=== PATIENT | male | born 1940 | race Caucasian/White ===

== ENCOUNTER → 2017-09-13 13:08 | Outpatient (CLI) | payer MEDICARE, SELFPAY ==
[2017-08-17 14:42] VITALS: BP 110/62; BMI 27.1
--- NOTE | 2017-09-13 15:25 | RAD_ITS ---
STUDY: X-RAY CHEST REASON FOR EXAM: Male, 77 years old. Shortness of breath TECHNIQUE: PA and lateral views of the chest. COMPARISON: 10/31/2016 FINDINGS: All mild hyperexpansion of the lungs. Coarsened prominence of interstitial lung markings at the lung bases, unchanged. No new confluent airspace opacity. No pleural effusion. No pneumothorax. Normal size heart. Median sternotomy wires and coronary artery bypass graft clips in place. Left subclavian AICD device in place. Normal mediastinum and evan. Normal visualized pulmonary arteries. There is atherosclerotic calcification of the aortic arch . There are diffuse degenerative changes of the visualized thoracic spine. Normal visualized ribs, clavicles, and shoulders. There is no demonstrated abnormality of the visualized soft tissue structures of the upper abdomen. RAD/Chest PA and Lateral IMPRESSION: Chronic obstructive and bibasilar interstitial change with no evidence of acute cardiopulmonary disease. Electronically Signed: Phil Grayson MD at 3:55 EST Tel , Service support ,
[2017-09-13 16:00] LABS: Anion Gap 11 (5-15); BUN 23 mg/dL (7-18); BUN/Creat Ratio 29.8 RATIO (10-20); Calcium,Total 10.1 mg/dL (8.5-10.1); Chloride 100 mmol/L (98-107); Creatinine, Serum 0.77 mg/dL (0.70-1.30); EST Glomerular Filtration Rate 104 mL/min (>60); Est Glom Filt Rate - Afr Amer 126 mL/min (>60); Glucose 106 mg/dL (74-106); Sodium Level 135 mmol/L (136-145)
[2017-09-13 16:07] LABS: Prothrombin Time (Protime)PT. 13.4 SECONDS (11.7-14.9)
[2017-09-13 16:08] LABS: Partial Thromboplast Time 32.7 Seconds (24.1-36.2)
[2017-09-13 16:09] LABS: Absolute Lymphocyte Count 1.82 X10^3/ul (0.83-4.51); Absolute Neutrophil Count 5.8 X10^3/uL (2.0-7.7); Basophil# 0.03 X10^3/uL; Basophil% 0.3 % (0-1); Eosinophil# 0.31 X10^3/uL; Eosinophils% 3.2 % (0-5); Hematocrit 41.3 % (40-54); Hemoglobin 13.8 g/dl (13.0-16.5); Lymphocyte # 1.82 X10^3/ul (4.0); Lymphocyte % 18.8 % (19-41); Mean Corp Hgb Conc 33.4 g/gl (32-36); Mean Corpuscular Hgb 29.6 pg (27.0-32.0); Mean Corpuscular Volume 88.6 fL (80-94); Mean Platelet Vol. 10.1 fl (6.2-12.0); Monocyte# 1.51 X10^3/uL; Monocyte% 15.6 % (0-10); Neutrophil # 5.84 X10^3/uL (2.7-7.7); Neutrophil % 60.3 % (47-70); Platelet Count 167 K/mm3 (150-450); RBC Distribution Width CV 13.4 % (11.6-14.6); RBC Distribution Width SD 43.2 fl (35.1-43.9); Red Blood Count 4.66 M/mm3 (4.6-6.2); White Blood Count 9.7 K/mm3 (4.4-11.0)
[2017-09-13 16:18] LABS: Differential Indicated SCAN CRITERIA MET; POSITIVE COUNT NO; POSITIVE DIFFERENTIAL YES; POSITIVE MORPHOLOGY NO
[2017-09-13 17:00] LABS: Differential Comment SCANNED
== END ==
PROVIDERS: Physician Assistant Medical; Family Provider Family Medicine Geriatric Medicine; PCP Family Medicine Geriatric Medicine; Visit Provider Internal Medicine Cardiovascular Disease
DX: I25.10 Atherosclerotic heart disease of native coronary artery without angina pectoris (principal); I25.5 Ischemic cardiomyopathy; R06.00 Dyspnea, unspecified; R94.39 Abnormal result of other cardiovascular function study; I10 Essential (primary) hypertension; Z95.1 Presence of aortocoronary bypass graft; Z95.810 Presence of automatic (implantable) cardiac defibrillator; Z95.5 Presence of coronary angioplasty implant and graft
CPT/HCPCS: 71046; 80048; 85025; 85610; 85730; 93017; 93350; Q9957; A4216; C8928

== ENCOUNTER → 2017-09-15 08:41 | Day surgery (SDC) | payer MEDICARE, SELFPAY ==
[2017-09-13 15:44] VITALS: BMI 27.1
--- NOTE | 2017-09-15 11:10 | CL.D_ITS ---
Patient Name: ELLEN DILLARD Study Date: 09/15/2017 Performing: Phill Torres MD Ht: 66.92 inches 170 cm : 1940 Wt: 171.96 lbs 78 kg Age: 77 Gender: male BSA: 1.89 PROCEDURE(S) PERFORMED NJ21-LTI/COR/LV/CABG CLINICAL PROFILE AND INDICATIONS INDICATIONS: Unstable Angina Stress/Imaging Stress Echocardiogram: Yes Result: Positive Intermediate RiskStress Echocardiogram : Positive Intermediate Risk Angina Classification Anginal Classification w/in 2 Weeks: CCS II CAD Presentations: Other: CERON, back pain Comorbidities/Risk Factors: Hypertension Dyslipidemia Prior AL Prior CHF Prior PCI Prior CABG CONCLUSIONS Global LV systolic dysfunction- Severe Severe multi-vessel CAD. Widely patent SVG to DIAG/LAD. Widely patent Radial to RCA. Widely patent SAENZ to OM Possibly significant proximal LCX in stent restenosis. Moderate proximal LCX calcification. RECOMMENDATIONS Will obtain PCI from [place] from 2008 to determine if end result at that time was similar to today's LCX stent. IF so will treat medically. If not, will consider moderate risk PCI of proximal LCX ISR . Pt will need long 55 cm sheath due to severe aorto iliac tortuosity. Manual sheath removal. DESCRIPTION OF PROCEDURE The patient arrived to the procedure lab. The risks and benefits of the procedure as well as a full d escription of our services here and current unavailability of surgical backup were fully explained to the patient and/or their significant other prior to the catheterization. The Timeout was completed, verifying the correct patient and procedure. The patient's procedural site was prepped and draped in the usual fashion. Local anesthetic was given subcutaneously to right groin region with Lidocaine 2%. Using a modified Seldinger technique, arterial access was obtained via the right femoral artery, a 5 Fr , 45cm sheath was inserted Left Coronary Artery selective angiography was performed in multiple v iews using a 4 Fr. JL5 catheter. Right Coronary Artery selective angiography was then performed in mu ltiple views using a 4 Fr. 3DRC catheter. Left Ventriculography was performed in WOLFE projection using a 4 Fr. Pigtail catheter. LV to AO pullback pressures were then recorded.The arterial sheath was pul led and manual compression applied until hemostasis is achieved. CORONARY ANGIOGRAPHY DOMINANCE: Right Dominant LEFT HEART ASSESSMENT Left Ventricular Ejection Fraction: by LV Gram 15 % Depressed Left Ventricular systolic function Normal Left Ventricular End Diastolic Pressure LEFT MAIN: 20 ostial % Stenosis LEFT ANTERIOR DECENDING ARTERY: is occluded CIRCUMFLEX ARTERY: PROX CIRC: Previously placed stent has an instent 65 % restenosis RIGHT CORONARY ARTERY: is occluded GRAFTS: SAENZ graft to the 1st OM is patent Saphenous Vein graft to the 1st Diagonal is patent Radial graft to the RCA is patent COMPLICATIONS No Complications PROCEDURE MEDICATIONS Oxygen: 2 L/min via nasal cannula SUMMARY OF HEMODYNAMIC DATA Time AIR REST ECG 09:10:58 AO 123/63 (88) SA 10:36:51 LV 150/-16, 7 10:54:45 LV 139/-15, 12 10:54:54 LVp 138/-17, 11 10:54:59 AOp 134/52 (81) 10:55:04 Signed By Phill Torres MD On 09/15/2017 11:10:26 Phill Torres MD
== END ==
PROVIDERS: Family Provider Family Medicine Geriatric Medicine; PCP Family Medicine Geriatric Medicine; Visit Provider Internal Medicine Cardiovascular Disease
DX: I25.10 Atherosclerotic heart disease of native coronary artery without angina pectoris (principal); I10 Essential (primary) hypertension; E78.5 Hyperlipidemia, unspecified; I25.5 Ischemic cardiomyopathy; I50.9 Heart failure, unspecified; R01.1 Cardiac murmur, unspecified; Z87.438 Personal history of other diseases of male genital organs; K21.9 Gastro-esophageal reflux disease without esophagitis; I25.2 Old myocardial infarction; I47.2 Ventricular tachycardia; E11.9 Type 2 diabetes mellitus without complications; Z87.891 Personal history of nicotine dependence; Z95.1 Presence of aortocoronary bypass graft; Z95.810 Presence of automatic (implantable) cardiac defibrillator; Z90.49 Acquired absence of other specified parts of digestive tract; Z79.82 Long term (current) use of aspirin; Z79.84 Long term (current) use of oral hypoglycemic drugs; Z79.02 Long term (current) use of antithrombotics/antiplatelets; Z79.899 Other long term (current) drug therapy
CPT/HCPCS: 93459; J7040; C1769; C1894; Q9967

== ENCOUNTER → 2017-10-17 15:10 | Outpatient (CLI) | payer MEDICARE, SELFPAY ==
[2017-10-17 15:42] LABS: Absolute Lymphocyte Count 1.38 X10^3/ul (0.83-4.51); Basophil# 0.05 X10^3/uL; Basophil% 0.6 % (0-1); Eosinophil# 0.26 X10^3/uL; Eosinophils% 3.3 % (0-5); Hematocrit 42.4 % (40-54); Hemoglobin 13.5 g/dl (13.0-16.5); Lymphocyte # 1.38 X10^3/ul (4.0); Lymphocyte % 17.4 % (19-41); Mean Corp Hgb Conc 31.8 g/gl (32-36); Mean Corpuscular Hgb 28.5 pg (27.0-32.0); Mean Corpuscular Volume 89.5 fL (80-94); Mean Platelet Vol. 9.9 fl (6.2-12.0); Monocyte# 1.17 X10^3/uL; Monocyte% 14.8 % (0-10); Neutrophil % 63.1 % (47-70); Platelet Count 181 K/mm3 (150-450); RBC Distribution Width CV 13.8 % (11.6-14.6); RBC Distribution Width SD 45.4 fl (35.1-43.9); Red Blood Count 4.74 M/mm3 (4.6-6.2); White Blood Count 7.9 K/mm3 (4.4-11.0)
[2017-10-17 15:46] LABS: International Normalized Ratio 1.1; Prothrombin Time (Protime)PT. 14.2 SECONDS (11.7-14.9)
[2017-10-17 15:51] LABS: POSITIVE COUNT NO; POSITIVE DIFFERENTIAL NO; POSITIVE MORPHOLOGY NO
[2017-10-17 16:18] LABS: Anion Gap 3 (5-15); BUN 29 mg/dL (7-18); BUN/Creat Ratio 30.8 RATIO (10-20); Calcium,Total 9.5 mg/dL (8.5-10.1); Chloride 103 mmol/L (98-107); Creatinine, Serum 0.94 mg/dL (0.70-1.30); EST Glomerular Filtration Rate 83 mL/min (>60); Est Glom Filt Rate - Afr Amer 100 mL/min (>60); Glucose 152 mg/dL (74-106); Sodium Level 139 mmol/L (136-145)
== END ==
PROVIDERS: Nurse Practitioner Family; Family Provider Family Medicine Geriatric Medicine; PCP Family Medicine Geriatric Medicine; Visit Provider Family Medicine Geriatric Medicine
DX: I25.10 Atherosclerotic heart disease of native coronary artery without angina pectoris (principal); I25.5 Ischemic cardiomyopathy; Z95.5 Presence of coronary angioplasty implant and graft; Z95.1 Presence of aortocoronary bypass graft; Z95.810 Presence of automatic (implantable) cardiac defibrillator; I10 Essential (primary) hypertension; E78.5 Hyperlipidemia, unspecified; R94.39 Abnormal result of other cardiovascular function study
CPT/HCPCS: 36415; 80048; 85025; 85610

== ENCOUNTER 2017-10-25 08:26 | Day surgery (SDC) | payer MEDICARE, SELFPAY ==
[2017-10-24 09:21] VITALS: BMI 26.6
[2017-10-25] VITALS (31 sets, daily range): BP systolic 102–166; BP diastolic 40–104; PULSE 60–74; RESP 12–25; TEMP 36.6–36.9; O2SAT 92–98; BMI 26.4; BMI 26.6
[2017-10-25 10:51] LABS: ACT Activated Clotting Time 197 sec (74-137)
--- NOTE | 2017-10-25 10:58 | CL.I_ITS ---
Patient Name: ELLEN DILLARD Study Date: 10/25/2017 Performing: Phill Torres MD Ht: 67 inches 170 cm : 1940 Wt: 170 lbs 77 kg Age: 77 Gender: male BSA: 1.88 PROCEDURE(S) PERFORMED JE33-OMK W OR WO PTCA, SINGLE CORONARY ARTERY CLINICAL PROFILE AND CO-MORBIDITIES Indications: New Onset Angina <= 2 months, Stable Known CAD, Cardiac Arrythmia, Cardiomyopathy, L V Dysfunction Heart Failure: NYHA Class: 2, NYHA Class: 3, Heart Failure Type: Systolic Stress/Imaging Stress Echocardiogram: Yes Result: Positive High Risk Stress Echocardiogram: Posit sherrie High Risk Angina Classification Anginal Classification w/in 2 Weeks: CCS II CAD Presentations: Stable angina. Comorbidities/Risk Factors: Hypertension Dyslipidemia Diabetes Mellitus: Diabetes Therapy: Oral Prior CHF Prior PCI Prior CABG CONCLUSIONS Successful PTCA/MIGDALIA of the of proximal LCX ISR utilizing a long 55 cm sheath for ileo-femoral tortuos ity, followed by Angiosculpt pre-dilation with a 2.0 x 10 Angiosculpt, followed by a 2.5 x 16 Promus Synergy, post dilated with a 2.75 and 3.0 NC balloon. Cautious post stent dilation of ostium given c oncentric calcification noted. 85%-->0%, No dissection. Pt had reproducible chest pressure radiating to jaw with each balloon inflation. RECOMMENDATIONS Highly recommend quitting all tobacco products Follow up with primary body piercer Risk factor modification ASA Indefinitley Plavix for at least 12 months Routine post interventional care Refer for Outpatient Cardiac Rehab Manual sheath removal per protocol Follow up with Dr. Torres DESCRIPTION OF PROCEDURE The patient arrived to the procedure lab. The risks and benefits of the procedure as well as a full d escription of our services here and current unavailability of surgical backup were fully explained to the patient and/or their significant other prior to the catheterization. The Timeout was completed, verifying the correct patient and procedure. The patient's procedural site was prepped and draped in the usual fashion. Local anesthetic was given subcutaneously to right groin region with Lidocaine 2%. Using a modified Seldinger technique, arterial access was obtained via the right femoral artery, a 6 Fr sheath was inserted.. Arterial sheath was exchanged for a 6fr 45cm sheath ebu 3.75 Guide catheter was inserted and engaged into the LCA. bmw Guide wire was advanced to the Circumflex. 2.0 x 12 emerge Balloon catheter was ins erted. PTCA balloon inflated at 10 atms for 15 secs PTCA balloon inflated at 10 atms for 15 secs joan osculpt 10x2 Balloon catheter was inserted. Angiogram performed post balloon dilatation. 2.5x 16 syne rgy Drug Eluting stent was inserted 2.75 x 8 nc emerge Balloon catheter was inserted. 3.0x 8 nc emerg e Balloon catheter was inserted. Arterial sheath was exchanged for a 6 Fr Sheath 45 cm exchanged to t he 11 cm. . The arterial sheath was sutured in place and capped. INTERVENTION INFORMATION LESION SITE: Circumflex (Proximal) Lesion Complexity: Non-High/Non-C, lesion at bifurcation: No, thrombus present: No, lesion length: 16 mm, culprit lesion: Yes, In-stent restenosis: Yes Pre Stenosis: 85 % Pre intervention GOPAL flow: 3 PROCEDURE: Drug Eluting Stent with pre and post dilatation Post Stenosis: 0 % Post intervention GOPAL flow: 3 Lesion Devices: Charly Sci EMERGE MR 2.00x12 BALLOON Mindmancer Angiosculpt RX 2.0x10 Scoring Balloon Charly Sci Synergy MR MIGDALIA 2.50x16 Charly Sci NC EMERGE MR 2.75x08 BALLOON Charly Sci NC EMERGE MR 3.00x08 BALLOON COMPLICATIONS No Complications PROCEDURE MEDICATIONS Oxygen: 2 L/min via nasal cannula Heparin 6000 unit(s) IV 10/25/2017 10:04:11 Nitro 200 mcg IC 10/25/2017 10:22:53 IV Bolus: .9 NaCl 450ml total 10/25/2017 10:04:41 SUMMARY OF HEMODYNAMIC DATA Time AIR REST ECG 08:45:44 AO 118/42 (72) SA 10:06:26 Signed By Phill Torres MD On 11/01/2017 09:08:41 Signed By Phill Torres MD On 10/25/2017 10:57:48 Phill Torres MD
--- NOTE | 2017-10-25 11:00 | EKG12_ITS ---
Test Reason : POST CATH Blood Pressure : / mmHG Vent. Rate : 065 BPM Atrial Rate : 065 BPM P-R Int : 266 ms QRS Dur : 140 ms QT Int : 332 ms P-R-T Axes : 057 020 -52 degrees QTc Int : 345 ms Sinus rhythm with 1st degree A-V block Non-specific intra-ventricular conduction block Abnormal ECG Confirmed by JHONNY RIVERA, PERICO ([id number]), acquisition editor EVA ANDREW ([id number]) on 10/27/2017 1:34:58 PM Referred By: Phill Torres Confirmed By:PERICO BARRY MD
[2017-10-25 11:21] LABS: Bedside Glucose 125 mg/dL (70-110)
[2017-10-25] MEDS: 0.9% Normal Saline 1,000 ML 75 ML IV (11:26)
[2017-10-25 11:35] LABS: Hematocrit 36.8 % (40-54); Hemoglobin 12.3 g/dl (13.0-16.5); Mean Corp Hgb Conc 33.4 g/gl (32-36); Mean Corpuscular Hgb 29.4 pg (27.0-32.0); Mean Corpuscular Volume 87.8 fL (80-94); Mean Platelet Vol. 9.8 fl (6.2-12.0); Platelet Count 141 K/mm3 (150-450); RBC Distribution Width CV 13.4 % (11.6-14.6); RBC Distribution Width SD 42.4 fl (35.1-43.9); Red Blood Count 4.19 M/mm3 (4.6-6.2)
[2017-10-25 11:36] LABS: Scan Indicated on CBC? Y/N NO
[2017-10-25 11:50] LABS: CPK Total, Creatine Kinase 59 U/L (39-308)
[2017-10-25 13:20] LABS: ACT Activated Clotting Time 136 sec (74-137)
[2017-10-25 13:25] LABS: M R Staph aureus DNA By PCR Negative (Negative); Probe Check PASS; Specimen Processing Control PASS
--- NOTE | 2017-10-25 15:13 | CRPHASE1 ---
Patient Data/Charges Process Tank Tender:: Phill Torres Phase I Charge:: Level I - Education Risk Factors/Lifestyle Smoking Status: Former smoker Hx Diabetes Mellitus Type 2: No Height: 1.7 m Weight:: 77.111 kg BMI: 26.6 Risk Factor for Sedentary Lifestyle: Lowest Risk Family History: Family History (Last Reviewed 10/17/17 @ 13:45 by Mely Benton) Father CAD (coronary artery disease) Mother CAD (coronary artery disease) Brother CAD (coronary artery disease) Past Cardiac Illness: Coronary Artery Disease, Previous PCI w/Stent, Coronary Artery Bypass Graft Phase I Education Given On:: [place], Nutrition, Antiplatelet medication, CHF Issues Affecting Care:: None Knowledge of Condition:: Yes Hospital Course Presenting Symptoms:: LIGHTHEADEDNESS/DIZZY Grafts:: 1996 Medical/Surgical History CA:: Yes Angina:: Yes CAD:: Yes Pulmonary:: No COPD:: No Asthma:: No Hypertension:: Yes Dyslipidemia:: Yes Arthritis:: No GI:: No Anxiety:: No CABG: Yes PTCA:: Yes Discharge/Home/Social Eval Discharge Disposition: Home Marital Status: -
--- NOTE | 2017-10-25 15:18 | CRPHASE1_ITS ---
Patient Data/Charges Senior Research Scientist:: Phill Torres Phase I Charge:: Level I - Education Risk Factors/Lifestyle Smoking Status: Former smoker Hx Diabetes Mellitus Type 2: No Height: 1.7 m Weight:: 77.111 kg BMI: 26.6 Risk Factor for Sedentary Lifestyle: Lowest Risk Family History: Family History (Last Reviewed 10/17/17 @ 13:45 by Mely Benton) Father CAD (coronary artery disease) Mother CAD (coronary artery disease) Brother CAD (coronary artery disease) Past Cardiac Illness: Coronary Artery Disease, Previous PCI w/Stent, Coronary Artery Bypass Graft Phase I Education Given On:: [place], Nutrition, Antiplatelet medication, CHF Issues Affecting Care:: None Knowledge of Condition:: Yes Hospital Course Presenting Symptoms:: LIGHTHEADEDNESS/DIZZY Grafts:: 1996 Medical/Surgical History CO:: Yes Angina:: Yes CAD:: Yes Pulmonary:: No COPD:: No Asthma:: No Hypertension:: Yes Dyslipidemia:: Yes Arthritis:: No GI:: No Anxiety:: No CABG: Yes PTCA:: Yes Discharge/Home/Social Eval Discharge Disposition: Home Marital Status: -
--- NOTE | 2017-10-25 15:20 | CRPH1.INST_ITS ---
General Education CAD and cardiac anatomy and function:: Patient communicates acknowledgment, Family communicates acknowledgment Explanation of diagnoses and procedures:: Patient communicates acknowledgment, Family communicates acknowledgment Sign/Symptoms of AR:: Patient communicates acknowledgment, Family communicates acknowledgment Antiplatelet therapy: Patient communicates acknowledgment, Family communicates acknowledgment Proper use of NTG-SL: Patient communicates acknowledgment, Family communicates acknowledgment Emergency procedures and activation of EMS: Patient communicates acknowledgment , Family communicates acknowledgment Compliance of all prescribed medications: Patient communicates acknowledgment, Family communicates acknowledgment Smoking Patient Nicotine/Smoking Risk Factors Are:: Non-smoker Dyslipidemia Recommendations Include:: Lipid profile not available Overweight/Obesity Patient Overweight/Obesity Risk Factors Are:: Overweight = 26-29 Hypertension Recommendations Include:: Maintain BP <130/85 Hypertension:: Patient communicates acknowledgment, Family communicates acknowledgment Heart Disease Patient Heart Disease Risk Factors Are:: Family history of heart disease < 65 years old, Previous cardiac event Recommendations Include:: Educated family members of their risk Heart Disease Response Code:: Patient communicates acknowledgment, Family communicates acknowledgment Diabetes Patient Diabetes Risk Factors Are:: No documented hx of diabetes Metabolic Syndrome Recommendations Include:: Does not meet criteria Sedentary Sedentary Response Code:: Patient communicates acknowledgment, Family communicates acknowledgment - PATIENTS STATES VERY ACTIVE Stress Patient Stress Risk Factors Are:: Patient denies stress as a risk factor
[2017-10-25 16:45] LABS: Bedside Glucose 182 mg/dL (70-110)
[2017-10-25 17:06] LABS: Hematocrit 37.7 % (40-54); Hemoglobin 12.5 g/dl (13.0-16.5); Mean Corp Hgb Conc 33.2 g/gl (32-36); Mean Corpuscular Hgb 29.1 pg (27.0-32.0); Mean Corpuscular Volume 87.9 fL (80-94); Platelet Count 143 K/mm3 (150-450); RBC Distribution Width CV 13.5 % (11.6-14.6); RBC Distribution Width SD 42.4 fl (35.1-43.9); Red Blood Count 4.29 M/mm3 (4.6-6.2); Scan Indicated on CBC? Y/N NO; White Blood Count 8.3 K/mm3 (4.4-11.0)
[2017-10-25 17:18] LABS: CPK Total, Creatine Kinase 53 U/L (39-308)
[2017-10-25] MEDS: Lisinopril 20 MG Tablet PO (21:56)
[2017-10-25] MEDS: Atorvastatin Calcium 80 MG Tablet PO (21:56)
[2017-10-25] MEDS: Metoprolol Tartrate 50 MG Tablet PO (21:56)
[2017-10-25] MEDS: hydroCHLOROthiazide 25 MG Tablet PO (21:56)
[2017-10-25 22:00] LABS: Bedside Glucose 125 mg/dL (70-110)
[2017-10-25 22:32] LABS: Hematocrit 38.7 % (40-54); Hemoglobin 12.6 g/dl (13.0-16.5); Mean Corp Hgb Conc 32.6 g/gl (32-36); Mean Corpuscular Hgb 28.6 pg (27.0-32.0); Mean Platelet Vol. 9.5 fl (6.2-12.0); Platelet Count 133 K/mm3 (150-450); RBC Distribution Width CV 13.5 % (11.6-14.6); RBC Distribution Width SD 43.1 fl (35.1-43.9); White Blood Count 9.7 K/mm3 (4.4-11.0)
[2017-10-25 22:33] LABS: Scan Indicated on CBC? Y/N NO
[2017-10-25 22:49] LABS: CPK Total, Creatine Kinase 54 U/L (39-308)
[2017-10-26] VITALS (14 sets, daily range): BP systolic 110–164; BP diastolic 36–91; PULSE 60–86; RESP 13–22; TEMP 36.4–37.1; O2SAT 95–97
[2017-10-26 05:04] LABS: Hematocrit 39.1 % (40-54); Hemoglobin 13.2 g/dl (13.0-16.5); Mean Corp Hgb Conc 33.8 g/gl (32-36); Mean Corpuscular Hgb 29.6 pg (27.0-32.0); Mean Corpuscular Volume 87.7 fL (80-94); Mean Platelet Vol. 9.6 fl (6.2-12.0); Platelet Count 138 K/mm3 (150-450); RBC Distribution Width CV 13.4 % (11.6-14.6); RBC Distribution Width SD 42.4 fl (35.1-43.9); Red Blood Count 4.46 M/mm3 (4.6-6.2); White Blood Count 10.3 K/mm3 (4.4-11.0)
[2017-10-26 05:07] LABS: Scan Indicated on CBC? Y/N NO
[2017-10-26 05:29] LABS: Anion Gap 9 (5-15); BUN 17 mg/dL (7-18); BUN/Creat Ratio 22.5 RATIO (10-20); Calcium,Total 9.3 mg/dL (8.5-10.1); Chloride 104 mmol/L (98-107); Cholesterol 94 mg/dL (200); Creatinine, Serum 0.76 mg/dL (0.70-1.30); EST Glomerular Filtration Rate 106 mL/min (>60); Est Glom Filt Rate - Afr Amer 129 mL/min (>60); Estimated Creatinine Clearance 57.42 ml/min; Glucose 113 mg/dL (74-106); High Density Lipoprotein 26 mg/dL; Potassium 3.9 mmol/L (3.5-5.1); Sodium Level 140 mmol/L (136-145); Triglycerides 223 mg/dL; Very Low Density Lipoprotein 45 mg/dL (5-40)
--- NOTE | 2017-10-26 05:55 | EKG12_ITS ---
Test Reason : AM Blood Pressure : / mmHG Vent. Rate : 061 BPM Atrial Rate : 061 BPM P-R Int : 248 ms QRS Dur : 138 ms QT Int : 346 ms P-R-T Axes : 063 032 -36 degrees QTc Int : 348 ms Atrial-paced rhythm with prolonged AV conduction Non-specific intra-ventricular conduction block Abnormal ECG Confirmed by JHONNY RIVERA, PERICO ([id number]), editorial director EVA ANDREW ([id number]) on 10/27/2017 1:33:38 PM Referred By: Phill Torres Confirmed By:PERICO BARRY MD
[2017-10-26 07:55] LABS: Bedside Glucose 115 mg/dL (70-110)
--- NOTE | 2017-10-26 08:37 | DCINST_ITS ---
Discharge Diet: Low fat/ Low Cholesterol May shower in (days): 1 Lifting Restrictions: 10 pounds and also avoid any pushing or pulling for 3 days after your test. Call your doctor if your incision/area has: Continuous Slow Oozing, Sudden Increased Bleeding, Increased Pain/ Swelling, Increased Redness, Foul Smelling Discharge, Swelling at the incision site Call your doctor if you observe: Fever of 101 or Higher, Shortness of breath, Chest pain Remove Dressing in (days):: 1 Cleanse incision/area with: Soap & Water Additional Dressing/Incision Instructions:: Keep the dressing (bandage) on until the next morning. You may then shower, but do not take a tub bath for 5 days after your test. It is normal to have some tenderness and discomfort at the puncture site. Sometimes bruising also occurs. However, if pain, numbness, or coldness occurs below the puncture site (in your leg, toes, arms or fingers) call your doctor at once. You may have a small, marble sized knot at the puncture site. This is normal. Do not rub it. It will go away in 4-6 weeks. Bleeding can occur from the area where the puncture was done. Blood may spurt or drip from the site. If blood spurts, apply pressure right away to stop bleeding and call 911. Although rare, bleeding into the tissue (hematoma) can also occur. If this happens, a large, firm area goose egg under the skin will appear. If any of these occur, lie down as flat as you can and have someone apply firm pressure to the cath site with a gauze pad or a clean washcloth for 10-15 minutes. Call 911 or go to the Emergency Department. Additional Instructions: You will need to stay on your Plavix for at lease 1 year prior to stopping it. After your OV we will refer you to cardiac rehab. Allergies/Adverse Reactions: Allergies codeine Allergy (Verified 10/24/17 09:22) Other Medications to take at Discharge Clopidogrel Bisulfate [Plavix] 75 mg PO DAILY 11/04/14 Digoxin [Lanoxin] 0.25 mg PO DAILY 11/04/14 Lisinopril/Hydrochlorothiazide [Zestoretic 20/25 Tablet] 1 tab PO BID 11/04/14 Nitroglycerin [Nitrostat] 0.4 mg SUBLINGUAL Q5M PRN 11/04/14 Aspirin 81 mg PO DAILY 11/10/16 Atorvastatin Calcium [Lipitor] 80 mg PO DAILY 11/10/16 metoprolol tartrate 50 mg tablet 50 mg PO BID 08/16/17 famotidine 40 mg tablet 40 mg PO QDAY tab 08/17/17 metformin 500 mg tablet 500 mg PO QDAY tab 08/17/17 Primary Care Physician: Lazarus Garcia Chi, MD [Primary Care Provider] - Please follow up with your Primary Care Physician in: 4 weeks Please Follow Up With: Reece Contreras NP-C When: 11/28/2017 at 2:30pm Cardiac Rehabilitation Info Cardiac Rehabilitation Program Information: Cardiac Rehabilitation is important for patients like you who are recovering from a heart problem. Cardiac rehabilitation programs are recognized as integral to the continued care of the patient with coronary heart disease. The cardiac rehabilitation program is designed to optimize a patient's physical, psychological, and social functioning. Health acute care clinical nurse specialist work in cardiac rehabilitation programs and assist you with getting the treatments you need to get stronger and healthier - like exercise, healthy eating habits, and medications. Cardiac rehabilitation has been show to help people with heart problems live longer and have better life enjoyment than people who do not go to cardiac rehabilitation. Please contact the Cardiac Rehabilitation Program at [facility] at in two weeks if you have not heard from them.
--- NOTE | 2017-10-26 08:50 | PCM.PN.CARD ---
Subjectve: Patient doing very well this morning, no 24 hour events. Telemetry shows normal sinus rhythm with occasional paced ventricular beats. CKs are negative. Right groin is clean/dry/intact, without evidence of thrills, bruits or hematoma. Hemoglobin and creatinine are within nominal limits. No chest pain overnight. Fact, patient feels much better than when he came in. Objective: Vital Signs Temp Pulse Resp BP Pulse Ox 97.6 F L 61 13 123/46 H 97 10/26/17 08:00 10/26/17 08:00 10/26/17 08:00 10/26/17 08:00 10/26/17 08:00 Oxygen Flow Rate (L/min) 2 Oxygen Delivery Method Room Air Weight: 142 lb 6.698 oz Body Mass Index (BMI) 26.4 Intake and Output for Last 24 Hours 10/24/17 10/25/17 10/26/17 23:59 23:59 23:59 Intake Total 832 / 832 1491.7 / 1491.7 Output Total 850 / 850 2150 / 2150 Balance - / -18 -658.3 / -658.3 General: Awake, Alert, Oriented x 3 HEENT: PERRL, EOMI, Sclera Non Icteric Neck: Supple, Good ROM, No Lymph Node Enlargement Lungs: Clear to auscultation Cardiovascular: Regular Rhythm, Normal S1, Normal S2, No Murmurs, No Rubs, No Gallops Vascular: No Carotid Bruits, Normal Femoral Pulses, Normal Radial Pulses, Normal Dorsalis Pedal Pulse, Normal Posterior Tibial Pulses Abdomen: Bowel Sounds Present, Soft, Non Tender, No HSM, No Organomegaly Extremities: No Cyanosis, No Clubbing, No edema Neurological: No Focal Motor or Sensory Deficit 10/25/17 11:20: WBC 8.0, RBC 4.19 L, Hgb 12.3 L, Hct 36.8 L, MCV 87.8, MCH 29.4, MCHC 33.4, RDW 13.4, RDW Differential 42.4, Plt Count 141 L, MPV 9.8 10/25/17 16:35: WBC 8.3, RBC 4.29 L, Hgb 12.5 L, Hct 37.7 L, MCV 87.9, MCH 29.1, MCHC 33.2, RDW 13.5, RDW Differential 42.4, Plt Count 143 L, MPV 10.0 10/25/17 22:20: WBC 9.7, RBC 4.40 L, Hgb 12.6 L, Hct 38.7 L, MCV 88.0, MCH 28.6, MCHC 32.6, RDW 13.5, RDW Differential 43.1, Plt Count 133 L, MPV 9.5 10/26/17 04:55: WBC 10.3, RBC 4.46 L, Hgb 13.2, Hct 39.1 L, MCV 87.7, MCH 29.6, MCHC 33.8, RDW 13.4, RDW Differential 42.4, Plt Count 138 L, MPV 9.6 10/26/17 04:55: Sodium 140, Potassium 3.9, Chloride 104, Carbon Dioxide 27.0, Anion Gap 9, BUN 17, Creatinine 0.76, Est GFR (MDRD) Af Amer 129, Est GFR (MDRD) Non-Af 106, BUN/Creatinine Ratio 22.5 H, Glucose 113 H, Calcium 9.3, Triglycerides 223 H, Cholesterol 94, LDL Cholesterol 23, VLDL Cholesterol 45 H, HDL Cholesterol 26 L Rhythm: EKG: Normal sinus rhythm, no acute changes. ECHO: Stress Test: Cardiac Cath: PCI: CT Surgery: Holter monitor: EPS: PPM: CXR: Chest CT Scan: Medical Necessity - Tobacco Use Smoking Status: Former smoker Assessment/Plan 1. Coronary artery disease: The patient status post drug-eluting stent to the proximal/ostial left circumflex for significant in-stent restenosis. Patient was symptomatic during balloon and stent inflation, indicating that this is a viable area of tissue. Recommend that he continue aspirin Plavix for life. No additional testing needed at this time. I recommend the patient be discharged and follow-up in our office per protocol. We will make arrangements for the patient undergo cardiac rehab now that his defibrillator is in place. Patient will continue his aspirin, Plavix, digoxin, beta-lorena, RASHEED inhibitor, and diuretic therapy. Defibrillator interrogation per protocol. 2. Hyperlipidemia:His LDL is 23 and HDL is 26. Continue statin based medication. 3. Patient may be discharged home, and follow-up with me going forward. Code Visit Inpatient E&M: 52248 Subs Hosp L2
--- NOTE | 2017-10-26 08:53 | PN.CARD_ITS ---
Subjectve: Patient doing very well this morning, no 24 hour events. Telemetry shows normal sinus rhythm with occasional paced ventricular beats. CKs are negative. Right groin is clean/dry/intact, without evidence of thrills, bruits or hematoma. Hemoglobin and creatinine are within nominal limits. No chest pain overnight. Fact, patient feels much better than when he came in. Objective: Vital Signs Temp Pulse Resp BP Pulse Ox 97.6 F L 61 13 123/46 H 97 10/26/17 08:00 10/26/17 08:00 10/26/17 08:00 10/26/17 08:00 10/26/17 08:00 Oxygen Flow Rate (L/min) 2 Oxygen Delivery Method Room Air Weight: 142 lb 6.698 oz Body Mass Index (BMI) 26.4 Intake and Output for Last 24 Hours 10/24/17 10/25/17 10/26/17 23:59 23:59 23:59 Intake Total 832 / 832 1491.7 / 1491.7 Output Total 850 / 850 2150 / 2150 Balance - / -18 -658.3 / -658.3 General: Awake, Alert, Oriented x 3 HEENT: PERRL, EOMI, Sclera Non Icteric Neck: Supple, Good ROM, No Lymph Node Enlargement Lungs: Clear to auscultation Cardiovascular: Regular Rhythm, Normal S1, Normal S2, No Murmurs, No Rubs, No Gallops Vascular: No Carotid Bruits, Normal Femoral Pulses, Normal Radial Pulses, Normal Dorsalis Pedal Pulse, Normal Posterior Tibial Pulses Abdomen: Bowel Sounds Present, Soft, Non Tender, No HSM, No Organomegaly Extremities: No Cyanosis, No Clubbing, No edema Neurological: No Focal Motor or Sensory Deficit 10/25/17 11:20: WBC 8.0, RBC 4.19 L, Hgb 12.3 L, Hct 36.8 L, MCV 87.8, MCH 29.4 , MCHC 33.4, RDW 13.4, RDW Differential 42.4, Plt Count 141 L, MPV 9.8 10/25/17 16:35: WBC 8.3, RBC 4.29 L, Hgb 12.5 L, Hct 37.7 L, MCV 87.9, MCH 29.1 , MCHC 33.2, RDW 13.5, RDW Differential 42.4, Plt Count 143 L, MPV 10.0 10/25/17 22:20: WBC 9.7, RBC 4.40 L, Hgb 12.6 L, Hct 38.7 L, MCV 88.0, MCH 28.6 , MCHC 32.6, RDW 13.5, RDW Differential 43.1, Plt Count 133 L, MPV 9.5 10/26/17 04:55: WBC 10.3, RBC 4.46 L, Hgb 13.2, Hct 39.1 L, MCV 87.7, MCH 29.6, MCHC 33.8, RDW 13.4, RDW Differential 42.4, Plt Count 138 L, MPV 9.6 10/26/17 04:55: Sodium 140, Potassium 3.9, Chloride 104, Carbon Dioxide 27.0, Anion Gap 9, BUN 17, Creatinine 0.76, Est GFR (MDRD) Af Amer 129, Est GFR (MDRD ) Non-Af 106, BUN/Creatinine Ratio 22.5 H, Glucose 113 H, Calcium 9.3, Triglycerides 223 H, Cholesterol 94, LDL Cholesterol 23, VLDL Cholesterol 45 H, HDL Cholesterol 26 L Rhythm: EKG: Normal sinus rhythm, no acute changes. ECHO: Stress Test: Cardiac Cath: PCI: CT Surgery: Holter monitor: EPS: PPM: CXR: Chest CT Scan: Medical Necessity - Tobacco Use Smoking Status: Former smoker Assessment/Plan 1. Coronary artery disease: The patient status post drug-eluting stent to the proximal/ostial left circumflex for significant in-stent restenosis. Patient was symptomatic during balloon and stent inflation, indicating that this is a viable area of tissue. Recommend that he continue aspirin Plavix for life. No additional testing needed at this time. I recommend the patient be discharged and follow-up in our office per protocol. We will make arrangements for the patient undergo cardiac rehab now that his defibrillator is in place. Patient will continue his aspirin, Plavix, digoxin, beta-lorena, RASHEED inhibitor , and diuretic therapy. Defibrillator interrogation per protocol. 2. Hyperlipidemia:His LDL is 23 and HDL is 26. Continue statin based medication. 3. Patient may be discharged home, and follow-up with me going forward. Code Visit Inpatient E&M: 77778 Subs Hosp L2
[2017-10-26] MEDS: Metoprolol Tartrate 50 MG Tablet PO (09:01)
[2017-10-26] MEDS: Lisinopril 20 MG Tablet PO (09:02)
[2017-10-26] MEDS: hydroCHLOROthiazide 25 MG Tablet PO (09:02)
[2017-10-26] MEDS: Clopidogrel Bisulfate 75 MG Tablet PO (09:02)
[2017-10-26] MEDS: Famotidine 20 MG Tablet 40 MG PO (09:02)
[2017-10-26] MEDS: Aspirin 81 MG TAB.CHEW PO (09:02)
[2017-10-26] MEDS: Digoxin 250 MCG Tablet PO (09:03)
--- NOTE | 2017-10-26 10:34 | CASEMGMT ---
RN ERIC introduced role of CM to patient in room. DC is planned for today. Pt states no dc needs. Is independent, does not use ambulatory devices. Pt states his will be picking him up and getting his prescriptions @ [facility] in [place]. -F/U appointments will be made by . Megan FARAH RN ACM
== END 2017-10-26 08:50 | disposition home or self-care (01) ==
LOC: CLSP 08:26 → ICU 10-26 14:16
PROVIDERS: Family Provider Family Medicine Geriatric Medicine; PCP Family Medicine Geriatric Medicine; Visit Provider Internal Medicine Cardiovascular Disease
DX: I25.810 Atherosclerosis of coronary artery bypass graft(s) without angina pectoris (principal); I25.5 Ischemic cardiomyopathy; E78.00 Pure hypercholesterolemia, unspecified; I10 Essential (primary) hypertension; I34.0 Nonrheumatic mitral (valve) insufficiency; Z95.810 Presence of automatic (implantable) cardiac defibrillator; I25.2 Old myocardial infarction; K21.9 Gastro-esophageal reflux disease without esophagitis; Z85.46 Personal history of malignant neoplasm of prostate; E11.9 Type 2 diabetes mellitus without complications; I47.2 Ventricular tachycardia; Z90.49 Acquired absence of other specified parts of digestive tract; Z87.891 Personal history of nicotine dependence; Z79.02 Long term (current) use of antithrombotics/antiplatelets; Z79.82 Long term (current) use of aspirin; Z79.84 Long term (current) use of oral hypoglycemic drugs; Z79.899 Other long term (current) drug therapy
CPT/HCPCS: 80048; 80061; 82550; 82962; 85027; 85347; 87641; 92928; 93005; 97802; J7030; C1725; C1769; C1874; C1887; C1894; C9600; Q9967

== ENCOUNTER → 2017-11-20 16:07 | Outpatient (CLI) | payer MEDICARE, SELFPAY ==
[2017-10-25 15:17] VITALS: BMI 26.6
[2017-11-20 17:41] LABS: Absolute Lymphocyte Count 1.62 X10^3/ul (0.83-4.51); Basophil# 0.05 X10^3/uL; Basophil% 0.5 % (0-1); Eosinophil# 0.28 X10^3/uL; Eosinophils% 2.8 % (0-5); Hematocrit 38.8 % (40-54); Hemoglobin 12.6 g/dl (13.0-16.5); Lymphocyte # 1.62 X10^3/ul (4.0); Mean Corp Hgb Conc 32.5 g/gl (32-36); Mean Corpuscular Hgb 28.9 pg (27.0-32.0); Mean Platelet Vol. 10.3 fl (6.2-12.0); Monocyte# 1.03 X10^3/uL; Monocyte% 10.2 % (0-10); Neutrophil # 6.97 X10^3/uL (2.7-7.7); Platelet Count 178 K/mm3 (150-450); RBC Distribution Width CV 13.8 % (11.6-14.6); RBC Distribution Width SD 44.4 fl (35.1-43.9); Red Blood Count 4.36 M/mm3 (4.6-6.2); White Blood Count 10.1 K/mm3 (4.4-11.0)
[2017-11-20 17:45] LABS: POSITIVE COUNT NO; POSITIVE DIFFERENTIAL NO; POSITIVE MORPHOLOGY NO
[2017-11-20 17:56] LABS: Vitamin D,25 Hydroxy 23.4 ng/mL (29.95-100.01)
[2017-11-20 18:05] LABS: AST(SGOT) 18 U/L (15-37); Alanine Aminotransfer ALT/SGPT 32 U/L (16-61); Albumin, Serum 3.8 g/dL (3.2-5.0); Alkaline Phosphatase 61 U/L (45-117); Anion Gap 8 (5-15); BUN 26 mg/dL (7-18); BUN/Creat Ratio 28.2 RATIO (10-20); Calcium,Total 9.2 mg/dL (8.5-10.1); Chloride 103 mmol/L (98-107); Cholesterol 101 mg/dL (200); Creatinine, Serum 0.92 mg/dL (0.70-1.30); EST Glomerular Filtration Rate 85 mL/min (>60); Est Glom Filt Rate - Afr Amer 103 mL/min (>60); Globulin 3.8 g/dL (2.2-4.2); Glucose 152 mg/dL (74-106); High Density Lipoprotein 27 mg/dL; Potassium 4.4 mmol/L (3.5-5.1); Protein, Total 7.6 g/dL (6.4-8.2); Sodium Level 136 mmol/L (136-145); Thyroid Stim Hormone (TSH) 1.08 uIU/mL (0.358-3.74); Triglycerides 211 mg/dL; Very Low Density Lipoprotein 42 mg/dL (5-40)
== END ==
PROVIDERS: Family Provider Family Medicine Geriatric Medicine; PCP Family Medicine Geriatric Medicine; Visit Provider Family Medicine Geriatric Medicine
DX: E11.9 Type 2 diabetes mellitus without complications (principal); E55.9 Vitamin D deficiency, unspecified; I10 Essential (primary) hypertension
CPT/HCPCS: 36415; 80053; 80061; 82306; 84443; 85025

== ENCOUNTER → 2017-11-22 12:57 | Outpatient (CLI) | payer MEDICARE, SELFPAY ==
[2017-10-25 15:17] VITALS: BMI 26.6
--- NOTE | 2017-11-22 13:05 | PCM.CR.HP2 ---
CR - History & Physical - General Arrival date:: 11/22/17 Arrival time:: 13:05 Date of Referral:: 10/26/17 Date of CR Evaluation:: 11/22/17 Referring Physician: Dr. Phill Torres Primary Diagnosis: Z95.5 10/25/2017 coronary stenting - History of Present Cardiac Event Onset Date: Enter Onset Date of cardiac illnesses in Comment field below PTCA or coronary stenting:: Yes Interventions with present event:: coronary stenting - Medications Home Medications: Ambulatory Orders Medication Instructions Recorded Clopidogrel Bisulfate [Plavix] 75 mg PO DAILY 11/04/14 Digoxin [Lanoxin] 0.25 mg PO DAILY 11/04/14 Lisinopril/Hydrochlorothiazide 1 tab PO BID 11/04/14 [Zestoretic Tablet] Nitroglycerin [Nitrostat] 0.4 mg SUBLINGUAL Q5M PRN 11/04/14 Aspirin 81 mg PO DAILY 11/10/16 Atorvastatin Calcium [Lipitor] 80 mg PO DAILY 11/10/16 metoprolol tartrate 50 mg tablet 50 mg PO BID 08/16/17 famotidine 40 mg tablet 40 mg PO QDAY tab 08/17/17 metformin 500 mg tablet 500 mg PO QDAY tab 08/17/17 - Allergies Allergies/Adverse Reactions: Allergies codeine Allergy (Verified 10/24/17 09:22) Other - Sleep Disorder Evaluation Hx of Sleep Apnea: No Do you snore loudly (louder than talking or can be heard through closed doors)?: No Do you often feel tired/ fatigued/ sleepy during daytime?: No Has anyone observed you stop breathing during sleep?: No History of Hypertension (for STOP score): Yes STOP Results: Negative Advanced Directives - Advanced Directives Power of Loop Tacker: Yes Living Will: Yes Advance Directives Information Provided: Yes Advance Directives on File: No DNR Order?:: No Past Medical History - Past Medical Illness Medical History: Past Medical History (Last Updated 10/25/17 @ 18:51 by Nancy Flores) Sinus node dysfunction (Chronic) I49.5 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 Torres @ [facility] BPH (benign prostatic hyperplasia) N40.0 GERD (gastroesophageal reflux disease) K21.9 Non-rheumatic mitral regurgitation I34.0 Ischemic mitral regurgitation Old myocardial infarction I25.2 Paroxysmal ventricular tachycardia I47.2 Prostate cancer C61 Type 2 diabetes mellitus without complications E11.9 - Past Surgical History Surgical History: Past Surgical History (Last Updated 10/25/17 @ 18:51 by Nancy Flores) Presence of automatic implantable cardioverter-defibrillator (Chronic) Onset Date: ~11/10/16 Z95.810 Generator replacement 11/23 [facility] [employer] Implanted 03/11/2009 [facility] H/O coronary artery bypass surgery (Chronic) Onset Date: ~11/15/04 Z95.1 SVG-LAD, SVG- High Lateral Cx, Sequential SVG-PDA,Acute Marginal 12/22/1995 [facility]ENZ-High Lateral Cx, Radial Artery-PDA, Sequential SVG- LAD and D1 11/15/2008 [facility] History of coronary artery stent placement (Chronic) Onset Date: ~10/28/08 Z95.5 EUA-FWF-Lrui Left Cx @ [facility]; 10/25/17-PTCA and MIGDALIA of proximal LCX/SR per Dr. Torres H/O resection of small bowel Z98.890, Z90.49 Hx of cholecystectomy Z98.890, Z90.49 - Family History Summary Family History: Family History (Last Reviewed 10/17/17 @ 13:45 by Mely Benton) Father CAD (coronary artery disease) Mother CAD (coronary artery disease) Brother CAD (coronary artery disease) Social History - Smoking History Smoking Status: Former smoker Years Smokin Packs Smoked per Day: 1 Hx Smoking Cessation Date: 1995 Hx Tobacco Use: Yes Hx Smoking Exposure: Yes - Alcohol Use Alcohol Usage: No - Substance Abuse Hx Substance Use: No - Occupation Occupation (List type of work in comments):: Retired - Hobbies, Recreation, Social Activities Hobbies: Other - gardening Recreational Activities: I am able to engage in all my recreational activities Social Environment - Status Marital Status: - Current Living Arrangements Living Environment:: Spouse - Safety Do you feel safe in your surroundings?: Yes - Assistance Do you need any assistance at home?: none Review of Systems - Review of Systems Hints: Right click = Denies ([place]). Left click = Reports ([place]) Review of Present Symptoms: Reports: Shortness of Breath with Exertion, Dizziness/Lightheadedness, Fatigue, Heart Arrhythmia/Irregularities, Appetite - Normal, Sleep - Normal. Denies: Shortness of Breath at Rest, PVD, Operative Discomfort, Angina, Wound Healing, Appetite - Special Diet, Sexual Changes - Pain Is Patient Pain Free?: No Pain Location: neck Pain Level: /10 Risk Factor Assessment - Chief Complaint Chief Complaint: coronary stent - Vital Signs Pulse Ox: 97 - Pulse Pulse Rate: 60 Pulse Rhythm: Regular - Hypertension Blood Pressure Sitting - Left Arm: 94/46 - Stress Stress: Recent - Diabetes Diabetic History: Type II Nutrition Referral for Diabetes: No - Obesity Height: 1.7 m Weight:: 77.111 kg Weight in Pounds: 170.0 lbs Weight Source: Standing Scale Body Mass Index (BMI): 26.6 Nutritional Referral for Obesity: No - Physical Inactivity Physical Inactivity: Recreational activity - walking - Risk Stratification Risk Guidelines: Moderate Risk: Risk Factor for Smoking, Risk Factor for Dyslipidemia, Risk Factor for Diabetes, Risk Factor for Obesity, Risk Factor for Hypertension, Risk Factor for Sedentary Lifestyle, Risk Factor for Depression - For Smoking Smoking Risk Guidelines: Smoking Low Risk: None or quit greater than 6 months ago. Smoking Moderate Risk: Smoker or quit 6 months or less ago. Smoking High Risk: Smoker - For Dyslipidemia Dyslipidemia Risk Guidelines: Low Risk: Moderate Risk: High Risk: 15-25% fat 25.1-29% fat >/= 30% fat. <7% sat fat 7-9% sat fat >9% sat fat. <150 mg chol 150-299 mg chol >/= 300 mg chol. LDL <100 LDL 100-129 LDL >/= 130. Chol/HDL ratio <5.0 Chol/HDL ratio 5.0-6.0 Chol/HDL ratio >6.0. Triglycerides <100 Triglycerides 100-149 Triglycerides >/= 150 - For Diabetes Mellitus Diabetes Risk Guidelines: Diabetes Low Risk: HgA1c <6.5% and/or FBG <120. Diabetes Moderate Risk: HgA1c 6.6-7.9% and/or FBG 120-180. Diabetes High Risk: HgA1c >/= 8% and/or FBG >180 - For Obesity/Overweight Obesity/Overweight Risk Guidelines: Obesity Low Risk: BMI <25.0. Obesity Moderate Risk: BMI 25-29.9. Obesity High Risk: BMI >/= 30.0 - For Hypertension Hypertension Risk Guidelines: Hypertension Low Risk: Systolic <120 and Diastolic <80. Hypertension Moderate Risk: Systolic 120-139 and Diastolic 80-89. Hypertension High Risk: Systolic >/= 140 and Diastolic >/= 90 - For Sedentary Lifestyle Sedentary Lifestyle Risk Guidelines: Sedentary Lifestyle Low Risk: >/= 1,500 kcal/week. Sedentary Lifestyle Moderate Risk: 700-1,499 kcal/week. Sedentary Lifestyle High Risk: < 700 kcal/week - For Depression Depression Risk Guidelines: Depression Low Risk: Not clinically depressed. Depression Moderate Risk: Mildly depressed. Depression High Risk: Clinically depressed - Family History Family History: Family History (Last Reviewed 10/17/17 @ 13:45 by Mely Benton) Father CAD (coronary artery disease) Mother CAD (coronary artery disease) Brother CAD (coronary artery disease) Motivation - Motivation to Participate On a scale of 1 to 10, how prepared are you to commit to attending program?: 8 What do you see as barriers to successfully being able to complete the program?: none What do you see as the benefits of succesfully completing the program? In other words, what do you hope to get out of participating in the program?: stronger heart Do you have a spouse or signficant other, family or friends who will help support you to complete the program?: yes
--- NOTE | 2017-11-22 13:15 | CR.ITP_ITS ---
General Information - General Information Admitting Diagnosis: Z95.5 coronary stenting - Education/Goals Barriers to Learning: None Cardiac Rehabilitation Goals: 1. Maintain the individual as the primary focus of care. 2. To improve the patient's quality of life. 3. Identification of cardiac risk factors and provide cardiac risk factor management. 4. Enhance the psychosocial status of the patient. 5. Reconditioning enough to allow the patient to resume customary activities. 6. Control symptoms of cardiac disease Scale for measuring improvement of personal goals: Enter appropriate number in Comments. 2 = Unchanged. 3 = Slightly Better. 4 = Moderate Improvement. 5 = Met my Goal Personal Goals: Initial Assessment: Improve management of stress and emotions, Improve muscle strength and endurance Exercise - Initial Assessment - Visit Date of Eval: 11/22/17 - Initial Eval - Stages of Change Stages of Change:: Contemplate - Stress Test Blood Pressure: 94/46 - Exercise Prescription Mode:: Treadmill, Biodyne, Rower, NuStep, Arm Ergometer Angina with exercise?: No - Hypertension Do any of the following apply?: Yes Resting Blood Pressure:: 94/46 - Intervention Home Exercise/Activity Goal:: Sitting Time <3 hrs/day - Education Goals:: Warm-up, RPE YOUSIF Scale, S/S, Safe Exercise, Self-Monitoring - Exercise Program Goals Exercise Program Goals: Aerobic Activity >30 min, B/P <130/80 Nutrition - Initial Assessment - Program Goals Nutrition Program Goals: LDL <70. Total Cholesterol <200. HDL >45. Triglycerides <150. HgbA1C <7%. BMI <25 - Visit Date of Assessment:: 11/22/17 - Initial Eval - Stages of Change Stages of Change:: Contemplate - Diabetes Diabetes:: No - Weight Management Height: 1.7 m Weight:: 77.111 kg Total Score:: 1 - Intervention Referral to dietitian:: No Referral to Diabetic Clinic:: No Will attend diet classes:: Yes - Education Gave educational materials for:: Signs & symptoms of hypoglycemia, Signs & symptoms of hyperglycemia, Relate diabetes to coronary artery disease, Healthy eating Tobacco - Initial Assessment - Program Goals Tobacco Program Goals: Complete smoking cessation. Attend education classes. Improve Knowledge Test score - Stage of Change Stages of Change:: Contemplate - Learning Barriers Learning Barriers: Ready to Learn Total Score:: 11 - Family Support Do you have family support?: Yes - Tobacco Use Tobacco Use: Non-smoker Do you use smokeless tobacco?: No - Intervention Smoking Cessation Referral:: No Individual Education/Counseling:: No Education Schedule Given:: Yes - Education Gave educational material for:: Tobacco triggers, Coronary artery disease, Risk factors, Sexuality, Medical compliance, Cardiac A&P, Angina signs & symptoms Psychosocial - Initial Assess - Target Goals Target Goals: Assess presence or absence of depression. Using a valid screening tool, maximizes coping skills. Positive support system - Stages of Change Stages of Change:: Contemplate - Psychosocial Test Tool Used:: HANDS Depression Questionnaire Total Mood Screening Score:: 11 Self-Efficacy Score:: 5 - Intervention PS - Interventions: Yes Attend Stress Management Classes, Yes Uses Stress Management Skills, No Referral to Mental Health, No Referral to [facility] Case Management, No Referral to Physician - Education Gave educational materials for:: Coping techniques, Signs & symptoms of depression, Stress management, Relaxation techniques - Assistive Devices Assistive Devices:: None Fall Risk Assessed:: Yes Patient Health Questionnaire Initial Assessment 1. Little interest or pleasure in doing things: More than half the days 2. Feeling down, depressed, or hopeless: More than half the days 3. Trouble falling or staying asleep, or sleeping too much: Nearly every day 4. Feeling tired or having little energy: More than half the days 5. Poor appetite or overeating: Not at all 6. Feeling bad about yourself -- or that you are a failure or have let yourself or your family down: Not at all 7. Trouble concentrating on things, such as reading the newspaper or watching television: Not at all 8. Moving or speaking so slowly that other people could have noticed. Or the opposite - being so fidgety or restless that you have been moving around a lot more than usual: More than half the days 9. Thoughts that you would be better off , or of hurting yourself in some way: Not at all How difficult have these problems made it for you to do your work, take care of things at home, or get along with other people?: Not difficult at all Total Score: 11 RAY-Q SV Test - Statements CAD is a disease of the arteries in the heart: False Examples of risk factors for heart disease: True Angina is chest pain or discomfort: I Don't Know The benefits of resistance training include: I Don't Know Eating more meat and dairy products: False Anti-platelet medications such as aspirin are important: True The only effective way to manage stress: True An exercise warm-up slowly increases heart rate: I Don't Know Prepared, processed foods usually have high sodium: True Depression is common after a heart attack: I Don't Know The statin medications lower cholesterol: True To control blood pressure, lower the amount of sodium: True If someone gets chest discomfort during walking: I Don't Know Transfats are partially hydrogenated vegetable oils: True Sleep apnea that is not treated increases the risk: I Don't Know To control cholesterol, one should become a vegetarian: False Someone knows if he/she is exercising at the right level: I Don't Know Diabetes cannot be prevented with exercise & health eating: False Stress is a large risk for heart attack: True A diet that can help lower blood pressure is rich in: I Don't Know - Total Score Total Correct Responses: 11 Self-Efficacy Initial Assessment We would like to know how confident you are in doing certain activities. Please select your confidence level for:: Select your confidence level for the following using the scale 1-10 where 1 is not at all confident and 10 is totally confident. Your score is the average of all 6 responses. Fatigue: How confident are you that you can keep the fatigue caused by your disease from interfering with the things you want to do? Select Number: 4 Physical Discomfort or Pain: How confident are you that you can keep the physical discomfort or pain of your disease from interfering with the things you want to do? Select Number: 8 Emotional Distress: How confident are you that you can keep the emotional distress caused by your disease from interfering with the things you want to do? Select Number: 4 Other Symptoms or Health Problems: How confident are you that you can keep other symptoms or health problems from interfering with the things you want to do? Select Number: 6 Different Tasks and Activities: How confident are you that you can do the different tasks and activities needed to manage your health condition so as to reduce your need to see a doctor? Select Number: 5 Medication: How confident are you that you can do things other than just taking medication to reduce how much your illness affects your everyday life? Select Number: 6 Total Score:: 5 Nutrition Survey - Nutrition Survey Instructions Scoring Instructions: Scoring is as follows: Yes = 1 points. No = 0 point. Patient score that is >/=12 is considered to be at potential nutritional risk and could benefit from a referral to a registered dietitian. - Nutrition Survey Initial Have you lost >10 lbs over the past 2 months without trying?: No Are you following a special diet at home for diabetes, low fat, or low salt?: Yes Are you interested in meeting with a dietitian for help understanding your diet? : No Do you eat less than 3 meals a day?: No Do you eat fatty meats (west, sausage, ribs, etc), fried foods, desserts, large amounts of salad dressings, margarine, butter, or cheese most days?: No Do you have food allergies? [Enter types in comment field]: No Do you eat in restaurants more than 3 times a week?: No Do you season food with salt, seasoning salt, or garlic salt?: No Do you used canned, boxed, frozen meals, or soups, seasoning packets?: No Total Score:: 1
--- NOTE | 2017-11-22 13:16 | CR.HP_ITS ---
CR - History & Physical - General Arrival date:: 11/22/17 Arrival time:: 13:05 Date of Referral:: 10/26/17 Date of CR Evaluation:: 11/22/17 Referring Physician: Dr. Phill Torres Primary Diagnosis: Z95.5 10/25/2017 coronary stenting - History of Present Cardiac Event Onset Date: Enter Onset Date of cardiac illnesses in Comment field below PTCA or coronary stenting:: Yes Interventions with present event:: coronary stenting - Medications Home Medications: Ambulatory Orders Medication Instructions Recorded Clopidogrel Bisulfate [Plavix] 75 mg PO DAILY 11/04/14 Digoxin [Lanoxin] 0.25 mg PO DAILY 11/04/14 Lisinopril/Hydrochlorothiazide 1 tab PO BID 11/04/14 [Zestoretic Tablet] Nitroglycerin [Nitrostat] 0.4 mg SUBLINGUAL Q5M PRN 11/04/14 Aspirin 81 mg PO DAILY 11/10/16 Atorvastatin Calcium [Lipitor] 80 mg PO DAILY 11/10/16 metoprolol tartrate 50 mg tablet 50 mg PO BID 08/16/17 famotidine 40 mg tablet 40 mg PO QDAY tab 08/17/17 metformin 500 mg tablet 500 mg PO QDAY tab 08/17/17 - Allergies Allergies/Adverse Reactions: Allergies codeine Allergy (Verified 10/24/17 09:22) Other - Sleep Disorder Evaluation Hx of Sleep Apnea: No Do you snore loudly (louder than talking or can be heard through closed doors)? : No Do you often feel tired/ fatigued/ sleepy during daytime?: No Has anyone observed you stop breathing during sleep?: No History of Hypertension (for STOP score): Yes STOP Results: Negative Advanced Directives - Advanced Directives Power of Graphic Design Manager: Yes Living Will: Yes Advance Directives Information Provided: Yes Advance Directives on File: No DNR Order?:: No Past Medical History - Past Medical Illness Medical History: Past Medical History (Last Updated 10/25/17 @ 18:51 by Nancy Flores) Sinus node dysfunction (Chronic) I49.5 Atherosclerosis of coronary artery bypass graft without angina pectoris (Chronic ) I25.810 Ventricular tachycardia (Chronic) I47.2 Left ventricular systolic dysfunction (Chronic) I51.9 Nonrheumatic mitral valve regurgitation (Chronic) I34.0 Hypertension (Chronic) I10 Hyperlipidemia (Chronic) E78.5 Ischemic cardiomyopathy (Chronic) I25.5 Atherosclerosis of coronary artery of [place] heart without angina pectoris ( Chronic) I25.10 SVG-LAD, SVG- High Lateral Cx, Sequential SVG-PDA,Acute Marginal 12/22/1995 [facility]Z-High Lateral Cx, Radial Artery-PDA, Sequential SVG- LAD and D1 11/15/2008 [facility] [id number] Left Cx @ [facility]; 10/25/17-PTCA and MIGDALIA of proximal LCX/SR per Dr. Torres @ [facility] BPH (benign prostatic hyperplasia) N40.0 GERD (gastroesophageal reflux disease) K21.9 Non-rheumatic mitral regurgitation I34.0 Ischemic mitral regurgitation Old myocardial infarction I25.2 Paroxysmal ventricular tachycardia I47.2 Prostate cancer C61 Type 2 diabetes mellitus without complications E11.9 - Past Surgical History Surgical History: Past Surgical History (Last Updated 10/25/17 @ 18:51 by Nancy Flores) Presence of automatic implantable cardioverter-defibrillator (Chronic) Onset Date: ~11/10/16 Z95.810 Generator replacement 11/23 [facility] [employer] Implanted 03/11/2009 [facility] H/O coronary artery bypass surgery (Chronic) Onset Date: ~11/15/04 Z95.1 SVG-LAD, SVG- High Lateral Cx, Sequential SVG-PDA,Acute Marginal 12/22/1995 SAENZ-High Lateral Cx, Radial Artery-PDA, Sequential SVG- LAD and D1 11/15/2008 [facility] History of coronary artery stent placement (Chronic) Onset Date: ~10/28/08 Z95.5 [id number] Left Cx @ [facility]; 10/25/17-PTCA and MIGDALIA of proximal LCX/SR per Dr. Torres H/O resection of small bowel Z98.890, Z90.49 Hx of cholecystectomy Z98.890, Z90.49 - Family History Summary Family History: Family History (Last Reviewed 10/17/17 @ 13:45 by Mely Benton) Father CAD (coronary artery disease) Mother CAD (coronary artery disease) Brother CAD (coronary artery disease) Social History - Smoking History Smoking Status: Former smoker Years Smokin Packs Smoked per Day: 1 Hx Smoking Cessation Date: 1995 Hx Tobacco Use: Yes Hx Smoking Exposure: Yes - Alcohol Use Alcohol Usage: No - Substance Abuse Hx Substance Use: No - Occupation Occupation (List type of work in comments):: Retired - Hobbies, Recreation, Social Activities Hobbies: Other - gardening Recreational Activities: I am able to engage in all my recreational activities Social Environment - Status Marital Status: - Current Living Arrangements Living Environment:: Spouse - Safety Do you feel safe in your surroundings?: Yes - Assistance Do you need any assistance at home?: none Review of Systems - Review of Systems Hints: Right click = Denies ([place]). Left click = Reports ([place]) Review of Present Symptoms: Reports: Shortness of Breath with Exertion, Dizziness/Lightheadedness, Fatigue, Heart Arrhythmia/Irregularities, Appetite - Normal, Sleep - Normal. Denies: Shortness of Breath at Rest, PVD, Operative Discomfort, Angina, Wound Healing, Appetite - Special Diet, Sexual Changes - Pain Is Patient Pain Free?: No Pain Location: neck Pain Level: /10 Risk Factor Assessment - Chief Complaint Chief Complaint: coronary stent - Vital Signs Pulse Ox: 97 - Pulse Pulse Rate: 60 Pulse Rhythm: Regular - Hypertension Blood Pressure Sitting - Left Arm: 94/46 - Stress Stress: Recent - Diabetes Diabetic History: Type II Nutrition Referral for Diabetes: No - Obesity Height: 1.7 m Weight:: 77.111 kg Weight in Pounds: 170.0 lbs Weight Source: Standing Scale Body Mass Index (BMI): 26.6 Nutritional Referral for Obesity: No - Physical Inactivity Physical Inactivity: Recreational activity - walking - Risk Stratification Risk Guidelines: Moderate Risk: Risk Factor for Smoking, Risk Factor for Dyslipidemia, Risk Factor for Diabetes, Risk Factor for Obesity, Risk Factor for Hypertension, Risk Factor for Sedentary Lifestyle, Risk Factor for Depression - For Smoking Smoking Risk Guidelines: Smoking Low Risk: None or quit greater than 6 months ago. Smoking Moderate Risk: Smoker or quit 6 months or less ago. Smoking High Risk: Smoker - For Dyslipidemia Dyslipidemia Risk Guidelines: Low Risk: Moderate Risk: High Risk: 15-25% fat 25.1-29% fat >/= 30% fat. <7% sat fat 7-9% sat fat >9% sat fat. <150 mg chol 150-299 mg chol >/= 300 mg chol. LDL <100 LDL 100-129 LDL >/= 130. Chol/HDL ratio <5.0 Chol/HDL ratio 5.0-6.0 Chol/HDL ratio >6.0. Triglycerides <100 Triglycerides 100-149 Triglycerides >/= 150 - For Diabetes Mellitus Diabetes Risk Guidelines: Diabetes Low Risk: HgA1c <6.5% and/or FBG <120. Diabetes Moderate Risk: HgA1c 6.6-7.9% and/or FBG 120-180. Diabetes High Risk: HgA1c >/= 8% and/or FBG >180 - For Obesity/Overweight Obesity/Overweight Risk Guidelines: Obesity Low Risk: BMI <25.0. Obesity Moderate Risk: BMI 25-29.9. Obesity High Risk: BMI >/= 30.0 - For Hypertension Hypertension Risk Guidelines: Hypertension Low Risk: Systolic <120 and Diastolic <80. Hypertension Moderate Risk: Systolic 120-139 and Diastolic 80-89. Hypertension High Risk: Systolic >/= 140 and Diastolic >/= 90 - For Sedentary Lifestyle Sedentary Lifestyle Risk Guidelines: Sedentary Lifestyle Low Risk: >/= 1 ,500 kcal/week. Sedentary Lifestyle Moderate Risk: 700-1,499 kcal/week. Sedentary Lifestyle High Risk: < 700 kcal/week - For Depression Depression Risk Guidelines: Depression Low Risk: Not clinically depressed. Depression Moderate Risk: Mildly depressed. Depression High Risk: Clinically depressed - Family History Family History: Family History (Last Reviewed 10/17/17 @ 13:45 by Mely Benton) Father CAD (coronary artery disease) Mother CAD (coronary artery disease) Brother CAD (coronary artery disease) Motivation - Motivation to Participate On a scale of 1 to 10, how prepared are you to commit to attending program?: 8 What do you see as barriers to successfully being able to complete the program? : none What do you see as the benefits of succesfully completing the program? In other words, what do you hope to get out of participating in the program?: stronger heart Do you have a spouse or signficant other, family or friends who will help support you to complete the program?: yes
[2017-11-22 14:19] VITALS: BP 94/46
[2017-11-22 14:20] VITALS: BP 94/46; PULSE 60; O2SAT 97; BMI 26.6
== END ==
PROVIDERS: Family Provider Family Medicine Geriatric Medicine; PCP Family Medicine Geriatric Medicine; Visit Provider Internal Medicine Cardiovascular Disease
DX: I25.810 Atherosclerosis of coronary artery bypass graft(s) without angina pectoris (principal); Z95.5 Presence of coronary angioplasty implant and graft; Z95.1 Presence of aortocoronary bypass graft; I25.5 Ischemic cardiomyopathy; I49.5 Sick sinus syndrome; I47.2 Ventricular tachycardia; I51.9 Heart disease, unspecified; I34.0 Nonrheumatic mitral (valve) insufficiency; Z95.810 Presence of automatic (implantable) cardiac defibrillator; I10 Essential (primary) hypertension

== ENCOUNTER 2017-12-06 15:15 | Outpatient (RCR) | payer MEDICARE, SELFPAY ==
[2017-10-25 15:17] VITALS: BMI 26.6
== END 2017-12-07 23:59 ==
LOC: CR 15:15
PROVIDERS: Family Provider Family Medicine Geriatric Medicine; PCP Family Medicine Geriatric Medicine; Visit Provider Internal Medicine Cardiovascular Disease
DX: I25.118 Atherosclerotic heart disease of native coronary artery with other forms of angina pectoris (principal); I25.810 Atherosclerosis of coronary artery bypass graft(s) without angina pectoris; I25.5 Ischemic cardiomyopathy; I49.5 Sick sinus syndrome; I47.2 Ventricular tachycardia; I51.9 Heart disease, unspecified; I34.0 Nonrheumatic mitral (valve) insufficiency; I10 Essential (primary) hypertension; Z95.5 Presence of coronary angioplasty implant and graft; Z95.1 Presence of aortocoronary bypass graft; Z95.810 Presence of automatic (implantable) cardiac defibrillator
CPT/HCPCS: 93798

== ENCOUNTER 2017-12-31 22:58 | Emergency (ER) | payer MEDICARE, SELFPAY ==
[2017-10-25 15:17] VITALS: BMI 26.6
[2017-12-31 22:59] VITALS: BP 136/67; PULSE 62; RESP 17; TEMP 36.9; O2SAT 97; BMI 25.8
--- NOTE | 2017-12-31 23:15 | RAD_ITS ---
STUDY: X-RAY CHEST REASON FOR EXAM: Male, 77 years old. Worsening chest pain. TECHNIQUE: AP portable chest. COMPARISON: September 13, 2017. FINDINGS: Lungs are hyperinflated. Blunting of left costophrenic angle compatible with pleural scar unchanged. No focal cartilage effusions. No pneumothorax. Normal size heart. Normal mediastinum and evan. Normal visualized pulmonary arteries. Normal visualized aortic arch and descending thoracic aorta. Normal visualized thoracic spine. Normal visualized ribs, clavicles, and shoulders. Sternal wires are present. Cardiac pacemaker left hemithorax. There is no demonstrated abnormality of the visualized soft tissue structures of the upper abdomen. RAD/Chest 1 View (Portable) IMPRESSION: COPD. No focal infiltrates or effusions. Electronically Signed: Jaziel Elliott MD at 0:02 EDT , Service support ,
--- NOTE | 2017-12-31 23:15 | CT_ITS ---
STUDY: CT ABDOMEN AND PELVIS WITHOUT CONTRAST REASON FOR EXAM: Male, 77 years old. Chest pain and left-sided abdominal pain with history of prostate cancer RADIATION DOSAGE (If Supplied By Facility): CTDIvol = ( 7.67 ) mGy, DLP = ( 364.18 ) mGycm TECHNIQUE: Transaxial images were obtained from the dome of the diaphragm to the symphysis pubis without oral contrast, and without intravenous contrast. Sagittal and coronal images were reconstructed. Individualized dose optimization techniques were used for this CT. COMPARISON: 11/04/2014 FINDINGS: Calcified pleural plaques on the right. Pacemaker leads. Median sternotomy wires. The visualized portions of the heart are within normal limits. Interval development of an indeterminate low density lesion in the anterior left hepatic lobe, measuring approximately 3.4 x 1.9 cm on image 41 of series 2. Follow-up dynamic postcontrast hepatic CT or MRI is recommended to characterize further if possible. Malignancy cannot be excluded based on the noncontrast CT appearance. There is non-visualization of the gallbladder, which may be secondary to either contraction or a prior cholecystectomy. Normal spleen. Normal pancreas. Normal bilateral adrenal glands. Normal right kidney. Normal left kidney. Normal visualized stomach. Normal small intestine. Normal colon. There is non-visualization of the appendix. There is diffuse atherosclerotic calcification of the abdominal aorta, without a demonstrated aneurysm. Normal inferior vena cava. Normal retroperitoneum. Normal urinary bladder. Postoperative changes near the prostate gland. Umbilical fat hernia. There are diffuse degenerative changes of the visualized lumbar spine. CT/Abdomen/Pelvis without Cont IMPRESSION: No evidence of acute intestinal pathology or acute obstructive uropathy. Interval development of an indeterminate low density lesion in the anterior left hepatic lobe. Follow-up dynamic postcontrast hepatic CT or MRI is recommended to characterize further if possible. Electronically Signed: John Becker MD at 1:03 EDT Tel , Service support ,
--- NOTE | 2017-12-31 23:15 | EKG12_ITS ---
Test Reason : CP Blood Pressure : / mmHG Vent. Rate : 060 BPM Atrial Rate : 060 BPM P-R Int : 260 ms QRS Dur : 112 ms QT Int : 392 ms P-R-T Axes : 049 038 -76 degrees QTc Int : 392 ms Atrial-paced rhythm with prolonged AV conduction Anterior infarct , age undetermined ST & T wave abnormality, consider inferolateral ischemia Abnormal ECG Confirmed by REJI RIVERA, JOSE C ([id number]), news assignment editor KASSANDRA SADLER ([id number]) on 01/02/2018 9:57:49 AM Referred By: FABRICIO Confirmed By:JOSE C MENDOZA MD
[2017-12-31 23:47] VITALS: BP 138/60; PULSE 60; RESP 24; O2SAT 99
[2018-01-01 00:41] LABS: Absolute Lymphocyte Count 2.16 X10^3/ul (0.83-4.51); Absolute Neutrophil Count 7.7 X10^3/uL (2.0-7.7); Basophil# 0.03 X10^3/uL; Basophil% 0.3 % (0-1); Eosinophil# 0.17 X10^3/uL; Eosinophils% 1.5 % (0-5); Hematocrit 40.1 % (40-54); Hemoglobin 12.9 g/dl (13.0-16.5); Lymphocyte # 2.16 X10^3/ul (4.0); Lymphocyte % 19.3 % (19-41); Mean Corp Hgb Conc 32.2 g/gl (32-36); Mean Corpuscular Hgb 28.3 pg (27.0-32.0); Mean Corpuscular Volume 87.9 fL (80-94); Mean Platelet Vol. 9.9 fl (6.2-12.0); Monocyte# 1.13 X10^3/uL; Monocyte% 10.1 % (0-10); Neutrophil # 7.66 X10^3/uL (2.7-7.7); Neutrophil % 68.2 % (47-70); Platelet Count 175 K/mm3 (150-450); RBC Distribution Width CV 13.6 % (11.6-14.6); RBC Distribution Width SD 43.7 fl (35.1-43.9); Red Blood Count 4.56 M/mm3 (4.6-6.2); White Blood Count 11.2 K/mm3 (4.4-11.0)
[2018-01-01 00:42] LABS: POSITIVE COUNT NO; POSITIVE DIFFERENTIAL NO; POSITIVE MORPHOLOGY NO
[2018-01-01 01:09] LABS: ALB/GLOB Ratio 0.8 RATIO (0.9-2.4); AST(SGOT) 19 U/L (15-37); Alanine Aminotransfer ALT/SGPT 22 U/L (16-61); Albumin, Serum 3.5 g/dL (3.2-5.0); Alkaline Phosphatase 94 U/L (45-117); Anion Gap 7 (5-15); BUN 18 mg/dL (7-18); Calcium,Total 8.9 mg/dL (8.5-10.1); Chloride 107 mmol/L (98-107); Creatinine, Serum 0.78 mg/dL (0.70-1.30); EST Glomerular Filtration Rate 102 mL/min (>60); Est Glom Filt Rate - Afr Amer 123 mL/min (>60); Estimated Creatinine Clearance 58.76 ml/min; Globulin 4.3 g/dL (2.2-4.2); Glucose 84 mg/dL (74-106); Lipase 127 U/L (73-393); Potassium 4.6 mmol/L (3.5-5.1); Protein, Total 7.8 g/dL (6.4-8.2); Sodium Level 137 mmol/L (136-145)
[2018-01-01 01:34] LABS: Digoxin Level 1.36 ng/mL (0.80-2.00)
[2018-01-01 01:59] VITALS: BP 139/70; PULSE 68; RESP 26; O2SAT 95
[2018-01-01] MEDS: 0.9% Normal Saline 1,000 ML 150 ML IV (02:00)
[2018-01-01 02:13] LABS: Bacteria 0 SEEN /hpf (None Seen); Red Blood Cells-Urine 0 SEEN /hpf (0-5); Squamous Epithelial Cells - UA 0 SEEN /hpf (0-5)
[2018-01-01 02:16] LABS: Color, Urine Yellow (Yellow); Glucose, Dipstick Normal (Normal); Ketone-Dipstick Negative (Negative); Leukocyte Esterase-Dipstick 25 /ul (Negative); Nitrite-Dipstick Negative (Negative); Occult Blood-Urine 10 /ul (Negative); Protein-Dipstick 30 mg/dl (Negative); Specific Gravity, Urine 1.025 (1.002-1.030); Urine Clarity Clear (Clear); Urine Urobilinogen 1 mg/dl (Normal)
[2018-01-01 02:23] LABS: Mucous, Urine 2+ /hpf (<or=2+); Urine Bilirubin Dipstick 1 mg/dL (Negative); White Blood Cells 0-5 SEEN /hpf (0-5)
[2018-01-01 02:34] VITALS: BP 146/51; PULSE 60; RESP 19; O2SAT 99
--- NOTE | 2018-01-01 02:35 | ED.DCSUM_ITS ---
- ER Visit Summary Date of Service: 01/01/18 Chief Complaint: [Chest/abdomen pain] History of Present Illness: The patient is a 77 M [presents the emergency department with discomfort in the left side of his abdomen and epigastric region. Patient states that he has had symptoms for several days now. Patient states the discomfort is intermittent and can last up to 15 minutes. The discomfort woke him up this evening so he comes in for evaluation. Patient describes a dull achy discomfort that starts in the lower left abdomen, radiates underneath his ribs bilaterally. Patient states that food does not seem to affect it at all. He has not had any nausea or vomiting. He does not feel short of breath with it. Currently his pain is resolved. Patient has had a history of prior CABG in 1995 followed by another CABG in 2004. Patient has had cardiac stents. His last cardiac stents was placed a few months ago. Patient states that this feels different than the discomfort that he had when he required the cardiac stent. Patient describes a sour taste in his mouth at times.] Physical Examination: [HEENT-PERRLA, EOMI. Cranial nerves II through XII grossly intact. TMs clear. Mucous membranes moist. No adenopathy. Cardiovascular-regular rate and rythm with a 2 out of 6 systolic ejection murmur noted Lungs-clear to auscultation, chest wall stable without crepitus or subcu emphysema Abdomen-normoactive bowel sounds, soft, nontender, no rebound or rigidity, no peritoneal signs. Extremities-intact ?4, normal range of motion, normal pulses, atraumatic] Test Results: [EKG obtained on arrival showed us atrial paced rhythm with a ventricular rate of 60 bpm patient was noted to have some nonspecific ST changes however when EKG compared with prior EKG from October 26, 2017 no new changes noted. CBC with differential showed a white count of 11.2, hemoglobin 12.9, hematocrit 40, platelets 175. Chemistries unremarkable. LFTs unremarkable lipase was 127 urinalysis was normal, troponin was less than 0.015. Chest x-ray showed nothing acute. CT scan of the abdomen pelvis showed low density lesion left hepatic lobe of the liver that radiology recommended further evaluation for with MRI or contrast CT.] Emergency Department Course and Treatment: [Patient received a GI cocktail in the emergency department. Patient does have a history of GERD and takes famotidine at home. He apparently has been using Mylanta at home for this discomfort and it does seem to help. At this point I suspect GI cause for his symptoms and do not feel his symptomatology consistent with cardiac etiology.] Treatment Plan: patient to follow] up with his primary care physician within next 3-5 days. Patient to follow-up with his primary care physician regarding the CT finding in the left lobe of the liver to have further imaging. Disposition: [Discharged home in stable condition. Patient advised to return if chest pain, exertional dyspnea, diaphoresis, or condition should worsen in any way.] Impression: [Abdominal pain-etiology uncertain] This note was generated with [employer] dictation software. It may contain incorrect words, spelling, and punctuation that were not noted in review of the chart prior to signing ED Disposition - Plan for ED Patient: Chief Complaint: Chest Pain Referrals: Lazarus Garcia Chi, MD [Primary Care Provider] -
--- NOTE | 2018-01-01 02:35 | ED.DEP ---
ED Disposition - Plan for ED Patient: Chief Complaint: Chest Pain Instructions: ED Abdominal Pain Unkn Cause, ED GERD Referrals: Lazarus Garcia Chi, MD [Primary Care Provider] - 3-5 Days
--- NOTE | 2018-01-01 02:39 | ED.RN ---
BOTH IV SITES DC'ED, CATHETERS INTACT, SMALL GAUZE DRESSINGS PLACED.
--- NOTE | 2018-01-01 02:44 | ED.RN ---
DISCHARGE INSTRUCTIONS GIVEN TO AND REVIEWED WITH PATIENT AND , BOTH DENY QUESTIONS OR CONCERNS AND VOICE UNDERSTANDING OF DISCHARGE INSTRUCTIONS. PT AMBULATES OUT OF ROOM WITHOUT DIFFICULTY.
== END 2018-01-01 02:45 | disposition home or self-care (01) ==
LOC: ED 23:19
PROVIDERS: Emergency Provider Emergency Medicine; Family Provider Family Medicine Geriatric Medicine; PCP Family Medicine Geriatric Medicine
DX: R10.13 Epigastric pain (principal); R10.9 Unspecified abdominal pain; R01.1 Cardiac murmur, unspecified; K76.89 Other specified diseases of liver; K21.9 Gastro-esophageal reflux disease without esophagitis; I25.10 Atherosclerotic heart disease of native coronary artery without angina pectoris; E11.9 Type 2 diabetes mellitus without complications; I10 Essential (primary) hypertension; E78.00 Pure hypercholesterolemia, unspecified; Z95.1 Presence of aortocoronary bypass graft; Z79.82 Long term (current) use of aspirin; Z79.84 Long term (current) use of oral hypoglycemic drugs; Z79.899 Other long term (current) drug therapy
CPT/HCPCS: 71045; 74176; 80053; 80162; 81001; 83690; 84484; 85025; 93005; 96360; 99285; A4216

== ENCOUNTER 2018-01-05 15:15 | Outpatient (RCR) | payer MEDICARE, SELFPAY ==
[2017-10-25 15:17] VITALS: BMI 26.6
--- NOTE | 2017-12-29 08:16 | PCM.CR.ITP ---
General Information - General Information Admitting Diagnosis: PCI with coronary stent placement - Education/Goals Cardiac Rehabilitation Goals: 1. Maintain the individual as the primary focus of care. 2. To improve the patient's quality of life. 3. Identification of cardiac risk factors and provide cardiac risk factor management. 4. Enhance the psychosocial status of the patient. 5. Reconditioning enough to allow the patient to resume customary activities. 6. Control symptoms of cardiac disease Scale for measuring improvement of personal goals: Enter appropriate number in Comments. 2 = Unchanged. 3 = Slightly Better. 4 = Moderate Improvement. 5 = Met my Goal Personal Goals: 60-day Re-assessment: Improve energy level, Participate in home exercise program, Improve muscle strength and endurance, Control risk factors (learn risk factor modification) Exercise - 60-Day Assessment - Visit Date of Eval: 12/29/17 Session #:: 10 - Stages of Change Stages of Change:: Action - Exercise Prescription Mode:: Biodyne, NuStep Frequency (x/week): 3 Duration:: 30 METs: 3.5 67% increase Target Heart Rate:: 101-106 max hr 80 - Hypertension Resting Blood Pressure:: 112/50 Peak Exercise Blood Pressure:: 132/64 - Intervention Home Exercise/Activity Goal:: Sitting Time <3 hrs/day - Education Goals:: Warm-up, RPE YOUSIF Scale, S/S, Safe Exercise, Self-Monitoring - Exercise Program Goals Exercise Program Goals: Aerobic Activity >30 min, B/P <130/80 Nutrition - 60-Day Assessment - Program Goals Nutrition Program Goals: LDL <70. Total Cholesterol <200. HDL >45. Triglycerides <150. HgbA1C <7%. BMI <25 - Visit Date of Eval: 12/29/17 - Stages of Change Stages of Change:: Action - Lipids Has the patient seen the dietitian?: No - Diabetes Diabetes:: No - Weight Management Weight:: 74.162 kg - Intervention Referral to dietitian:: No Referral to Diabetic Clinic:: No Will attend diet classes:: Yes - Education Attended class for:: Signs & symptoms of hypoglycemia, Signs & symptoms of hyperglycemia, Relate diabetes to coronary artery disease, Healthy eating Tobacco - Initial Assessment - Program Goals Tobacco Program Goals: Complete smoking cessation. Attend education classes. Improve Knowledge Test score - Learning Barriers Learning Barriers: Ready to Learn Tobacco - 60-Day Assessment - Program Goals Tobacco Program Goals: Complete smoking cessation. Attend education classes. Improve Knowledge Test score - Stage of Change Stages of Change:: Action - Learning Barriers Learning Barriers: Participates in education - Family Support Do you have family support?: Yes - Tobacco Use Tobacco Use: Non-smoker Do you use smokeless tobacco?: No - Intervention Smoking Cessation Referral:: No Individual Education/Counseling:: No Education Schedule Given:: Yes - Education Attended class for:: Tobacco triggers, Coronary artery disease, Risk factors, Sexuality, Medical compliance, Cardiac A&P, Angina signs & symptoms Psychosocial - Initial Assess - Target Goals Target Goals: Assess presence or absence of depression. Using a valid screening tool, maximizes coping skills. Positive support system - Psychosocial Test Tool Used:: HANDS Depression Questionnaire - Assistive Devices Fall Risk Assessed:: Yes Psychosocial - 60-Day Assess - Target Goals Target Goals: Assess presence or absence of depression. Using a valid screening tool, maximizes coping skills. Positive support system - Stages of Change Stages of Change:: Action - Psychosocial Test Tool Used:: HANDS Depression Questionnaire Total Mood Screening Score:: 5 Self-Efficacy Score:: 5 - Intervention PS - Interventions: Yes Attend Stress Management Classes, Yes Uses Stress Management Skills, No Referral to Mental Health, No Referral to [facility] Case Management, No Referral to Physician - Education Attended classes for:: Coping techniques, Signs & symptoms of depression, Stress management, Relaxation techniques - Assistive Devices Assistive Devices:: None Fall Risk Assessed:: Yes Patient Health Questionnaire 60-Day Re-eval Assessment 1. Little interest or pleasure in doing things: Several days 2. Feeling down, depressed, or hopeless: Several days 3. Trouble falling or staying asleep, or sleeping too much: More than half the days 4. Feeling tired or having little energy: Several days 5. Poor appetite or overeating: Not at all 6. Feeling bad about yourself -- or that you are a failure or have let yourself or your family down: Not at all 7. Trouble concentrating on things, such as reading the newspaper or watching television: Not at all 8. Moving or speaking so slowly that other people could have noticed. Or the opposite - being so fidgety or restless that you have been moving around a lot more than usual: Not at all 9. Thoughts that you would be better off , or of hurting yourself in some way: Not at all How difficult have these problems made it for you to do your work, take care of things at home, or get along with other people?: Not difficult at all Total Score: 5 Self-Efficacy 60-Day Re-eval Assessment We would like to know how confident you are in doing certain activities. Please select your confidence level for:: Select your confidence level for the following using the scale 1-10 where 1 is not at all confident and 10 is totally confident. Your score is the average of all 6 responses. Fatigue: How confident are you that you can keep the fatigue caused by your disease from interfering with the things you want to do? Select Number: 5 Physical Discomfort or Pain: How confident are you that you can keep the physical discomfort or pain of your disease from interfering with the things you want to do? Select Number: 5 Emotional Distress: How confident are you that you can keep the emotional distress caused by your disease from interfering with the things you want to do? Select Number: 5 Other Symptoms or Health Problems: How confident are you that you can keep other symptoms or health problems from interfering with the things you want to do? Select Number: 5 Different Tasks and Activities: How confident are you that you can do the different tasks and activities needed to manage your health condition so as to reduce your need to see a doctor? Select Number: 5 Medication: How confident are you that you can do things other than just taking medication to reduce how much your illness affects your everyday life? Select Number: 5 Total Score:: 5
[2017-12-29 08:27] VITALS: BP 112/50; BP 132/64
== END 2018-01-06 23:59 ==
LOC: CR 15:15
PROVIDERS: Family Provider Family Medicine Geriatric Medicine; PCP Family Medicine Geriatric Medicine; Visit Provider Internal Medicine Cardiovascular Disease
DX: I25.118 Atherosclerotic heart disease of native coronary artery with other forms of angina pectoris (principal); I25.5 Ischemic cardiomyopathy; I49.5 Sick sinus syndrome; I47.2 Ventricular tachycardia; I51.9 Heart disease, unspecified; I34.0 Nonrheumatic mitral (valve) insufficiency; I10 Essential (primary) hypertension; Z95.5 Presence of coronary angioplasty implant and graft; Z95.1 Presence of aortocoronary bypass graft; Z95.810 Presence of automatic (implantable) cardiac defibrillator
CPT/HCPCS: 93798

== ENCOUNTER → 2018-01-08 17:56 | Outpatient (CLI) | payer MEDICARE, SELFPAY ==
[2017-10-25 15:17] VITALS: BMI 26.6
--- NOTE | 2018-01-08 17:59 | CT_ITS ---
STUDY: CT ABDOMEN WITH AND WITHOUT CONTRAST REASON FOR EXAM: Male, 77 years old. RADIATION DOSAGE (If Supplied By Facility): CTDIvol = ( 18.9 ) mGy, DLP = ( 1565.43 ) mGycm TECHNIQUE: Transaxial images were obtained pre and post I.V. administration of 100CC ml of Isovue 300, and oral contrast. Sagittal and coronal images were reconstructed. Individualized dose optimization techniques were used for this CT. COMPARISON: July 25, 2013, August 06, 2014 CT scan abdomen and pelvis and December 31, 2017 FINDINGS: There is a focal nodular pleural density within the right lung base measuring 5.2 mm. This is just under an area of calcification in the right pleural similar to the prior study. Also seen on prior studies dating back to July 25, 2013. There are sternotomy wires present midline. There is a pacer defibrillator present. There are coronary calcifications. The liver is enlarged. In particular there is hypertrophy of the left hepatic lobe which can be associated with cirrhosis. Since the remote prior study July 25, 2013 and November 04, 2014 there is been interval development of a low attenuating somewhat infiltrative-appearing mass within the anterior superior aspect of the left hepatic lobe which may measure up to 3.4 x 3.7 by approximately 3.8 cm. After the administration of contrast, the hepatic steatosis is better visualized. There is early central enhancement of this mass, on the arterial phase imaging with visualized focal possible neovascular supply extending from the left hepatic artery. The further delayed images show persistent low attenuation of the mass. These findings are not characteristic of hemangioma. There are surgical clips in the gallbladder fossa consistent with a prior cholecystectomy. Normal spleen. Normal pancreas. Normal bilateral adrenal glands. Normal right kidney. Normal left kidney. There is contrast in the stomach. There is a mildly thick-walled appearance of the distal esophagus. The stomach is mildly distended. There is moderate stool in the visualized colon with a few diverticula. The pelvis is not included on this study. There is partial calcification of the aorta. There is calcification the takeoff of the celiac sprue mesenteric artery and bilateral renal arteries. Normal inferior vena cava. Normal retroperitoneum. There is a right-sided periumbilical hernia. There are diffuse degenerative changes of the visualized lumbar spine. CT/Abdomen W/WO IV Contrast IMPRESSION: There is a new ill-defined low attenuating mass within the left hepatic lobe since prior study November 04, 2014 the enhancing characteristics are not characteristic of hemangioma with central enhancement raising concern for neoplasm. This may represent a primary hepatocellular carcinoma. There is hepatic enlargement with hepatic steatosis with hypertrophy of the left hepatic lobe which is associated with cirrhosis. Given this finding recommend consideration for follow-up PET scan and possible plan for tissue diagnosis. Status post sternotomy pacer defibrillator. Pleural plaquing which may be associated with infection or exposure to asbestos. Electronically Signed: Amy Cuenca MD at 23:54 EDT Tel , Service support ,
== END ==
PROVIDERS: Family Provider Family Medicine Geriatric Medicine; PCP Family Medicine Geriatric Medicine; Visit Provider Family Medicine Geriatric Medicine
DX: R16.0 Hepatomegaly, not elsewhere classified (principal)
CPT/HCPCS: 74170; Q9967

== ENCOUNTER 2018-01-22 15:15 | Outpatient (RCR) | payer MEDICARE, SELFPAY ==
[2017-10-25 15:17] VITALS: BMI 26.6
[2018-01-07 01:01] VITALS: BP 112/50; BP 132/64
[2018-01-31 06:57] VITALS: BP 120/68; BP 122/60
--- NOTE | 2018-01-31 06:57 | CR.ITP_ITS ---
Exercise - 90-Day Assessment - Visit Date of Eval: 01/31/18 Session #:: 16 - Stages of Change Stages of Change:: Relapse - Patient has missed d/t recent liver biopsy and hospitalization. - Exercise Prescription Mode:: Treadmill, Biodyne, NuStep Frequency (x/week): 3 Duration:: 30 METs: 4 Target Heart Rate:: 101-106 - Hypertension Resting Blood Pressure:: 120/68 Peak Exercise Blood Pressure:: 122/60 Medication Changes:: Yes - Intervention Home Exercise/Activity Goal:: Moderate Exercise 30 min/day x 5 days/wk - Education Goals:: Warm-up, RPE YOUSIF Scale, S/S, Safe Exercise, Self-Monitoring - Exercise Program Goals Exercise Program Goals: Aerobic Activity >30 min Nutrition - 90-Day Assessment - Program Goals Nutrition Program Goals: LDL <70. Total Cholesterol <200. HDL >45. Triglycerides <150. HgbA1C <7%. BMI <25 - Visit Date of Eval: 01/31/18 - Stages of Change Stages of Change:: Action - Lipids Has the patient seen the dietitian?: No - Diabetes Diabetes:: No - Weight Management Weight:: 160 lb - Intervention Referral to dietitian:: No Referral to Diabetic Clinic:: No Will attend diet classes:: Yes - Education Attended class for:: Healthy eating Tobacco - Initial Assessment - Program Goals Tobacco Program Goals: Complete smoking cessation. Attend education classes. Improve Knowledge Test score - Learning Barriers Learning Barriers: Ready to Learn Tobacco - 90-Day Assessment - Program Goals Tobacco Program Goals: Complete smoking cessation. Attend education classes. Improve Knowledge Test score - Stage of Change Stages of Change:: Action - Learning Barriers Learning Barriers: Participates in education - Family Support Do you have family support?: Yes - Tobacco Use Tobacco Use: Non-smoker Do you use smokeless tobacco?: No - Intervention Smoking Cessation Referral:: No Education Schedule Given:: Yes - Education Attended class for:: Coronary artery disease, Risk factors, Sexuality, Medical compliance, Cardiac A&P, Angina signs & symptoms Psychosocial - Initial Assess - Target Goals Target Goals: Assess presence or absence of depression. Using a valid screening tool, maximizes coping skills. Positive support system - Psychosocial Test Tool Used:: HANDS Depression Questionnaire - Assistive Devices Fall Risk Assessed:: Yes Psychosocial - 90-Day Assess - Target Goals Target Goals: Assess presence or absence of depression. Using a valid screening tool, maximizes coping skills. Positive support system - Stages of Change Stages of Change:: Action - Psychosocial Test Tool Used:: HANDS Depression Questionnaire - Intervention PS - Interventions: Yes Attend Stress Management Classes, Yes Uses Stress Management Skills, No Referral to Mental Health, No Referral to [facility] Case Management, No Referral to Physician - Education Attended classes for:: Coping techniques, Signs & symptoms of depression, Stress management, Relaxation techniques - Patient/Program Goal Preventative Medication(s):: Aspirin, Clopidogrel, Beta lorena, Statin/lipid - Assistive Devices Assistive Devices:: None Fall Risk Assessed:: Yes Patient Health Questionnaire 90-Day Re-eval Assessment 1. Little interest or pleasure in doing things: Not at all 2. Feeling down, depressed, or hopeless: Not at all 3. Trouble falling or staying asleep, or sleeping too much: Several days 4. Feeling tired or having little energy: Not at all 5. Poor appetite or overeating: Several days 6. Feeling bad about yourself -- or that you are a failure or have let yourself or your family down: Several days 7. Trouble concentrating on things, such as reading the newspaper or watching television: Not at all 8. Moving or speaking so slowly that other people could have noticed. Or the opposite - being so fidgety or restless that you have been moving around a lot more than usual: Not at all 9. Thoughts that you would be better off , or of hurting yourself in some way: Not at all How difficult have these problems made it for you to do your work, take care of things at home, or get along with other people?: Not difficult at all Total Score: 3 Self-Efficacy 90-Day Re-eval Assessment We would like to know how confident you are in doing certain activities. Please select your confidence level for:: Select your confidence level for the following using the scale 1-10 where 1 is not at all confident and 10 is totally confident. Your score is the average of all 6 responses. Fatigue: How confident are you that you can keep the fatigue caused by your disease from interfering with the things you want to do? Select Number: 7 Physical Discomfort or Pain: How confident are you that you can keep the physical discomfort or pain of your disease from interfering with the things you want to do? Select Number: 7 Emotional Distress: How confident are you that you can keep the emotional distress caused by your disease from interfering with the things you want to do? Select Number: 7 Other Symptoms or Health Problems: How confident are you that you can keep other symptoms or health problems from interfering with the things you want to do? Select Number: 8 Different Tasks and Activities: How confident are you that you can do the different tasks and activities needed to manage your health condition so as to reduce your need to see a doctor? Select Number: 8 Medication: How confident are you that you can do things other than just taking medication to reduce how much your illness affects your everyday life? Select Number: 8 Total Score:: 7
== END 2018-02-06 23:59 ==
LOC: CR 15:15
PROVIDERS: Family Provider Family Medicine Geriatric Medicine; PCP Family Medicine Geriatric Medicine; Visit Provider Internal Medicine Cardiovascular Disease
DX: I25.118 Atherosclerotic heart disease of native coronary artery with other forms of angina pectoris (principal); I25.5 Ischemic cardiomyopathy; I49.5 Sick sinus syndrome; I47.2 Ventricular tachycardia; I11.9 Hypertensive heart disease without heart failure; I34.0 Nonrheumatic mitral (valve) insufficiency; Z95.5 Presence of coronary angioplasty implant and graft; Z95.1 Presence of aortocoronary bypass graft; Z95.810 Presence of automatic (implantable) cardiac defibrillator
CPT/HCPCS: 93798

== ENCOUNTER → 2018-01-22 15:51 | Outpatient (CLI) | payer MEDICARE, SELFPAY ==
[2017-10-25 15:17] VITALS: BMI 26.6
[2018-01-22 17:55] LABS: International Normalized Ratio 1.3; Partial Thromboplast Time 35.5 Seconds (24.1-36.2); Prothrombin Time (Protime)PT. 15.9 SECONDS (11.7-14.9)
[2018-01-22 18:11] LABS: Absolute Neutrophil Count 5.6 X10^3/uL (2.0-7.7); Basophil# 0.03 X10^3/uL; Basophil% 0.4 % (0-1); Eosinophil# 0.17 X10^3/uL; Eosinophils% 2.2 % (0-5); Hemoglobin 11.4 g/dl (13.0-16.5); Lymphocyte # 1.06 X10^3/ul (4.0); Lymphocyte % 13.6 % (19-41); Mean Corp Hgb Conc 31.7 g/gl (32-36); Mean Corpuscular Hgb 27.7 pg (27.0-32.0); Mean Corpuscular Volume 87.6 fL (80-94); Monocyte% 11.5 % (0-10); Neutrophil % 71.8 % (47-70); POSITIVE COUNT NO; POSITIVE DIFFERENTIAL NO; POSITIVE MORPHOLOGY NO; Platelet Count 183 K/mm3 (150-450); RBC Distribution Width CV 13.9 % (11.6-14.6); RBC Distribution Width SD 44.1 fl (35.1-43.9); Red Blood Count 4.11 M/mm3 (4.6-6.2); White Blood Count 7.8 K/mm3 (4.4-11.0)
[2018-01-24 11:09] LABS: AFP, Tumor Marker 2.3 ng/mL (0.0-8.3)
== END ==
PROVIDERS: Family Provider Family Medicine Geriatric Medicine; PCP Family Medicine Geriatric Medicine; Visit Provider Family Medicine Geriatric Medicine
DX: Z01.818 Encounter for other preprocedural examination (principal); K76.89 Other specified diseases of liver; I25.118 Atherosclerotic heart disease of native coronary artery with other forms of angina pectoris; I25.5 Ischemic cardiomyopathy; I49.5 Sick sinus syndrome; I47.2 Ventricular tachycardia; I51.9 Heart disease, unspecified; I34.0 Nonrheumatic mitral (valve) insufficiency; I10 Essential (primary) hypertension; Z95.5 Presence of coronary angioplasty implant and graft; Z95.1 Presence of aortocoronary bypass graft; Z95.810 Presence of automatic (implantable) cardiac defibrillator
CPT/HCPCS: 36415; 82105; 85025; 85610; 85730; 93798

== ENCOUNTER 2018-01-26 14:48 | Inpatient (IN) | payer MEDICARE, SELFPAY ==
[2017-10-25 15:17] VITALS: BMI 26.6
[2018-01-26] VITALS (12 sets, daily range): BP systolic 124–157; BP diastolic 67–79; PULSE 62–71; RESP 16–22; TEMP 36.8–37.2; O2SAT 88–100; BMI 24.3; BMI 23.7
--- NOTE | 2018-01-26 15:14 | EKG12_ITS ---
Test Reason : SOB Blood Pressure : / mmHG Vent. Rate : 066 BPM Atrial Rate : 066 BPM P-R Int : 248 ms QRS Dur : 192 ms QT Int : 452 ms P-R-T Axes : 041 -66 105 degrees QTc Int : 473 ms Atrial-sensed ventricular-paced rhythm with prolonged AV conduction Abnormal ECG Confirmed by EAN POOL ([id number]), sports editor EVA ANDREW ([id number]) on 01/30/2018 1:39:48 PM Referred By: ROBERTA Confirmed By:EAN POOL
--- NOTE | 2018-01-26 15:20 | RAD_ITS ---
STUDY: X-RAY CHEST REASON FOR EXAM: Male, 77 years old. Shortness of breath and wet cough for approximately one week. TECHNIQUE: AP upright portable view. COMPARISON: 12/31/2017. FINDINGS: Pacing lead tips remain in the right atrium and right ventricle. Subsegmental atelectases and some prominent septal lines in the lower lobes. Persistent blunting of the left costophrenic sulcus. Cardiomegaly is unchanged. Normal mediastinum and evan. Mild pulmonary vascular congestion. Normal visualized aortic arch and descending thoracic aorta. Normal visualized thoracic spine. Normal visualized ribs, clavicles, and shoulders. There is no demonstrated abnormality of the visualized soft tissue structures of the upper abdomen. RAD/Chest 1 View (Portable) IMPRESSION: Mild CHF. Electronically Signed: Salvador Elkins MD at 15:42 EDT , Service support ,
[2018-01-26 15:27] LABS: Absolute Lymphocyte Count 1.26 X10^3/ul (0.83-4.51); Absolute Neutrophil Count 7.7 X10^3/uL (2.0-7.7); Basophil# 0.06 X10^3/uL; Basophil% 0.6 % (0-1); Hematocrit 34.5 % (40-54); Lymphocyte # 1.26 X10^3/ul (4.0); Lymphocyte % 12.3 % (19-41); Mean Corp Hgb Conc 31.9 g/gl (32-36); Mean Corpuscular Hgb 27.7 pg (27.0-32.0); Mean Corpuscular Volume 86.9 fL (80-94); Mean Platelet Vol. 10.5 fl (6.2-12.0); Monocyte# 0.93 X10^3/uL; Monocyte% 9.1 % (0-10); Neutrophil # 7.73 X10^3/uL (2.7-7.7); Neutrophil % 75.7 % (47-70); Platelet Count 186 K/mm3 (150-450); RBC Distribution Width CV 14.4 % (11.6-14.6); Red Blood Count 3.97 M/mm3 (4.6-6.2); White Blood Count 10.2 K/mm3 (4.4-11.0)
--- NOTE | 2018-01-26 15:29 | ED.DCSUM_ITS ---
- ER Visit Summary Date of Service: 01/26/18 Chief Complaint: Shortness of breath History of Present Illness: The patient is a 77 M presenting with shortness of breath ?1 week. He states this has been progressively worsening over the last couple of days. He has had a productive cough. He denies fever. He also has nausea and diarrhea. He complaints of intermittent abdominal pain but no abdominal pain currently. Denies chest pain. Denies leg swelling. Denies other complaints. Physical Examination: Vitals are stable. Patient is afebrile. Alert no acute distress. HEENT exam is unremarkable. Neck is supple. Lungs are diminished, rales at bases bilaterally Heart is regular rate and rhythm. Abdomen is soft nontender nondistended. No rebound or guarding. Extremities are unremarkable. Skin is warm and dry. No focal neurologic deficit. Remainder of exam is unremarkable. Emergency Department Course and Treatment: EKG is paced rate of 66. Chest x- ray shows CHF, right-sided infiltrate. CBC shows a hemoglobin 11.0. Chemistries show potassium 3.4, glucose 127. Troponin is 0.017. Lactic acid is normal. Digoxin level is 1.91. Blood cultures were sent. He was given Levaquin. Discussed with the hospitalist for admission. Disposition: Admission Impression: CHF exacerbation, bronchitis This note was generated with [employer] dictation software. It may contain incorrect words, spelling, and punctuation that were not noted in review of the chart prior to signing ED Disposition - Plan for ED Patient: Chief Complaint: Shortness of Breath Referrals: Lazarus Garcia Chi, MD [Primary Care Provider] -
[2018-01-26 15:35] LABS: POSITIVE COUNT NO; POSITIVE DIFFERENTIAL NO; POSITIVE MORPHOLOGY NO
[2018-01-26 15:41] LABS: Anion Gap 6 (5-15); BUN 18 mg/dL (7-18); BUN/Creat Ratio 25.5 RATIO (10-20); Calcium,Total 8.9 mg/dL (8.5-10.1); Chloride 107 mmol/L (98-107); Creatinine, Serum 0.71 mg/dL (0.70-1.30); EST Glomerular Filtration Rate 115 mL/min (>60); Est Glom Filt Rate - Afr Amer 139 mL/min (>60); Estimated Creatinine Clearance 58.76 ml/min; Glucose 127 mg/dL (74-106); Potassium 3.4 mmol/L (3.5-5.1); Sodium Level 140 mmol/L (136-145)
[2018-01-26 16:39] LABS: Lactic Acid 1.3 mmol/L (0.4-2.0)
[2018-01-26 16:56] LABS: Digoxin Level 1.91 ng/mL (0.80-2.00)
[2018-01-26] MEDS: Furosemide 40 MG/4 ML Vial IV ×2 (17:36→22:52)
[2018-01-26] MEDS: levoFLOXacin 750 MG Tablet PO (17:36)
--- NOTE | 2018-01-26 18:10 | NURSING ---
CALLED ER CHARGE @ 181 THAT IT WAS OKAY FOR PT TO COME UP.
--- NOTE | 2018-01-26 19:55 | PCM.HP.STD ---
Problem List (1) Shortness of breath Status: Acute History of Present Illness Date of Admission: 01/26/18 Chief Complaint: Shortness of breath The patient is a 77 year old M who was seen in the emergency room at [facility] with chief complaint of increasing shortness of breath over the past week. Patient states that he coughs occasionally but brings up clear mucus. Patient denies any fevers, chills, diaphoresis, or hemoptysis. Patient states that he has not been able to lie flat at night to sleep due to shortness of breath. Patient denies any chest pain. Patient has a history of nonischemic cardiomyopathy and on his last echocardiogram done earlier this year he had an ejection fraction of 15%. Patient follows up with Dr. Torres in the office as an outpatient. Patient recently told me and this was confirmed by the patient's who is in the room at the time of my examination that he is been taken off of all his diuretics, he thinks that the reason was that his blood pressure was low. Evaluation in the ER included labs which revealed a slightly low potassium at 3.4, patient's dig level was 1.91, hemoglobin was 11, and the patient's chest x-ray showed evidence of congestive heart failure. Beta natruretic peptide was not performed. Patient's pulse ox on room air was above 90%, he was walked and his pulse ox did not drop. Patient was given a dose of Levaquin orally by the emergency room physician, the emergency room physician have been told by the patient that he was coughing up yellow sputum, patient denied this. Patient was also given IV Lasix in the ER, he will be admitted to PCU for acute systolic congestive heart failure, I will not repeat his echocardiogram, patient will be placed on IV Lasix and monitored on telemetry. Patient's EKG shows sinus rhythm with ventricular pacing. 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 Torres Ischemic cardiomyopathy (Chronic) Atherosclerosis of coronary artery of [place] heart without angina pectoris (Chronic) SVG-LAD, SVG- High Lateral Cx, Sequential SVG-PDA,Acute Marginal 12/22/1995 [facility]-High Lateral Cx, Radial Artery-PDA, Sequential SVG- LAD and D1 11/15/2008 [facility] [id number] Left Cx @ [facility]; 10/25/17-PTCA and MIGDALIA of proximal LCX/SR per Dr. Torres @ [facility] Medical History: Medical History (Last Reviewed 11/28/17 @ 14:40 by Jerome Gaines) Sinus node dysfunction (Chronic) I49.5 Atherosclerosis of coronary artery bypass graft without angina pectoris (Chronic) I25.810 Ventricular tachycardia (Chronic) I47.2 Left ventricular systolic dysfunction (Chronic) I51.9 Nonrheumatic mitral valve regurgitation (Chronic) I34.0 Hypertension (Chronic) I10 Hyperlipidemia (Chronic) E78.5 Ischemic cardiomyopathy (Chronic) I25.5 Atherosclerosis of coronary artery of [place] heart without angina pectoris (Chronic) I25.10 SVG-LAD, SVG- High Lateral Cx, Sequential SVG-PDA,Acute Marginal 12/22/1995 [facility]-High Lateral Cx, Radial Artery-PDA, Sequential SVG- LAD and D1 11/15/2008 [facility] [id number]-[id number] Left Cx @ [facility]; 10/25/17-PTCA and MIGDALIA of proximal LCX/SR per Dr. Torres @ [facility] BPH (benign prostatic hyperplasia) N40.0 GERD (gastroesophageal reflux disease) K21.9 Non-rheumatic mitral regurgitation I34.0 Ischemic mitral regurgitation Old myocardial infarction I25.2 Paroxysmal ventricular tachycardia I47.2 Prostate cancer C61 Type 2 diabetes mellitus without complications E11.9 Allergies codeine Allergy (Verified 07/20/18 14:51) Other Home Medications: Ambulatory Orders Medication Instructions Recorded Atorvastatin Calcium [Lipitor] 80 mg PO QHS 12/31/17 Clopidogrel Bisulfate [Clopidogrel] 75 mg PO DAILY 12/31/17 Digoxin 250 mcg PO DAILY 12/31/17 Escitalopram Oxalate [Lexapro] 10 mg PO DAILY 12/31/17 Lisinopril 20 mg PO DAILY 12/31/17 Metformin HCl 500 mg PO QHS 12/31/17 Metoprolol Tartrate [Lopressor 50 mg PO BID 12/31/17 (Beta Humberto)] Mineral Oil/Petrolatum Cr 1 applic TOPICAL PRN PRN 12/31/17 [Aquaphor] Triamcinolone 0.025% Cream 1 applic TOPICAL BID 12/31/17 [Kenalog] Omeprazole 40 mg PO DAILY 01/24/18 Acetaminophen [Tylenol Arthritis] 650 mg PO PRN PRN 01/26/18 Aspirin E.C. [Ecotrin] 81 mg PO DAILY@0800 01/26/18 Ibuprofen 400 mg PO PRN PRN 01/26/18 Surgical History: Surgical History (Last Reviewed 11/28/17 @ 14:40 by Jerome Gaines) Presence of automatic implantable cardioverter-defibrillator (Chronic) Onset Date: ~11/10/16 Z95.810 Generator replacement 11/23 [employer] Implanted 03/11/2009 [facility] [employer] H/O coronary artery bypass surgery (Chronic) Onset Date: ~11/15/04 Z95.1 SVG-LAD, SVG- High Lateral Cx, Sequential SVG-PDA,Acute Marginal 12/22/1995 [facility]-High Lateral Cx, Radial Artery-PDA, Sequential SVG- LAD and D1 11/15/2008 [facility] History of coronary artery stent placement (Chronic) Onset Date: ~10/28/08 Z95.5 [id number] Left Cx @ [facility]; 10/25/17-PTCA and MIGDALIA of proximal LCX/SR per Dr. Torres H/O resection of small bowel Z98.890, Z90.49 Hx of cholecystectomy Z98.890, Z90.49 Surgical History: coronary bypass surgery, - - ICD implantation, coronary artery stent placement Psychiatric History: No pertinent psych hx Lives: Spouse/ Significant Other Smoking Status: Former smoker Tobacco Use: Non-smoker Alcohol: None Drugs: None - *Family History Maternal Family History: Family History (Last Reviewed 11/28/17 @ 14:40 by Jerome Gaines) Father CAD (coronary artery disease) Mother CAD (coronary artery disease) Brother CAD (coronary artery disease) History Items: - - CHF Paternal Family History: Family History (Last Reviewed 11/28/17 @ 14:40 by Jerome Gaines) Father CAD (coronary artery disease) Mother CAD (coronary artery disease) Brother CAD (coronary artery disease) History Items: Cancer - Prostate cancer Review of Systems Constitutional: Reports: Fatigue. Denies: Anorexia, Chills, Fever, Night Sweats, Malaise, Weakness, Weight Change Eyes: Denies: Blurred vision, Cataracts, Conjunctivae Inflammation, Double vision, Drainage HEENT: Denies: Difficulty Hearing, Difficulty Swallowing, Dysphasia, Ear Pain, Eye Pain, Head Aches, Hearing Changes, Nasal bleeding, Nasal Congestion, Post Nasal Drip Cardiovascular: Reports: Orthopnea. Denies: Chest Pain, Claudication, Chest Pressure, Chest Tightness, Edema, Heaviness, Light Headedness, Palpitations Respiratory: Reports: Cough, Shortness of Breath, Shortness of breath upon exertion, Sputum production - White sputum production. Denies: Hemoptysis, Shortness of breath at rest Gastrointestinal: Denies: Abdominal Pain, Constipation, Diarrhea, Hematemesis, Hematochezia, Nausea, Melena, Vomiting Genitourinary: Denies: Dysuria, Frequency, Hematuria, Hesitancy, Urgency Musculoskeletal: Denies: Back Pain, Foot Pain, Hand Pain, Joint Pain, Joint stiffness, Joint swelling, Joint Tenderness, Leg Pain Skin: Denies: Dryness, Jaundice, Pruritis, Rash Neurological: Denies: Blurred vision, Double vision, Slurred speech, Difficulty swallowing, Focal weakness, Headaches, Incoordination, Numbness, Tingling Psychiatric: Denies: Anxiety, Depression, Homicidal Ideations, Suicidal Ideations Endocrine: Denies: Change in Body Habitus, Heat/ Cold Intolerance, Polydipsia, Polyuria Hematologic/ Lymphatic: Denies: Adenopathy, Anemia, Easy Bruising, Easy Bleeding, Petechiae, Purpura VTE Information - Inpt Only VTE Present on Admission: No VTE Mechan Device Prophylaxis: None VTE Pharm Prophylaxis ordered?: Yes Patient Problems: Active and Suspected Problems (Last Reviewed 11/28/17 @ 14:40 by Jerome Gaines) Shortness of breath (Acute) - Physical Exam General: Alert, Oriented x3, Cooperative, No apparent distress, Well developed, Well nourished HEENT: Atraumatic, PERRLA, EOMI, Normocephalic Oral: Moist Mucosa Neck: Supple, No JVD, Negative Carotid Bruits, No Nuchal Rigidity, Trachea Midline, Thyroid Normal Size and Texture Lungs: No rhonchi, No wheeze, Diminished, Rales - Inspiratory rales are noted at the bases bilaterally Cardiovascular: Regular rate, Regular Rhythm, Normal S1, Normal S2, No murmurs, PMI Normal, No rub noted Abdomen: Bowel Sounds Present, Soft, Non Tender, Non-Distended, No hernias noted Extremities: No clubbing, No cyanosis, No edema, Capillary Refill Less than 3 Seconds Skin: No rashes, No breakdown Musculoskeletal: No Tenderness to Palpation of Joints or Extremities Neurological: Cranial nerves II-XII grossly intact, Neuro grossly intact, Muscle tone normal, Sensory exam intact to light touch and pain, Coordination normal Psych/Mental Status: Normal Affect, Appropriate, Alert and oriented to time, place, person, mood and affect Vital Signs Temp Pulse Resp BP Pulse Ox 98.7 F 64 18 146/79 H 97 01/26/18 18:46 01/26/18 18:46 01/26/18 18:46 01/26/18 18:46 01/26/18 18:46 Oxygen Flow Rate (L/min) 2 Oxygen Delivery Method Nasal Cannula Weight: 68.629 kg Body Mass Index (BMI) 23.7 Assessment/Plan All Active Problems (Last Reviewed 11/28/17 @ 14:40 by Jerome Gaines) Shortness of breath (Acute) #1 acute systolic congestive heart failure-patient will be admitted to PCU, IV Lasix will be administered, chest x-ray will be performed tomorrow, patient will be monitored on telemetry, I talked briefly with his dye box operator Dr. Torres about his admission, I do not feel Dr. Torres needs to see the patient at this time and less the patient's status changes. Dr. Torres was okay with this. #2 ischemic cardiomyopathy with impaired ejection fraction of 15% #3 dyspnea secondary to #1-pulse ox will be monitored #4 hypokalemia-mild, patient will be placed on oral potassium #5 hypertension #6 hyperlipidemia Code Visit Inpatient E&M: 40856 Init Hosp L3
--- NOTE | 2018-01-26 20:04 | HP.PCM_ITS ---
Problem List (1) Shortness of breath Status: Acute History of Present Illness Date of Admission: 01/26/18 Chief Complaint: Shortness of breath The patient is a 77 year old M who was seen in the emergency room at [facility] with chief complaint of increasing shortness of breath over the past week. Patient states that he coughs occasionally but brings up clear mucus. Patient denies any fevers, chills, diaphoresis, or hemoptysis. Patient states that he has not been able to lie flat at night to sleep due to shortness of breath. Patient denies any chest pain. Patient has a history of nonischemic cardiomyopathy and on his last echocardiogram done earlier this year he had an ejection fraction of 15%. Patient follows up with Dr. Torres in the office as an outpatient. Patient recently told me and this was confirmed by the patient's who is in the room at the time of my examination that he is been taken off of all his diuretics, he thinks that the reason was that his blood pressure was low. Evaluation in the ER included labs which revealed a slightly low potassium at 3.4, patient's dig level was 1.91, hemoglobin was 11, and the patient's chest x- ray showed evidence of congestive heart failure. Beta natruretic peptide was not performed. Patient's pulse ox on room air was above 90%, he was walked and his pulse ox did not drop. Patient was given a dose of Levaquin orally by the emergency room physician, the emergency room physician have been told by the patient that he was coughing up yellow sputum, patient denied this. Patient was also given IV Lasix in the ER, he will be admitted to PCU for acute systolic congestive heart failure, I will not repeat his echocardiogram, patient will be placed on IV Lasix and monitored on telemetry. Patient's EKG shows sinus rhythm with ventricular pacing. 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 Torres Ischemic cardiomyopathy (Chronic) Atherosclerosis of coronary artery of [place] heart without angina pectoris ( Chronic) SVG-LAD, SVG- High Lateral Cx, Sequential SVG-PDA,Acute Marginal 12/22/1995 SAENZ-High Lateral Cx, Radial Artery-PDA, Sequential SVG- LAD and D1 11/15/2008 [facility] [id number] Left Cx @ [facility]; 10/25/17-PTCA and MIGDALIA of proximal LCX/SR per Dr. Torres @ [facility] Medical History: Medical History (Last Reviewed 11/28/17 @ 14:40 by Jerome Gaines) Sinus node dysfunction (Chronic) I49.5 Atherosclerosis of coronary artery bypass graft without angina pectoris (Chronic ) I25.810 Ventricular tachycardia (Chronic) I47.2 Left ventricular systolic dysfunction (Chronic) I51.9 Nonrheumatic mitral valve regurgitation (Chronic) I34.0 Hypertension (Chronic) I10 Hyperlipidemia (Chronic) E78.5 Ischemic cardiomyopathy (Chronic) I25.5 Atherosclerosis of coronary artery of [place] heart without angina pectoris ( Chronic) I25.10 SVG-LAD, SVG- High Lateral Cx, Sequential SVG-PDA,Acute Marginal 12/22/1995 SAENZ-High Lateral Cx, Radial Artery-PDA, Sequential SVG- LAD and D1 11/15/2008 [facility] [id number] Left Cx @ [facility]; 10/25/17-PTCA and MIGDALIA of proximal LCX/SR per Dr. Torres @ [facility] BPH (benign prostatic hyperplasia) N40.0 GERD (gastroesophageal reflux disease) K21.9 Non-rheumatic mitral regurgitation I34.0 Ischemic mitral regurgitation Old myocardial infarction I25.2 Paroxysmal ventricular tachycardia I47.2 Prostate cancer C61 Type 2 diabetes mellitus without complications E11.9 Allergies codeine Allergy (Verified 07/20/18 14:51) Other Home Medications: Ambulatory Orders Medication Instructions Recorded Atorvastatin Calcium [Lipitor] 80 mg PO QHS 12/31/17 Clopidogrel Bisulfate [Clopidogrel] 75 mg PO DAILY 12/31/17 Digoxin 250 mcg PO DAILY 12/31/17 Escitalopram Oxalate [Lexapro] 10 mg PO DAILY 12/31/17 Lisinopril 20 mg PO DAILY 12/31/17 Metformin HCl 500 mg PO QHS 12/31/17 Metoprolol Tartrate [Lopressor 50 mg PO BID 12/31/17 (Beta Humberto)] Mineral Oil/Petrolatum Cr 1 applic TOPICAL PRN PRN 12/31/17 [Aquaphor] Triamcinolone 0.025% Cream 1 applic TOPICAL BID 12/31/17 [Kenalog] Omeprazole 40 mg PO DAILY 01/24/18 Acetaminophen [Tylenol Arthritis] 650 mg PO PRN PRN 01/26/18 Aspirin E.C. [Ecotrin] 81 mg PO DAILY@0800 01/26/18 Ibuprofen 400 mg PO PRN PRN 01/26/18 Surgical History: Surgical History (Last Reviewed 11/28/17 @ 14:40 by Jerome Gaines) Presence of automatic implantable cardioverter-defibrillator (Chronic) Onset Date: ~11/10/16 Z95.810 Generator replacement 11/23 [facility] [employer] Implanted 03/11/2009 [facility] [employer] H/O coronary artery bypass surgery (Chronic) Onset Date: ~11/15/04 Z95.1 SVG-LAD, SVG- High Lateral Cx, Sequential SVG-PDA,Acute Marginal 12/22/1995 [facility]ENZ-High Lateral Cx, Radial Artery-PDA, Sequential SVG- LAD and D1 11/15/2008 [facility] History of coronary artery stent placement (Chronic) Onset Date: ~10/28/08 Z95.5 [id number] Left Cx @ [facility]; 10/25/17-PTCA and MIGDALIA of proximal LCX/SR per Dr. Torres H/O resection of small bowel Z98.890, Z90.49 Hx of cholecystectomy Z98.890, Z90.49 Surgical History: coronary bypass surgery, - - ICD implantation, coronary artery stent placement Psychiatric History: No pertinent psych hx Lives: Spouse/ Significant Other Smoking Status: Former smoker Tobacco Use: Non-smoker Alcohol: None Drugs: None - *Family History Maternal Family History: Family History (Last Reviewed 11/28/17 @ 14:40 by Jerome Gaines) Father CAD (coronary artery disease) Mother CAD (coronary artery disease) Brother CAD (coronary artery disease) History Items: - - CHF Paternal Family History: Family History (Last Reviewed 11/28/17 @ 14:40 by Jerome Gaines) Father CAD (coronary artery disease) Mother CAD (coronary artery disease) Brother CAD (coronary artery disease) History Items: Cancer - Prostate cancer Review of Systems Constitutional: Reports: Fatigue. Denies: Anorexia, Chills, Fever, Night Sweats , Malaise, Weakness, Weight Change Eyes: Denies: Blurred vision, Cataracts, Conjunctivae Inflammation, Double vision, Drainage HEENT: Denies: Difficulty Hearing, Difficulty Swallowing, Dysphasia, Ear Pain, Eye Pain, Head Aches, Hearing Changes, Nasal bleeding, Nasal Congestion, Post Nasal Drip Cardiovascular: Reports: Orthopnea. Denies: Chest Pain, Claudication, Chest Pressure, Chest Tightness, Edema, Heaviness, Light Headedness, Palpitations Respiratory: Reports: Cough, Shortness of Breath, Shortness of breath upon exertion, Sputum production - White sputum production. Denies: Hemoptysis, Shortness of breath at rest Gastrointestinal: Denies: Abdominal Pain, Constipation, Diarrhea, Hematemesis, Hematochezia, Nausea, Melena, Vomiting Genitourinary: Denies: Dysuria, Frequency, Hematuria, Hesitancy, Urgency Musculoskeletal: Denies: Back Pain, Foot Pain, Hand Pain, Joint Pain, Joint stiffness, Joint swelling, Joint Tenderness, Leg Pain Skin: Denies: Dryness, Jaundice, Pruritis, Rash Neurological: Denies: Blurred vision, Double vision, Slurred speech, Difficulty swallowing, Focal weakness, Headaches, Incoordination, Numbness, Tingling Psychiatric: Denies: Anxiety, Depression, Homicidal Ideations, Suicidal Ideations Endocrine: Denies: Change in Body Habitus, Heat/ Cold Intolerance, Polydipsia, Polyuria Hematologic/ Lymphatic: Denies: Adenopathy, Anemia, Easy Bruising, Easy Bleeding , Petechiae, Purpura VTE Information - Inpt Only VTE Present on Admission: No VTE Mechan Device Prophylaxis: None VTE Pharm Prophylaxis ordered?: Yes Patient Problems: Active and Suspected Problems (Last Reviewed 11/28/17 @ 14:40 by Jerome Gaines) Shortness of breath (Acute) - Physical Exam General: Alert, Oriented x3, Cooperative, No apparent distress, Well developed, Well nourished HEENT: Atraumatic, PERRLA, EOMI, Normocephalic Oral: Moist Mucosa Neck: Supple, No JVD, Negative Carotid Bruits, No Nuchal Rigidity, Trachea Midline, Thyroid Normal Size and Texture Lungs: No rhonchi, No wheeze, Diminished, Rales - Inspiratory rales are noted at the bases bilaterally Cardiovascular: Regular rate, Regular Rhythm, Normal S1, Normal S2, No murmurs, PMI Normal, No rub noted Abdomen: Bowel Sounds Present, Soft, Non Tender, Non-Distended, No hernias noted Extremities: No clubbing, No cyanosis, No edema, Capillary Refill Less than 3 Seconds Skin: No rashes, No breakdown Musculoskeletal: No Tenderness to Palpation of Joints or Extremities Neurological: Cranial nerves II-XII grossly intact, Neuro grossly intact, Muscle tone normal, Sensory exam intact to light touch and pain, Coordination normal Psych/Mental Status: Normal Affect, Appropriate, Alert and oriented to time, place, person, mood and affect Vital Signs Temp Pulse Resp BP Pulse Ox 98.7 F 64 18 146/79 H 97 01/26/18 18:46 01/26/18 18:46 01/26/18 18:46 01/26/18 18:46 01/26/18 18:46 Oxygen Flow Rate (L/min) 2 Oxygen Delivery Method Nasal Cannula Weight: 68.629 kg Body Mass Index (BMI) 23.7 Assessment/Plan All Active Problems (Last Reviewed 11/28/17 @ 14:40 by Jerome Gaines) Shortness of breath (Acute) #1 acute systolic congestive heart failure-patient will be admitted to PCU, IV Lasix will be administered, chest x-ray will be performed tomorrow, patient will be monitored on telemetry, I talked briefly with his button facing machine operator Dr. Torres about his admission, I do not feel Dr. Torres needs to see the patient at this time and less the patient's status changes. Dr. Torres was okay with this. #2 ischemic cardiomyopathy with impaired ejection fraction of 15% #3 dyspnea secondary to #1-pulse ox will be monitored #4 hypokalemia-mild, patient will be placed on oral potassium #5 hypertension #6 hyperlipidemia Code Visit Inpatient E&M: 05867 Init Hosp L3
[2018-01-26] MEDS: guaiFENesin 10 ML UDC (200MG/10ML) PO (22:49)
[2018-01-26] MEDS: Atorvastatin Calcium 80 MG Tablet PO (22:52)
[2018-01-26] MEDS: Metoprolol Tartrate 50 MG Tablet PO (22:53)
[2018-01-26] MEDS: 0.9% NaCl Peripheral Flush Adult/Peds IV (22:56)
[2018-01-26] MEDS: Heparin Injection (Vial) 5,000 UNIT/ML VIAL 5000 UNIT SC (23:01)
[2018-01-27] VITALS (14 sets, daily range): BP systolic 105–125; BP diastolic 53–62; PULSE 56–61; RESP 16–18; TEMP 36.5–36.9; O2SAT 92–95
--- NOTE | 2018-01-27 05:55 | RAD_ITS ---
STUDY: X-RAY CHEST REASON FOR EXAM: Male, 77 years old. Congestive heart failure, acute systolic CHF. TECHNIQUE: AP upright portable view. COMPARISON: 01/26/2018. FINDINGS: Pacing lead tips remain in the right atrium and right ventricle. Improvement of pulmonary vascular congestion and pulmonary interstitial edema. Subsegmental atelectases in the right lower lobe, right middle lobe and left retrocardiac region. Loculated fluid near the right hilum. No other additional findings or changes. RAD/Chest 1 View (Portable) IMPRESSION: 1. Improvement of CHF. 2. Subsegmental atelectases in the lower lobes and right middle lobe. 3. Suspicious loculated fluid near the right hilum. Electronically Signed: Salvador Elkins MD at 8:14 EDT , Service support ,
[2018-01-27] MEDS: Furosemide 40 MG/4 ML Vial IV ×3 (06:12→21:31)
[2018-01-27] MEDS: Heparin Injection (Vial) 5,000 UNIT/ML VIAL 5000 UNIT SC ×3 (06:12→21:31)
[2018-01-27] MEDS: guaiFENesin 10 ML UDC (200MG/10ML) PO ×2 (06:33→13:50)
[2018-01-27 07:42] LABS: Anion Gap 9 (5-15); BUN 16 mg/dL (7-18); BUN/Creat Ratio 19.4 RATIO (10-20); Calcium,Total 9.4 mg/dL (8.5-10.1); Chloride 102 mmol/L (98-107); Creatinine, Serum 0.82 mg/dL (0.70-1.30); EST Glomerular Filtration Rate 96 mL/min (>60); Est Glom Filt Rate - Afr Amer 117 mL/min (>60); Glucose 107 mg/dL (74-106); Potassium 3.7 mmol/L (3.5-5.1); Sodium Level 142 mmol/L (136-145)
[2018-01-27] MEDS: Aspirin E.C. 81 MG Tablet PO (09:10)
[2018-01-27] MEDS: Clopidogrel Bisulfate 75 MG Tablet PO (09:11)
[2018-01-27] MEDS: Metoprolol Tartrate 50 MG Tablet PO ×2 (09:11→21:30)
[2018-01-27] MEDS: Pantoprazole Sodium 40 MG Tablet PO (09:12)
[2018-01-27] MEDS: Escitalopram Oxalate 10 MG Tablet PO (09:12)
[2018-01-27] MEDS: Lisinopril 20 MG Tablet PO (09:12)
[2018-01-27] MEDS: Digoxin 250 MCG Tablet PO (09:14)
--- NOTE | 2018-01-27 11:42 | CASEMGMT ---
SEE RN ERIC ASSESS LINK: Intro Role of MEET REYES. Assess completed. Pt remains on 02. D/C Plan: Anticipate pt to return home. If continues on O2, recommend home O2 testing prior to discharge. Harry ROUSEN MEET CM
--- NOTE | 2018-01-27 12:58 | PCM.PN.HOSP ---
Patient Problems: Active and Suspected Problems (Last Reviewed 11/28/17 @ 14:40 by Jerome Gaines) Shortness of breath (Acute) Subjective: Patient is a 77-year-old male was admitted with a complaint of increasing shortness of breath for 1 week prior to admission with associated cough productive of clear sputum and orthopnea. He had no chest pain, no fever no chills no diaphoresis. He has a known EF of 15% and nonischemic cardiomyopathy. He had been taken off his diuretics according to his because his blood pressure was low. Chest x-ray showed evidence of congestive heart failure. He was admitted and is being managed for CHF exacerbation. Patient seen and examined this morning. His normal-sized bedside. He said he felt much better than when he came in and shortness of breath improved significantly. He denied any chest pain admitted to a cough productive of scant, clear sputum. He denied any fever or chills. Review of systems otherwise negative. Of note patient said that he had a spot on his liver and was due to have a biopsy done on Monday and so had been off his Plavix for the past 3 days. He therefore wants to stay in the hospital until Monday when his biopsy can be done. Labs and medications as well as vitals reviewed. Vitals/I&O's: Vital Signs Temp Pulse Resp BP Pulse Ox 97.9 F 60 18 105/53 L 94 01/27/18 09:05 01/27/18 11:58 01/27/18 09:05 01/27/18 09:05 01/27/18 09:05 Oxygen Flow Rate (L/min) 1 Oxygen Delivery Method Nasal Cannula Weight: 144 lb 6.444 oz Body Mass Index (BMI) 23.7 Intake and Output for Last 24 Hours 01/25/18 01/26/18 01/27/18 23:59 23:59 23:59 Intake Total 240 / 240 540 / 540 Output Total 1400 / 1400 2325 / 2325 Balance -1160 / -1160 -1785 / -1785 General: Alert, Oriented x3, Cooperative HEENT: Atraumatic, PERRLA, EOMI, Normocephalic Oral: Moist Mucosa Neck: Supple, No JVD, Negative Carotid Bruits Lungs: Clear to auscultation, Normal air movement, No rhonchi, No wheeze, No rales Cardiovascular: Regular rate, Regular Rhythm, Normal S1, No murmurs Abdomen: Bowel Sounds Present, Soft, Non Tender, Non-Distended, No Hepato-splenomegaly Extremities: No clubbing, No cyanosis, No edema, Capillary Refill Less than 3 Seconds Skin: No rashes, No breakdown Musculoskeletal: No Tenderness to Palpation of Joints or Extremities Lymphatic: No Cervical, Supraclavicular, or Inguinal Adenopathy Neurological: Cranial nerves II-XII grossly intact Psych/Mental Status: Normal Affect, Appropriate, Alert and oriented to time, place, person, mood and affect Laboratory Results 01/27/18 07:14: Sodium 142, Potassium 3.7, Chloride 102, Carbon Dioxide 31.0, Anion Gap 9, BUN 16, Creatinine 0.82, Estim Creat Clear Calc 71.00, Est GFR (MDRD) Af Amer 117, Est GFR (MDRD) Non-Af 96, BUN/Creatinine Ratio 19.4, Glucose 107 H, Calcium 9.4 Diagnostic Data Chest X-Ray 01/27/18 05:55 IMPRESSION: 1. Improvement of CHF. 2. Subsegmental atelectases in the lower lobes and right middle lobe. 3. Suspicious loculated fluid near the right hilum. Electronically Signed: Salvador Elkins MD at 8:14 EDT , Service support , Current Medications Aspirin (Ecotrin) 81 mg PO DAILY@0800 [facility] Last Admin: 01/27/18 09:10 Dose: 81 mg Atorvastatin Calcium (Lipitor) 80 mg PO QHS [facility] Last Admin: 01/26/18 22:52 Dose: 80 mg Clopidogrel Bisulfate (Plavix) 75 mg PO DAILY [facility] Last Admin: 01/27/18 09:11 Dose: 75 mg Digoxin (Lanoxin) 250 mcg PO DAILY [facility] Last Admin: 01/27/18 09:14 Dose: 250 mcg Escitalopram Oxalate (Lexapro) 10 mg PO DAILY [facility] Last Admin: 01/27/18 09:12 Dose: 10 mg Furosemide (Lasix) 40 mg IV Q8 [facility] Last Admin: 01/27/18 06:12 Dose: 40 mg Guaifenesin (Robitussin) 10 ml PO Q6H PRN PRN PRN Reason: cough Last Admin: 01/27/18 06:33 Dose: 10 ml Heparin Sodium (Porcine) (Heparin Na) 5,000 unit SC Q8 [facility] Last Admin: 01/27/18 06:12 Dose: 5,000 u Sodium Chloride () 250 mls @ 15 mls/hr IV .[id number] PRN PRN Reason: SALINE FLUSH Lisinopril (Zestril) 20 mg PO DAILY [facility] Last Admin: 01/27/18 09:12 Dose: 20 mg Metoprolol Tartrate (Lopressor (Beta Humberto)) 50 mg PO BID [facility] Last Admin: 01/27/18 09:11 Dose: 50 mg Nutritional Formula (Lactose Free) (Ensure Enlive) 120 ml PO 4X/DAY [facility] Last Admin: 01/27/18 09:08 Dose: 120 ml Pantoprazole Sodium (Protonix) 40 mg PO DAILY [facility] Last Admin: 01/27/18 09:12 Dose: 40 mg Potassium Chloride ([facility]Dur) [facility] Last Admin: 01/27/18 09:10 Dose: 20 meq Sodium Chloride () 5 - 30 ml IV UD PRN PRN Reason: SALINE FLUSH Last Admin: 01/26/18 22:56 Dose: 10 ml Medical Necessity - Tobacco Use Smoking Status: Former smoker Tobacco Use: Non-smoker Assessment/Plan All Active Problems (Last Reviewed 11/28/17 @ 14:40 by Jerome Gaines) Shortness of breath (Acute) 1. Acute systolic heart failure' has known EF of 15% and nonischemic cardiomyopathy on IV lasix 40mg bid. Doing much better input-output: will switch to PO lasix 40mg bid will monitor input output strictly CXR: improvement of CHF, subsegmental atelectases in lower lobes and right middle love. Loculated fluid near right hilum will monitor 2. Ischemic cardiomyopathy EF of 15% per echo. on aspirin; plavix has been on hold since he is due to have a liver biopsy on Monday. Monday will be 5th day since he last took it. on lisinopril and metoprolol will monitor 3. Acute hypoxic respiratory failure due to CHF exacerbation Was saturating at around 88-90% on admission. Now saturating at 94% on 2 L of oxygen. Wean off oxygen to room air which is what he was on at home if possible. 4. Hypokalemia: Resolved. 5. Liver mass: says he is known to have a spot on his liver. Due for liver biopsy Monday. Currently off plavix. Will hold aspirin tomorro and keep NPO past midnight tomorrow. 6. DVT prophylaxis: Heparin Code Visit Inpatient E&M: 30853 Subs Hosp L2
--- NOTE | 2018-01-27 13:09 | PN_ITS ---
Patient Problems: Active and Suspected Problems (Last Reviewed 11/28/17 @ 14:40 by Jerome Gaines) Shortness of breath (Acute) Subjective: Patient is a 77-year-old male was admitted with a complaint of increasing shortness of breath for 1 week prior to admission with associated cough productive of clear sputum and orthopnea. He had no chest pain, no fever no chills no diaphoresis. He has a known EF of 15% and nonischemic cardiomyopathy. He had been taken off his diuretics according to his because his blood pressure was low. Chest x-ray showed evidence of congestive heart failure. He was admitted and is being managed for CHF exacerbation. Patient seen and examined this morning. His normal-sized bedside. He said he felt much better than when he came in and shortness of breath improved significantly. He denied any chest pain admitted to a cough productive of scant , clear sputum. He denied any fever or chills. Review of systems otherwise negative. Of note patient said that he had a spot on his liver and was due to have a biopsy done on Monday and so had been off his Plavix for the past 3 days. He therefore wants to stay in the hospital until Monday when his biopsy can be done. Labs and medications as well as vitals reviewed. Vitals/I&O's: Vital Signs Temp Pulse Resp BP Pulse Ox 97.9 F 60 18 105/53 L 94 01/27/18 09:05 01/27/18 11:58 01/27/18 09:05 01/27/18 09:05 01/27/18 09:05 Oxygen Flow Rate (L/min) 1 Oxygen Delivery Method Nasal Cannula Weight: 144 lb 6.444 oz Body Mass Index (BMI) 23.7 Intake and Output for Last 24 Hours 01/25/18 01/26/18 01/27/18 23:59 23:59 23:59 Intake Total 240 / 240 540 / 540 Output Total 1400 / 1400 2325 / 2325 Balance -1160 / -1160 -1785 / -1785 General: Alert, Oriented x3, Cooperative HEENT: Atraumatic, PERRLA, EOMI, Normocephalic Oral: Moist Mucosa Neck: Supple, No JVD, Negative Carotid Bruits Lungs: Clear to auscultation, Normal air movement, No rhonchi, No wheeze, No rales Cardiovascular: Regular rate, Regular Rhythm, Normal S1, No murmurs Abdomen: Bowel Sounds Present, Soft, Non Tender, Non-Distended, No Hepato- splenomegaly Extremities: No clubbing, No cyanosis, No edema, Capillary Refill Less than 3 Seconds Skin: No rashes, No breakdown Musculoskeletal: No Tenderness to Palpation of Joints or Extremities Lymphatic: No Cervical, Supraclavicular, or Inguinal Adenopathy Neurological: Cranial nerves II-XII grossly intact Psych/Mental Status: Normal Affect, Appropriate, Alert and oriented to time, place, person, mood and affect Laboratory Results 01/27/18 07:14: Sodium 142, Potassium 3.7, Chloride 102, Carbon Dioxide 31.0, Anion Gap 9, BUN 16, Creatinine 0.82, Estim Creat Clear Calc 71.00, Est GFR ( MDRD) Af Amer 117, Est GFR (MDRD) Non-Af 96, BUN/Creatinine Ratio 19.4, Glucose 107 H, Calcium 9.4 Diagnostic Data Chest X-Ray 01/27/18 05:55 IMPRESSION: 1. Improvement of CHF. 2. Subsegmental atelectases in the lower lobes and right middle lobe. 3. Suspicious loculated fluid near the right hilum. Electronically Signed: Salvador Elkins MD at 8:14 EDT , Service support , Current Medications Aspirin (Ecotrin) 81 mg PO DAILY@0800 [facility] Last Admin: 01/27/18 09:10 Dose: 81 mg Atorvastatin Calcium (Lipitor) 80 mg PO QHS [facility] Last Admin: 01/26/18 22:52 Dose: 80 mg Clopidogrel Bisulfate (Plavix) 75 mg PO DAILY [facility] Last Admin: 01/27/18 09:11 Dose: 75 mg Digoxin (Lanoxin) 250 mcg PO DAILY [facility] Last Admin: 01/27/18 09:14 Dose: 250 mcg Escitalopram Oxalate (Lexapro) 10 mg PO DAILY [facility] Last Admin: 01/27/18 09:12 Dose: 10 mg Furosemide (Lasix) 40 mg IV Q8 [facility] Last Admin: 01/27/18 06:12 Dose: 40 mg Guaifenesin (Robitussin) 10 ml PO Q6H PRN PRN PRN Reason: cough Last Admin: 01/27/18 06:33 Dose: 10 ml Heparin Sodium (Porcine) (Heparin Na) 5,000 unit SC Q8 [facility] Last Admin: 01/27/18 06:12 Dose: 5,000 u Sodium Chloride () 250 mls @ 15 mls/hr IV .[id number] PRN PRN Reason: SALINE FLUSH Lisinopril (Zestril) 20 mg PO DAILY [facility] Last Admin: 01/27/18 09:12 Dose: 20 mg Metoprolol Tartrate (Lopressor (Beta Humberto)) 50 mg PO BID [facility] Last Admin: 01/27/18 09:11 Dose: 50 mg Nutritional Formula (Lactose Free) (Ensure Enlive) 120 ml PO 4X/DAY [facility] Last Admin: 01/27/18 09:08 Dose: 120 ml Pantoprazole Sodium (Protonix) 40 mg PO DAILY [facility] Last Admin: 01/27/18 09:12 Dose: 40 mg Potassium [facility]loride ([facility]) [facility] Last Admin: 01/27/18 09:10 Dose: 20 meq Sodium Chloride () 5 - 30 ml IV UD PRN PRN Reason: SALINE FLUSH Last Admin: 01/26/18 22:56 Dose: 10 ml Medical Necessity - Tobacco Use Smoking Status: Former smoker Tobacco Use: Non-smoker Assessment/Plan All Active Problems (Last Reviewed 11/28/17 @ 14:40 by Jerome Gaines) Shortness of breath (Acute) 1. Acute systolic heart failure' * has known EF of 15% and nonischemic cardiomyopathy * on IV lasix 40mg bid. Doing much better * input-output: * will switch to PO lasix 40mg bid * will monitor input output strictly * CXR: improvement of CHF, subsegmental atelectases in lower lobes and right middle love. Loculated fluid near right hilum * will monitor * 2. Ischemic cardiomyopathy * EF of 15% per echo. * on aspirin; plavix has been on hold since he is due to have a liver biopsy on Monday. Monday will be 5th day since he last took it. * on lisinopril and metoprolol * will monitor * 3. Acute hypoxic respiratory failure due to CHF exacerbation * Was saturating at around 88-90% on admission. Now saturating at 94% on 2 L of oxygen. Wean off oxygen to room air which is what he was on at home if possible. * 4. Hypokalemia: Resolved. 5. Liver mass: says he is known to have a spot on his liver. Due for liver biopsy Monday. Currently off plavix. Will hold aspirin tomorro and keep NPO past midnight tomorrow. 6. DVT prophylaxis: Heparin Code Visit Inpatient E&M: 89953 Subs Hosp L2
[2018-01-27] MEDS: 0.9% NaCl Peripheral Flush Adult/Peds IV ×2 (13:52→21:34)
[2018-01-27 19:11] LABS: Anion Gap 8 (5-15); BUN 22 mg/dL (7-18); BUN/Creat Ratio 25.7 RATIO (10-20); Calcium,Total 9.6 mg/dL (8.5-10.1); Chloride 100 mmol/L (98-107); Creatinine, Serum 0.86 mg/dL (0.70-1.30); EST Glomerular Filtration Rate 92 mL/min (>60); Est Glom Filt Rate - Afr Amer 112 mL/min (>60); Glucose 113 mg/dL (74-106); Magnesium 1.8 mg/dL (1.6-2.6); Potassium 3.9 mmol/L (3.5-5.1); Sodium Level 141 mmol/L (136-145)
[2018-01-27] MEDS: Atorvastatin Calcium 80 MG Tablet PO (21:30)
[2018-01-28] VITALS (9 sets, daily range): BP systolic 98–118; BP diastolic 51–55; PULSE 59–68; RESP 16–18; TEMP 36.3–36.8; O2SAT 90–97
[2018-01-28] MEDS: Heparin Injection (Vial) 5,000 UNIT/ML VIAL 5000 UNIT SC (05:56)
[2018-01-28 07:00] LABS: Absolute Lymphocyte Count 2.03 X10^3/ul (0.83-4.51); Basophil# 0.05 X10^3/uL; Basophil% 0.4 % (0-1); Eosinophil# 0.27 X10^3/uL; Eosinophils% 2.2 % (0-5); Hematocrit 41.6 % (40-54); Hemoglobin 13.3 g/dl (13.0-16.5); Lymphocyte # 2.03 X10^3/ul (4.0); Lymphocyte % 16.9 % (19-41); Mean Corpuscular Hgb 27.7 pg (27.0-32.0); Mean Corpuscular Volume 86.5 fL (80-94); Mean Platelet Vol. 10.6 fl (6.2-12.0); Monocyte# 1.56 X10^3/uL; Neutrophil # 7.97 X10^3/uL (2.7-7.7); Neutrophil % 66.4 % (47-70); Platelet Count 238 K/mm3 (150-450); RBC Distribution Width CV 14.5 % (11.6-14.6); Red Blood Count 4.81 M/mm3 (4.6-6.2)
[2018-01-28 07:07] LABS: Anion Gap 9 (5-15); BUN 26 mg/dL (7-18); BUN/Creat Ratio 25.2 RATIO (10-20); Calcium,Total 9.7 mg/dL (8.5-10.1); Chloride 98 mmol/L (98-107); Creatinine, Serum 1.03 mg/dL (0.70-1.30); Differential Indicated SCAN CRITERIA MET; EST Glomerular Filtration Rate 74 mL/min (>60); Est Glom Filt Rate - Afr Amer 90 mL/min (>60); Estimated Creatinine Clearance 55.06 ml/min; Glucose 100 mg/dL (74-106); Magnesium 1.9 mg/dL (1.6-2.6); POSITIVE COUNT NO; POSITIVE DIFFERENTIAL YES; POSITIVE MORPHOLOGY NO; Potassium 3.9 mmol/L (3.5-5.1); Sodium Level 142 mmol/L (136-145)
[2018-01-28 07:57] LABS: Acanthocytes 1+; Platelet Estimate ADEQUATE (ADEQ); Target Cells RARE
[2018-01-28] MEDS: Digoxin 250 MCG Tablet PO (10:44)
[2018-01-28] MEDS: Metoprolol Tartrate 50 MG Tablet PO (10:44)
[2018-01-28] MEDS: Aspirin E.C. 81 MG Tablet PO (10:44)
[2018-01-28] MEDS: Escitalopram Oxalate 10 MG Tablet PO (10:44)
[2018-01-28] MEDS: Pantoprazole Sodium 40 MG Tablet PO (10:45)
[2018-01-28] MEDS: Lisinopril 20 MG Tablet PO (10:45)
[2018-01-28] MEDS: Clopidogrel Bisulfate 75 MG Tablet PO (10:45)
--- NOTE | 2018-01-28 13:27 | PCM.DC.SUM ---
Discharge Date and Diagnosis - Problem List Patient Problems: Active and Suspected Problems (Last Reviewed 11/28/17 @ 14:40 by Jerome Gaines) Shortness of breath (Acute) Date of Admission: 01/26/18 Date of Discharge: 01/28/18 - Primary Discharge Diagnosis Active and Suspected Problems (Last Reviewed 11/28/17 @ 14:40 by Jerome Gaines) Shortness of breath (Acute) acute CHF exacerbation - Secondary Discharge Diagnosis Chronic Problems (Last Reviewed 11/28/17 @ 14:40 by Jerome Gaines) Sinus node dysfunction (Chronic) Atherosclerosis of coronary artery bypass graft without angina pectoris (Chronic) Ventricular tachycardia (Chronic) Left ventricular systolic dysfunction (Chronic) Nonrheumatic mitral valve regurgitation (Chronic) Hypertension (Chronic) Hyperlipidemia (Chronic) 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 Torres Ischemic cardiomyopathy (Chronic) Atherosclerosis of coronary artery of [place] heart without angina pectoris (Chronic) SVG-LAD, SVG- High Lateral Cx, Sequential SVG-PDA,Acute Marginal 12/22/1995 SAENZ-High Lateral Cx, Radial Artery-PDA, Sequential SVG- LAD and D1 11/15/2008 [facility] [id number] Left Cx @ [facility]; 10/25/17-PTCA and MIGDALIA of proximal LCX/SR per Dr. Torres @ [facility] Hospital Course and Treatment Imaging Results: Impressions Chest X-Ray 01/27/18 05:55 IMPRESSION: 1. Improvement of CHF. 2. Subsegmental atelectases in the lower lobes and right middle lobe. 3. Suspicious loculated fluid near the right hilum. Electronically Signed: Salvador Elkins MD at 8:14 EDT , Service support , Laboratory Results 01/27/18 01/28/18 01/28/18 Range/Units 18:35 06:12 06:12 WBC 12.0 H (4.4-11.0) K/mm3 RBC 4.81 (4.6-6.2) M/mm3 Hgb 13.3 (13.0-16.5) g/dl Hct 41.6 (40-54) % MCV 86.5 (80-94) fL MCH 27.7 (27.0-32.0) pg MCHC 32.0 (32-36) g/gl RDW 14.5 (11.6-14.6) % RDW Differential 45.0 H (35.1-43.9) fl Plt Count 238 (150-450) K/mm3 MPV 10.6 (6.2-12.0) fl Immature Gran % (Auto) 1.100 H (0.0-0.9) % Neut % (Auto) 66.4 (47-70) % Lymph % (Auto) 16.9 L (19-41) % Rosebud % (Auto) 13.0 H (0-10) % Eos % (Auto) 2.2 (0-5) % Baso % (Auto) 0.4 (0-1) % Absolute Neuts (auto) 8.0 H (2.0-7.7) X10^3/uL Absolute Lymphs (auto) 2.03 (0.83-4.51) X10^3/ul Total Counted Not Reportable Platelet Estimate ADEQUATE (ADEQ) Target Cells RARE Acanthocytes (Spur) 1+ Sodium 141 142 (136-145) mmol/L Potassium 3.9 3.9 (3.5-5.1) mmol/L Chloride 100 98 (98-107) mmol/L Carbon Dioxide 33.0 H 35.0 H (21.0-32.0) mmol/L Anion Gap 8 9 (5-15) BUN 22 H 26 H (7-18) mg/dL Creatinine 0.86 1.03 (0.70-1.30) mg/dL Estim Creat Clear Calc 67.70 55.06 ml/min Est GFR (MDRD) Af Amer 112 90 (>60) mL/min Est GFR (MDRD) Non-Af 92 74 (>60) mL/min BUN/Creatinine Ratio 25.7 H 25.2 H (10-20) RATIO Glucose 113 H 100 (74-106) mg/dL Calcium 9.6 9.7 (8.5-10.1) mg/dL Magnesium 1.8 1.9 (1.6-2.6) mg/dL Operations: None Procedures: None Summary of Care Provided: Patient is a 77-year-old male was admitted on 01/26/18 with a complaint of increasing shortness of breath for 1 week prior to admission with associated cough productive of clear sputum and orthopnea. He had no chest pain, no fever no chills no diaphoresis. He has a known EF of 15% per recent echo.and nonischemic cardiomyopathy. He had been taken off his diuretics according to his because his blood pressure was low. Chest x-ray showed evidence of congestive heart failure. 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 In the ED, he was saturating above 90% on room air with ambulation and labs showed digoxin level of 1.91. Potassium of 3.4. Chest x-ray showed evidence of congestive heart failure. EKG done shows sinus rhythm with ventricular pacing he was admitted and managed for CHF exacerbation. Patient was diuresed with IV Lasix and shortness of breath resolved. He remained stable. Echo was deferred during this admission because he recently had an echo. Patient was due to have a liver biopsy for a spot on his liver which had been scheduled on outpatient basis on 01/29/2018 during this admission. He had been off Plavix prior to coming in. However patient inadvertently received Plavix during this admission and so liver biopsy was rescheduled for 05 February 2018 at 10 AM. Patient is to stop taking Plavix on January 31, 2018 for 5 days and to stop taking aspirin on February 03, 2018 for 2 days in preparation for liver biopsy on February 05, 2018. Patient seen and examined prior to discharge. He had no complaints and felt well. He denied any fever or chills, any cough chest pain, any shortness of breath, any orthopnea PND, any abdominal pain diarrhea vomiting. Review of systems otherwise negative. On examination: Vital Signs Height 5 ft 7 in Weight: 140 lb 10.479 oz Weight in Pounds 140.7 lbs BMI 26.6 Pulse Ox 93 Temperature 97.4 F Pulse Rate 62 Respiratory Rate 18 Blood Pressure 107/55 Blood Pressure Position Semi-Fowlers General: Alert, Oriented x3, Cooperative, No apparent distress, Well developed, Well nourished HEENT: Atraumatic, PERRLA, EOMI, Normocephalic Oral: Moist Mucosa Neck: Supple, No JVD, Negative Carotid Bruits, No Nuchal Rigidity, Trachea Midline, Thyroid Normal Size and Texture Lungs: No rhonchi, No wheeze, Diminished, Rales - Inspiratory rales are noted at the bases bilaterally Cardiovascular: Regular rate, Regular Rhythm, Normal S1, Normal S2, No murmurs, PMI Normal, No rub noted Abdomen: Bowel Sounds Present, Soft, Non Tender, Non-Distended, No hernias noted Extremities: No clubbing, No cyanosis, No edema, Capillary Refill Less than 3 Seconds Skin: No rashes, No breakdown Musculoskeletal: No Tenderness to Palpation of Joints or Extremities Neurological: Cranial nerves II-XII grossly intact, Neuro grossly intact, Muscle tone normal, Sensory exam intact to light touch and pain, Coordination normal Psych/Mental Status: Normal Affect, Appropriate, Alert and oriented to time, place, person, mood and affect Plan as stated above. Patient was discharged home on p.o. Lasix 20 mg daily. He is to follow-up with his primary care doctor and his hospice fellow in 1 week. [] Discharge Diet: 2000 mg Sodium Diet Discharge Activity: Return to Normal Activity Weight Bearing Status: Weight bearing as tolerated Call your doctor if you observe: Shortness of breath Home Medications: Medications to take at Discharge Atorvastatin Calcium [Lipitor] 80 mg PO QHS 12/31/17 Clopidogrel Bisulfate [Clopidogrel] 75 mg PO DAILY 12/31/17 Digoxin 250 mcg PO DAILY 12/31/17 Escitalopram Oxalate [Lexapro] 10 mg PO DAILY 12/31/17 Lisinopril 20 mg PO DAILY 12/31/17 Metformin HCl 500 mg PO QHS 12/31/17 Metoprolol Tartrate [Lopressor (beta lorena)] 50 mg PO BID 12/31/17 Mineral Oil/Petrolatum Cr [Aquaphor] 1 applic TOPICAL PRN PRN 12/31/17 Triamcinolone 0.025% Cream [Kenalog] 1 applic TOPICAL BID 12/31/17 Omeprazole 40 mg PO DAILY 01/24/18 Acetaminophen [Tylenol Arthritis] 650 mg PO PRN PRN 01/26/18 Aspirin E.C. [Ecotrin] 81 mg PO DAILY@0800 01/26/18 Ibuprofen 400 mg PO PRN PRN 01/26/18 Furosemide [Lasix] 20 mg PO DAILY #30 tab 01/28/18 Following Prescrptions Were Given to Patient: Furosemide [Lasix] 20 mg PO DAILY #30 tab Primary Care Physician: Lazarus Garcia Chi, MD [Primary Care Provider] - Please follow up with your Primary Care Physician in: one week Disposition: Home Minutes spent on discharge:: 35 Patient Condition:: Stable Medical Necessity - Tobacco Use Smoking Status: Former smoker Tobacco Use: Non-smoker Meaningful Use Info Meaningful Use Diagnoses (Choose all that apply): CHF - CHF RASHEED/ARB ordered at discharge?: Yes Documented LVEF (%): 15 Code Visit Inpatient E&M: 35267 Disch Hosp
--- NOTE | 2018-01-28 13:31 | DS.PCM_ITS ---
Discharge Date and Diagnosis - Problem List Patient Problems: Active and Suspected Problems (Last Reviewed 11/28/17 @ 14:40 by Jerome Gaines) Shortness of breath (Acute) Date of Admission: 01/26/18 Date of Discharge: 01/28/18 - Primary Discharge Diagnosis Active and Suspected Problems (Last Reviewed 11/28/17 @ 14:40 by Jerome Gaines) Shortness of breath (Acute) acute CHF exacerbation - Secondary Discharge Diagnosis Chronic Problems (Last Reviewed 11/28/17 @ 14:40 by Jerome Gaines) Sinus node dysfunction (Chronic) Atherosclerosis of coronary artery bypass graft without angina pectoris (Chronic ) Ventricular tachycardia (Chronic) Left ventricular systolic dysfunction (Chronic) Nonrheumatic mitral valve regurgitation (Chronic) Hypertension (Chronic) Hyperlipidemia (Chronic) 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 Torres Ischemic cardiomyopathy (Chronic) Atherosclerosis of coronary artery of [place] heart without angina pectoris ( Chronic) SVG-LAD, SVG- High Lateral Cx, Sequential SVG-PDA,Acute Marginal 12/22/1995 SAENZ-High Lateral Cx, Radial Artery-PDA, Sequential SVG- LAD and D1 11/15/2008 [facility] [id number] Left Cx @ [facility]; 10/25/17-PTCA and MIGDALIA of proximal LCX/SR per Dr. Torres @ [facility] Hospital Course and Treatment Imaging Results: Impressions Chest X-Ray 01/27/18 05:55 IMPRESSION: 1. Improvement of CHF. 2. Subsegmental atelectases in the lower lobes and right middle lobe. 3. Suspicious loculated fluid near the right hilum. Electronically Signed: Salvador Elkins MD at 8:14 EDT , Service support , Laboratory Results 01/27/18 01/28/18 01/28/18 Range/Units 18:35 06:12 06:12 WBC 12.0 H (4.4-11.0) K/mm3 RBC 4.81 (4.6-6.2) M/mm3 Hgb 13.3 (13.0-16.5) g/dl Hct 41.6 (40-54) % MCV 86.5 (80-94) fL MCH 27.7 (27.0-32.0) pg MCHC 32.0 (32-36) g/gl RDW 14.5 (11.6-14.6) % RDW Differential 45.0 H (35.1-43.9) fl Plt Count 238 (150-450) K/mm3 MPV 10.6 (6.2-12.0) fl Immature Gran % (Auto) 1.100 H (0.0-0.9) % Neut % (Auto) 66.4 (47-70) % Lymph % (Auto) 16.9 L (19-41) % Armstrong % (Auto) 13.0 H (0-10) % Eos % (Auto) 2.2 (0-5) % Baso % (Auto) 0.4 (0-1) % Absolute Neuts (auto) 8.0 H (2.0-7.7) X10^3/uL Absolute Lymphs (auto) 2.03 (0.83-4.51) X10^3/ul Total Counted Not Reportable Platelet Estimate ADEQUATE (ADEQ) Target Cells RARE Acanthocytes (Spur) 1+ Sodium 141 142 (136-145) mmol/L Potassium 3.9 3.9 (3.5-5.1) mmol/L Chloride 100 98 (98-107) mmol/L Carbon Dioxide 33.0 H 35.0 H (21.0-32.0) mmol/L Anion Gap 8 9 (5-15) BUN 22 H 26 H (7-18) mg/dL Creatinine 0.86 1.03 (0.70-1.30) mg/dL Estim Creat Clear Calc 67.70 55.06 ml/min Est GFR (MDRD) Af Amer 112 90 (>60) mL/min Est GFR (MDRD) Non-Af 92 74 (>60) mL/min BUN/Creatinine Ratio 25.7 H 25.2 H (10-20) RATIO Glucose 113 H 100 (74-106) mg/dL Calcium 9.6 9.7 (8.5-10.1) mg/dL Magnesium 1.8 1.9 (1.6-2.6) mg/dL Operations: None Procedures: None Summary of Care Provided: Patient is a 77-year-old male was admitted on 01/26/18 with a complaint of increasing shortness of breath for 1 week prior to admission with associated cough productive of clear sputum and orthopnea. He had no chest pain, no fever no chills no diaphoresis. He has a known EF of 15% per recent echo.and nonischemic cardiomyopathy. He had been taken off his diuretics according to his because his blood pressure was low. Chest x-ray showed evidence of congestive heart failure. 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 In the ED, he was saturating above 90% on room air with ambulation and labs showed digoxin level of 1.91. Potassium of 3.4. Chest x-ray showed evidence of congestive heart failure. EKG done shows sinus rhythm with ventricular pacing he was admitted and managed for CHF exacerbation. Patient was diuresed with IV Lasix and shortness of breath resolved. He remained stable. Echo was deferred during this admission because he recently had an echo. Patient was due to have a liver biopsy for a spot on his liver which had been scheduled on outpatient basis on 01/29/2018 during this admission. He had been off Plavix prior to coming in. However patient inadvertently received Plavix during this admission and so liver biopsy was rescheduled for 05 February 2018 at 10 AM. Patient is to stop taking Plavix on January 31, 2018 for 5 days and to stop taking aspirin on February 03, 2018 for 2 days in preparation for liver biopsy on February 05, 2018. Patient seen and examined prior to discharge. He had no complaints and felt well. He denied any fever or chills, any cough chest pain, any shortness of breath, any orthopnea PND, any abdominal pain diarrhea vomiting. Review of systems otherwise negative. On examination: Vital Signs Height 5 ft 7 in Weight: 140 lb 10.479 oz Weight in Pounds 140.7 lbs BMI 26.6 Pulse Ox 93 Temperature 97.4 F Pulse Rate 62 Respiratory Rate 18 Blood Pressure 107/55 Blood Pressure Position Semi-Fowlers General: Alert, Oriented x3, Cooperative, No apparent distress, Well developed, Well nourished HEENT: Atraumatic, PERRLA, EOMI, Normocephalic Oral: Moist Mucosa Neck: Supple, No JVD, Negative Carotid Bruits, No Nuchal Rigidity, Trachea Midline, Thyroid Normal Size and Texture Lungs: No rhonchi, No wheeze, Diminished, Rales - Inspiratory rales are noted at the bases bilaterally Cardiovascular: Regular rate, Regular Rhythm, Normal S1, Normal S2, No murmurs, PMI Normal, No rub noted Abdomen: Bowel Sounds Present, Soft, Non Tender, Non-Distended, No hernias noted Extremities: No clubbing, No cyanosis, No edema, Capillary Refill Less than 3 Seconds Skin: No rashes, No breakdown Musculoskeletal: No Tenderness to Palpation of Joints or Extremities Neurological: Cranial nerves II-XII grossly intact, Neuro grossly intact, Muscle tone normal, Sensory exam intact to light touch and pain, Coordination normal Psych/Mental Status: Normal Affect, Appropriate, Alert and oriented to time, place, person, mood and affect Plan as stated above. Patient was discharged home on p.o. Lasix 20 mg daily. He is to follow-up with his primary care doctor and his folder hand in 1 week. [] Discharge Diet: 2000 mg Sodium Diet Discharge Activity: Return to Normal Activity Weight Bearing Status: Weight bearing as tolerated Call your doctor if you observe: Shortness of breath Home Medications: Medications to take at Discharge Atorvastatin Calcium [Lipitor] 80 mg PO QHS 12/31/17 Clopidogrel Bisulfate [Clopidogrel] 75 mg PO DAILY 12/31/17 Digoxin 250 mcg PO DAILY 12/31/17 Escitalopram Oxalate [Lexapro] 10 mg PO DAILY 12/31/17 Lisinopril 20 mg PO DAILY 12/31/17 Metformin HCl 500 mg PO QHS 12/31/17 Metoprolol Tartrate [Lopressor (beta lorena)] 50 mg PO BID 12/31/17 Mineral Oil/Petrolatum Cr [Aquaphor] 1 applic TOPICAL PRN PRN 12/31/17 Triamcinolone 0.025% Cream [Kenalog] 1 applic TOPICAL BID 12/31/17 Omeprazole 40 mg PO DAILY 01/24/18 Acetaminophen [Tylenol Arthritis] 650 mg PO PRN PRN 01/26/18 Aspirin E.C. [Ecotrin] 81 mg PO DAILY@0800 01/26/18 Ibuprofen 400 mg PO PRN PRN 01/26/18 Furosemide [Lasix] 20 mg PO DAILY #30 tab 01/28/18 Following Prescrptions Were Given to Patient: Furosemide [Lasix] 20 mg PO DAILY #30 tab Primary Care Physician: Lazarus Garcia Chi, MD [Primary Care Provider] - Please follow up with your Primary Care Physician in: one week Disposition: Home Minutes spent on discharge:: 35 Patient Condition:: Stable Medical Necessity - Tobacco Use Smoking Status: Former smoker Tobacco Use: Non-smoker Meaningful Use Info Meaningful Use Diagnoses (Choose all that apply): CHF - CHF RASHEED/ARB ordered at discharge?: Yes Documented LVEF (%): 15 Code Visit Inpatient E&M: 98250 Disch Hosp
--- NOTE | 2018-01-28 13:36 | PCM.DC ---
- Discharge Diagnoses Current Active Problems: Current Active and Chronic Problems (Last Reviewed 11/28/17 @ 14:40 by Jerome Gaines) Shortness of breath (Acute) You will use the following diet at home:: Cardiac Your food should be the consistency of: Regular Your liquids should be the consistency of: Regular/Thin Discharge Activity: Return to Normal Activity Weight Bearing Status: Weight bearing as tolerated Call your doctor if you observe: Shortness of breath, Increased palpitations (irregular heartbeat) Allergies/Adverse Reactions: Allergies codeine Allergy (Verified 01/26/18 14:51) Other Medications to take at Discharge Atorvastatin Calcium [Lipitor] 80 mg PO QHS 12/31/17 Clopidogrel Bisulfate [Clopidogrel] 75 mg PO DAILY 12/31/17 Digoxin 250 mcg PO DAILY 12/31/17 Escitalopram Oxalate [Lexapro] 10 mg PO DAILY 12/31/17 Lisinopril 20 mg PO DAILY 12/31/17 Metformin HCl 500 mg PO QHS 12/31/17 Metoprolol Tartrate [Lopressor (beta lorena)] 50 mg PO BID 12/31/17 Mineral Oil/Petrolatum Cr [Aquaphor] 1 applic TOPICAL PRN PRN 12/31/17 Triamcinolone 0.025% Cream [Kenalog] 1 applic TOPICAL BID 12/31/17 Omeprazole 40 mg PO DAILY 01/24/18 Acetaminophen [Tylenol Arthritis] 650 mg PO PRN PRN 01/26/18 Aspirin E.C. [Ecotrin] 81 mg PO DAILY@0800 01/26/18 Ibuprofen 400 mg PO PRN PRN 01/26/18 Furosemide [Lasix] 20 mg PO DAILY #30 tab 01/28/18 The following prescriptions were given: Furosemide [Lasix] 20 mg PO DAILY #30 tab Primary Care Physician: Lazarus Garcia Chi, MD [Primary Care Provider] - Please follow up with your Primary Care Physician in: one week Test Results: Test results from this visit will be discussed in further detail at your follow-up appointment, if applicable. Please Follow Up With: Phill Torres MD When: one week Proposed Discharge Date: 01/28/18 Cardiac Rehab Referral Please Follow Up with Cardiac Rehabilitation:: 2 Weeks Cardiac Rehabilitation was informed of this Referral:: Yes - Notifies Card Rehab
--- NOTE | 2018-01-28 13:39 | DCINST_ITS ---
- Discharge Diagnoses Current Active Problems: Current Active and Chronic Problems (Last Reviewed 11/28/17 @ 14:40 by Jerome Gaines) Shortness of breath (Acute) You will use the following diet at home:: Cardiac Your food should be the consistency of: Regular Your liquids should be the consistency of: Regular/Thin Discharge Activity: Return to Normal Activity Weight Bearing Status: Weight bearing as tolerated Call your doctor if you observe: Shortness of breath, Increased palpitations ( irregular heartbeat) Allergies/Adverse Reactions: Allergies codeine Allergy (Verified 01/26/18 14:51) Other Medications to take at Discharge Atorvastatin Calcium [Lipitor] 80 mg PO QHS 12/31/17 Clopidogrel Bisulfate [Clopidogrel] 75 mg PO DAILY 12/31/17 Digoxin 250 mcg PO DAILY 12/31/17 Escitalopram Oxalate [Lexapro] 10 mg PO DAILY 12/31/17 Lisinopril 20 mg PO DAILY 12/31/17 Metformin HCl 500 mg PO QHS 12/31/17 Metoprolol Tartrate [Lopressor (beta lorena)] 50 mg PO BID 12/31/17 Mineral Oil/Petrolatum Cr [Aquaphor] 1 applic TOPICAL PRN PRN 12/31/17 Triamcinolone 0.025% Cream [Kenalog] 1 applic TOPICAL BID 12/31/17 Omeprazole 40 mg PO DAILY 01/24/18 Acetaminophen [Tylenol Arthritis] 650 mg PO PRN PRN 01/26/18 Aspirin E.C. [Ecotrin] 81 mg PO DAILY@0800 01/26/18 Ibuprofen 400 mg PO PRN PRN 01/26/18 Furosemide [Lasix] 20 mg PO DAILY #30 tab 01/28/18 The following prescriptions were given: Furosemide [Lasix] 20 mg PO DAILY #30 tab Primary Care Physician: Lazarus Garcia Chi, MD [Primary Care Provider] - Please follow up with your Primary Care Physician in: one week Test Results: Test results from this visit will be discussed in further detail at your follow- up appointment, if applicable. Please Follow Up With: Phill Torres MD When: one week Proposed Discharge Date: 01/28/18 Cardiac Rehab Referral Please Follow Up with Cardiac Rehabilitation:: 2 Weeks Cardiac Rehabilitation was informed of this Referral:: Yes - Notifies Card Rehab
--- NOTE | 2018-01-29 16:27 | CASEMGMT ---
MEET REYES Discharge F/U Phone Call LACE: 11 Strata: 3 Discharge date: 01/28/18 Call date: 01/29/18 Call time: [id number] Duration: 4 minutes Admission dx: Acute systolic CHF answered phone and prefers to answer questions for pt at this time. states that pt is 'doing ok' since discharge but has not been eating much. states that she got pt some ensure to help supplement and states they f/u with Dr. Garcia on monday and she will speak with him then regarding same. states no questions regarding discharge instructions or medications at this time. states no suggestions for [facility] at this time. voices no further questions/concerns/needs at this time. [place] [facility]
== END 2018-01-28 16:49 | disposition home or self-care (01) | DRG 291 ==
LOC: ED 16:59 → PCU 18:14
PROVIDERS: Admitting Provider Internal Medicine; Emergency Provider Emergency Medicine; Family Provider Family Medicine Geriatric Medicine; PCP Family Medicine Geriatric Medicine; Visit Provider Student in an Organized Health Care Education/Training Program
DX: I50.21 Acute systolic (congestive) heart failure (principal); J96.01 Acute respiratory failure with hypoxia; I11.0 Hypertensive heart disease with heart failure; I25.10 Atherosclerotic heart disease of native coronary artery without angina pectoris; E78.5 Hyperlipidemia, unspecified; I25.5 Ischemic cardiomyopathy; K76.9 Liver disease, unspecified; N40.0 Benign prostatic hyperplasia without lower urinary tract symptoms; K21.9 Gastro-esophageal reflux disease without esophagitis; I25.2 Old myocardial infarction; E11.9 Type 2 diabetes mellitus without complications; Z85.46 Personal history of malignant neoplasm of prostate; Z95.1 Presence of aortocoronary bypass graft; Z95.810 Presence of automatic (implantable) cardiac defibrillator; Z87.891 Personal history of nicotine dependence; E87.6 Hypokalemia
CPT/HCPCS: 36415; 71045; 80048; 80162; 83605; 83735; 84484; 85025; 87040; 93005; 97802; 99285; A4216; J1940

== ENCOUNTER → 2018-02-05 08:46 | Outpatient (CLI) | payer MEDICARE, SELFPAY ==
[2017-10-25 15:17] VITALS: BMI 26.6
[2018-01-24 09:05] VITALS: BP 143/58; PULSE 60; RESP 14; TEMP 36.6; O2SAT 97; BMI 25.0
--- NOTE | 2018-01-24 09:42 | NURSING ---
ON REVIEW OF HOME MEDICATIONS, PT FOUND TO BE ON PLAVIX. THIS WAS NOT LISTED ON H/P PROVIDED BY DR. VALADEZ'S OFFICE. DR TABARES MADE AWARE THAT PT'S LAST DOSE WAS YESTERDAY, 01/23. PT RESCHEDULED FOR 01/29 AND WILL HOLD PLAVIX UNTIL AFTER PROCEDURE. THIS RN APOLOGIZED TO PT AND FAMILY FOR INCONVENIENCE. ALSO CALLED DR VALADEZ'S OFFICE TO INFORM OF CHANGE IN APPT AND TO PLEASE FAX A FULL H&P WITH COMPLETE MED LIST.
[2018-02-05] VITALS (11 sets, daily range): BP systolic 94–120; BP diastolic 34–68; PULSE 60; RESP 16–20; O2SAT 17–99; BMI 22.7
--- NOTE | 2018-02-05 | ASPIGT_PTH ---
PATIENT: ELLEN DILLARD LOC: CT U#:[id number] AGE/SX: 85/M ROOM: RE02/05/[address]: Dr. Lazarus Garcia MD : [id number] BED: DIS: SPEC #: [id number] RECD: 02/05/18 11:28 STATUS: ERIC RADHA #: [id number] AJISON: 02/05/18 00:[address]: Lazarus Garcia Chi DEPT: SURGICAL PATHOLOGY RECD BY: Nick Gracia Tissues: Liver, NOS Procedures: PAS with Diastase (control) FNA Specimen Adequacy Trichrome (control) Special Stain Group II PAS Stain (control) Surgery Specimen Level V Diff Quik Stain (control) Retic (control) Iron Stain (control) Imprint (control) HEADER OPERATION: CT-guided liver biopsy PRE-OP DIAGNOSIS: Liver mass TISSUE SUBMITTED: Left lobe liver 18g x4 MICROSCOPIC DIAGNOSIS Left lobe of liver, CT-guided core biopsy: Liver parenchymal tissue with macro- and microvesicular steatosis, focal chronic inflammation and focal bridging fibrosis. Negative for malignancy. See microscopic description and comment. SJ:barney 02/06/18 COMMENT The specimen is evaluated at the time of CT-guided liver biopsy by Dr. Shelton. Immediate Evaluation = Negative for malignant cells. If there is a high suspicion of malignancy, rebiopsy is suggested if clinically indicated. Case has been reviewed in consultation with Dr. Perdomo who concurs with the above diagnosis. IDC:AM MICROSCOPIC DESCRIPTION Slides are reviewed. The specimen shows liver parenchymal tissue with preserved lobular architecture. The hepatocytes show reactive changes. Significant lobular inflammation is not seen. Hepatocytes show macro- and microvesicular steatosis. The portal area shows mild chronic inflammation. Focal dilation of sinusoids are also noted. Iron stain shows 1+ iron. PAS stain with and without diastase do not show any abnormal accumulation of protein. Reticulin stain and trichrome stains highlights the portal, periportal and bridging fibrosis. Definite cirrhosis is not seen. GROSS DESCRIPTION Received in fixative is one container labeled with the patient's name and designated left lobe of liver, CTguided core biopsy. The specimen consists of multiple elongated fragments of main soft tissue that in aggregate measure 1.5 x 0.3 x 0.1 cm. The specimen is totally submitted in one cassette. One touch imprint is prepared at the time of core biopsy. / SJ:barney 02/06/18 TC:5 CPT: 30718, 10561 x5, 35088
--- NOTE | 2018-02-05 08:56 | CT_ITS ---
PROCEDURE: CT DIRECTED CORE LIVER BIOPSY INDICATION: Male, 78 years old. Hypodense lesion in the anterior left lobe of the liver. PHYSICIAN: Dr. Juvenal RIVERA CONSENT: Written informed consent was obtained having explained the risks, benefits and alternatives in detail with the patient who accepted the risks and agreed to proceed. Laboratory review and clinical assessment was performed. CONSCIOUS SEDATION PROTOCOL: The Drugs used were: 1 mg Versed, IV., and 25 mcg Fentanyl, IV. The sedation time was: 18 minutes. Conscious sedation was started at 10:16 AM and terminated at 10:34 AM. The conscious sedation protocol was independently monitored. RADIATION DOSAGE (If Supplied By Facility): CTDIvol = ( 17.5 ) mGy, DLP = ( 345.18 ) mGycm Individualized dose optimization techniques were used for this CT. TECHNIQUE: Using CT image guidance with image documentation, a suitable location in the anterior left lobe of the liver was identified. Using a right lateral approach, puncture of the liver was uneventful with an 18-gauge core needle system. 4 18-gauge core samples were obtained, and submitted in formalin to the pathologist for further assessment. Followup CT scan revealed no distinct sequelae. CT/Biopsy/Inj or Needle Placement IMPRESSION: 1. CT directed core needle biopsy of the liver, using CT image guidance with image documentation as described. 2. Conscious Sedation protocol utilized with independent monitoring. Electronically Signed: Flynn Sanford MD at 11:32 EDT Tel [phone], Service support ,
[2018-02-05 09:05] LABS: Platelet Count 174 K/mm3 (150-450)
[2018-02-05 09:12] LABS: International Normalized Ratio 1.1; Partial Thromboplast Time 34.3 Seconds (24.1-36.2); Prothrombin Time (Protime)PT. 14.2 SECONDS (11.7-14.9)
--- NOTE | 2018-02-05 11:02 | EKG12_ITS ---
Test Reason : Blood Pressure : / mmHG Vent. Rate : 060 BPM Atrial Rate : 060 BPM P-R Int : 230 ms QRS Dur : 168 ms QT Int : 418 ms P-R-T Axes : 036 -71 093 degrees QTc Int : 418 ms AV dual-paced rhythm with prolonged AV conduction Abnormal ECG Confirmed by JHONNY RIVERA, PERICO ([id number]), development editor EVA ANDREW ([id number]) on 02/14/2018 11:19:26 AM Referred By: Lazarus Garcia Confirmed By:PERICO BARRY MD
--- NOTE | 2018-02-05 11:03 | EKG12_ITS ---
Test Reason : Blood Pressure : / mmHG Vent. Rate : 060 BPM Atrial Rate : 060 BPM P-R Int : 230 ms QRS Dur : 168 ms QT Int : 418 ms P-R-T Axes : 040 -70 092 degrees QTc Int : 418 ms AV dual-paced rhythm with prolonged AV conduction Abnormal ECG Confirmed by JHONNY RIVERA, PERICO ([id number]), state editor EVA ANDREW ([id number]) on 02/14/2018 11:19:51 AM Referred By: Lazarus Garcia Confirmed By:PERICO BARRY MD
== END ==
PROVIDERS: Family Provider Family Medicine Geriatric Medicine; PCP Family Medicine Geriatric Medicine; Visit Provider Family Medicine Geriatric Medicine
DX: K74.0 Hepatic fibrosis (principal); K76.0 Fatty (change of) liver, not elsewhere classified; K76.89 Other specified diseases of liver; I49.5 Sick sinus syndrome; I25.810 Atherosclerosis of coronary artery bypass graft(s) without angina pectoris; I25.5 Ischemic cardiomyopathy; I47.2 Ventricular tachycardia; I10 Essential (primary) hypertension; I51.9 Heart disease, unspecified; I34.0 Nonrheumatic mitral (valve) insufficiency; E78.5 Hyperlipidemia, unspecified; K21.9 Gastro-esophageal reflux disease without esophagitis; I25.2 Old myocardial infarction; E11.9 Type 2 diabetes mellitus without complications; Z85.46 Personal history of malignant neoplasm of prostate; Z95.810 Presence of automatic (implantable) cardiac defibrillator; Z79.84 Long term (current) use of oral hypoglycemic drugs; Z79.82 Long term (current) use of aspirin; Z79.899 Other long term (current) drug therapy; Z87.891 Personal history of nicotine dependence
CPT/HCPCS: 47000; 36415; 77012; 85049; 85610; 85730; 88172; 88305; 88307; 88313; 93005; 99156; 99157; J7040; A4216

== ENCOUNTER 2018-02-23 15:15 | Outpatient (RCR) | payer MEDICARE, SELFPAY ==
[2017-10-25 15:17] VITALS: BMI 26.6
[2018-02-07 00:58] VITALS: BP 120/68; BP 122/60
== END 2018-03-09 23:59 ==
LOC: CR 15:15
PROVIDERS: Family Provider Family Medicine Geriatric Medicine; PCP Family Medicine Geriatric Medicine; Visit Provider Internal Medicine Cardiovascular Disease
DX: I25.118 Atherosclerotic heart disease of native coronary artery with other forms of angina pectoris (principal); I25.5 Ischemic cardiomyopathy; I49.5 Sick sinus syndrome; I47.2 Ventricular tachycardia; I51.9 Heart disease, unspecified; I34.0 Nonrheumatic mitral (valve) insufficiency; I10 Essential (primary) hypertension; Z95.5 Presence of coronary angioplasty implant and graft; Z95.1 Presence of aortocoronary bypass graft; Z95.810 Presence of automatic (implantable) cardiac defibrillator
CPT/HCPCS: 93798

== ENCOUNTER → 2018-03-01 15:40 | Outpatient (CLI) | payer MEDICARE, SELFPAY ==
[2017-10-25 15:17] VITALS: BMI 26.6
[2018-03-01 17:01] LABS: Anion Gap 11 (5-15); BUN 21 mg/dL (7-18); BUN/Creat Ratio 26.2 RATIO (10-20); Chloride 106 mmol/L (98-107); EST Glomerular Filtration Rate 99 mL/min (>60); Est Glom Filt Rate - Afr Amer 120 mL/min (>60); Glucose 92 mg/dL (74-106); Potassium 4.4 mmol/L (3.5-5.1); Sodium Level 144 mmol/L (136-145)
== END ==
PROVIDERS: Family Provider Family Medicine Geriatric Medicine; PCP Family Medicine Geriatric Medicine; Visit Provider Family Medicine Geriatric Medicine
DX: I50.23 Acute on chronic systolic (congestive) heart failure (principal)
CPT/HCPCS: 36415; 80048

== ENCOUNTER 2018-04-14 16:54 | Observation (INO) | payer MEDICARE, SELFPAY ==
[2017-10-25 15:17] VITALS: BMI 26.6
[2018-04-14 16:55] VITALS: BP 113/62; PULSE 58; RESP 18; TEMP 36.6; O2SAT 97; BMI 26.0
--- NOTE | 2018-04-14 17:12 | CT_ITS ---
STUDY: CT CERVICAL SPINE WITHOUT CONTRAST REASON FOR EXAM: Male, 78 years old. Head injury, pain RADIATION DOSAGE (If Supplied By Facility): CTDIvol = ( 19.13 ) mGy, DLP = ( 385.81 ) mGycm TECHNIQUE: High resolution transaxial imaging was performed without contrast material. Sagittal and coronal images were reconstructed. Individualized dose optimization techniques were used for this CT. COMPARISON: None FINDINGS: There are degenerative changes of the atlantoaxial articulation. The odontoid process is unremarkable. Normal cervical lordosis. C2-3: There is no disc space narrowing or canal narrowing. There is mild foraminal narrowing on the left. C3-4: There is no disc space narrowing or canal narrowing. There is mild foraminal narrowing on the left. C4-5: There is no disc space narrowing or canal narrowing. There is mild foraminal narrowing on the left. C5-6: There is no disc space narrowing or canal narrowing. There is mild foraminal narrowing bilaterally. C6-7: There is no disc space narrowing or canal narrowing. There is mild foraminal narrowing on the left. C7-T1: There is no disc space narrowing, canal narrowing, or significant foraminal narrowing. The lung apices are unremarkable. The thyroid is within normal limits. There are diffuse vascular calcifications, most pronounced in the carotid bulbs. CT/Spine Cervical without Contras IMPRESSION: No acute abnormalities are seen in the cervical spine. There are mild diffuse degenerative changes. Electronically Signed: Dennise Peterson MD at 18:23 EDT Tel Direct: [phone], Service support ,
--- NOTE | 2018-04-14 17:12 | CT_ITS ---
STUDY: CT BRAIN WITHOUT CONTRAST REASON FOR EXAM: Male, 78 years old. Head injury, pain, loss of consciousness RADIATION DOSAGE (If Supplied By Facility): CTDIvol = ( 44.99 ) mGy, DLP = ( 846.73 ) mGycm TECHNIQUE: Transaxial CT imaging of the brain was performed without administration of intravenous contrast material. Individualized dose optimization techniques were used for this CT. COMPARISON: March 15, 2016 FINDINGS: There is soft tissue swelling in the left frontal region laterally. The osseous structures are unremarkable. There is mild cerebral atrophy with widening of the extra-axial spaces and ventricular dilatation. There are stable scattered areas of decreased attenuation within the white matter tracts of the supratentorial brain, likely microvascular changes. The basal ganglia and thalami are unremarkable. No abnormalities are seen in the brainstem. The cerebellum is unremarkable. There are marked vascular calcifications. There is no intracranial hemorrhage. There are no findings of acute ischemia. There are retention cysts in the right maxillary and sphenoid sinuses. CT/Brain/Head without Contrast IMPRESSION: No acute intracranial abnormalities. There are stable chronic findings. There is a scalp hematoma in the left frontal region laterally without underlying fracture. Electronically Signed: Dennise Peterson MD at 18:18 EDT Tel Direct: [phone], Service support ,
--- NOTE | 2018-04-14 17:12 | RAD_ITS ---
STUDY: X-RAY - UNILATERAL RIBS ( LEFT ) WITH CHEST REASON FOR EXAM: Male, 78 years old. Left rib pain after fall. TECHNIQUE - RIBS: 4 view(s) of the ribs. TECHNIQUE - CHEST: Single frontal view of the chest. COMPARISON: None. FINDINGS - RIBS: Normal visualized ribs without a demonstrated fracture. FINDINGS - CHEST: The generator of a cardiac pacemaker/defibrillator overlaps the lateral mid left hemithorax. Its leads extend from the subclavian vein to the right atrium and ventricle. There are transverse linear densities in the bilateral lung bases consistent with platelike atelectasis. There is no demonstrated pleural abnormality. There is borderline cardiomegaly. Sternal cerclage wires and vascular clips are present from a prior sternotomy and coronary artery bypass graft procedure (CABG). Normal mediastinum and evan. Normal visualized pulmonary arteries. There is atherosclerotic calcification of the aortic arch. There are multi level degenerative changes of the visualized spine. Normal visualized ribs, clavicles, and shoulders. There is no demonstrated abnormality of the visualized soft tissue structures of the upper abdomen. RAD/Ribs Uni Min 3V w/PA Chest IMPRESSION: RIBS: No acute fracture of the left ribs. CHEST: 1. Prior median sternotomy and CABG. Dual lead left subclavian cardiac pacemaker/ICD in place. 2. Borderline cardiac enlargement. No CHF. 3. Platelike atelectasis in the bilateral lung bases. Electronically Signed: Moises Song MD at 18:01 EDT , Service support ,
--- NOTE | 2018-04-14 17:15 | ED.DCSUM_ITS ---
- ER Visit Summary Date of Service: 04/14/18 Chief Complaint: Fall off of a ladder History of Present Illness: The patient is a 78 M who fell off a ladder today. It is unknown how high he was. His heard him fall and found him laying on his stomach. Patient does not remember falling or why he was up on the ladder to begin with. He claims of pain in the left lower chest and the left hand. He is on Plavix for history of coronary disease and CABG. Physical Examination: Vital signs reviewed. HEENT exam unremarkable. Neck is nontender. He does have a c-collar in place. Heart is regular rate and rhythm. Lungs are clear to auscultation bilaterally. He has left lower chest wall tenderness to palpation. No deformity or flail chest noted. Abdomen is soft and nontender. Back reveals no specific tenderness to palpation. Extremities reveal some tenderness of the left hand, more specifically the distal left fifth digit. He does have painful range of motion of this area. His GCS is currently 15. Except for some amnesia to the event his neurologic exam is unremarkable Test Results: CAT scan of the head and cervical spine reveal no acute findings. He does have a scalp hematoma. X-ray of the left sided ribs reveals no acute findings. Left hand x-ray reveals a left fifth digit PIP dislocation. Emergency Department Course and Treatment: The patient's dislocation was reapproximated using traction by myself. No anesthesia was used. Patient tolerated this well. He was given Tylenol for pain. His mental status was still abnormal. He was amnestic to the event. Family would like him observed overnight. I feel that this is reasonable due to his age and risk factors. He is on the aspirin and Plavix for the CABG. Patient was discussed with the hospitalist for admission. Treatment Plan: [] Disposition: Admit Impression: Concussion with loss of consciousness Right fifth finger PIP dislocation Reduction of finger dislocation by ED physician This note was generated with [employer] dictation software. It may contain incorrect words, spelling, and punctuation that were not noted in review of the chart prior to signing ED Disposition - Plan for ED Patient: Chief Complaint: Fall Referrals: Lazarus Garcia Chi, MD [Primary Care Provider] -
[2018-04-14] MEDS: Acetaminophen 500 MG Tablet 1000 MG PO (17:25)
--- NOTE | 2018-04-14 17:35 | RAD_ITS ---
STUDY: X-RAY - LEFT HAND REASON FOR EXAM: Male, 78 years old. Injury and pain TECHNIQUE: Three view(s) of the hand were obtained. COMPARISON: None. FINDINGS: Bones: There are no acute osseous abnormalities. Joints: There is dislocation at the fourth and fifth PIP joints. There are diffuse degenerative changes. Soft tissues: There is soft tissue swelling in the fourth and fifth fingers. Vascular calcifications are present in the wrist. Foreign body: None RAD/Hand Min 3 Views IMPRESSION: There is dorsal dislocation at the fourth and fifth PIP joints. No acute fractures are seen, however the bones are obscured on the lateral view. Electronically Signed: Dennise Peterson MD at 18:28 EDT Tel Direct: [phone], Service support ,
--- NOTE | 2018-04-14 19:10 | HP.PCM_ITS ---
Problem List (1) Left ventricular systolic dysfunction Status: Chronic (2) Hypertension Status: Chronic Qualifiers: Hypertension type: essential hypertension Qualified Code(s): I10 - Essential (primary) hypertension (3) Hyperlipidemia Status: Chronic Qualifiers: Hyperlipidemia type: pure hypercholesterolemia Qualified Code(s): E78.00 - Pure hypercholesterolemia, unspecified; E78.0 - Pure hypercholesterolemia (4) H/O coronary artery bypass surgery Status: Chronic Comment: SVG-LAD, SVG- High Lateral Cx, Sequential SVG- PDA,Acute Marginal 12/22/1995 [facility]-High Lateral Cx, Radial Artery-PDA, Sequential SVG- LAD and D1 11/15/2008 [facility] (5) History of coronary artery stent placement Status: Chronic Comment: [id number] Left Cx @ [facility]; 10/25/17-PTCA and MIGDALIA of proximal LCX/SR per Dr. Torers History of Present Illness Date of Admission: 04/14/18 Chief Complaint: Fall The patient is a 78 year old M with a significant history of systolic heart failure; Defibrillator; CAD status post CABG x2 times and stents placement with last stents on 10/25/[address] Torres; hypertension who presents because of a fall while using a ladder. Therefore located on the same day of admission. Per patient's , she had another uncle which her was standing fall. Patient found lying in your stomach and was brought to the emergency department. Patient reported not being away of the fall nor his transport from home to the emergency department. Patient reports pain in his left rib which increases with coughing. At emergency department patient had a dislocation of the proximal joints of his left fifth finger and this was pulled out by the emergency room doctor. Patient denies any dizziness. Past Medical History Past Medical History (Chronic Problems): Chronic Problems (Last Reviewed 02/09/18 @ 13:23 by Batsheva Faustin) Sinus node dysfunction (Chronic) Atherosclerosis of coronary artery bypass graft without angina pectoris (Chronic) Ventricular tachycardia (Chronic) Left ventricular systolic dysfunction (Chronic) Nonrheumatic mitral valve regurgitation (Chronic) Hypertension (Chronic) Hyperlipidemia (Chronic) Presence of automatic implantable cardioverter-defibrillator (Chronic ~11/10/16) Generator replacement 11/23 [facility] [employer] Implanted 03/11/2009 [facility] [employer] H/O coronary artery bypass surgery (Chronic ~11/15/04) SVG-LAD, SVG- High Lateral Cx, Sequential SVG-PDA,Acute Marginal 12/22/1995 [facility]Z-High Lateral Cx, Radial Artery-PDA, Sequential SVG- LAD and D1 11/15/2008 [facility] History of coronary artery stent placement (Chronic ~10/28/08) [id number] Left Cx @ [facility]; 10/25/17-PTCA and MIGDALIA of proximal LCX/SR per Dr. Torres Ischemic cardiomyopathy (Chronic) Atherosclerosis of coronary artery of [place] heart without angina pectoris (Chronic) SVG-LAD, SVG- High Lateral Cx, Sequential SVG-PDA,Acute Marginal 12/22/1995 SAENZ-High Lateral Cx, Radial Artery-PDA, Sequential SVG- LAD and D1 11/15/2008 [facility] [id number] Left Cx @ [facility]; 10/25/17-PTCA and MIGDALIA of proximal LCX/SR per Dr. Torres @ [facility] Medical History: Medical History (Last Reviewed 04/15/18 @ 05:15 by Frederick Redd MD) Sinus node dysfunction (Chronic) I49.5 Atherosclerosis of coronary artery bypass graft without angina pectoris (Chronic) I25.810 Ventricular tachycardia (Chronic) I47.2 Left ventricular systolic dysfunction (Chronic) I51.9 Nonrheumatic mitral valve regurgitation (Chronic) I34.0 Hypertension (Chronic) I10 Hyperlipidemia (Chronic) E78.5 Ischemic cardiomyopathy (Chronic) I25.5 Atherosclerosis of coronary artery of [place] heart without angina pectoris (Chronic) I25.10 SVG-LAD, SVG- High Lateral Cx, Sequential SVG-PDA,Acute Marginal 12/22/1995 SAENZ-High Lateral Cx, Radial Artery-PDA, Sequential SVG- LAD and D1 11/15/2008 [facility] [id number] Left Cx @ [facility]; 10/25/17-PTCA and MIGDALIA of proximal LCX/SR per Dr. Torres @ [facility] BPH (benign prostatic hyperplasia) N40.0 GERD (gastroesophageal reflux disease) K21.9 Non-rheumatic mitral regurgitation I34.0 Ischemic mitral regurgitation Old myocardial infarction I25.2 Paroxysmal ventricular tachycardia I47.2 Prostate cancer C61 Type 2 diabetes mellitus without complications E11.9 Allergies codeine Allergy (Verified 04/14/18 17:05) Anaphylaxis Home Medications: Ambulatory Orders Medication Instructions Recorded Atorvastatin Calcium [Lipitor] 80 mg PO QHS 12/31/17 Clopidogrel Bisulfate [Clopidogrel] 75 mg PO DAILY 12/31/17 Digoxin 0.25 mg PO DAILY 12/31/17 Escitalopram Oxalate [Lexapro] 10 mg PO DAILY 12/31/17 Metformin HCl 500 mg PO DINNER 12/31/17 Metoprolol Tartrate [Lopressor 50 mg PO BID 12/31/17 (beta lorena)] Mineral Oil/Petrolatum Cr 1 applic TOPICAL BID PRN 12/31/17 [Aquaphor] Triamcinolone 0.025% Cream 1 applic TOPICAL BID PRN 12/31/17 [Kenalog] Omeprazole 40 mg PO DAILY 01/24/18 Aspirin E.C. [Ecotrin] 81 mg PO DAILY 01/26/18 Ibuprofen 400 mg PO PRN PRN 01/26/18 Furosemide [Lasix] 20 mg PO DAILY #30 tab 01/28/18 potassium chloride ER 20 mEq 20 meq PO QDAY 02/09/18 tablet,extended release Sacubitril/Valsartan 49-51 mg 1 each PO BID 04/14/18 [Entresto 49 mg-51 mg Tablet] Surgical History: Surgical History (Last Reviewed 04/15/18 @ 05:15 by Frederick Redd MD) Presence of automatic implantable cardioverter-defibrillator (Chronic) Onset Date: ~11/10/16 Z95.810 Generator replacement 11/23 [facility] [employer] Implanted 03/11/2009 [facility] [employer] H/O coronary artery bypass surgery (Chronic) Onset Date: ~11/15/04 Z95.1 SVG-LAD, SVG- High Lateral Cx, Sequential SVG-PDA,Acute Marginal 12/22/1995 [facility]-High Lateral Cx, Radial Artery-PDA, Sequential SVG- LAD and D1 11/15/2008 [facility] History of coronary artery stent placement (Chronic) Onset Date: ~10/28/08 Z 95.5 [id number]-[id number] Left Cx @ [facility]; 10/25/17-PTCA and MIGDALIA of proximal LCX/SR per Dr. Torres H/O resection of small bowel Z98.890, Z90.49 Hx of cholecystectomy Z98.890, Z90.49 Surgical History: coronary bypass surgery, - - ICD implantation, coronary artery stent placement Psychiatric History: No pertinent psych hx Lives: Spouse/ Significant Other Smoking Status: Former smoker - *Family History Maternal Family History: Family History (Last Reviewed 04/15/18 @ 05:17 by Frederick Redd MD) Father CAD (coronary artery disease) Mother CAD (coronary artery disease) Brother CAD (coronary artery disease) History Items: - - CHF Paternal Family History: Family History (Last Reviewed 04/15/18 @ 05:17 by Frederick Redd MD) Father CAD (coronary artery disease) Mother CAD (coronary artery disease) Brother CAD (coronary artery disease) History Items: Cancer - Prostate cancer Review of Systems Constitutional: Denies: Chills, Fever, Weight Change HEENT: Denies: Nasal bleeding, Sinus Congestion, Sinus Drainage, Sore Throat Cardiovascular: Denies: Chest Pain, Palpitations Respiratory: Denies: Cough, Shortness of breath at rest, Sputum production Gastrointestinal: Denies: Abdominal Pain, Nausea, Vomiting Genitourinary: Denies: Dysuria Musculoskeletal: Denies: Joint Pain, Joint Tenderness Skin: Denies: Rash, Wounds Neurological: Denies: Numbness, Tingling, Focal weakness Psychiatric: Denies: Anxiety, Depression, Homicidal Ideations, Suicidal Ideations Hematologic/ Lymphatic: Denies: Easy Bruising, Easy Bleeding VTE Information - Inpt Only VTE Present on Admission: No VTE Mechan Device Prophylaxis: SCD's VTE Pharm Prophylaxis ordered?: No Reason prophylaxis not ordered:: Treatment Not Indicated - Hematoma - Physical Exam General: Alert, Oriented x3, Cooperative HEENT: PERRLA, EOMI, Normocephalic, - - R frontal temporal area hematoma. Multiple bruises on scalp. Bruise on bridge of nose Neck: Supple, No JVD, Negative Carotid Bruits Lungs: Clear to auscultation, Normal air movement Cardiovascular: Regular rate, No murmurs Abdomen: Bowel Sounds Present, Soft, Non Tender Extremities: No edema, Capillary Refill Less than 3 Seconds Skin: No rashes, No breakdown Musculoskeletal: No Tenderness to Palpation of Joints or Extremities Neurological: Cranial nerves II-XII grossly intact Psych/Mental Status: Normal Affect, Appropriate Vital Signs Temp Pulse Resp BP Pulse Ox 97.8 F 58 L 18 113/62 97 04/14/18 16:55 04/14/18 16:55 04/14/18 16:55 04/14/18 16:55 10/06/18 16:55 Oxygen Delivery Method Room Air Weight: 75.5 kg Body Mass Index (BMI) 26.0 Assessment/Plan All Active Problems (Last Reviewed 02/09/18 @ 13:23 by Batsheva Faustin) Shortness of breath (Acute) The patient is a 78 year old M with a significant history of systolic heart failure; Defibrillator; CAD status post CABG x2 times and stents placement with last stents on 10/25/[address] Torres; hypertension who presents because of a fall and found to have multiple bruises of his scalp; hematoma of left front region but with no acute intracranial pathology. Acute encephalopathy Secondary to fall. At the time of examination patient was alert and oriented except that he did not know other months and required options to know the year; his reports is unlike him. Shared decision to monitor patient at the hospital. Brain CT was unremarkable for any acute intracranial abnormalities but showed scalp hematoma in the left frontal region laterally without any underlying fracture. Independent review of head CT confirms scalp hematoma without any acute intracranial pathology. Patient first CABG was in 1995; and second CABG was on 11/16/2014. Patient had a drug-eluting stent placed on 10/28/2008; and last drug-eluting stent was placed for 10/25/2017. Discussed with cardiology information assurance on dual antiplatelet therapy. To hold dual antiplatelet therapy for now. Upon discharge if there is no bleeding okay to resume dual antiplatelet therapy. Frequent neuro checks PT/INR ordered Fall Management as above Mupirocin cream to multiple areas on scalp. Tylenol as needed for pain History of ischemic cardiomyopathy Patient appears stable at this time. Aspirin and Plavix held as above Ibuprofen held. Digoxin continued Metoprolol continued Lasix continued Entresto continued Atorvastatin continued Diabetes mellitus Metformin continued Fingerstick q. before meals at bedtime DVT Prophylaxis SCD Code Visit OBSV E&M: 31805 Initial observation care L3
[2018-04-14 19:15] VITALS: BP 110/53; PULSE 60; RESP 18; O2SAT 96
[2018-04-14 19:35] VITALS: BP 110/53; PULSE 60; RESP 18; O2SAT 96
[2018-04-14 20:14] VITALS: BMI 21.7
[2018-04-14 20:18] VITALS: BMI 21.7
[2018-04-14 20:30] VITALS: BP 103/44; PULSE 60; RESP 16; TEMP 36.8; O2SAT 98
[2018-04-14] MEDS: Mupirocin Ointment 22gm Tube 1 APPLIC TOPICAL (22:02)
[2018-04-14 22:03] VITALS: BP 110/60; PULSE 60
[2018-04-14] MEDS: SACUBITRIL/VALSARTAN 49-51 MG TABLET 1 EACH PO (22:03)
[2018-04-14] MEDS: Metoprolol Tartrate 50 MG Tablet PO (22:03)
[2018-04-14] MEDS: Atorvastatin Calcium 80 MG Tablet PO (22:03)
[2018-04-14 22:50] VITALS: O2SAT 97
[2018-04-14] MEDS: Acetaminophen 500 MG Tablet PO (23:33)
[2018-04-15 03:26] VITALS: BP 110/55; PULSE 60; RESP 16; TEMP 36.6; O2SAT 97
[2018-04-15] MEDS: Mupirocin Ointment 22gm Tube 1 APPLIC TOPICAL (05:01)
[2018-04-15] MEDS: Acetaminophen 500 MG Tablet PO (05:33)
[2018-04-15 06:43] LABS: Absolute Lymphocyte Count 1.39 X10^3/ul (0.83-4.51); Absolute Neutrophil Count 4.7 X10^3/uL (2.0-7.7); Basophil# 0.03 X10^3/uL; Basophil% 0.4 % (0-1); Eosinophil# 0.12 X10^3/uL; Eosinophils% 1.7 % (0-5); Hematocrit 34.8 % (40-54); Hemoglobin 11.1 g/dl (13.0-16.5); Lymphocyte # 1.39 X10^3/ul (4.0); Lymphocyte % 19.2 % (19-41); Mean Corp Hgb Conc 31.9 g/gl (32-36); Mean Corpuscular Hgb 26.5 pg (27.0-32.0); Mean Corpuscular Volume 83.1 fL (80-94); Mean Platelet Vol. 10.7 fl (6.2-12.0); Monocyte# 0.94 X10^3/uL; Neutrophil # 4.74 X10^3/uL (2.7-7.7); Neutrophil % 65.6 % (47-70); Platelet Count 105 K/mm3 (150-450); RBC Distribution Width CV 16.5 % (11.6-14.6); RBC Distribution Width SD 50.4 fl (35.1-43.9); Red Blood Count 4.19 M/mm3 (4.6-6.2); White Blood Count 7.2 K/mm3 (4.4-11.0)
[2018-04-15 06:51] LABS: Bedside Glucose 129 mg/dL (70-110)
[2018-04-15 06:53] LABS: International Normalized Ratio 1.2; Prothrombin Time (Protime)PT. 15.4 SECONDS (11.7-14.9)
[2018-04-15 06:57] LABS: POSITIVE COUNT NO; POSITIVE DIFFERENTIAL NO; POSITIVE MORPHOLOGY NO
[2018-04-15 07:12] LABS: Anion Gap 8 (5-15); BUN 24 mg/dL (7-18); BUN/Creat Ratio 33.4 RATIO (10-20); Calcium,Total 7.6 mg/dL (8.5-10.1); Chloride 105 mmol/L (98-107); Creatinine, Serum 0.72 mg/dL (0.70-1.30); EST Glomerular Filtration Rate 113 mL/min (>60); Est Glom Filt Rate - Afr Amer 137 mL/min (>60); Estimated Creatinine Clearance 54.95 ml/min; Glucose 124 mg/dL (74-106); Potassium 3.6 mmol/L (3.5-5.1); Sodium Level 141 mmol/L (136-145)
[2018-04-15 07:23] VITALS: BP 108/57; PULSE 59; RESP 16; TEMP 36.9; O2SAT 96
[2018-04-15] MEDS: Escitalopram Oxalate 10 MG Tablet PO (08:39)
[2018-04-15 08:40] VITALS: PULSE 62
[2018-04-15] MEDS: Pantoprazole Sodium 40 MG Tablet PO (08:40)
[2018-04-15] MEDS: Furosemide 20 MG Tablet PO (08:40)
[2018-04-15] MEDS: Metoprolol Tartrate 50 MG Tablet PO (08:40)
[2018-04-15] MEDS: Digoxin 250 MCG Tablet PO (08:40)
[2018-04-15] MEDS: SACUBITRIL/VALSARTAN 49-51 MG TABLET 1 EACH PO (08:41)
--- NOTE | 2018-04-15 10:24 | RAD_ITS ---
STUDY: X-RAY - LEFT HAND REASON FOR EXAM: Male, 78 years old. Fall TECHNIQUE: 4 view(s) of the hand. COMPARISON: April 14, 2018. FINDINGS: Normal radiocarpal articulation. Normal distal radioulnar joint. Normal visualized carpal bones. Normal carpal articulations Normal carpometacarpal articulation of the thumb. Normal second through fifth carpometacarpal joints. Normal metacarpi. Normal metacarpophalangeal joint of the thumb. Normal interphalangeal joint of the thumb. Normal proximal and distal phalanges of the thumb. Normal metacarpophalangeal joints of the second through fifth fingers. Dislocation at the proximal interphalangeal joint of fourth finger. There is a fracture at the base of the middle phalanx of the fifth finger. Mild degenerative changes of the phalanges of the second through fifth fingers. The soft tissue structures are unremarkable. Posterior calcifications. RAD/Hand Min 3 Views IMPRESSION: Dislocation at the proximal interphalangeal joint of fourth finger. There is a fracture at the base of the middle phalanx of the fifth finger. Electronically Signed: Leonid Liang DO at 11:16 EDT Tel [phone], Service support ,
--- NOTE | 2018-04-15 11:12 | DCINST_ITS ---
You will use the following diet at home:: Cardiac Your food should be the consistency of: Regular Your liquids should be the consistency of: Regular/Thin Discharge Activity: May Not Drive, - - Brain rest, no ladders, no driving. Allergies/Adverse Reactions: Allergies codeine Allergy (Verified 04/14/18 17:05) Anaphylaxis Medications to take at Discharge Atorvastatin Calcium [Lipitor] 80 mg PO QHS 12/31/17 Clopidogrel Bisulfate [Clopidogrel] 75 mg PO DAILY 12/31/17 Digoxin 0.25 mg PO DAILY 12/31/17 Escitalopram Oxalate [Lexapro] 10 mg PO DAILY 12/31/17 Metformin HCl 500 mg PO DINNER 12/31/17 Metoprolol Tartrate [Lopressor (beta lorena)] 50 mg PO BID 12/31/17 Mineral Oil/Petrolatum Cr [Aquaphor] 1 applic TOPICAL BID PRN 12/31/17 Triamcinolone 0.025% Cream [Kenalog] 1 applic TOPICAL BID PRN 12/31/17 Omeprazole 40 mg PO DAILY 01/24/18 Aspirin E.C. [Ecotrin] 81 mg PO DAILY 01/26/18 Furosemide [Lasix] 20 mg PO DAILY #30 tab 01/28/18 potassium chloride ER 20 mEq tablet,extended release 20 meq PO QDAY 02/09/18 Sacubitril/Valsartan 49-51 mg [Entresto 49 mg-51 mg Tablet] 1 each PO BID 04/14/18 Acetaminophen [Tylenol] 500 mg PO Q6H PRN PRN tablet 04/15/18 Primary Care Physician: Lazarus Garcia Chi, MD [Primary Care Provider] - Please follow up with your Primary Care Physician in: 1-2 weeks Test Results: Test results from this visit will be discussed in further detail at your follow- up appointment, if applicable. Please Follow Up With: Benita Aguila MD - Neuro When: 1 week Proposed Discharge Date: 04/15/18
[2018-04-15 11:45] VITALS: O2SAT 95
--- NOTE | 2018-04-15 14:53 | PCM.DC.SUM ---
Discharge Date and Diagnosis Date of Admission: 04/14/18 Date of Discharge: 04/15/18 - Primary Discharge Diagnosis Mechanical fall Concussion Acute left 4th proximal interphalangeal joint dislocation Acute left fifth fracture at the base of the middle phalanx Head contusion Coronary artery disease with history of stents, prior CABG x2, ischemic cardiomyopathy Hyperlipidemia History of systolic heart failure - Secondary Discharge Diagnosis Chronic Problems (Last Reviewed 04/15/18 @ 05:15 by Frederick Redd MD) Sinus node dysfunction (Chronic) Atherosclerosis of coronary artery bypass graft without angina pectoris (Chronic) Ventricular tachycardia (Chronic) Left ventricular systolic dysfunction (Chronic) Nonrheumatic mitral valve regurgitation (Chronic) Hypertension (Chronic) Hyperlipidemia (Chronic) Presence of automatic implantable cardioverter-defibrillator (Chronic ~11/10/16) Generator replacement 11/23 [employer] Implanted 03/11/2009 [facility] [employer] H/O coronary artery bypass surgery (Chronic ~11/15/04) SVG-LAD, SVG- High Lateral Cx, Sequential SVG-PDA,Acute Marginal 12/22/1995 [facility]-High Lateral Cx, Radial Artery-PDA, Sequential SVG- LAD and D1 11/15/2008 [facility] History of coronary artery stent placement (Chronic ~10/28/08) [id number] Left Cx @ [facility]; 10/25/17-PTCA and MIGDALIA of proximal LCX/SR per Dr. Torres Ischemic cardiomyopathy (Chronic) Atherosclerosis of coronary artery of [place] heart without angina pectoris (Chronic) SVG-LAD, SVG- High Lateral Cx, Sequential SVG-PDA,Acute Marginal 12/22/1995 [facility]-High Lateral Cx, Radial Artery-PDA, Sequential SVG- LAD and D1 11/15/2008 [facility] [id number] Left Cx @ [facility]; 10/25/17-PTCA and MIGDALIA of proximal LCX/SR per Dr. Torres @ [facility] Hospital Course and Treatment Imaging Results: 04/15/18 10:24 Xray Hand [Hand Min 3 Views] [RAD] Stat Operations: None Procedures: None Summary of Care Provided: Physical exam on day of discharge: General: Resting comfortably NAD Psych: A/Ox3 normal affect HEENT: PEARRLA AT NC, nonbleeding scalp abrasions Neck: Supple NT CV: RRR no m/t/r/g/h Resp: CTA Abd: [id number] Soft NT no guarding or rigidity Ext: DP2+= no edema Skin: W/D normal turgor Lymph/Heme: No active bleeding or adenopathy Neuro: CN2-12 intact Musculoskeletal: Inability to make a fist, only partial flexion all of the digits. Swelling of the left hand, some bruising present, P&S intact. Hospital course: The patient is a 78 year old M with past medical history of ischemic cardiomyopathy, systolic congestive heart failure, coronary artery disease with prior stents and CABG, history of dual-lead pacemaker/ICD who presented to the emergency room after falling at home. He fell off of a ladder about 8-9 feet to the ground. He did not remember the specific events surrounding his fall, immediately before, during, or after. He had a contusion to his head with minimal bleeding, CT of the brain, C-spine were obtained which demonstrated scalp hematoma, otherwise normal, no cervical spinal changes. Chest x-ray was negative. The x-ray of his hands did show that he had a fourth and fifth PIP joint dislocations were reduced in the ER. Given his amnesia it was felt he likely had a concussion. He was kept in the hospital overnight. He was doing much better the following day. He worked with PT and OT and had no further needs. He continued to have significant pain and swelling, with inability to completely make a fist of his left hand. Another x-ray was obtained which time demonstrated a continued fourth digit dislocation as well as a 5th phalanx fracture. Orthopedics was called who indicated that the patient should be placed in a splint and followed up with in the office. This was done. Patient was advised on RICE therapy. As he is on dual antiplatelets these were held while he was here however cardiology indicated that the patient should go back on dual antiplatelets at discharge as he recently had a stent placed in October of this year. He had no further bleeding from his scalp wounds. 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 Patient was advised on brain rest for concussion advised to follow-up with neurology as an outpatient in 1-2 weeks. He was also advised on no driving and no ladder use. This patient was seen by Gabo Forrester PA-C under the supervision of Doctor Hamida. [] Discharge Diet: Low fat/ Low Cholesterol, 2000 mg Sodium Diet Discharge Activity: May Not Drive, - - Brain rest, no ladders, no driving. Home Medications: Medications to take at Discharge Atorvastatin Calcium [Lipitor] 80 mg PO QHS 12/31/17 Clopidogrel Bisulfate [Clopidogrel] 75 mg PO DAILY 12/31/17 Digoxin 0.25 mg PO DAILY 12/31/17 Escitalopram Oxalate [Lexapro] 10 mg PO DAILY 12/31/17 Metformin HCl 500 mg PO DINNER 12/31/17 Metoprolol Tartrate [Lopressor (beta lorena)] 50 mg PO BID 12/31/17 Mineral Oil/Petrolatum Cr [Aquaphor] 1 applic TOPICAL BID PRN 12/31/17 Triamcinolone 0.025% Cream [Kenalog] 1 applic TOPICAL BID PRN 12/31/17 Omeprazole 40 mg PO DAILY 01/24/18 Aspirin E.C. [Ecotrin] 81 mg PO DAILY 01/26/18 Furosemide [Lasix] 20 mg PO DAILY #30 tab 01/28/18 potassium chloride ER 20 mEq tablet,extended release 20 meq PO QDAY 02/09/18 Sacubitril/Valsartan 49-51 mg [Entresto 49 mg-51 mg Tablet] 1 each PO BID 04/14/18 Acetaminophen [Tylenol] 500 mg PO Q6H PRN PRN tablet 04/15/18 Primary Care Physician: Lazarus Garcia Chi, MD [Primary Care Provider] - Please follow up with your Primary Care Physician in: 1-2 weeks Please Follow Up With: Benita Aguila MD - Neuro When: 1 week Medical Necessity - Tobacco Use Smoking Status: Former smoker Meaningful Use Info Meaningful Use Diagnoses (Choose all that apply): None applicable
--- NOTE | 2018-04-15 15:03 | DS.PCM_ITS ---
Discharge Date and Diagnosis Date of Admission: 04/14/18 Date of Discharge: 04/15/18 - Primary Discharge Diagnosis Mechanical fall Concussion Acute left 4th proximal interphalangeal joint dislocation Acute left fifth fracture at the base of the middle phalanx Head contusion Coronary artery disease with history of stents, prior CABG x2, ischemic cardiomyopathy Hyperlipidemia History of systolic heart failure - Secondary Discharge Diagnosis Chronic Problems (Last Reviewed 04/15/18 @ 05:15 by Frederick Redd MD) Sinus node dysfunction (Chronic) Atherosclerosis of coronary artery bypass graft without angina pectoris (Chronic) Ventricular tachycardia (Chronic) Left ventricular systolic dysfunction (Chronic) Nonrheumatic mitral valve regurgitation (Chronic) Hypertension (Chronic) Hyperlipidemia (Chronic) Presence of automatic implantable cardioverter-defibrillator (Chronic ~11/10/16) Generator replacement 11/23 [employer] Implanted 03/11/2009 [facility] [employer] H/O coronary artery bypass surgery (Chronic ~11/15/04) SVG-LAD, SVG- High Lateral Cx, Sequential SVG-PDA,Acute Marginal 12/22/1995 SAENZ-High Lateral Cx, Radial Artery-PDA, Sequential SVG- LAD and D1 11/15/2008 [facility] History of coronary artery stent placement (Chronic ~10/28/08) [id number]-Cblg Left Cx @ [facility]; 10/25/17-PTCA and MIGDALIA of proximal LCX/SR per Dr. Torres Ischemic cardiomyopathy (Chronic) Atherosclerosis of coronary artery of [place] heart without angina pectoris (Chronic) SVG-LAD, SVG- High Lateral Cx, Sequential SVG-PDA,Acute Marginal 12/22/1995 SAENZ-High Lateral Cx, Radial Artery-PDA, Sequential SVG- LAD and D1 11/15/2008 [facility] ZNP-TCH-Anbx Left Cx @ [facility]; 10/25/17-PTCA and MIGDALIA of proximal LCX/SR per Dr. Torres @ [facility] Hospital Course and Treatment Imaging Results: 04/15/18 10:24 Xray Hand [Hand Min 3 Views] [RAD] Stat Operations: None Procedures: None Summary of Care Provided: Physical exam on day of discharge: General: Resting comfortably NAD Psych: A/Ox3 normal affect HEENT: PEARRLA AT NC, nonbleeding scalp abrasions Neck: Supple NT CV: RRR no m/t/r/g/h Resp: CTA Abd: [id number] Soft NT no guarding or rigidity Ext: DP2+= no edema Skin: W/D normal turgor Lymph/Heme: No active bleeding or adenopathy Neuro: CN2-12 intact Musculoskeletal: Inability to make a fist, only partial flexion all of the digits. Swelling of the left hand, some bruising present, P&S intact. Hospital course: The patient is a 78 year old M with past medical history of ischemic cardiomyopathy, systolic congestive heart failure, coronary artery disease with prior stents and CABG, history of dual-lead pacemaker/ICD who presented to the emergency room after falling at home. He fell off of a ladder about 8-9 feet to the ground. He did not remember the specific events surrounding his fall, immediately before, during, or after. He had a contusion to his head with minimal bleeding, CT of the brain, C-spine were obtained which demonstrated scalp hematoma, otherwise normal, no cervical spinal changes. Chest x-ray was negative. The x-ray of his hands did show that he had a fourth and fifth PIP joint dislocations were reduced in the ER. Given his amnesia it was felt he likely had a concussion. He was kept in the hospital overnight. He was doing much better the following day. He worked with PT and OT and had no further needs. He continued to have significant pain and swelling, with inability to completely make a fist of his left hand. Another x-ray was obtained which time demonstrated a continued fourth digit dislocation as well as a 5th phalanx fracture. Orthopedics was called who indicated that the patient should be placed in a splint and followed up with in the office. This was done. Patient was advised on RICE therapy. As he is on dual antiplatelets these were held while he was here however cardiology indicated that the patient should go back on dual antiplatelets at discharge as he recently had a stent placed in October of this year. He had no further bleeding from his scalp wounds. He was discharged home in stable condition will need his PCP in 1-2 weeks, follow-up with orthopedics this week, and follow-up with his donor specialist as otherwise directed. Patient was advised on brain rest for concussion advised to follow-up with neurology as an outpatient in 1-2 weeks. He was also advised on no driving and no ladder use. This patient was seen by Gabo Forrester PA-C under the supervision of Doctor Hamida. [] Discharge Diet: Low fat/ Low Cholesterol, 2000 mg Sodium Diet Discharge Activity: May Not Drive, - - Brain rest, no ladders, no driving. Home Medications: Medications to take at Discharge Atorvastatin Calcium [Lipitor] 80 mg PO QHS 12/31/17 Clopidogrel Bisulfate [Clopidogrel] 75 mg PO DAILY 12/31/17 Digoxin 0.25 mg PO DAILY 12/31/17 Escitalopram Oxalate [Lexapro] 10 mg PO DAILY 12/31/17 Metformin HCl 500 mg PO DINNER 12/31/17 Metoprolol Tartrate [Lopressor (beta lorena)] 50 mg PO BID 12/31/17 Mineral Oil/Petrolatum Cr [Aquaphor] 1 applic TOPICAL BID PRN 12/31/17 Triamcinolone 0.025% Cream [Kenalog] 1 applic TOPICAL BID PRN 12/31/17 Omeprazole 40 mg PO DAILY 01/24/18 Aspirin E.C. [Ecotrin] 81 mg PO DAILY 01/26/18 Furosemide [Lasix] 20 mg PO DAILY #30 tab 01/28/18 potassium chloride ER 20 mEq tablet,extended release 20 meq PO QDAY 02/09/18 Sacubitril/Valsartan 49-51 mg [Entresto 49 mg-51 mg Tablet] 1 each PO BID 04/14/18 Acetaminophen [Tylenol] 500 mg PO Q6H PRN PRN tablet 04/15/18 Primary Care Physician: Lazarus Garcia Chi, MD [Primary Care Provider] - Please follow up with your Primary Care Physician in: 1-2 weeks Please Follow Up With: Benita Aguila MD - Neuro When: 1 week Medical Necessity - Tobacco Use Smoking Status: Former smoker Meaningful Use Info Meaningful Use Diagnoses (Choose all that apply): None applicable
== END 2018-04-15 14:21 | disposition home or self-care (01) ==
LOC: ED 18:15 → MS2 19:35
PROVIDERS: Admitting Provider Hospitalist; Emergency Provider Emergency Medicine; Family Provider Family Medicine Geriatric Medicine; PCP Family Medicine Geriatric Medicine; Visit Provider Family Medicine
DX: S06.0X9A Concussion with loss of consciousness of unspecified duration, initial encounter (principal); S01.91XA Laceration without foreign body of unspecified part of head, initial encounter; W11.XXXA Fall on and from ladder, initial encounter; Y93.9 Activity, unspecified; Y92.9 Unspecified place or not applicable; S62.627A Displaced fracture of middle phalanx of left little finger, initial encounter for closed fracture; Z79.899 Other long term (current) drug therapy; Z79.02 Long term (current) use of antithrombotics/antiplatelets; Z79.82 Long term (current) use of aspirin; I25.10 Atherosclerotic heart disease of native coronary artery without angina pectoris; Z95.1 Presence of aortocoronary bypass graft; E78.5 Hyperlipidemia, unspecified; I11.0 Hypertensive heart disease with heart failure; I50.22 Chronic systolic (congestive) heart failure; Z95.810 Presence of automatic (implantable) cardiac defibrillator; I25.2 Old myocardial infarction; E11.9 Type 2 diabetes mellitus without complications; K21.9 Gastro-esophageal reflux disease without esophagitis; N40.0 Benign prostatic hyperplasia without lower urinary tract symptoms; Z85.46 Personal history of malignant neoplasm of prostate; Z87.891 Personal history of nicotine dependence; I25.5 Ischemic cardiomyopathy
CPT/HCPCS: 26725; 36415; 70450; 71101; 72125; 73130; 80048; 82962; 85025; 85610; 97162; 97165; 97802; 99218; 99285; G0378

== ENCOUNTER 2018-05-14 11:59 | Inpatient (IN) | payer MEDICARE, SELFPAY ==
[2017-10-25 15:17] VITALS: BMI 26.6
[2018-05-14] VITALS (10 sets, daily range): BP systolic 127–146; BP diastolic 66–94; PULSE 72–114; RESP 15–22; TEMP 36.3–37; O2SAT 76–98; BMI 23.1; BMI 23.3
--- NOTE | 2018-05-14 12:28 | EKG12_ITS ---
Test Reason : SOB Blood Pressure : / mmHG Vent. Rate : 072 BPM Atrial Rate : 072 BPM P-R Int : 246 ms QRS Dur : 190 ms QT Int : 452 ms P-R-T Axes : 038 -66 099 degrees QTc Int : 494 ms Atrial-sensed ventricular-paced rhythm with prolonged AV conduction with occasional Premature ventric ular complexes Abnormal ECG Confirmed by REJI RIVERA, JOSE C ([id number]), fashion editor EVA ANDREW ([id number]) on 05/17/2018 3:34:19 PM Referred By: RENATO Confirmed By:JOSE C MENDOZA MD
[2018-05-14 13:04] LABS: Absolute Lymphocyte Count 1.54 X10^3/ul (0.83-4.51); Basophil# 0.04 X10^3/uL; Basophil% 0.3 % (0-1); Eosinophil# 0.18 X10^3/uL; Eosinophils% 1.5 % (0-5); Hematocrit 34.6 % (40-54); Hemoglobin 10.8 g/dl (13.0-16.5); Lymphocyte # 1.54 X10^3/ul (4.0); Lymphocyte % 12.7 % (19-41); Mean Corp Hgb Conc 31.2 g/gl (32-36); Mean Corpuscular Hgb 26.9 pg (27.0-32.0); Mean Corpuscular Volume 86.1 fL (80-94); Mean Platelet Vol. 10.1 fl (6.2-12.0); Monocyte# 1.35 X10^3/uL; Monocyte% 11.1 % (0-10); Neutrophil # 8.98 X10^3/uL (2.7-7.7); Neutrophil % 74.2 % (47-70); Platelet Count 218 K/mm3 (150-450); RBC Distribution Width CV 18.8 % (11.6-14.6); Red Blood Count 4.02 M/mm3 (4.6-6.2); White Blood Count 12.1 K/mm3 (4.4-11.0)
[2018-05-14 13:06] LABS: POSITIVE COUNT NO; POSITIVE DIFFERENTIAL NO; POSITIVE MORPHOLOGY NO
--- NOTE | 2018-05-14 13:12 | RAD_ITS ---
STUDY: X-RAY CHEST REASON FOR EXAM: Male, 78 years old. One-week history of cough. TECHNIQUE: PA and lateral views of the chest. COMPARISON: Comparison is made with prior study dated January 27, 2018. FINDINGS: EKG electrodes are seen. Without evidence of infiltration in the right middle lobe. Stable thickening of the right fissure. Small bilateral pleural effusions slightly worse on the left side. Increased markings at the left lung base suggestive of atelectasis. Sternal cerclage wires and vascular clips are present from a prior sternotomy and coronary artery bypass graft procedure (CABG). A left-sided ICD is seen. Normal mediastinum and evan. Normal visualized pulmonary arteries. There is atherosclerotic calcification of the aortic arch with tortuosity. There are diffuse degenerative changes of the visualized thoracic spine. Normal visualized ribs, clavicles, and shoulders. There is no demonstrated abnormality of the visualized soft tissue structures of the upper abdomen. RAD/Chest PA and Lateral IMPRESSION: Right middle lobe infiltrate superimposed on chronic changes. Small bilateral pleural effusions slightly more prominent on the left side. Electronically Signed: Flynn Sanford MD at 13:43 EST Tel [phone], Service support ,
[2018-05-14 13:14] LABS: Anion Gap 9 (5-15); BUN 15 mg/dL (7-18); BUN/Creat Ratio 26.8 RATIO (10-20); Calcium,Total 7.7 mg/dL (8.5-10.1); Chloride 105 mmol/L (98-107); Creatinine, Serum 0.56 mg/dL (0.70-1.30); EST Glomerular Filtration Rate 151 mL/min (>60); Est Glom Filt Rate - Afr Amer 182 mL/min (>60); Estimated Creatinine Clearance 57.84 ml/min; Glucose 108 mg/dL (74-106); Potassium 3.5 mmol/L (3.5-5.1); Sodium Level 141 mmol/L (136-145)
[2018-05-14] MEDS: Vancomycin IV 1,000 MG/200 ML BAG 200 MG IV (15:02)
--- NOTE | 2018-05-14 16:10 | PCM.HP.STD ---
Problem List (1) HCAP (healthcare-associated pneumonia) Status: Acute (2) Sepsis Status: Acute (3) Acute respiratory failure with hypoxia Status: Acute (4) Closed fracture dislocation of multiple fingers Status: Chronic (5) Hypertension Status: Chronic Qualifiers: (6) Hyperlipidemia Status: Chronic Qualifiers: (7) Presence of automatic implantable cardioverter-defibrillator Status: Chronic Comment: Generator replacement 11/23 [employer] Implanted 03/11/2009 [facility] [employer] (8) H/O coronary artery bypass surgery Status: Chronic Comment: SVG-LAD, SVG- High Lateral Cx, Sequential SVG-PDA,Acute Marginal 12/22/1995 SAENZ-High Lateral Cx, Radial Artery-PDA, Sequential SVG- LAD and D1 11/15/2008 [facility] (9) History of coronary artery stent placement Status: Chronic Comment: [id number]-Uhqt Left Cx @ [facility]; 10/25/17-PTCA and MIGDALIA of proximal LCX/SR per Dr. Torres (10) Ischemic cardiomyopathy Status: Chronic History of Present Illness Date of Admission: 05/14/18 Chief Complaint: SOB The patient is a 78 year old M with past medical history of type 2 diabetes, ischemic cardiomyopathy, chronic systolic congestive heart failure, BPH, hyperlipidemia, hypertension, GERD, CAD with prior CABG, status post defibrillator and pacemaker, history of prostate cancer, who presented to the emergency room with increased shortness of breath and generalized malaise for the past week. Patient states he just feels sick and has been progressively worsening. He is very short of breath he was hypoxic in the emergency room with SPO2 in the 70s on room air. He has had a worsening productive cough with white and yellow mucus production. He reports fevers and chills at home. Patient was in the hospital last month after falling from 8-9 feet sustaining a concussion and a fracture dislocation of the left hand. He has been following Orth O as an outpatient has a splint in place. In the emergency room he appears to have a right middle lobe pneumonia on chest x-ray. He appear septic with tachypnea and leukocytosis. He is admitted for healthcare associated pneumonia. [] Past Medical History Past Medical History (Chronic Problems): Chronic Problems (Last Reviewed 04/30/18 @ 13:36 by Rianna Dyer) Closed fracture dislocation of multiple fingers (Chronic) Shortness of breath (Chronic) Sinus node dysfunction (Chronic) Atherosclerosis of coronary artery bypass graft without angina pectoris (Chronic) SVG-LAD, SVG- High Lateral Cx, Sequential SVG-PDA,Acute Marginal 12/22/1995 SAENZ-High Lateral Cx, Radial Artery-PDA, Sequential SVG- LAD and D1 11/15/2008 [facility] YQP-EVS-Litq Left Cx @ [facility]; 10/25/17-PTCA and MIGDALIA of proximal LCX/SR per Dr. Torres Ventricular tachycardia (Chronic) Left ventricular systolic dysfunction (Chronic) Nonrheumatic mitral valve regurgitation (Chronic) Hypertension (Chronic) Hyperlipidemia (Chronic) Presence of automatic implantable cardioverter-defibrillator (Chronic ~11/10/16) Generator replacement 11/23 [employer] Implanted 03/11/2009 [facility] [employer] H/O coronary artery bypass surgery (Chronic ~11/15/04) SVG-LAD, SVG- High Lateral Cx, Sequential SVG-PDA,Acute Marginal 12/22/1995 SAENZ-High Lateral Cx, Radial Artery-PDA, Sequential SVG- LAD and D1 11/15/2008 [facility] History of coronary artery stent placement (Chronic ~10/28/08) [id number]-WOQ-Kpoc Left Cx @ [facility]; 10/25/17-PTCA and MIGDALIA of proximal LCX/SR per Dr. Torres Ischemic cardiomyopathy (Chronic) Atherosclerosis of coronary artery of [place] heart without angina pectoris (Chronic) SVG-LAD, SVG- High Lateral Cx, Sequential SVG-PDA,Acute Marginal 12/22/1995 SAENZ-High Lateral Cx, Radial Artery-PDA, Sequential SVG- LAD and D1 11/15/2008 [facility] YZP-DCV-Clxh Left Cx @ [facility]; 10/25/17-PTCA and MIGDALIA of proximal LCX/SR per Dr. Torres @ [facility] Medical History: Medical History (Last Reviewed 04/30/18 @ 13:36 by Rianna Dyer) Closed fracture dislocation of multiple fingers (Chronic) S62.609A Laceration of head (Resolved) S01.91XA Concussion (Resolved) S06.0X9A Fall from ladder (Resolved) W11.XXXA Shortness of breath (Chronic) R06.02 Sinus node dysfunction (Chronic) I49.5 Atherosclerosis of coronary artery bypass graft without angina pectoris (Chronic) I25.810 SVG-LAD, SVG- High Lateral Cx, Sequential SVG-PDA,Acute Marginal 12/22/1995 SAENZ-High Lateral Cx, Radial Artery-PDA, Sequential SVG- LAD and D1 11/15/2008 [facility] EGA-VIE-Bkco Left Cx @ [facility]; 10/25/17-PTCA and MIGDALIA of proximal LCX/SR per Dr. Torres Ventricular tachycardia (Chronic) I47.2 Left ventricular systolic dysfunction (Chronic) I51.9 Nonrheumatic mitral valve regurgitation (Chronic) I34.0 Hypertension (Chronic) I10 Hyperlipidemia (Chronic) E78.5 Ischemic cardiomyopathy (Chronic) I25.5 Atherosclerosis of coronary artery of [place] heart without angina pectoris (Chronic) I25.10 SVG-LAD, SVG- High Lateral Cx, Sequential SVG-PDA,Acute Marginal 12/22/1995 SAENZ-High Lateral Cx, Radial Artery-PDA, Sequential SVG- LAD and D1 11/15/2008 [facility] [id number]-KND-Vufj Left Cx @ [facility]; 10/25/17-PTCA and MIGDALIA of proximal LCX/SR per Dr. Torres @ [facility] BPH (benign prostatic hyperplasia) N40.0 GERD (gastroesophageal reflux disease) K21.9 Non-rheumatic mitral regurgitation I34.0 Ischemic mitral regurgitation Old myocardial infarction I25.2 Paroxysmal ventricular tachycardia I47.2 Prostate cancer C61 Type 2 diabetes mellitus without complications E11.9 Allergies codeine Allergy (Verified 05/14/18 12:00) Anaphylaxis Home Medications: Ambulatory Orders Medication Instructions Recorded Atorvastatin Calcium [Lipitor] 80 mg PO QHS 12/31/17 Clopidogrel Bisulfate [Clopidogrel] 75 mg PO DAILY 12/31/17 Digoxin 0.25 mg PO DAILY 12/31/17 Escitalopram Oxalate [Lexapro] 10 mg PO DAILY 12/31/17 Metformin HCl 500 mg PO DINNER 12/31/17 Metoprolol Tartrate [Lopressor 50 mg PO BID 12/31/17 (beta lorena)] Mineral Oil/Petrolatum Cr 1 applic TOPICAL BID PRN 12/31/17 [Aquaphor] Triamcinolone 0.025% Cream 1 applic TOPICAL BID PRN 12/31/17 [Kenalog] Omeprazole 40 mg PO DAILY 01/24/18 Aspirin E.C. [Ecotrin] 81 mg PO DAILY 01/26/18 Acetaminophen [Tylenol] 500 mg PO Q6H PRN PRN tab 04/15/18 nitroglycerin 0.4 mg sublingual 0.4 mg SUBLINGUAL Q5-15M PRN #25 04/30/18 tablet tab sacubitril 97 mg-valsartan 103 mg 1 tab PO BID 04/30/18 tablet Acetaminophen [Tylenol Arthritis] 650 mg PO PRN PRN 05/14/18 Surgical History: Surgical History (Last Reviewed 04/30/18 @ 13:36 by Rianna Dyer) Presence of automatic implantable cardioverter-defibrillator (Chronic) Onset Date: ~11/10/16 Z95.810 Generator replacement 11/23 [employer] Implanted 03/11/2009 [facility] [employer] H/O coronary artery bypass surgery (Chronic) Onset Date: ~11/15/04 Z95.1 SVG-LAD, SVG- High Lateral Cx, Sequential SVG-PDA,Acute Marginal 12/22/1995 SAENZ-High Lateral Cx, Radial Artery-PDA, Sequential SVG- LAD and D1 11/15/2008 [facility] History of coronary artery stent placement (Chronic) Onset Date: ~10/28/08 Z95.5 YLE-ANP-Qwxa Left Cx @ [facility]; 10/25/17-PTCA and MIGDALIA of proximal LCX/SR per Dr. Torres H/O resection of small bowel Z98.890, Z90.49 Hx of cholecystectomy Z98.890, Z90.49 Surgical History: coronary bypass surgery, - - ICD implantation, coronary artery stent placement Psychiatric History: No pertinent psych hx Smoking Status: Former smoker Tobacco Use: Non-smoker Alcohol: None Drugs: None - *Family History Maternal Family History: Family History (Last Reviewed 04/30/18 @ 13:36 by Rianna Dyer) Father CAD (coronary artery disease) Mother CAD (coronary artery disease) Brother CAD (coronary artery disease) History Items: - - CHF Paternal Family History: Family History (Last Reviewed 04/30/18 @ 13:36 by Rianna Dyer) Father CAD (coronary artery disease) Mother CAD (coronary artery disease) Brother CAD (coronary artery disease) History Items: Cancer - Prostate cancer Review of Systems Constitutional: Reports: Chills, Fever, Malaise, Weakness, Fatigue. Denies: Weight Change HEENT: Denies: Head Aches, Sinus Congestion, Sinus Drainage Cardiovascular: Denies: Chest Pain, Palpitations Respiratory: Reports: Cough, Shortness of Breath, Shortness of breath at rest, Shortness of breath upon exertion. Denies: Hemoptysis, Pleuritic Pain, Sputum production Gastrointestinal: Denies: Abdominal Pain, Nausea, Vomiting Genitourinary: Denies: Dysuria Musculoskeletal: Denies: Joint Pain, Joint Tenderness Skin: Denies: Rash, Wounds Neurological: Denies: Numbness, Tingling, Focal weakness Psychiatric: Denies: Anxiety, Depression, Homicidal Ideations, Suicidal Ideations Hematologic/ Lymphatic: Denies: Easy Bruising, Easy Bleeding VTE Information - Inpt Only VTE Present on Admission: No VTE Mechan Device Prophylaxis: None VTE Pharm Prophylaxis ordered?: Yes Patient Problems: Active and Suspected Problems (Last Reviewed 04/30/18 @ 13:36 by Rianna Dyer) HCAP (healthcare-associated pneumonia) (Acute) Sepsis (Acute) Acute respiratory failure with hypoxia (Acute) - Physical Exam General: Alert, Oriented x3, Cooperative HEENT: Atraumatic, PERRLA, EOMI, Normocephalic Neck: Supple, No JVD, Negative Carotid Bruits Lungs: Diminished, Rales - Right lower garg Cardiovascular: Regular rate, No murmurs Abdomen: Bowel Sounds Present, Soft, Non Tender Extremities: No edema, Capillary Refill Less than 3 Seconds Skin: No rashes, No breakdown Musculoskeletal: No Tenderness to Palpation of Joints or Extremities Neurological: Cranial nerves II-XII grossly intact Psych/Mental Status: Normal Affect, Appropriate, Alert and oriented to time, place, person, mood and affect Vital Signs Temp Pulse Resp BP Pulse Ox 97.4 F L 75 18 134/94 H 98 05/14/18 12:01 05/14/18 16:04 05/14/18 16:04 05/14/18 16:04 05/14/18 16:04 Oxygen Flow Rate (L/min) 4 Oxygen Delivery Method Nasal Cannula Weight: 147 lb 11.355 oz Body Mass Index (BMI) 23.1 Laboratory Tests Past 24 Hrs 05/14/18 05/14/18 05/14/18 12:50 12:50 12:50 WBC 12.1 H RBC 4.02 L Hgb 10.8 L Hct 34.6 L MCV 86.1 MCH 26.9 L MCHC 31.2 L RDW 18.8 H RDW Differential 58.0 H Plt Count 218 MPV 10.1 Immature Gran % (Auto) 0.200 Neut % (Auto) 74.2 H Lymph % (Auto) 12.7 L [place] % (Auto) 11.1 H Eos % (Auto) 1.5 Baso % (Auto) 0.3 Absolute Neuts (auto) 9.0 H Absolute Lymphs (auto) 1.54 Total Counted Not Reportable Sodium 141 Potassium 3.5 Chloride 105 Carbon Dioxide 27.0 Anion Gap 9 BUN 15 Creatinine 0.56 L Estim Creat Clear Calc 57.84 Est GFR (MDRD) Af Amer 182 Est GFR (MDRD) Non-Af 151 BUN/Creatinine Ratio 26.8 H Glucose 108 H Lactic Acid 2.0 Calcium 7.7 L Troponin I 0.027 Assessment/Plan All Active Problems (Last Reviewed 04/30/18 @ 13:36 by Rianna Dyer) HCAP (healthcare-associated pneumonia) (Acute) Sepsis (Acute) Acute respiratory failure with hypoxia (Acute) Laceration of head (Resolved) Concussion (Resolved) Fall from ladder (Resolved) 1. Acute sepsis 2/2 HCAP RML - c/w CXR, + Leukocytosis, + tachypnea, admitted to the hospital last month. Afebrile, negative lactate. Given vancomycin and Zosyn in the ER. Continue Zosyn. Nasal MRSA screen, restart Vanco if positive. Obtain urine antigens, sputum culture, blood culture. Continue Mucinex, duo nebs, albuterol, Pap therapy and incentive spirometer. Will also obtain ST eval to see if a component of aspiration. 2. Acute hypoxic respiratory failure 2/2 #1 - 76% RA requiring 4lpm O2 via NC. Does not use home o2 3. History of systolic congestive heart failure and ischemic cardiomyopathy-he does not appear to be in acute CHF. BNP will be elevated with sacubitril. Has PM/ICD 4. History of CAD with prior CABG-continue aspirin, statin, Plavix, beta-lorena, entresto. He is also on digoxin but i dont see a hx of Afib. 5. DMt2 - hold metformin, will cover with SSI. 6. Left 4th digit dislocation - reschedule f.u for next week. Spoke to Sam Nelson who advised that this would be ok, and he can leave his current splint on for another week. 7. Recent concussion 2/2 fall 8-9ft. PTOT. ST. 8. Depression - SSRI 9. GERD - ppi DVT ppx: lovenox DC planning: PTOT This patient was seen by Gabo Forrester PA-C under the supervision of Doctor Mei.
--- NOTE | 2018-05-14 16:14 | HP.PCM_ITS ---
Problem List (1) HCAP (healthcare-associated pneumonia) Status: Acute (2) Sepsis Status: Acute (3) Acute respiratory failure with hypoxia Status: Acute (4) Closed fracture dislocation of multiple fingers Status: Chronic (5) Hypertension Status: Chronic Qualifiers: (6) Hyperlipidemia Status: Chronic Qualifiers: (7) Presence of automatic implantable cardioverter-defibrillator Status: Chronic Comment: Generator replacement 11/23 [facility] [employer] Implanted 03/11/2009 [facility] [employer] (8) H/O coronary artery bypass surgery Status: Chronic Comment: SVG-LAD, SVG- High Lateral Cx, Sequential SVG- PDA,Acute Marginal 12/22/1995 [facility]-High Lateral Cx, Radial Artery-PDA, Sequential SVG- LAD and D1 11/15/2008 [facility] (9) History of coronary artery stent placement Status: Chronic Comment: [id number] Left Cx @ [facility]; 10/25/17-PTCA and MIGDALIA of proximal LCX/SR per Dr. Torres (10) Ischemic cardiomyopathy Status: Chronic History of Present Illness Date of Admission: 05/14/18 Chief Complaint: SOB The patient is a 78 year old M with past medical history of type 2 diabetes, ischemic cardiomyopathy, chronic systolic congestive heart failure, BPH, hyperlipidemia, hypertension, GERD, CAD with prior CABG, status post defibrillator and pacemaker, history of prostate cancer, who presented to the emergency room with increased shortness of breath and generalized malaise for the past week. Patient states he just feels sick and has been progressively worsening. He is very short of breath he was hypoxic in the emergency room with SPO2 in the 70s on room air. He has had a worsening productive cough with white and yellow mucus production. He reports fevers and chills at home. Patient was in the hospital last month after falling from 8-9 feet sustaining a concussion and a fracture dislocation of the left hand. He has been following [facility] as an outpatient has a splint in place. In the emergency room he appears to have a right middle lobe pneumonia on chest x-ray. He appear septic with tachypnea and leukocytosis. He is admitted for healthcare associated pneumonia. [] Past Medical History Past Medical History (Chronic Problems): Chronic Problems (Last Reviewed 04/30/18 @ 13:36 by Rianna Dyer) Closed fracture dislocation of multiple fingers (Chronic) Shortness of breath (Chronic) Sinus node dysfunction (Chronic) Atherosclerosis of coronary artery bypass graft without angina pectoris (Chronic) SVG-LAD, SVG- High Lateral Cx, Sequential SVG-PDA,Acute Marginal 12/22/1995 [facility]-High Lateral Cx, Radial Artery-PDA, Sequential SVG- LAD and D1 11/15/2008 [facility] [id number]-[id number] Left Cx @ [facility]; 10/25/17-PTCA and MIGDALIA of proximal LCX/SR per Dr. Torres Ventricular tachycardia (Chronic) Left ventricular systolic dysfunction (Chronic) Nonrheumatic mitral valve regurgitation (Chronic) Hypertension (Chronic) Hyperlipidemia (Chronic) Presence of automatic implantable cardioverter-defibrillator (Chronic ~11/10/16) Generator replacement 11/23 [facility] [employer] Implanted 03/11/2009 [facility] [employer] H/O coronary artery bypass surgery (Chronic ~11/15/04) SVG-LAD, SVG- High Lateral Cx, Sequential SVG-PDA,Acute Marginal 12/22/1995 [facility]-High Lateral Cx, Radial Artery-PDA, Sequential SVG- LAD and D1 11/15/2008 [facility] History of coronary artery stent placement (Chronic ~10/28/08) [id number] Left Cx @ [facility]; 10/25/17-PTCA and MIGDALIA of proximal LCX/SR per Dr. Torres Ischemic cardiomyopathy (Chronic) Atherosclerosis of coronary artery of [place] heart without angina pectoris (Chronic) SVG-LAD, SVG- High Lateral Cx, Sequential SVG-PDA,Acute Marginal 12/22/1995 [facility]-High Lateral Cx, Radial Artery-PDA, Sequential SVG- LAD and D1 11/15/2008 [facility] JCQ-SOC-Pjbd Left Cx @ [facility]; 10/25/17-PTCA and MIGDALIA of proximal LCX/SR per Dr. Torres @ [facility] Medical History: Medical History (Last Reviewed 04/30/18 @ 13:36 by Rianna Dyer) Closed fracture dislocation of multiple fingers (Chronic) S62.609A Laceration of head (Resolved) S01.91XA Concussion (Resolved) S06.0X9A Fall from ladder (Resolved) W11.XXXA Shortness of breath (Chronic) R06.02 Sinus node dysfunction (Chronic) I49.5 Atherosclerosis of coronary artery bypass graft without angina pectoris (Chronic) I25.810 SVG-LAD, SVG- High Lateral Cx, Sequential SVG-PDA,Acute Marginal 12/22/1995 [facility]-High Lateral Cx, Radial Artery-PDA, Sequential SVG- LAD and D1 11/15/2008 [facility] PPA-QTP-Rari Left Cx @ [facility]; 10/25/17-PTCA and MIGDALIA of proximal LCX/SR per Dr. Torres Ventricular tachycardia (Chronic) I47.2 Left ventricular systolic dysfunction (Chronic) I51.9 Nonrheumatic mitral valve regurgitation (Chronic) I34.0 Hypertension (Chronic) I10 Hyperlipidemia (Chronic) E78.5 Ischemic cardiomyopathy (Chronic) I25.5 Atherosclerosis of coronary artery of [place] heart without angina pectoris (Chronic) I25.10 SVG-LAD, SVG- High Lateral Cx, Sequential SVG-PDA,Acute Marginal 12/22/1995 [facility]-High Lateral Cx, Radial Artery-PDA, Sequential SVG- LAD and D1 11/15/2008 [facility] [id number]-YAU-Gozx Left Cx @ [place]; 10/25/17-PTCA and MIGDALIA of proximal LCX/SR per Dr. Torres @ [facility] BPH (benign prostatic hyperplasia) N40.0 GERD (gastroesophageal reflux disease) K21.9 Non-rheumatic mitral regurgitation I34.0 Ischemic mitral regurgitation Old myocardial infarction I25.2 Paroxysmal ventricular tachycardia I47.2 Prostate cancer C61 Type 2 diabetes mellitus without complications E11.9 Allergies codeine Allergy (Verified 05/14/18 12:00) Anaphylaxis Home Medications: Ambulatory Orders Medication Instructions Recorded Atorvastatin Calcium [Lipitor] 80 mg PO QHS 12/31/17 Clopidogrel Bisulfate [Clopidogrel] 75 mg PO DAILY 12/31/17 Digoxin 0.25 mg PO DAILY 12/31/17 Escitalopram Oxalate [Lexapro] 10 mg PO DAILY 12/31/17 Metformin HCl 500 mg PO DINNER 12/31/17 Metoprolol Tartrate [Lopressor 50 mg PO BID 12/31/17 (beta lroena)] Mineral Oil/Petrolatum Cr 1 applic TOPICAL BID PRN 12/31/17 [Aquaphor] Triamcinolone 0.025% Cream 1 applic TOPICAL BID PRN 12/31/17 [Kenalog] Omeprazole 40 mg PO DAILY 01/24/18 Aspirin E.C. [Ecotrin] 81 mg PO DAILY 01/26/18 Acetaminophen [Tylenol] 500 mg PO Q6H PRN PRN tab 04/15/18 nitroglycerin 0.4 mg sublingual 0.4 mg SUBLINGUAL Q5-15M PRN #25 04/30/18 tablet tab sacubitril 97 mg-valsartan 103 mg 1 tab PO BID 04/30/18 tablet Acetaminophen [Tylenol Arthritis] 650 mg PO PRN PRN 05/14/18 Surgical History: Surgical History (Last Reviewed 04/30/18 @ 13:36 by Rianna Dyer) Presence of automatic implantable cardioverter-defibrillator (Chronic) Onset Date: ~11/10/16 Z95.810 Generator replacement 11/23 [facility] [employer] Implanted 03/11/2009 [facility] [employer] H/O coronary artery bypass surgery (Chronic) Onset Date: ~11/15/04 Z95.1 SVG-LAD, SVG- High Lateral Cx, Sequential SVG-PDA,Acute Marginal 12/22/1995 [facility]-High Lateral Cx, Radial Artery-PDA, Sequential SVG- LAD and D1 11/15/2008 [facility] History of coronary artery stent placement (Chronic) Onset Date: ~10/28/08 Z95.5 [id number]-YAW-Bseh Left Cx @ [place]; 10/25/17-PTCA and MIGDALIA of proximal LCX/SR per Dr. Torres H/O resection of small bowel Z98.890, Z90.49 Hx of cholecystectomy Z98.890, Z90.49 Surgical History: coronary bypass surgery, - - ICD implantation, coronary artery stent placement Psychiatric History: No pertinent psych hx Smoking Status: Former smoker Tobacco Use: Non-smoker Alcohol: None Drugs: None - *Family History Maternal Family History: Family History (Last Reviewed 04/30/18 @ 13:36 by Rianna Dyer) Father CAD (coronary artery disease) Mother CAD (coronary artery disease) Brother CAD (coronary artery disease) History Items: - - CHF Paternal Family History: Family History (Last Reviewed 04/30/18 @ 13:36 by Rianna Dyer) Father CAD (coronary artery disease) Mother CAD (coronary artery disease) Brother CAD (coronary artery disease) History Items: Cancer - Prostate cancer Review of Systems Constitutional: Reports: Chills, Fever, Malaise, Weakness, Fatigue. Denies: Weight Change HEENT: Denies: Head Aches, Sinus Congestion, Sinus Drainage Cardiovascular: Denies: Chest Pain, Palpitations Respiratory: Reports: Cough, Shortness of Breath, Shortness of breath at rest, Shortness of breath upon exertion. Denies: Hemoptysis, Pleuritic Pain, Sputum production Gastrointestinal: Denies: Abdominal Pain, Nausea, Vomiting Genitourinary: Denies: Dysuria Musculoskeletal: Denies: Joint Pain, Joint Tenderness Skin: Denies: Rash, Wounds Neurological: Denies: Numbness, Tingling, Focal weakness Psychiatric: Denies: Anxiety, Depression, Homicidal Ideations, Suicidal Idea tions Hematologic/ Lymphatic: Denies: Easy Bruising, Easy Bleeding VTE Information - Inpt Only VTE Present on Admission: No VTE Mechan Device Prophylaxis: None VTE Pharm Prophylaxis ordered?: Yes Patient Problems: Active and Suspected Problems (Last Reviewed 04/30/18 @ 13:36 by Rianna Dyer) HCAP (healthcare-associated pneumonia) (Acute) Sepsis (Acute) Acute respiratory failure with hypoxia (Acute) - Physical Exam General: Alert, Oriented x3, Cooperative HEENT: Atraumatic, PERRLA, EOMI, Normocephalic Neck: Supple, No JVD, Negative Carotid Bruits Lungs: Diminished, Rales - Right lower garg Cardiovascular: Regular rate, No murmurs Abdomen: Bowel Sounds Present, Soft, Non Tender Extremities: No edema, Capillary Refill Less than 3 Seconds Skin: No rashes, No breakdown Musculoskeletal: No Tenderness to Palpation of Joints or Extremities Neurological: Cranial nerves II-XII grossly intact Psych/Mental Status: Normal Affect, Appropriate, Alert and oriented to time, place, person, mood and affect Vital Signs Temp Pulse Resp BP Pulse Ox 97.4 F L 75 18 134/94 H 98 05/14/18 12:01 05/14/18 16:04 05/14/18 16:04 05/14/18 16:04 05/14/18 16:04 Oxygen Flow Rate (L/min) 4 Oxygen Delivery Method Nasal Cannula Weight: 147 lb 11.355 oz Body Mass Index (BMI) 23.1 Laboratory Tests Past 24 Hrs 05/14/18 05/14/18 05/14/18 12:50 12:50 12:50 WBC 12.1 H RBC 4.02 L Hgb 10.8 L Hct 34.6 L MCV 86.1 MCH 26.9 L MCHC 31.2 L RDW 18.8 H RDW Differential 58.0 H Plt Count 218 MPV 10.1 Immature Gran % (Auto) 0.200 Neut % (Auto) 74.2 H Lymph % (Auto) 12.7 L Rains % (Auto) 11.1 H Eos % (Auto) 1.5 Baso % (Auto) 0.3 Absolute Neuts (auto) 9.0 H Absolute Lymphs (auto) 1.54 Total Counted Not Reportable Sodium 141 Potassium 3.5 Chloride 105 Carbon Dioxide 27.0 Anion Gap 9 BUN 15 Creatinine 0.56 L Estim Creat Clear Calc 57.84 Est GFR (MDRD) Af Amer 182 Est GFR (MDRD) Non-Af 151 BUN/Creatinine Ratio 26.8 H Glucose 108 H Lactic Acid 2.0 Calcium 7.7 L Troponin I 0.027 Assessment/Plan All Active Problems (Last Reviewed 04/30/18 @ 13:36 by Rianna Dyer) HCAP (healthcare-associated pneumonia) (Acute) Sepsis (Acute) Acute respiratory failure with hypoxia (Acute) Laceration of head (Resolved) Concussion (Resolved) Fall from ladder (Resolved) 1. Acute sepsis 2/2 HCAP RML - c/w CXR, + Leukocytosis, + tachypnea, admitted to the hospital last month. Afebrile, negative lactate. Given vancomycin and Zosyn in the ER. Continue Zosyn. Nasal MRSA screen, restart Vanco if positive. Obtain urine antigens, sputum culture, blood culture. Continue Mucinex, duo nebs, albuterol, Pap therapy and incentive spirometer. Will also obtain ST eval to see if a component of aspiration. 2. Acute hypoxic respiratory failure 2/2 #1 - 76% RA requiring 4lpm O2 via NC. Does not use home o2 3. History of systolic congestive heart failure and ischemic cardiomyopathy-he does not appear to be in acute CHF. BNP will be elevated with sacubitril. Has PM/ICD 4. History of CAD with prior CABG-continue aspirin, statin, Plavix, beta- lorena, entresto. He is also on digoxin but i dont see a hx of Afib. 5. DMt2 - hold metformin, will cover with SSI. 6. Left 4th digit dislocation - reschedule f.u for next week. Spoke to Sam Nelson who advised that this would be ok, and he can leave his current splint on for another week. 7. Recent concussion 2/2 fall 8-9ft. PTOT. ST. 8. Depression - SSRI 9. GERD - ppi DVT ppx: lovenox DC planning: PTOT This patient was seen by Gabo Forrester PA-C under the supervision of Doctor Mei.
[2018-05-14 16:52] LABS: Reflex Lactate? Y
--- NOTE | 2018-05-14 16:54 | ED.VISSUMM ---
- ER Visit Summary Date of Service: 05/14/18 Chief Complaint: Shortness of breath History of Present Illness: The patient is a [address] Torres and Dr. Lynn. He reports his shortness of breath began approximately 1 week ago. Is gradually gotten worse. It is severe when he walks around or begins coughing. Mild at rest. Reports that he has had a cough for the past 7-10 days is productive white sputum without blood. No fever, chills, or chest pain. He does complain of generalized weakness. Physical Examination: Vitals: 97.4, 138/66, 72, 16, 76% room air which is hypoxic. General: Well-nourished and well-developed. Head: Normocephalic atraumatic. Neck: Supple, no lymphadenopathy. No JVD. Nontender. Cardiovascular: Regular rate and rhythm. 3 out of 6 systolic murmur. Respiratory: No respiratory distress. Rhonchi on the right. Clear to auscultation on the left. Abdominal: Soft, nontender, nondistended, normal bowel sounds. No guarding, rebound, or peritoneal signs. Back: Nontender. Extremities: Nontender, 1+ pitting edema left lower extremity which he was reports is chronic since his CABG. Skin: Normal color, no rash. Neurologic: Alert and oriented ?3. Cranial nerves II through XII are intact. Normal strength and sensation. Psych: Normal affect. Test Results: EKG is AV paced at 72 with normal sensing and capture. Initial troponin is 0.027. Chem-7 is more for creatinine 0.56, glucose 108, calcium 7.7. Lactic acid is 2.0. CBC is more for a white count of 12.1, H&H of 10.34.6, 7 neutrophils 74, lymphocytes 12, monocytes of 11. Chest x-ray shows a right middle lobe infiltrate, chronic changes, and small bilateral pleural effusions. Emergency Department Course and Treatment: After he was placed on 2 L of oxygen patient's pulse ox increased into the 90s and he is resting comfortably. He was admitted to the hospital last month so he was given Zosyn and vancomycin IV for a healthcare acquired pneumonia. Treatment Plan: Patient was discussed with Dr. Mei. He will be admitted to the hospital for further evaluation and treatment. Disposition: Admitted in improved condition. Impression: 1. Pneumonia, healthcare acquired. 2. Hypoxia. This note was generated with [employer] dictation software. It may contain incorrect words, spelling, and punctuation that were not noted in review of the chart prior to signing ED Disposition - Plan for ED Patient: Chief Complaint: Shortness of Breath
[2018-05-14] MEDS: 0.9% Normal Saline 1,000 ML 100 ML IV (17:47)
[2018-05-14 18:19] LABS: Lactic Acid 1.1 mmol/L (0.4-2.0)
[2018-05-14 18:26] LABS: Magnesium 0.9 mg/dL (1.6-2.6)
[2018-05-14] MEDS: Ipratropium/Albuterol Sulfate 3 ML AMPUL.NEB INHALATION (19:19)
[2018-05-14] MEDS: guaiFENesin 1,200 MG Tablet 1200 MG PO (22:15)
[2018-05-14] MEDS: Atorvastatin Calcium 80 MG Tablet PO (22:15)
[2018-05-14] MEDS: Metoprolol Tartrate 50 MG Tablet PO (22:15)
[2018-05-14] MEDS: SACUBITRIL/VALSARTAN 97-103 MG TABLET 1 EACH PO (22:15)
[2018-05-14] MEDS: Piperacil/Tazobactam 3.375 GM/50 ML ML IV (22:15)
[2018-05-14 22:51] LABS: Bedside Glucose 134 mg/dL (70-110)
[2018-05-14] MEDS: Benzonatate 100 MG Capsule PO (23:44)
[2018-05-14] MEDS: Ondansetron 4 MG/2 ML Vial IV (23:45)
[2018-05-14] MEDS: MELATONIN 3 MG TABLET PO (23:45)
[2018-05-15] VITALS (14 sets, daily range): BP systolic 98–130; BP diastolic 53–73; PULSE 60–108; RESP 18–20; TEMP 36.6–37.1; O2SAT 94–96
[2018-05-15 01:12] LABS: M R Staph aureus DNA By PCR Negative (Negative); Probe Check PASS; Specimen Processing Control PASS
[2018-05-15] MEDS: Piperacil/Tazobactam 3.375 GM/50 ML ML IV ×3 (06:13→21:43)
[2018-05-15 06:57] LABS: Bedside Glucose 126 mg/dL (70-110)
[2018-05-15 06:59] LABS: Absolute Lymphocyte Count 1.43 X10^3/ul (0.83-4.51); Basophil# 0.03 X10^3/uL; Basophil% 0.3 % (0-1); Eosinophil# 0.13 X10^3/uL; Eosinophils% 1.2 % (0-5); Hematocrit 32.2 % (40-54); Hemoglobin 9.9 g/dl (13.0-16.5); Lymphocyte # 1.43 X10^3/ul (4.0); Lymphocyte % 13.2 % (19-41); Mean Corp Hgb Conc 30.7 g/gl (32-36); Mean Corpuscular Hgb 26.5 pg (27.0-32.0); Mean Corpuscular Volume 86.1 fL (80-94); Mean Platelet Vol. 10.9 fl (6.2-12.0); Monocyte# 1.21 X10^3/uL; Monocyte% 11.1 % (0-10); Neutrophil # 8.04 X10^3/uL (2.7-7.7); Platelet Count 190 K/mm3 (150-450); RBC Distribution Width CV 18.6 % (11.6-14.6); RBC Distribution Width SD 57.6 fl (35.1-43.9); Red Blood Count 3.74 M/mm3 (4.6-6.2); White Blood Count 10.9 K/mm3 (4.4-11.0)
[2018-05-15] MEDS: Ipratropium/Albuterol Sulfate 3 ML AMPUL.NEB INHALATION ×4 (07:02→19:50)
[2018-05-15 07:03] LABS: POSITIVE COUNT NO; POSITIVE DIFFERENTIAL NO; POSITIVE MORPHOLOGY NO
[2018-05-15 07:14] LABS: Anion Gap 8 (5-15); BUN 12 mg/dL (7-18); BUN/Creat Ratio 28.7 RATIO (10-20); Calcium,Total 7.3 mg/dL (8.5-10.1); Chloride 106 mmol/L (98-107); Creatinine, Serum 0.42 mg/dL (0.70-1.30); EST Glomerular Filtration Rate 211 mL/min (>60); Est Glom Filt Rate - Afr Amer 255 mL/min (>60); Estimated Creatinine Clearance 57.84 ml/min; Glucose 115 mg/dL (74-106); Magnesium 2.1 mg/dL (1.6-2.6); Potassium 3.2 mmol/L (3.5-5.1); Sodium Level 143 mmol/L (136-145)
[2018-05-15] MEDS: Acetaminophen 325 MG Tablet 650 MG PO (07:58)
[2018-05-15] MEDS: Aspirin E.C. 81 MG Tablet PO (07:58)
[2018-05-15] MEDS: Pantoprazole Sodium 40 MG Tablet PO (10:14)
[2018-05-15] MEDS: guaiFENesin 1,200 MG Tablet 1200 MG PO ×2 (10:14→21:50)
[2018-05-15] MEDS: Escitalopram Oxalate 10 MG Tablet PO (10:14)
[2018-05-15] MEDS: SACUBITRIL/VALSARTAN 97-103 MG TABLET 1 EACH PO ×2 (10:14→21:51)
[2018-05-15] MEDS: Clopidogrel Bisulfate 75 MG Tablet PO (10:15)
--- NOTE | 2018-05-15 11:00 | PN_ITS ---
Addendum entered and electronically signed by FELICIANO Serrano 05/15/18 15:23: Code Visit Addendum: respiratory panel + for rhinovirus Original Note: <Gabo Forrester - Last Filed: 05/15/18 15:23> Patient Problems: Active and Suspected Problems (Last Reviewed 04/30/18 @ 13:36 by Rianna Dyer) HCAP (healthcare-associated pneumonia) (Acute) Sepsis (Acute) Acute respiratory failure with hypoxia (Acute) Subjective: SOB continues however his O2 demand is starting to improve. Pt continues to cough. Today he has not brought anything up. He also was lightheaded and dizzy when he was up to the bathroom today. He told the nurse he had some dark stools lately. I asked him about this and he stated it happens every time he takes pepto bismol. He has not noticed red blood. He has no CP. He has no dizziness/LH at rest. No fever or chills. - Physical Exam General: Alert, Oriented x3, Cooperative HEENT: Atraumatic, PERRLA, EOMI, Normocephalic Neck: Supple, No JVD, Negative Carotid Bruits Lungs: Rales - R>L, Rhonchi Cardiovascular: Regular rate, Murmur Abdomen: Bowel Sounds Present, Soft, Non Tender Extremities: No edema, Capillary Refill Less than 3 Seconds Skin: No rashes, No breakdown, - - pallor Musculoskeletal: No Tenderness to Palpation of Joints or Extremities Neurological: Cranial nerves II-XII grossly intact Psych/Mental Status: Normal Affect, Appropriate, Alert and oriented to time, place, person, mood and affect Vital Signs Temp Pulse Resp BP Pulse Ox 97.8 F 60 20 H 98/53 L 95 05/15/18 04:17 05/15/18 10:17 05/15/18 07:10 05/15/18 10:17 05/15/18 08:20 Oxygen Flow Rate (L/min) 3 Oxygen Delivery Method Nasal Cannula Weight: 149 lb Body Mass Index (BMI) 23.3 Intake and Output for Last 24 Hours 05/13/18 05/14/18 05/15/18 23:59 23:59 23:59 Intake Total 940 / 940 740 / 740 Output Total 300 / 300 270 / 270 Balance 640 / 640 470 / 470 Microbiology Past 72 Hours 05/15/18 02:25 Legionella Antigen - Final Urine, Clean Catch Streptococcus pneumoniae Antigen (M - Final Laboratory Tests Past 24 Hrs 05/14/18 05/14/18 05/14/18 12:50 12:50 12:50 WBC 12.1 H RBC 4.02 L Hgb 10.8 L Hct 34.6 L MCV 86.1 MCH 26.9 L MCHC 31.2 L RDW 18.8 H RDW Differential 58.0 H Plt Count 218 MPV 10.1 Immature Gran % (Auto) 0.200 Neut % (Auto) 74.2 H Lymph % (Auto) 12.7 L [place] % (Auto) 11.1 H Eos % (Auto) 1.5 Baso % (Auto) 0.3 Absolute Neuts (auto) 9.0 H Absolute Lymphs (auto) 1.54 Total Counted Not Reportable Sodium 141 Potassium 3.5 Chloride 105 Carbon Dioxide 27.0 Anion Gap 9 BUN 15 Creatinine 0.56 L Estim Creat Clear Calc 57.84 Est GFR (MDRD) Af Amer 182 Est GFR (MDRD) Non-Af 151 BUN/Creatinine Ratio 26.8 H Glucose 108 H Lactic Acid 2.0 Calcium 7.7 L Magnesium Troponin I 0.027 MRSA (PCR) 05/14/18 05/14/18 05/14/18 12:50 17:34 22:45 WBC RBC Hgb Hct MCV MCH MCHC RDW RDW Differential Plt Count MPV Immature Gran % (Auto) Neut % (Auto) Lymph % (Auto) [place] % (Auto) Eos % (Auto) Baso % (Auto) Absolute Neuts (auto) Absolute Lymphs (auto) Total Counted Sodium Potassium Chloride Carbon Dioxide Anion Gap BUN Creatinine Estim Creat Clear Calc Est GFR (MDRD) Af Amer Est GFR (MDRD) Non-Af BUN/Creatinine Ratio Glucose Lactic Acid 1.1 Calcium Magnesium 0.9 L* Troponin I MRSA (PCR) Negative 05/15/18 05/15/18 05:20 05:20 WBC 10.9 RBC 3.74 L Hgb 9.9 L Hct 32.2 L MCV 86.1 MCH 26.5 L MCHC 30.7 L RDW 18.6 H RDW Differential 57.6 H Plt Count 190 MPV 10.9 Immature Gran % (Auto) 0.200 Neut % (Auto) 74.0 H Lymph % (Auto) 13.2 L [place] % (Auto) 11.1 H Eos % (Auto) 1.2 Baso % (Auto) 0.3 Absolute Neuts (auto) 8.0 H Absolute Lymphs (auto) 1.43 Total Counted Not Reportable Sodium 143 Potassium 3.2 L Chloride 106 Carbon Dioxide 29.0 Anion Gap 8 BUN 12 Creatinine 0.42 L Estim Creat Clear Calc 57.84 Est GFR (MDRD) Af Amer 255 Est GFR (MDRD) Non-Af 211 BUN/Creatinine Ratio 28.7 H Glucose 115 H Lactic Acid Calcium 7.3 L Magnesium 2.1 Troponin I MRSA (PCR) POC Glucose 05/15/18 05/14/18 06:50 22:13 POC Glucose 126 H 134 H Medical Necessity - Tobacco Use Smoking Status: Former smoker Tobacco Use: Non-smoker Assessment/Plan All Active Problems (Last Reviewed 04/30/18 @ 13:36 by Rianna Dyer) HCAP (healthcare-associated pneumonia) (Acute) Sepsis (Acute) Acute respiratory failure with hypoxia (Acute) Laceration of head (Resolved) Concussion (Resolved) Fall from ladder (Resolved) 1. Acute sepsis 2/2 HCAP RML - c/w CXR, + Leukocytosis, + tachypnea, admitted to the hospital last month. Afebrile, negative lactate. Given vancomycin and Zosyn in the ER. Continue Zosyn. Nasal MRSA screen negative. Continue aerosols, IS/PEP, mucinex. Sputum culture if able to provide. Urine antigens negative. Respiratory panel is negative. 2. Acute hypoxic respiratory failure 2/2 #1 - 76% RA requiring 4lpm O2 via NC at admission. Does not use home o2. O2 demand improving. 3. History of systolic congestive heart failure and ischemic cardiomyopathy-he does not appear to be in acute CHF. BNP will be elevated with sacubitril. Has PM/ICD 4. History of CAD with prior CABG-continue aspirin, statin, Plavix, beta- lorena, entresto. He is also on digoxin but i dont see a hx of Afib. 5. DMt2 - metformin held, stable with SSI. 6. Left 4th digit dislocation - reschedule f.u for next week. Spoke to Sam Nelson who advised that this would be ok, and he can leave his current splint on for another week. 7. Recent concussion 2/2 fall 8-9ft. PTOT. ST. 8. Depression - SSRI 9. GERD - ppi 10. Chronic normocytic anemia - hx black stools, however this occurs with pepto use. Will check stool occult blood. 11. LH/Dizziness - check orthos. Bolus IV fluids, BP low normal this AM 12. Hypokalemia / hypomagnesemia - repleted. Mag normal now. DVT ppx: lovenox DC planning: PTOT This patient was seen by Gabo Forrester PA-C under the supervision of Doctor Bianca. <Antoinette Valenzuela - Last Filed: 05/15/18 16:13> - Physical Exam Vital Signs Temp Pulse Resp BP Pulse Ox 98.3 F 73 18 121/65 H 94 05/15/18 15:29 05/15/18 15:30 05/15/18 15:29 05/15/18 15:30 05/15/18 15:29 Oxygen Flow Rate (L/min) 2 Oxygen Delivery Method Nasal Cannula Weight: 149 lb Body Mass Index (BMI) 23.3 Orthostatic Vital Signs Start: 05/15/18 15:30 Freq: q24h Status: Active Protocol: Activity Type Activity Date Activity User E-Sign Co-Sign Detail Recorded Client Recorded Date Recorded By Document 05/15/18 15:30 JIMENA [id number] 05/15/18 15:32 JIMENA 05/15/18 15:30 Orthostatic Vitals Standing -Blood Pressure (90/60-120/80) 118/56 L -Extremity Use Left Arm -Pulse Rate (60-100) 77 Sitting -Blood Pressure (90/60-120/80) 125/65 H -Extremity Use Left Arm -Pulse Rate (60-100) 68 Lying -Blood Pressure (90/60-120/80) 121/65 H -Extremity Use Left Arm -Pulse Rate (60-100) 73 Intake and Output for Last 24 Hours 05/13/18 05/14/18 05/15/18 23:59 23:59 23:59 Intake Total 940 / 940 1660 / 1660 Output Total 300 / 300 650 / 650 Balance 640 / 640 1010 / 1010 Microbiology Past 72 Hours 05/14/18 19:30 Respiratory Panel (PCR) - Final Mucosa - Nasopharyngeal 05/15/18 02:25 Legionella Antigen - Final Urine, Clean Catch Streptococcus pneumoniae Antigen (M - Final Laboratory Tests Past 24 Hrs 05/14/18 05/14/18 05/14/18 12:50 17:34 22:45 WBC RBC Hgb Hct MCV MCH MCHC RDW RDW Differential Plt Count MPV Immature Gran % (Auto) Neut % (Auto) Lymph % (Auto) [place] % (Auto) Eos % (Auto) Baso % (Auto) Absolute Neuts (auto) Absolute Lymphs (auto) Total Counted Sodium Potassium Chloride Carbon Dioxide Anion Gap BUN Creatinine Estim Creat Clear Calc Est GFR (MDRD) Af Amer Est GFR (MDRD) Non-Af BUN/Creatinine Ratio Glucose Lactic Acid 1.1 Calcium Phosphorus Magnesium 0.9 L* MRSA (PCR) Negative 05/15/18 05/15/18 05/15/18 05:20 05:20 05:20 WBC 10.9 RBC 3.74 L Hgb 9.9 L Hct 32.2 L MCV 86.1 MCH 26.5 L MCHC 30.7 L RDW 18.6 H RDW Differential 57.6 H Plt Count 190 MPV 10.9 Immature Gran % (Auto) 0.200 Neut % (Auto) 74.0 H Lymph % (Auto) 13.2 L [place] % (Auto) 11.1 H Eos % (Auto) 1.2 Baso % (Auto) 0.3 Absolute Neuts (auto) 8.0 H Absolute Lymphs (auto) 1.43 Total Counted Not Reportable Sodium 143 Potassium 3.2 L Chloride 106 Carbon Dioxide 29.0 Anion Gap 8 BUN 12 Creatinine 0.42 L Estim Creat Clear Calc 57.84 Est GFR (MDRD) Af Amer 255 Est GFR (MDRD) Non-Af 211 BUN/Creatinine Ratio 28.7 H Glucose 115 H Lactic Acid Calcium 7.3 L Phosphorus 3.6 Magnesium 2.1 MRSA (PCR) POC Glucose 05/15/18 05/15/18 05/14/18 11:21 06:50 22:13 POC Glucose 144 H 126 H 134 H Assessment/Plan Patient seen under my supervision by Gabo Forrester PA-C Patient seen and examined. He was admitted with sepsis due to healthcare associated pneumonia. Patient denies any fever or chills but admits to a cough which is productive of clear sputum. He remains short of breath though is improving remains on oxygen. He denied any chest pain, abdominal pain, diarrhea vomiting. Patient subsequently did complain of dark stools and exertional shortness of breath and so the doctors was a result of him taking Pepto-Bismol. Hemoglobin had dropped from about 10.8 to 9.9. o/e: Vital Signs Height 5 ft 7 in Weight: 149 lb Weight in Pounds 149.0 lbs BMI 26.6 Pulse Ox 94 Temperature 98.3 F Pulse Rate [Standing] 77 Pulse Rate [Sitting] 68 Pulse Rate [Lying] 73 Pulse Rate 77 Respiratory Rate 18 Blood Pressure [Standing] 118/56 Blood Pressure [Sitting] 125/65 Blood Pressure [Lying] 121/65 Blood Pressure 118/56 Blood Pressure Position Standing - Physical Exam General: Alert, Oriented x3, Cooperative HEENT: Atraumatic, PERRLA, EOMI, Normocephalic Neck: Supple, No JVD, Negative Carotid Bruits Lungs: coarse crackles bibasally; no wheezes auscultated Cardiovascular: Regular rate, Murmur Abdomen: Bowel Sounds Present, Soft, Non Tender Extremities: No edema, Capillary Refill Less than 3 Seconds Skin: No rashes, No breakdown, Musculoskeletal: No Tenderness to Palpation of Joints or Extremities Neurological: Cranial nerves II-XII grossly intact Psych/Mental Status: Normal Affect, Appropriate, Alert and oriented to time, place, person, mood and affect Plan is continue IV vancomycin and Zosyn. Sputum cultures blood culture pending. Respiratory panel was negative. Continue to wean oxygen to maintain saturation above 92%. Will check stool for occult blood. Hold aspirin for now on account of his dark stools. Stool for occult blood, but negative will resume. Rest of management as by Gabo Forrester PA-C's note. Agree with above assessment plan and noted by Gabo Forrester PA-C. Code Visit Inpatient E&M: 28202 Subs Hosp L3
--- NOTE | 2018-05-15 11:03 | CASEMGMT ---
RN CM Note Pt presented to ER with acute sepsis, respiratory failure, HCAP. Requiring 4L NC on admission, pt does not use home O2. Intro role of CM to patient in room. Pt states he has DME @ home but does not use. PCP: Dr. Garcia [facility] Prescription coverage: yes Insurance: [employer] O DME: wheeled walker, rollator, cane. Pt states he was not using DME prior to admission. Discussed possible need for Home oxygen on dc. Living arrangements: Pt lives in mobile home with spouse. Independent in ADL's. Transportation: drives PT/OT: pending ST: pending DC Plan: Pt plans to return home. May need Home Oxygen testing prior to discharge.
[2018-05-15 11:18] LABS: Phosphorus 3.6 mg/dL (2.5-4.9)
[2018-05-15] MEDS: 0.9% Normal Saline 1,000 ML 999 ML IV (11:20)
[2018-05-15 11:26] LABS: Bedside Glucose 144 mg/dL (70-110)
--- NOTE | 2018-05-15 15:54 | CHAPLAIN ---
Type of Pastoral Visit _x__ Initial Visit ___ Follow-up Visit ___ On-call Visit ___ General Patient Visit ___ Spiritual Assessment ___ Family Conference ___ Bereavement ___ Rapid Response ___ Code Blue ___ Other (describe below) Pastoral Care Referral From _x__ Patient ___ Family ___ Nurse ___ Physician ___ [employer] Weigher ___ Process Architect ___ Other (describe below) Sacrament/Intervention _x__ Active listening ___ Anointing ___ Jain ___ Bereavement ___ Communion _x__ Aleida exploration ___ _x__ Life review _x__ Prayer ___ Reconciliation ___ Sacrament of Sick ___ Supportive presence ___ Wedding ___ Other (describe below) Pastoral Comments
[2018-05-15 16:31] LABS: Bedside Glucose 139 mg/dL (70-110)
[2018-05-15] MEDS: Benzonatate 100 MG Capsule PO (21:50)
[2018-05-15] MEDS: Metoprolol Tartrate 50 MG Tablet PO (21:51)
[2018-05-15] MEDS: MELATONIN 3 MG TABLET PO (21:51)
[2018-05-15] MEDS: Atorvastatin Calcium 80 MG Tablet PO (21:51)
[2018-05-15] MEDS: Insulin Lispro 100 UNIT/ML INSULN.PEN SC (21:52)
[2018-05-16] VITALS (12 sets, daily range): BP systolic 112–129; BP diastolic 54–80; PULSE 69–78; RESP 16–22; TEMP 36.6–37; O2SAT 75–98
[2018-05-16 00:11] LABS: Bedside Glucose 160 mg/dL (70-110)
[2018-05-16] MEDS: Piperacil/Tazobactam 3.375 GM/50 ML ML IV ×2 (05:33→13:45)
[2018-05-16 05:58] LABS: Absolute Lymphocyte Count 1.03 X10^3/ul (0.83-4.51); Absolute Neutrophil Count 6.6 X10^3/uL (2.0-7.7); Basophil# 0.03 X10^3/uL; Basophil% 0.3 % (0-1); Eosinophils% 2.3 % (0-5); Hematocrit 30.6 % (40-54); Hemoglobin 9.5 g/dl (13.0-16.5); Lymphocyte # 1.03 X10^3/ul (4.0); Lymphocyte % 11.7 % (19-41); Mean Corpuscular Hgb 27.3 pg (27.0-32.0); Mean Corpuscular Volume 87.9 fL (80-94); Monocyte# 0.93 X10^3/uL; Monocyte% 10.5 % (0-10); Neutrophil # 6.62 X10^3/uL (2.7-7.7); Neutrophil % 75.1 % (47-70); Platelet Count 168 K/mm3 (150-450); RBC Distribution Width CV 18.8 % (11.6-14.6); RBC Distribution Width SD 58.3 fl (35.1-43.9); Red Blood Count 3.48 M/mm3 (4.6-6.2); White Blood Count 8.8 K/mm3 (4.4-11.0)
[2018-05-16 06:03] LABS: POSITIVE COUNT NO; POSITIVE DIFFERENTIAL NO; POSITIVE MORPHOLOGY NO
[2018-05-16 06:05] LABS: Anion Gap 8 (5-15); BUN 10 mg/dL (7-18); BUN/Creat Ratio 21.2 RATIO (10-20); Chloride 106 mmol/L (98-107); Creatinine, Serum 0.47 mg/dL (0.70-1.30); EST Glomerular Filtration Rate 184 mL/min (>60); Est Glom Filt Rate - Afr Amer 222 mL/min (>60); Estimated Creatinine Clearance 57.84 ml/min; Glucose 103 mg/dL (74-106); Potassium 3.7 mmol/L (3.5-5.1); Sodium Level 143 mmol/L (136-145)
[2018-05-16] MEDS: Ipratropium/Albuterol Sulfate 3 ML AMPUL.NEB INHALATION ×4 (06:45→19:38)
[2018-05-16 06:56] LABS: Bedside Glucose 114 mg/dL (70-110)
[2018-05-16] MEDS: Aspirin E.C. 81 MG Tablet PO (09:19)
[2018-05-16] MEDS: Pantoprazole Sodium 40 MG Tablet PO (09:26)
[2018-05-16] MEDS: Digoxin 250 MCG Tablet PO (09:27)
[2018-05-16] MEDS: Escitalopram Oxalate 10 MG Tablet PO (09:28)
[2018-05-16] MEDS: Metoprolol Tartrate 50 MG Tablet PO ×2 (09:28→23:00)
[2018-05-16] MEDS: guaiFENesin 1,200 MG Tablet 1200 MG PO ×2 (09:29→23:00)
[2018-05-16] MEDS: SACUBITRIL/VALSARTAN 97-103 MG TABLET 1 EACH PO ×2 (09:29→22:59)
--- NOTE | 2018-05-16 09:50 | DCINST_ITS ---
- Discharge Diagnoses Current Active Problems: Current Active and Chronic Problems (Last Reviewed 04/30/18 @ 13:36 by Rianna Dyer) HCAP (healthcare-associated pneumonia) (Acute) Sepsis (Acute) Acute respiratory failure with hypoxia (Acute) You will use the following diet at home:: Calorie/Carbohydrate Controlled (specify 1200, 1400, etc) - 1800 valeriy / day, Cardiac - <2 g sodium daily Your food should be the consistency of: Regular Your liquids should be the consistency of: Regular/Thin Discharge Activity: Return to Normal Activity Additional Instructions: Use Oxygen as directed. Allergies/Adverse Reactions: Allergies codeine Allergy (Verified 05/14/18 12:00) Anaphylaxis Medications to take at Discharge Atorvastatin Calcium [Lipitor] 80 mg PO QHS 12/31/17 Clopidogrel Bisulfate [Clopidogrel] 75 mg PO DAILY 12/31/17 Digoxin 0.25 mg PO DAILY 12/31/17 Escitalopram Oxalate [Lexapro] 10 mg PO DAILY 12/31/17 Metformin HCl 500 mg PO DINNER 12/31/17 Metoprolol Tartrate [Lopressor (beta lorena)] 50 mg PO BID 12/31/17 Mineral Oil/Petrolatum Cr [Aquaphor] 1 applic TOPICAL BID PRN 12/31/17 Triamcinolone 0.025% Cream [Kenalog] 1 applic TOPICAL BID PRN 12/31/17 Omeprazole 40 mg PO DAILY 01/24/18 Aspirin E.C. [Ecotrin] 81 mg PO DAILY 01/26/18 nitroglycerin 0.4 mg sublingual tablet 0.4 mg SUBLINGUAL Q5-15M PRN #25 tab 04/30/18 sacubitril 97 mg-valsartan 103 mg tablet 1 tab PO BID 04/30/18 Acetaminophen [Tylenol Arthritis] 650 mg PO PRN PRN 05/14/18 Albuterol IH (ProAir) [Proair Hfa] 1 puff INHALATION Q6H PRN PRN #1 inhaler 05/16/18 Guaifenesin [Mucinex] 1,200 mg PO BID tablet 05/16/18 Levofloxacin [Levaquin] 750 mg PO 5X/DAY #5 tablet 05/16/18 The following prescriptions were given: Albuterol IH (ProAir) [Proair Hfa] 1 puff INHALATION Q6H PRN PRN #1 inhaler PRN Reason: Sob &/Or Wheezing Levofloxacin [Levaquin] 750 mg PO 5X/DAY #5 tablet Primary Care Physician: Lazarus Garcia Chi, MD [Primary Care Provider] - Please follow up with your Primary Care Physician in: 1-2 weeks Test Results: Test results from this visit will be discussed in further detail at your follow- up appointment, if applicable. Proposed Discharge Date: 05/16/18
--- NOTE | 2018-05-16 10:24 | CASEMGMT ---
RN CM received update that patient SpO2 was 75% on room air at rest. RN CM updated PA and hospitalist regarding low SpO2 on room air. RN ERIC received script and referral sent to [facility]. RN ERIC arranged for deliver of oxygen prior to patient's discharge. RN ERIC will continue to follow this patient and plan for a safe discharge.
--- NOTE | 2018-05-16 13:43 | PCM.DC.SUM ---
<Richard Forrestery - Last Filed: 05/16/18 14:14> Discharge Date and Diagnosis - Problem List Patient Problems: Active and Suspected Problems (Last Reviewed 04/30/18 @ 13:36 by Rianna Dyer) HCAP (healthcare-associated pneumonia) (Acute) Sepsis (Acute) Acute respiratory failure with hypoxia (Acute) Date of Admission: 05/14/18 Date of Discharge: 05/16/18 - Primary Discharge Diagnosis Active and Suspected Problems (Last Reviewed 04/30/18 @ 13:36 by Rianna Dyer) Acute sepsis 2/2 HCAP (healthcare-associated pneumonia) 2/2 presumed gram negative pna and acute rhinovirus infection Acute respiratory failure with hypoxia (Acute) 2/2 above 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 Left 4th digit dislocation Recent concussion Depression GERD Chronic normocytic anemia - Secondary Discharge Diagnosis Chronic Problems (Last Reviewed 04/30/18 @ 13:36 by Rianna Dyer) 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 Torres Ischemic cardiomyopathy (Chronic) Atherosclerosis of coronary artery of [place] heart without angina pectoris (Chronic) SVG-LAD, SVG- High Lateral Cx, Sequential SVG-PDA,Acute Marginal 12/22/1995 SAENZ-High Lateral Cx, Radial Artery-PDA, Sequential SVG- LAD and D1 11/15/2008 [facility] [id number] Left Cx @ [facility]; 10/25/17-PTCA and MIGDALIA of proximal LCX/SR per Dr. Torres @ [facility] Hospital Course and Treatment Imaging Results: RAD/Chest PA and Lateral IMPRESSION: Right middle lobe infiltrate superimposed on chronic changes. Small bilateral pleural effusions slightly more prominent on the left side. Operations: None Procedures: None Summary of Care Provided: Hospital course: The patient is a 78 year old M with a pmhx as above who was admitted to the hospital the month prior after falling and sustaining a concussion, who presented to the hospital with worsening SOB, malaise, and productive cough for about a week. He appeared hypoxic with Sp02 in the 70s on room air and had a CXR consistent with pna, with sepsis criteria met given his tachypnea and leukocytosis. He was given Vanc and zosyn in the ER for HCAP and admitted to the gen med floor. He was continued on zosyn. MRSA screen negative. Respiratory panel showed rhinovirus. Infectious workup did not otherwise identify a specific bacteria. He continued to require o2 both at rest and with exertion as he desaturated into the 70s and 80s without it. Home O2 was arranged for him and he will need to conitnue this as an outpatient for now. He was transitioned to levaquin and will need 5 more days for a total of 7 days of abx therapy for HCAP. He was advised to follow up with his PCP in 1-2 weeks. He missed his follow up appointment with ortho for a finger dislocation. I called Sam Nelson PA-C for advise and he was ok with the patient conintuing his current splint until he could reschedule his follow up for next week. The patient worked with PTOT and did not have any homegoing needs. He also passed a speech therapy evaluation. Pt was discharged home in stable condition. This patient was seen by Gabo Forrester PA-C under the supervision of Doctor Valenzuela. [] Patient Problems: Active and Suspected Problems (Last Reviewed 04/30/18 @ 13:36 by Rianna Dyer) HCAP (healthcare-associated pneumonia) (Acute) Sepsis (Acute) Acute respiratory failure with hypoxia (Acute) - Physical Exam General: Alert, Oriented x3, Cooperative HEENT: Atraumatic, PERRLA, EOMI, Normocephalic Neck: Supple, No JVD, Negative Carotid Bruits Lungs: Rales - right side Cardiovascular: Regular rate, No murmurs Abdomen: Bowel Sounds Present, Soft, Non Tender Extremities: No edema, Capillary Refill Less than 3 Seconds Skin: No rashes, No breakdown Musculoskeletal: No Tenderness to Palpation of Joints or Extremities Neurological: Cranial nerves II-XII grossly intact Psych/Mental Status: Normal Affect, Appropriate, Alert and oriented to time, place, person, mood and affect Vital Signs Temp Pulse Resp BP Pulse Ox 98.2 F 78 18 120/80 75 05/16/18 09:21 05/16/18 10:48 05/16/18 10:48 05/16/18 09:28 05/16/18 09:39 Oxygen Flow Rate (L/min) [ 2 AMBULATION with Oxygen] Oxygen Flow Rate (L/min) [ 0 AMBULATING on Room Air] Oxygen Flow Rate (L/min) [At 0 REST on Room Air] Oxygen Flow Rate (L/min) 2 Oxygen Delivery Method Nasal Cannula Weight: 149 lb Body Mass Index (BMI) 23.3 Orthostatic Vital Signs Start: 05/15/18 15:30 Freq: q24h Status: Active Protocol: Activity Type Activity Date Activity User E-Sign Co-Sign Detail Recorded Client Recorded Date Recorded By Document 05/15/18 15:30 JIMENA [id number] 05/15/18 15:32 JIMENA 05/15/18 15:30 Orthostatic Vitals Standing -Blood Pressure (90/60-120/80) 118/56 L -Extremity Use Left Arm -Pulse Rate (60-100) 77 Sitting -Blood Pressure (90/60-120/80) 125/65 H -Extremity Use Left Arm -Pulse Rate (60-100) 68 Lying -Blood Pressure (90/60-120/80) 121/65 H -Extremity Use Left Arm -Pulse Rate (60-100) 73 Intake and Output for Last 24 Hours 05/14/18 05/15/18 05/16/18 23:59 23:59 23:59 Intake Total 940 / 940 2610 / 2610 604.1 / 604.1 Output Total 300 / 300 1150 / 1150 200 / 200 Balance 640 / 640 1460 / 1460 404.1 / 404.1 Microbiology Past 72 Hours 05/15/18 18:50 Stool Occult Blood (DIANDRA) - Final Stool 05/14/18 19:30 Respiratory Panel (PCR) - Final Mucosa - Nasopharyngeal 05/15/18 02:25 Legionella Antigen - Final Urine, Clean Catch Streptococcus pneumoniae Antigen (M - Final Laboratory Tests Past 24 Hrs 05/16/18 05/16/18 05:10 05:10 WBC 8.8 RBC 3.48 L Hgb 9.5 L Hct 30.6 L MCV 87.9 MCH 27.3 MCHC 31.0 L RDW 18.8 H RDW Differential 58.3 H Plt Count 168 MPV 11.0 Immature Gran % (Auto) 0.100 Neut % (Auto) 75.1 H Lymph % (Auto) 11.7 L [place] % (Auto) 10.5 H Eos % (Auto) 2.3 Baso % (Auto) 0.3 Absolute Neuts (auto) 6.6 Absolute Lymphs (auto) 1.03 Total Counted Not Reportable Sodium 143 Potassium 3.7 Chloride 106 Carbon Dioxide 29.0 Anion Gap 8 BUN 10 Creatinine 0.47 L Estim Creat Clear Calc 57.84 Est GFR (MDRD) Af Amer 222 Est GFR (MDRD) Non-Af 184 BUN/Creatinine Ratio 21.2 H Glucose 103 Calcium 8.0 L POC Glucose 05/16/18 05/15/18 05/15/18 06:47 21:41 16:24 POC Glucose 114 H 160 H 139 H Discharge Diet: Low fat/ Low Cholesterol, 1800 Calorie Control Diet, 2000 mg Sodium Diet Discharge Activity: Return to Normal Activity Home Medications: Medications to take at Discharge Atorvastatin Calcium [Lipitor] 80 mg PO QHS 12/31/17 Clopidogrel Bisulfate [Clopidogrel] 75 mg PO DAILY 12/31/17 Digoxin 0.25 mg PO DAILY 12/31/17 Escitalopram Oxalate [Lexapro] 10 mg PO DAILY 12/31/17 Metformin HCl 500 mg PO DINNER 12/31/17 Metoprolol Tartrate [Lopressor (beta lorena)] 50 mg PO BID 12/31/17 Mineral Oil/Petrolatum Cr [Aquaphor] 1 applic TOPICAL BID PRN 12/31/17 Triamcinolone 0.025% Cream [Kenalog] 1 applic TOPICAL BID PRN 12/31/17 Omeprazole 40 mg PO DAILY 01/24/18 Aspirin E.C. [Ecotrin] 81 mg PO DAILY 01/26/18 nitroglycerin 0.4 mg sublingual tablet 0.4 mg SUBLINGUAL Q5-15M PRN #25 tab 04/30/18 sacubitril 97 mg-valsartan 103 mg tablet 1 tab PO BID 04/30/18 Acetaminophen [Tylenol Arthritis] 650 mg PO PRN PRN 05/14/18 Albuterol IH (ProAir) [Proair Hfa] 1 puff INHALATION Q6H PRN PRN #1 inhaler 05/16/18 Guaifenesin [Mucinex] 1,200 mg PO BID tablet 05/16/18 Levofloxacin [Levaquin] 750 mg PO 5X/DAY #5 tablet 05/16/18 Following Prescrptions Were Given to Patient: Albuterol IH (ProAir) [Proair Hfa] 1 puff INHALATION Q6H PRN PRN #1 inhaler PRN Reason: Sob &/Or Wheezing Levofloxacin [Levaquin] 750 mg PO 5X/DAY #5 tablet Primary Care Physician: Lazarus Garcia Chi, MD [Primary Care Provider] - Please follow up with your Primary Care Physician in: 1-2 weeks Please Follow Up With: Lazarus Garcia Chi, MD When: 1 to 2 weeks Disposition: Home Minutes spent on discharge:: 35 Patient Condition:: Stable Medical Necessity - Tobacco Use Smoking Status: Former smoker Tobacco Use: Non-smoker Meaningful Use Info Meaningful Use Diagnoses (Choose all that apply): None applicable <Antoinette Valenzuela - Last Filed: 05/17/18 14:56> Discharge Date and Diagnosis - Primary Discharge Diagnosis Active and Suspected Problems (Last Reviewed 04/30/18 @ 13:36 by Rianna Dyer) HCAP (healthcare-associated pneumonia) (Acute) Sepsis (Acute) Acute respiratory failure with hypoxia (Acute) - Secondary Discharge Diagnosis Chronic Problems (Last Reviewed 04/30/18 @ 13:36 by Rianna Dyer) 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 Torres Ischemic cardiomyopathy (Chronic) Atherosclerosis of coronary artery of [place] heart without angina pectoris (Chronic) SVG-LAD, SVG- High Lateral Cx, Sequential SVG-PDA,Acute Marginal 12/22/1995 SAENZ-High Lateral Cx, Radial Artery-PDA, Sequential SVG- LAD and D1 11/15/2008 [facility] [id number] Left Cx @ [facility]; 10/25/17-PTCA and MIGDALIA of proximal LCX/SR per Dr. Torres @ [facility] Course and Treatment Summary of Care Provided: Discharge cancelled. This discharge summary is void.] - Physical Exam Vital Signs Temp Pulse Resp BP Pulse Ox 97.8 F 68 16 127/64 H 94 05/17/18 10:15 05/17/18 11:26 05/17/18 11:26 05/17/18 10:15 05/17/18 11:26 Oxygen Flow Rate (L/min) [ 2 AMBULATION with Oxygen] Oxygen Flow Rate (L/min) [ 0 AMBULATING on Room Air] Oxygen Flow Rate (L/min) [At 0 REST on Room Air] Oxygen Flow Rate (L/min) 2 Oxygen Delivery Method Nasal Cannula Weight: 149 lb Body Mass Index (BMI) 23.3 Orthostatic Vital Signs Start: 05/15/18 15:30 Freq: q24h Status: Active Protocol: Activity Type Activity Date Activity User E-Sign Co-Sign Detail Recorded Client Recorded Date Recorded By Document 05/15/18 15:30 JIMENA [id number] 05/15/18 15:32 JIMENA 05/15/18 15:30 Orthostatic Vitals Standing -Blood Pressure (90/60-120/80) 118/56 L -Extremity Use Left Arm -Pulse Rate (60-100) 77 Sitting -Blood Pressure (90/60-120/80) 125/65 H -Extremity Use Left Arm -Pulse Rate (60-100) 68 Lying -Blood Pressure (90/60-120/80) 121/65 H -Extremity Use Left Arm -Pulse Rate (60-100) 73 Intake and Output for Last 24 Hours 05/15/18 05/16/18 05/17/18 23:59 23:59 23:59 Intake Total 2610 / 2610 1836.1 / 1836.1 400 / 400 Output Total 1150 / 1150 900 / 900 2150 / 2150 Balance 1460 / 1460 936.1 / 936.1 -1750 / -1750 Microbiology Past 72 Hours 05/17/18 06:50 Gram Stain - Final Sputum, Expectorated/Coughed 05/14/18 12:47 Blood Culture - Preliminary Blood Culture (Wb) #2 - Right Wrist No growth in 48 hours. 05/14/18 12:50 Blood Culture - Preliminary Blood Culture (Wb) - Left Forearm No growth in 48 hours. 05/15/18 18:50 Stool Occult Blood (DIANDRA) - Final Stool 05/14/18 19:30 Respiratory Panel (PCR) - Final Mucosa - Nasopharyngeal 05/15/18 02:25 Legionella Antigen - Final Urine, Clean Catch Streptococcus pneumoniae Antigen (M - Final Laboratory Tests Past 24 Hrs 05/16/18 05:10 Iron 22 L TIBC 236 L Iron Saturation 9.3 L Ferritin 140 POC Glucose 05/17/18 05/17/18 05/16/18 12:50 06:45 22:36 POC Glucose 100 89 144 H 05/16/18 16:06 POC Glucose 140 H
[2018-05-16] MEDS: 0.9% NaCl Peripheral Flush Adult/Peds IV ×2 (13:45→18:29)
--- NOTE | 2018-05-16 13:51 | DS.PCM_ITS ---
Addendum entered and electronically signed by FELICIANO Serrano 05/16/18 14:14: Code Visit DC cancelled, pt SOB. Original Note: <Gabo Forrester - Last Filed: 05/16/18 14:14> Discharge Date and Diagnosis - Problem List Patient Problems: Active and Suspected Problems (Last Reviewed 04/30/18 @ 13:36 by Rianna Dyer) HCAP (healthcare-associated pneumonia) (Acute) Sepsis (Acute) Acute respiratory failure with hypoxia (Acute) Date of Admission: 05/14/18 Date of Discharge: 05/16/18 - Primary Discharge Diagnosis Active and Suspected Problems (Last Reviewed 04/30/18 @ 13:36 by Rianna Dyer) Acute sepsis 2/2 HCAP (healthcare-associated pneumonia) 2/2 presumed gram negative pna and acute rhinovirus infection Acute respiratory failure with hypoxia (Acute) 2/2 above 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 Left 4th digit dislocation Recent concussion Depression GERD Chronic normocytic anemia - Secondary Discharge Diagnosis Chronic Problems (Last Reviewed 04/30/18 @ 13:36 by Rianna Dyer) 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 Torres Ischemic cardiomyopathy (Chronic) Atherosclerosis of coronary artery of [place]kmaq heart without angina pectoris (Chronic) SVG-LAD, SVG- High Lateral Cx, Sequential SVG-PDA,Acute Marginal 12/22/1995 SAENZ-High Lateral Cx, Radial Artery-PDA, Sequential SVG- LAD and D1 11/15/2008 [facility] SIP-UVX-Anrx Left Cx @ [facility]; 10/25/17-PTCA and MIGDALIA of proximal LCX/SR per Dr. Torres @ [facility] Hospital Course and Treatment Imaging Results: RAD/Chest PA and Lateral IMPRESSION: Right middle lobe infiltrate superimposed on chronic changes. Small bilateral pleural effusions slightly more prominent on the left side. Operations: None Procedures: None Summary of Care Provided: Hospital course: The patient is a 78 year old M with a pmhx as above who was admitted to the hospital the month prior after falling and sustaining a concussion, who presented to the hospital with worsening SOB, malaise, and productive cough for about a week. He appeared hypoxic with Sp02 in the 70s on room air and had a CXR consistent with pna, with sepsis criteria met given his tachypnea and leukocytosis. He was given Vanc and zosyn in the ER for HCAP and admitted to the gen med floor. He was continued on zosyn. MRSA screen negative. Respiratory panel showed rhinovirus. Infectious workup did not otherwise identify a specific bacteria. He continued to require o2 both at rest and with exertion as he desaturated into the 70s and 80s without it. Home O2 was arranged for him and he will need to conitnue this as an outpatient for now. He was transitioned to levaquin and will need 5 more days for a total of 7 days of abx therapy for HCA P. He was advised to follow up with his PCP in 1-2 weeks. He missed his follow up appointment with ortho for a finger dislocation. I called Sam Nelson PA-C for advise and he was ok with the patient conintuing his current splint until he could reschedule his follow up for next week. The patient worked with PTOT and did not have any homegoing needs. He also passed a speech therapy evaluation. Pt was discharged home in stable condition. This patient was seen by Gabo Forrester PA-C under the supervision of Doctor Bianca. [] Patient Problems: Active and Suspected Problems (Last Reviewed 04/30/18 @ 13:36 by Rianna Dyer) HCAP (healthcare-associated pneumonia) (Acute) Sepsis (Acute) Acute respiratory failure with hypoxia (Acute) - Physical Exam General: Alert, Oriented x3, Cooperative HEENT: Atraumatic, PERRLA, EOMI, Normocephalic Neck: Supple, No JVD, Negative Carotid Bruits Lungs: Rales - right side Cardiovascular: Regular rate, No murmurs Abdomen: Bowel Sounds Present, Soft, Non Tender Extremities: No edema, Capillary Refill Less than 3 Seconds Skin: No rashes, No breakdown Musculoskeletal: No Tenderness to Palpation of Joints or Extremities Neurological: Cranial nerves II-XII grossly intact Psych/Mental Status: Normal Affect, Appropriate, Alert and oriented to time, pl adrian, person, mood and affect Vital Signs Temp Pulse Resp BP Pulse Ox 98.2 F 78 18 120/80 75 05/16/18 09:21 05/16/18 10:48 05/16/18 10:48 05/16/18 09:28 05/16/18 09:39 Oxygen Flow Rate (L/min) [ 2 AMBULATION with Oxygen] Oxygen Flow Rate (L/min) [ 0 AMBULATING on Room Air] Oxygen Flow Rate (L/min) [At 0 REST on Room Air] Oxygen Flow Rate (L/min) 2 Oxygen Delivery Method Nasal Cannula Weight: 149 lb Body Mass Index (BMI) 23.3 Orthostatic Vital Signs Start: 05/15/18 15:30 Freq: q24h Status: Active Protocol: Activity Type Activity Date Activity User E-Sign Co-Sign Detail Recorded Client Recorded Date Recorded By Document 05/15/18 15:30 JIMENA [id number] 05/15/18 15:32 JIMENA 05/15/18 15:30 Orthostatic Vitals Standing -Blood Pressure (90/60-120/80) 118/56 L -Extremity Use Left Arm -Pulse Rate (60-100) 77 Sitting -Blood Pressure (90/60-120/80) 125/65 H -Extremity Use Left Arm -Pulse Rate (60-100) 68 Lying -Blood Pressure (90/60-120/80) 121/65 H -Extremity Use Left Arm -Pulse Rate (60-100) 73 Intake and Output for Last 24 Hours 05/14/18 05/15/18 05/16/18 23:59 23:59 23:59 Intake Total 940 / 940 2610 / 2610 604.1 / 604.1 Output Total 300 / 300 1150 / 1150 200 / 200 Balance 640 / 640 1460 / 1460 404.1 / 404.1 Microbiology Past 72 Hours 05/15/18 18:50 Stool Occult Blood (DIANDRA) - Final Stool 05/14/18 19:30 Respiratory Panel (PCR) - Final Mucosa - Nasopharyngeal 05/15/18 02:25 Legionella Antigen - Final Urine, Clean Catch Streptococcus pneumoniae Antigen (M - Final Laboratory Tests Past 24 Hrs 05/16/18 05/16/18 05:10 05:10 WBC 8.8 RBC 3.48 L Hgb 9.5 L Hct 30.6 L MCV 87.9 MCH 27.3 MCHC 31.0 L RDW 18.8 H RDW Differential 58.3 H Plt Count 168 MPV 11.0 Immature Gran % (Auto) 0.100 Neut % (Auto) 75.1 H Lymph % (Auto) 11.7 L Dyer % (Auto) 10.5 H Eos % (Auto) 2.3 Baso % (Auto) 0.3 Absolute Neuts (auto) 6.6 Absolute Lymphs (auto) 1.03 Total Counted Not Reportable Sodium 143 Potassium 3.7 Chloride 106 Carbon Dioxide 29.0 Anion Gap 8 BUN 10 Creatinine 0.47 L Estim Creat Clear Calc 57.84 Est GFR (MDRD) Af Amer 222 Est GFR (MDRD) Non-Af 184 BUN/Creatinine Ratio 21.2 H Glucose 103 Calcium 8.0 L POC Glucose 05/16/18 05/15/18 05/15/18 06:47 21:41 16:24 POC Glucose 114 H 160 H 139 H Discharge Diet: Low fat/ Low Cholesterol, 1800 Calorie Control Diet, 2000 mg Sodium Diet Discharge Activity: Return to Normal Activity Home Medications: Medications to take at Discharge Atorvastatin Calcium [Lipitor] 80 mg PO QHS 12/31/17 Clopidogrel Bisulfate [Clopidogrel] 75 mg PO DAILY 12/31/17 Digoxin 0.25 mg PO DAILY 12/31/17 Escitalopram Oxalate [Lexapro] 10 mg PO DAILY 12/31/17 Metformin HCl 500 mg PO DINNER 12/31/17 Metoprolol Tartrate [Lopressor (beta lorena)] 50 mg PO BID 12/31/17 Mineral Oil/Petrolatum Cr [Aquaphor] 1 applic TOPICAL BID PRN 12/31/17 Triamcinolone 0.025% Cream [Kenalog] 1 applic TOPICAL BID PRN 12/31/17 Omeprazole 40 mg PO DAILY 01/24/18 Aspirin E.C. [Ecotrin] 81 mg PO DAILY 01/26/18 nitroglycerin 0.4 mg sublingual tablet 0.4 mg SUBLINGUAL Q5-15M PRN #25 tab 04/30/18 sacubitril 97 mg-valsartan 103 mg tablet 1 tab PO BID 04/30/18 Acetaminophen [Tylenol Arthritis] 650 mg PO PRN PRN 05/14/18 Albuterol IH (ProAir) [Proair Hfa] 1 puff INHALATION Q6H PRN PRN #1 inhaler 1 07/16/17 Guaifenesin [Mucinex] 1,200 mg PO BID tablet 05/16/18 Levofloxacin [Levaquin] 750 mg PO 5X/DAY #5 tablet 05/16/18 Following Prescrptions Were Given to Patient: Albuterol IH (ProAir) [Proair Hfa] 1 puff INHALATION Q6H PRN PRN #1 inhaler PRN Reason: Sob &/Or Wheezing Levofloxacin [Levaquin] 750 mg PO 5X/DAY #5 tablet Primary Care Physician: Lazarus Garcia Chi, MD [Primary Care Provider] - Please follow up with your Primary Care Physician in: 1-2 weeks Please Follow Up With: Lazarus Garcia Chi, MD When: 1 to 2 weeks Disposition: Home Minutes spent on discharge:: 35 Patient Condition:: Stable Medical Necessity - Tobacco Use Smoking Status: Former smoker Tobacco Use: Non-smoker Meaningful Use Info Meaningful Use Diagnoses (Choose all that apply): None applicable <Antoinette Valenzuela - Last Filed: 05/17/18 14:56> Discharge Date and Diagnosis - Primary Discharge Diagnosis Active and Suspected Problems (Last Reviewed 04/30/18 @ 13:36 by Rianna Dyer) HCAP (healthcare-associated pneumonia) (Acute) Sepsis (Acute) Acute respiratory failure with hypoxia (Acute) - Secondary Discharge Diagnosis Chronic Problems (Last Reviewed 04/30/18 @ 13:36 by Rianna Dyer) 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 Torres Ischemic cardiomyopathy (Chronic) Atherosclerosis of coronary artery of [place] heart without angina pectoris (Chronic) SVG-LAD, SVG- High Lateral Cx, Sequential SVG-PDA,Acute Marginal 12/22/1995 SAENZ-High Lateral Cx, Radial Artery-PDA, Sequential SVG- LAD and D1 11/15/2008 [facility] [id number] Left Cx @ [facility]; 10/25/17-PTCA and MIGDALIA of proximal LCX/SR per Dr. Torres @ [facility] Hospital Course and Treatment Summary of Care Provided: Discharge cancelled. This discharge summary is void.] - Physical Exam Vital Signs Temp Pulse Resp BP Pulse Ox 97.8 F 68 16 127/64 H 94 05/17/18 10:15 05/17/18 11:26 05/17/18 11:26 05/17/18 10:15 05/17/18 11:26 Oxygen Flow Rate (L/min) [ 2 AMBULATION with Oxygen] Oxygen Flow Rate (L/min) [ 0 AMBULATING on Room Air] Oxygen Flow Rate (L/min) [At 0 REST on Room Air] Oxygen Flow Rate (L/min) 2 Oxygen Delivery Method Nasal Cannula Weight: 149 lb Body Mass Index (BMI) 23.3 Orthostatic Vital Signs Start: 05/15/18 15:30 Freq: q24h Status: Active Protocol: Activity Type Activity Date Activity User E-Sign Co-Sign Detail Recorded Client Recorded Date Recorded By Document 05/15/18 15:30 JIMENA [id number] 05/15/18 15:32 JIMENA 05/15/18 15:30 Orthostatic Vitals Standing -Blood Pressure (90/60-120/80) 118/56 L -Extremity Use Left Arm -Pulse Rate (60-100) 77 Sitting -Blood Pressure (90/60-120/80) 125/65 H -Extremity Use Left Arm -Pulse Rate (60-100) 68 Lying -Blood Pressure (90/60-120/80) 121/65 H -Extremity Use Left Arm -Pulse Rate (60-100) 73 Intake and Output for Last 24 Hours 05/15/18 05/16/18 05/17/18 23:59 23:59 23:59 Intake Total 2610 / 2610 1836.1 / 1836.1 400 / 400 Output Total 1150 / 1150 900 / 900 2150 / 2150 Balance 1460 / 1460 936.1 / 936.1 -1750 / -1750 Microbiology Past 72 Hours 05/17/18 06:50 Gram Stain - Final Sputum, Expectorated/Coughed 05/14/18 12:47 Blood Culture - Preliminary Blood Culture (Wb) #2 - Right Wrist No growth in 48 hours. 05/14/18 12:50 Blood Culture - Preliminary Blood Culture (Wb) - Left Forearm No growth in 48 hours. 05/15/18 18:50 Stool Occult Blood (DIANDRA) - Final Stool 05/14/18 19:30 Respiratory Panel (PCR) - Final Mucosa - Nasopharyngeal 05/15/18 02:25 Legionella Antigen - Final Urine, Clean Catch Streptococcus pneumoniae Antigen (M - Final Laboratory Tests Past 24 Hrs 05/16/18 05:10 Iron 22 L TIBC 236 L Iron Saturation 9.3 L Ferritin 140 POC Glucose 05/17/18 05/17/18 05/16/18 12:50 06:45 22:36 POC Glucose 100 89 144 H 05/16/18 16:06 POC Glucose 140 H
[2018-05-16 13:55] LABS: Bedside Glucose 127 mg/dL (70-110)
--- NOTE | 2018-05-16 14:13 | CT_ITS ---
STUDY: CTA CHEST REASON FOR EXAM: Male, 78 years old. Hypoxia. History of influenza RADIATION DOSAGE (If Supplied By Facility): CTDIvol = ( 15.57 ) mGy, DLP = ( 579.31 ) mGycm TECHNIQUE: The examination was performed with the intravenous administration of 100ML ml of Isovue 370 contrast material. Post-processing of the angiographic images was performed, with multiplanar reformation and 3D reconstruction. Individualized dose optimization techniques were used for this CT. COMPARISON: Comparison is made with prior chest radiograph dated May 14, 2018. FINDINGS: Normal enhancement of the main pulmonary artery and right and left pulmonary arteries. Normal enhancement of the bilateral peripheral pulmonary arteries. There is no demonstrated pulmonary embolism. There is atherosclerotic calcification of the aortic arch with tortuosity. There is no demonstrated aortic dissection. Normal heart and pericardium. There are visualized mediastinal lymph nodes, which are within normal size limits, and with normal morphology. Normal hilar regions. Normal visualized trachea and bronchi. The lungs are well expanded. Bilateral pleural effusions with underlying infiltration and/or atelectasis at the lung bases. Fluid is also seen in both major fissures. Normal chest wall structures. There are degenerative changes of thoracic spine. Normal visualized upper abdomen. CT/CTA Chest W/WO Contrast IMPRESSION: Small bilateral pleural effusions with bibasilar atelectasis and/or infiltrates. Fluid is also seen within the major fissures bilaterally. There is no evidence of pulmonary embolism. Electronically Signed: Flynn Sanford MD at 15:27 EST Tel [phone], Service support ,
--- NOTE | 2018-05-16 14:14 | PCM.PROGNOTE ---
<Gabo Forrester - Last Filed: 05/16/18 14:14> Patient Problems: Active and Suspected Problems (Last Reviewed 04/30/18 @ 13:36 by Rianna Dyer) HCAP (healthcare-associated pneumonia) (Acute) Sepsis (Acute) Acute respiratory failure with hypoxia (Acute) Subjective: SOB and weakness continues. productive cough continues. Overall pt improved. Still requiring O2 at rest and with exertion. Will need home o2. No LE edema. - Physical Exam General: Alert, Oriented x3, Cooperative HEENT: Atraumatic, PERRLA, EOMI, Normocephalic Neck: Supple, No JVD, Negative Carotid Bruits Lungs: Rales - improved rales Right side Cardiovascular: Regular rate, No murmurs Abdomen: Bowel Sounds Present, Soft, Non Tender Extremities: No edema, Capillary Refill Less than 3 Seconds Skin: No rashes, No breakdown Musculoskeletal: No Tenderness to Palpation of Joints or Extremities Neurological: Cranial nerves II-XII grossly intact Psych/Mental Status: Normal Affect, Appropriate, Alert and oriented to time, place, person, mood and affect Vital Signs Temp Pulse Resp BP Pulse Ox 98.2 F 78 18 120/80 75 05/16/18 09:21 05/16/18 10:48 05/16/18 10:48 05/16/18 09:28 05/16/18 09:39 Oxygen Flow Rate (L/min) [ 2 AMBULATION with Oxygen] Oxygen Flow Rate (L/min) [ 0 AMBULATING on Room Air] Oxygen Flow Rate (L/min) [At 0 REST on Room Air] Oxygen Flow Rate (L/min) 2 Oxygen Delivery Method Nasal Cannula Weight: 149 lb Body Mass Index (BMI) 23.3 Orthostatic Vital Signs Start: 05/15/18 15:30 Freq: q24h Status: Active Protocol: Activity Type Activity Date Activity User E-Sign Co-Sign Detail Recorded Client Recorded Date Recorded By Document 05/15/18 15:30 JIMENA [id number] 05/15/18 15:32 JIMENA 05/15/18 15:30 Orthostatic Vitals Standing -Blood Pressure (90/60-120/80) 118/56 L -Extremity Use Left Arm -Pulse Rate (60-100) 77 Sitting -Blood Pressure (90/60-120/80) 125/65 H -Extremity Use Left Arm -Pulse Rate (60-100) 68 Lying -Blood Pressure (90/60-120/80) 121/65 H -Extremity Use Left Arm -Pulse Rate (60-100) 73 Intake and Output for Last 24 Hours 05/14/18 05/15/18 05/16/18 23:59 23:59 23:59 Intake Total 940 / 940 2610 / 2610 604.1 / 604.1 Output Total 300 / 300 1150 / 1150 200 / 200 Balance 640 / 640 1460 / 1460 404.1 / 404.1 Microbiology Past 72 Hours 05/15/18 18:50 Stool Occult Blood (DIANDRA) - Final Stool 05/14/18 19:30 Respiratory Panel (PCR) - Final Mucosa - Nasopharyngeal 05/15/18 02:25 Legionella Antigen - Final Urine, Clean Catch Streptococcus pneumoniae Antigen (M - Final Laboratory Tests Past 24 Hrs 05/16/18 05/16/18 05:10 05:10 WBC 8.8 RBC 3.48 L Hgb 9.5 L Hct 30.6 L MCV 87.9 MCH 27.3 MCHC 31.0 L RDW 18.8 H RDW Differential 58.3 H Plt Count 168 MPV 11.0 Immature Gran % (Auto) 0.100 Neut % (Auto) 75.1 H Lymph % (Auto) 11.7 L [place] % (Auto) 10.5 H Eos % (Auto) 2.3 Baso % (Auto) 0.3 Absolute Neuts (auto) 6.6 Absolute Lymphs (auto) 1.03 Total Counted Not Reportable Sodium 143 Potassium 3.7 Chloride 106 Carbon Dioxide 29.0 Anion Gap 8 BUN 10 Creatinine 0.47 L Estim Creat Clear Calc 57.84 Est GFR (MDRD) Af Amer 222 Est GFR (MDRD) Non-Af 184 BUN/Creatinine Ratio 21.2 H Glucose 103 Calcium 8.0 L POC Glucose 05/16/18 05/16/18 05/15/18 13:38 06:47 21:41 POC Glucose 127 H 114 H 160 H 05/15/18 16:24 POC Glucose 139 H Medical Necessity - Tobacco Use Smoking Status: Former smoker Tobacco Use: Non-smoker Assessment/Plan All Active Problems (Last Reviewed 04/30/18 @ 13:36 by Rianna Dyer) HCAP (healthcare-associated pneumonia) (Acute) Sepsis (Acute) Acute respiratory failure with hypoxia (Acute) Laceration of head (Resolved) Concussion (Resolved) Fall from ladder (Resolved) 1. Acute sepsis 2/2 HCAP RML - c/w CXR, + Leukocytosis, + tachypnea, admitted to the hospital last month. Afebrile, negative lactate. Zosyn to Levaquin. Resp panel with rhinovirus. Still with SOB and hypoxia - obtain cta chest. -Passed speech eval with no issues. 2. Acute hypoxic respiratory failure 2/2 #1 - 76% RA requiring 4lpm O2 via NC at admission. Does not use home o2. Needs home o2. 3. History of systolic congestive heart failure and ischemic cardiomyopathy-he does not appear to be in acute CHF. BNP will be elevated with sacubitril. Has PM/ICD. Stress echo 09/2017 with EF 25% 4. History of CAD with prior CABG-continue aspirin, statin, Plavix, beta-lorena, entresto. He is also on digoxin but i dont see a hx of Afib. 5. DMt2 - metformin held, stable with SSI. 6. Left 4th digit dislocation - reschedule f.u for next week. Spoke to Sam Nelson who advised that this would be ok, and he can leave his current splint on for another week. 7. Recent concussion 2/2 fall 8-9ft. PTOT. ST. 8. Depression - SSRI 9. GERD - ppi 10. Chronic normocytic anemia - hx black stools, however this occurs with pepto use. Stool occult blood is negative. 11. LH/Dizziness - check orthos. Bolus IV fluids, BP low normal this AM 12. Hypokalemia / hypomagnesemia - repleted. Mag normal now. DVT ppx: lovenox DC planning: No PT needs going home. Needs home o2. This patient was seen by Gabo Forrester PA-C under the supervision of Doctor Bianca. <Antoinette Valenzuela - Last Filed: 05/16/18 15:42> - Physical Exam Vital Signs Temp Pulse Resp BP Pulse Ox 98.2 F 72 18 120/80 75 05/16/18 09:21 05/16/18 15:05 05/16/18 15:05 05/16/18 09:28 05/16/18 09:39 Oxygen Flow Rate (L/min) [ 2 AMBULATION with Oxygen] Oxygen Flow Rate (L/min) [ 0 AMBULATING on Room Air] Oxygen Flow Rate (L/min) [At 0 REST on Room Air] Oxygen Flow Rate (L/min) 2 Oxygen Delivery Method Nasal Cannula Weight: 149 lb Body Mass Index (BMI) 23.3 Orthostatic Vital Signs Start: 05/15/18 15:30 Freq: q24h Status: Active Protocol: Activity Type Activity Date Activity User E-Sign Co-Sign Detail Recorded Client Recorded Date Recorded By Document 05/15/18 15:30 JIMENA [id number] 05/15/18 15:32 JIMENA 05/15/18 15:30 Orthostatic Vitals Standing -Blood Pressure (90/60-120/80) 118/56 L -Extremity Use Left Arm -Pulse Rate (60-100) 77 Sitting -Blood Pressure (90/60-120/80) 125/65 H -Extremity Use Left Arm -Pulse Rate (60-100) 68 Lying -Blood Pressure (90/60-120/80) 121/65 H -Extremity Use Left Arm -Pulse Rate (60-100) 73 Intake and Output for Last 24 Hours 05/14/18 05/15/18 05/16/18 23:59 23:59 23:59 Intake Total 940 / 940 2610 / 2610 1411.1 / 1411.1 Output Total 300 / 300 1150 / 1150 550 / 550 Balance 640 / 640 1460 / 1460 861.1 / 861.1 Microbiology Past 72 Hours 05/14/18 12:47 Blood Culture - Preliminary Blood Culture (Wb) #2 - Right Wrist No growth in 48 hours. 05/14/18 12:50 Blood Culture - Preliminary Blood Culture (Wb) - Left Forearm No growth in 48 hours. 05/15/18 18:50 Stool Occult Blood (DIANDRA) - Final Stool 05/14/18 19:30 Respiratory Panel (PCR) - Final Mucosa - Nasopharyngeal 05/15/18 02:25 Legionella Antigen - Final Urine, Clean Catch Streptococcus pneumoniae Antigen (M - Final Laboratory Tests Past 24 Hrs 05/16/18 05/16/18 05:10 05:10 WBC 8.8 RBC 3.48 L Hgb 9.5 L Hct 30.6 L MCV 87.9 MCH 27.3 MCHC 31.0 L RDW 18.8 H RDW Differential 58.3 H Plt Count 168 MPV 11.0 Immature Gran % (Auto) 0.100 Neut % (Auto) 75.1 H Lymph % (Auto) 11.7 L [place] % (Auto) 10.5 H Eos % (Auto) 2.3 Baso % (Auto) 0.3 Absolute Neuts (auto) 6.6 Absolute Lymphs (auto) 1.03 Total Counted Not Reportable Sodium 143 Potassium 3.7 Chloride 106 Carbon Dioxide 29.0 Anion Gap 8 BUN 10 Creatinine 0.47 L Estim Creat Clear Calc 57.84 Est GFR (MDRD) Af Amer 222 Est GFR (MDRD) Non-Af 184 BUN/Creatinine Ratio 21.2 H Glucose 103 Calcium 8.0 L POC Glucose 05/16/18 05/16/18 05/15/18 13:38 06:47 21:41 POC Glucose 127 H 114 H 160 H 05/15/18 16:24 POC Glucose 139 H Assessment/Plan Patient seen under my supervision by Gabo Forrester PA-C Patient seen and examined. He was admitted with sepsis due to healthcare associated pneumonia. Patient complains of feeling tired today. He still has a cough which is productive of clear sputum and states he is able to expectorate and much better. He remains short of breath and remains on 2 L of oxygen. He denies any chest pain, any abdominal pain, any diarrhea or vomiting. He had walking pulse ox which showed saturation at 75% at rest, and 84% with ambulation and 94% on 2L of oxygen. o/e: Vital Signs Height 5 ft 7 in Weight: 149 lb Weight in Pounds 149.0 lbs BMI 26.6 Pulse Ox [AMBULATION with 94 Oxygen] Pulse Ox [AMBULATING on Room 84 Air] Pulse Ox [At REST on Room Air] 75 Pulse Ox 82 Temperature 98.2 F Pulse Rate [Standing] 77 Pulse Rate [Sitting] 68 Pulse Rate [Lying] 73 Pulse Rate 72 Respiratory Rate 18 Blood Pressure [Standing] 118/56 Blood Pressure [Sitting] 125/65 Blood Pressure [Lying] 121/65 Blood Pressure 120/80 Blood Pressure Position Sitting - Physical Exam General: Alert, Oriented x3, Cooperative HEENT: Atraumatic, PERRLA, EOMI, Normocephalic Neck: Supple, No JVD, Negative Carotid Bruits Lungs: few coarse crackles bibasally; no wheezes auscultated Cardiovascular: Regular rate, Murmur Abdomen: Bowel Sounds Present, Soft, Non Tender Extremities: No edema, Capillary Refill Less than 3 Seconds Skin: No rashes, No breakdown, Musculoskeletal: No Tenderness to Palpation of Joints or Extremities Neurological: Cranial nerves II-XII grossly intact Psych/Mental Status: Normal Affect, Appropriate, Alert and oriented to time, place, person, mood and affect Patient switched to PO levaquin 750mg daily. RHinovirus was positve Plan is continue IV vancomycin and Zosyn. Rhinovirus was positive, which could contribute to respiratory failure. Stool for occult blood is pending. Patient's Hb has dropped to 9.5; ws 10.8 on admission. Baseline is ~ 11-12. Stool for occult blood was negative. Patient did say that his stools turn dark whenever he takes peptobismol. Will resume aspirin since stool for occult blood is negative. Rest of management as by Gabo Forrester PA-C's note. Agree with above assessment plan and noted by Gabo Forrester PA-C. Code Visit Inpatient E&M: 82778 Subs Hosp L3
--- NOTE | 2018-05-16 15:32 | ECHOCS_ITS ---
Reason For Study: CHF Procedure This was a 2D Doppler, Color Flow transthoracic echocardiogram. The study was technically difficult. Contrast injection was performed. Exam performed portable in patient room. Left Ventricle Moderately dilated left ventricle. The estimated ejection fraction is 35 %. Paced septal motion. Stage 2 diastolic dysfunction. There are regional wall motion abnormalities as specified. Right Ventricle Moderately dilated right ventricle. ICD or pacer leads identified within the right ventricle. Normal systolic function. Atria The left atrium is severely enlarged. The right atrium is moderately enlarged. Normal atrial septum. Mitral Valve Moderate diffuse mitral valve thickening. Moderately severe (3+) posteriorly directed mitral valve insufficiency. Tricuspid Valve Normal tricuspid valve. Mild (1+) tricuspid valve insufficiency. Right ventricular systolic pressure estimated to be 45 mmHg. Mild pulmonary hypertension. Aortic Valve Trisinus/trileaflet aortic valve. Severe focal aortic valve thickening. Moderate focal aortic valve calcification. Fixed immobiel non coronary cusp. Mild aortic stenosis. Pulmonic Valve Normal pulmonic valve. Great Vessels Mild atherosclerosis of the ascending aorta. Mild atherosclerosis of the aortic arch. The inferior vena cava is dilated. No collapse of the inferior vena cava. Pericardium/Pleural No pericardial effusion. Medication Diluted definity 2.0ml given slow IV push to enhance endocardial definition. MMode/2D Measurements & Calculations LVIDd: 5.6 cm IVSd: 1.1 cm LVOT diam: 2.2 cm LVIDs: 4.3 cm LVPWd: 1.1 cm LVOT area: 3.7 cm2 RVDd: 3.9 cm FS: 24.3 % Ao root diam: 3.0 cm LAV(MOD-bp): 95.5 ml LA A4 area: 27.5 cm2 LAV(MOD-bp) Indexed: 53.5 ml/m2 LAV(MOD-sp2): 85.9 ml LAV(MOD-sp4): 92.1 ml LA dimension(2D): 4.6 cm Time Measurements MV dec time: 0.15 sec Doppler Measurements & Calculations MV E max holland: 102.5 cm/sec Lat Peak E' [place]: 4.8 cm/sec Med Peak E' [place]: 3.7 cm/sec MV A max [place]: 57.4 cm/sec E/E' lat: 21.3 E/E' med: 28.0 MV E/A: 1.8 Ao V2 max: 195.5 cm/sec LV V1 max: 123.0 cm/sec MR max hol[place]: 464.1 cm/sec Ao max P.3 mmHg LV V1 max P.1 mmHg MR max P.1 mmHg Ao V2 mean: 139.5 cm/sec LV V1 mean P.0 mmHg Ao mean P.6 mmHg LV V1 mean: 81.8 cm/sec Ao V2 VTI: 39.0 cm LV V1 VTI: 23.5 cm TONYA(I,D): 2.3 cm2 TONYA(V,D): 2.4 cm2 SV(LVOT): 87.9 ml PA V2 max: 132.3 cm/sec TR max hol[place]: 275.1 cm/sec TR max P.3 mmHg Interpretation Summary Moderately dilated left ventricle. The estimated ejection fraction is 35 %. There are regional wall motion abnormalities as specified. Moderately dilated right ventricle. The left atrium is severely enlarged. The right atrium is moderately enlarged. Moderately severe (3+) posteriorly directed mitral valve insufficiency. Mild (1+) tricuspid valve insufficiency. Right ventricular systolic pressure estimated to be 45 mmHg. Mild pulmonary hypertension. Fixed immobiel non coronary cusp. Mild aortic stenosis. Stage 2 diastolic dysfunction. The inferior vena cava is dilated Compared to echo report dated 02/22/2017, LV function has remained the same. Aortic valve appears to be thicker on today's exam. RVSP has increased from 19 to 45 mm Hg. The study was technically difficult. Contrast injection was performed. Ordering Physician: Antoinette Valenzuela Referring Physician: Lazarus Garcia Chi Performed By: Devorah Everett, LUIS, RVT
[2018-05-16] MEDS: Enoxaparin 40 MG/0.4 ML Syringe SC (16:00)
[2018-05-16] MEDS: levoFLOXacin 750 MG Tablet PO (16:01)
[2018-05-16] MEDS: Clopidogrel Bisulfate 75 MG Tablet PO (16:01)
[2018-05-16] MEDS: Acetaminophen 325 MG Tablet 650 MG PO (16:01)
[2018-05-16] MEDS: BENZOCAINE/MENTHOL 1 LOZENGE MUCOUS MEM (16:02)
[2018-05-16 16:50] LABS: Bedside Glucose 140 mg/dL (70-110)
[2018-05-16] MEDS: Furosemide 40 MG/4 ML Vial IV (18:29)
[2018-05-16 22:40] LABS: Bedside Glucose 144 mg/dL (70-110)
[2018-05-16] MEDS: Atorvastatin Calcium 80 MG Tablet PO (22:59)
[2018-05-16] MEDS: MELATONIN 3 MG TABLET PO (23:00)
[2018-05-16 23:25] LABS: Ferritin 140 ng/mL (26-388); Iron 22 ug/dL (65-175); Iron Binding Capacity,Total 236 ug/dL (250-450); PERCENT IRON SATURATION 9.3 % (15.0-55.0)
[2018-05-17] VITALS (12 sets, daily range): BP systolic 108–127; BP diastolic 49–68; PULSE 67–78; RESP 16–20; TEMP 36.6–36.9; O2SAT 83–99
[2018-05-17] MEDS: levoFLOXacin 750 MG Tablet PO (06:56)
[2018-05-17 07:00] LABS: Bedside Glucose 89 mg/dL (70-110)
[2018-05-17] MEDS: Ipratropium/Albuterol Sulfate 3 ML AMPUL.NEB INHALATION ×4 (07:17→19:57)
[2018-05-17] MEDS: Furosemide 40 MG/4 ML Vial IV ×2 (09:03→16:27)
[2018-05-17] MEDS: guaiFENesin 1,200 MG Tablet 1200 MG PO ×2 (09:05→21:44)
[2018-05-17] MEDS: SACUBITRIL/VALSARTAN 97-103 MG TABLET 1 EACH PO ×2 (09:05→21:44)
[2018-05-17] MEDS: Escitalopram Oxalate 10 MG Tablet PO (09:05)
[2018-05-17] MEDS: Enoxaparin 40 MG/0.4 ML Syringe SC (09:05)
[2018-05-17] MEDS: Metoprolol Tartrate 50 MG Tablet PO ×2 (09:05→21:44)
[2018-05-17] MEDS: Clopidogrel Bisulfate 75 MG Tablet PO (09:05)
[2018-05-17] MEDS: Pantoprazole Sodium 40 MG Tablet PO (09:06)
[2018-05-17] MEDS: Aspirin E.C. 81 MG Tablet PO (09:06)
[2018-05-17] MEDS: Digoxin 250 MCG Tablet PO (09:11)
--- NOTE | 2018-05-17 11:31 | PN_ITS ---
Patient Problems: Active and Suspected Problems (Last Reviewed 04/30/18 @ 13:36 by Rianna Dyer) HCAP (healthcare-associated pneumonia) (Acute) Sepsis (Acute) Acute respiratory failure with hypoxia (Acute) Subjective: Patient seen and examined. He still feels lethargic though he says he feels better relative to yesterday. He denies any chest pain, fever chills, abdominal pain, diarrhea vomiting. Still remains short of breath and is on 2 L of oxygen. He was started on IV Lasix yesterday after CAT scan done showed evidence of pulmonary congestion with small bilateral pleural effusions and fluid in the fissures. Review of systems otherwise negative. Labs and vitals reviewed. Vitals/I&O's: Vital Signs Temp Pulse Resp BP Pulse Ox 97.8 F 68 16 127/64 H 94 05/17/18 10:15 05/17/18 11:26 05/17/18 11:26 05/17/18 10:15 05/17/18 11:26 Oxygen Flow Rate (L/min) [ 2 AMBULATION with Oxygen] Oxygen Flow Rate (L/min) [ 0 AMBULATING on Room Air] Oxygen Flow Rate (L/min) [At 0 REST on Room Air] Oxygen Flow Rate (L/min) 2 Oxygen Delivery Method Nasal Cannula Weight: 149 lb Body Mass Index (BMI) 23.3 Orthostatic Vital Signs Start: 05/15/18 15:30 Freq: q24h Status: Active Protocol: Activity Type Activity Date Activity User E-Sign Co-Sign Detail Recorded Client Recorded Date Recorded By Document 05/15/18 15:30 JIMENA [id number] 05/15/18 15:32 JIMENA 05/15/18 15:30 Orthostatic Vitals Standing -Blood Pressure (90/60-120/80 mm Hg) 118/56 L -Extremity Use Left Arm -Pulse Rate (60-100 beats/min) 77 Sitting -Blood Pressure (90/60-120/80 mm Hg) 125/65 H -Extremity Use Left Arm -Pulse Rate (60-100 beats/min) 68 Lying -Blood Pressure (90/60-120/80 mm Hg) 121/65 H -Extremity Use Left Arm -Pulse Rate (60-100 beats/min) 73 Intake and Output for Last 24 Hours 05/15/18 05/16/18 05/17/18 23:59 23:59 23:59 Intake Total 2610 / 2610 1836.1 / 1836.1 400 / 400 Output Total 1150 / 1150 900 / 900 1150 / 1150 Balance 1460 / 1460 936.1 / 936.1 -750 / -750 General: Alert, Oriented x3, Cooperative, No apparent distress HEENT: Atraumatic, PERRLA, EOMI, Normocephalic Oral: Moist Mucosa Neck: Supple, No JVD, Negative Carotid Bruits Lungs: Normal air movement, - - has few coarse crackles bibasally; no wheezes. Cardiovascular: Regular rate, Regular Rhythm, Normal S1, Normal S2, No murmurs Abdomen: Bowel Sounds Present, Soft, Non Tender, Non-Distended, No Hepato- splenomegaly Extremities: No clubbing, No cyanosis, Capillary Refill Less than 3 Seconds, Edema - 1+ bilateral pitting pedal edema Skin: No rashes, No breakdown Musculoskeletal: No Tenderness to Palpation of Joints or Extremities Lymphatic: No Cervical, Supraclavicular, or Inguinal Adenopathy Neurological: Cranial nerves II-XII grossly intact, Neuro grossly intact, Motor Exam 5/5 strength throughout Psych/Mental Status: Normal Affect, Appropriate, Alert and oriented to time, place, person, mood and affect Microbiology Past 72 Hours 05/17/18 06:50 Sputum, Expectorated/Coughed Gram Stain - Final 05/14/18 12:47 Blood Culture (Wb) #2 - Right Wrist Blood Culture - Preliminary No growth in 48 hours. 05/14/18 12:50 Blood Culture (Wb) - Left Forearm Blood Culture - Preliminary No growth in 48 hours. 05/15/18 18:50 Stool Stool Occult Blood (DIANDRA) - Final 05/14/18 19:30 Mucosa - Nasopharyngeal Respiratory Panel (PCR) - Final 05/15/18 02:25 Urine, Clean Catch Legionella Antigen - Final 05/15/18 02:25 Urine, Clean Catch Streptococcus pneumoniae Antigen (M - Final Laboratory Results 05/16/18 05:10: Iron 22 L, TIBC 236 L, Iron Saturation 9.3 L, Ferritin 140 05/16/18 13:38: POC Glucose 127 H 05/16/18 16:06: POC Glucose 140 H 05/16/18 22:36: POC Glucose 144 H 05/17/18 06:45: POC Glucose 89 Diagnostic Data Chest X-Ray 05/14/18 13:12 IMPRESSION: Right middle lobe infiltrate superimposed on chronic changes. Small bilateral pleural effusions slightly more prominent on the left side. Electronically Signed: Flynn Sanford MD at 13:43 EST Tel [phone], Service support , Chest CTA 05/16/18 14:13 IMPRESSION: Small bilateral pleural effusions with bibasilar atelectasis and/or infiltrates. Fluid is also seen within the major fissures bilaterally. There is no evidence of pulmonary embolism. Electronically Signed: Flynn Sanford MD at 15:27 EST Tel [phone], Service support , Current Medications Acetaminophen (Tylenol) 650 mg PO Q6H PRN PRN PRN Reason: PAIN Last Admin: 05/16/18 16:01 Dose: 650 mg Albuterol Sulfate (Ventolin Aerosols) 2.5 mg INHALATION Q2H PRN PRN PRN Reason: SOB &/OR WHEEZING Albuterol/Ipratropium (Duoneb) 3 ml INHALATION Q4HWA.RT [facility] Last Admin: 05/17/18 11:25 Dose: 3 ml Aspirin (Ecotrin) 81 mg PO DAILY@0800 [facility] Last Admin: 05/17/18 09:06 Dose: 81 mg Atorvastatin Calcium (Lipitor) 80 mg PO QHS [facility] Last Admin: 05/16/18 22:59 Dose: 80 mg Benzonatate (Tessalon Perle) 100 mg PO TID PRN PRN PRN Reason: cough Last Admin: 05/15/18 21:50 Dose: 100 mg Betamethasone Valerate (Valisone 0.1% Cream) 1 applic TOPICAL BID PRN PRN Reason: DRY SKIN Clopidogrel Bisulfate (Plavix) 75 mg PO DAILY [facility] Last Admin: 05/17/18 09:05 Dose: 75 mg Digoxin (Lanoxin) 250 mcg PO DAILY [facility] Last Admin: 05/17/18 09:11 Dose: 250 mcg Enoxaparin Sodium (Lovenox) 40 mg SC DAILY [facility] Last Admin: 11/08/18 09:05 Dose: 40 mg Escitalopram Oxalate (Lexapro) 10 mg PO DAILY [facility] Last Admin: 05/17/18 09:05 Dose: 10 mg Furosemide (Lasix) 40 mg IV BID@1000,1800 [facility] Last Admin: 05/17/18 09:03 Dose: 40 mg Guaifenesin (Mucinex) 1,200 mg PO BID [facility] Last Admin: 05/17/18 09:05 Dose: 1,200 mg Hydralazine HCl (Apresoline Iv) 10 mg IV Q4H PRN PRN PRN Reason: SBP > 160 Insulin Human Lispro (Humalog Kwikpen (Bkc)) 0 unit SC ACHS [facility]; Protocol Last Admin: 05/17/18 06:47 Dose: Not Given Levofloxacin (Levaquin Tablet) 750 mg PO DAILY@0600 [facility] Last Admin: 05/17/18 06:56 Dose: 750 mg Melatonin (Melatonin) 3 mg PO QHS [facility] Last Admin: 05/16/18 23:00 Dose: 3 mg Metoprolol Tartrate (Lopressor (Beta Humberto)) 50 mg PO BID [facility] Last Admin: 05/17/18 09:05 Dose: 50 mg Multi-Ingredient Ointment (Aquaphor) 1 applic TOPICAL BID PRN; Protocol PRN Reason: ITCHING Nitroglycerin (Nitrostat) 0.4 mg SUBLINGUAL .Q5-15M PRN PRN Reason: chest pain Ondansetron HCl (Zofran) 4 mg IV Q8H PRN PRN PRN Reason: NAUSEA Last Admin: 05/14/18 23:45 Dose: 4 mg Pantoprazole Sodium (Protonix) 40 mg PO DAILY [facility] Last Admin: 05/17/18 09:06 Dose: 40 mg Sodium Chloride () 5 - 30 ml IV UD PRN PRN Reason: SALINE FLUSH Last Admin: 05/16/18 18:29 Dose: 10 ml Throat Lozenges (Cepacol Sore Throat Lozenge) 1 lozenge MUCOUS MEM Q2H PRN PRN PRN Reason: SORE THROAT Last Admin: 05/16/18 16:02 Dose: 1 lozenge Medical Necessity - Tobacco Use Smoking Status: Former smoker Tobacco Use: Non-smoker Assessment/Plan All Active Problems (Last Reviewed 04/30/18 @ 13:36 by Rianna Dyer) HCAP (healthcare-associated pneumonia) (Acute) Sepsis (Acute) Acute respiratory failure with hypoxia (Acute) Laceration of head (Resolved) Concussion (Resolved) Fall from ladder (Resolved) 1. Sepsis due to health associated pneumonia * SIRS criteria now resolved. Patient was on IV vancomycin and Zosyn has been transitioned to p.o. Levaquin. * He also tested positive for rhinovirus infection. * Will monitor. * 2. Hypoxic respiratory failure due to CHF exacerbation and pneumonia * Patient has remained persistently hypoxic at rest saturating as low as 78%. He still remains on 2 L of oxygen though he is not on oxygen at home. * CT of the chest done yesterday was negative for any PE and showed bilateral small pleural effusions and fluid in the lung fissures. * Unable to do BNP as he is on Entresto which would cause falsely elevated BNP. * In light of persistent shortness of breath and mild lower extremity edema, we will go ahead and treat him as CHF exacerbation. Start on IV Lasix 40 mg twice daily overnight. * In negative balance by 1.75 L overnight. May 2.1 L of urine overnight. * We will continue to diurese and try to wean off of oxygen. * 3. Acute systolic CHF exacerbation * Has CHF with reduced ejection fraction due to ischemic cardiomyopathy. He did not look to be in CHF exacerbation when he came out as remained persistently short of breath as mentioned in the 2. * Management is under 2. * On Entresto. * Echo done 09/2017 showed EF of 25%. * Echo (05/16/18): EF of 35% with moderately dilated left ventricle and stage II diastolic dysfunction. Moderately dilated right ventricle with ICD pacer leads in right ventricle. Left atrium severely enlarged right atrium moderately enlarged. Moderately severe 3+ mitral valve insufficiency and RVSP estimated to be 45 mmHg. Mild aortic stenosis and inferior vena cava is dilated. * Has ICD in place. 4. CAD s/p CABG; on aspirin, statin, plavix and beta humberto. also on digoxin 5. Diabetes mellitus: on ISS. Accuchecks ACHS. 6. Left 4th digit dislocation * Left hand bandaged. Splint in place. * To follow-up with orthopedic surgeon upon discharge. * 7. Depression: on SSRI 8. Chronic normocytic anemia * Hemoglobin pain is around 9.5. Initially had complained of dark stools presents said it always occur that way when he was on Pepto-Bismol. * Iron panel done showed TIBC of 236 and a low iron saturation of 9.3 with ferritin of 140 as well as iron is low of 22. This is indicated above a mixed picture of iron deficiency anemia and anemia of chronic disease. * Will give iron supplementation. * Says he had a colonoscopy also longer going to go 3 polyps. He is due to fol low-up cannot remember when he was supposed to. 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 DVT prophylaxis: lovenox Code status: full code. Code Visit Inpatient E&M: 64661 Subs Hosp L3
[2018-05-17 12:55] LABS: Bedside Glucose 100 mg/dL (70-110)
[2018-05-17 16:36] LABS: Bedside Glucose 101 mg/dL (70-110)
[2018-05-17] MEDS: Atorvastatin Calcium 80 MG Tablet PO (21:44)
[2018-05-17] MEDS: MELATONIN 3 MG TABLET PO (21:44)
[2018-05-17 22:46] LABS: Bedside Glucose 140 mg/dL (70-110)
[2018-05-18] VITALS (7 sets, daily range): BP systolic 99–114; BP diastolic 50–60; PULSE 61–81; RESP 16–21; TEMP 36.6–37.3; O2SAT 95–100
[2018-05-18 06:18] LABS: Absolute Lymphocyte Count 1.23 X10^3/ul (0.83-4.51); Absolute Neutrophil Count 3.7 X10^3/uL (2.0-7.7); Basophil# 0.03 X10^3/uL; Basophil% 0.5 % (0-1); Eosinophil# 0.23 X10^3/uL; Eosinophils% 3.7 % (0-5); Hematocrit 30.6 % (40-54); Hemoglobin 9.4 g/dl (13.0-16.5); Lymphocyte # 1.23 X10^3/ul (4.0); Lymphocyte % 19.7 % (19-41); Mean Corp Hgb Conc 30.7 g/gl (32-36); Mean Corpuscular Volume 87.9 fL (80-94); Monocyte# 1.03 X10^3/uL; Monocyte% 16.5 % (0-10); Neutrophil # 3.71 X10^3/uL (2.7-7.7); Neutrophil % 59.4 % (47-70); Platelet Count 173 K/mm3 (150-450); Red Blood Count 3.48 M/mm3 (4.6-6.2); White Blood Count 6.2 K/mm3 (4.4-11.0)
[2018-05-18 06:21] LABS: POSITIVE COUNT NO; POSITIVE DIFFERENTIAL NO; POSITIVE MORPHOLOGY NO
[2018-05-18 06:29] LABS: Anion Gap 7 (5-15); BUN 10 mg/dL (7-18); BUN/Creat Ratio 16.6 RATIO (10-20); Calcium,Total 8.3 mg/dL (8.5-10.1); Chloride 100 mmol/L (98-107); EST Glomerular Filtration Rate 138 mL/min (>60); Est Glom Filt Rate - Afr Amer 167 mL/min (>60); Estimated Creatinine Clearance 57.84 ml/min; Glucose 112 mg/dL (74-106); Potassium 3.5 mmol/L (3.5-5.1); Sodium Level 144 mmol/L (136-145)
[2018-05-18] MEDS: levoFLOXacin 750 MG Tablet PO (06:37)
[2018-05-18 06:41] LABS: Bedside Glucose 118 mg/dL (70-110)
[2018-05-18] MEDS: Ipratropium/Albuterol Sulfate 3 ML AMPUL.NEB INHALATION ×2 (07:15→10:23)
[2018-05-18] MEDS: Aspirin E.C. 81 MG Tablet PO (09:28)
[2018-05-18] MEDS: Pantoprazole Sodium 40 MG Tablet PO (09:29)
[2018-05-18] MEDS: Escitalopram Oxalate 10 MG Tablet PO (09:29)
[2018-05-18] MEDS: Enoxaparin 40 MG/0.4 ML Syringe SC (09:29)
[2018-05-18] MEDS: Clopidogrel Bisulfate 75 MG Tablet PO (09:29)
[2018-05-18] MEDS: Digoxin 250 MCG Tablet PO (09:29)
[2018-05-18] MEDS: Furosemide 40 MG/4 ML Vial IV (09:29)
[2018-05-18] MEDS: guaiFENesin 1,200 MG Tablet 1200 MG PO (09:29)
--- NOTE | 2018-05-18 10:38 | DCINST_ITS ---
- Discharge Diagnoses Current Active Problems: Current Active and Chronic Problems (Last Reviewed 04/30/18 @ 13:36 by Rianna Dyer) HCAP (healthcare-associated pneumonia) (Acute) Sepsis (Acute) Acute respiratory failure with hypoxia (Acute) You will use the following diet at home:: Cardiac Your food should be the consistency of: Regular Discharge Activity: Return to Normal Activity Weight Bearing Status: Weight bearing as tolerated Call your doctor if you observe: Shortness of breath, Swelling in the ankles, Chest pain, Increased palpitations (irregular heartbeat) Instructions: What Is Heart Failure?, Taking Medications for Your Heart, Coping with Heart Failure Additional Instructions: please use intranasal oxygen at home as needed if you feel short of breath Allergies/Adverse Reactions: Allergies codeine Allergy (Verified 05/14/18 12:00) Anaphylaxis Medications to take at Discharge Atorvastatin Calcium [Lipitor] 80 mg PO QHS 12/31/17 Clopidogrel Bisulfate [Clopidogrel] 75 mg PO DAILY 12/31/17 Digoxin 0.25 mg PO DAILY 12/31/17 Escitalopram Oxalate [Lexapro] 10 mg PO DAILY 12/31/17 Metformin HCl 500 mg PO DINNER 12/31/17 Metoprolol Tartrate [Lopressor (beta lorena)] 50 mg PO BID 12/31/17 Mineral Oil/Petrolatum Cr [Aquaphor] 1 applic TOPICAL BID PRN 12/31/17 Triamcinolone 0.025% Cream [Kenalog] 1 applic TOPICAL BID PRN 12/31/17 Omeprazole 40 mg PO DAILY 01/24/18 Aspirin E.C. [Ecotrin] 81 mg PO DAILY 01/26/18 nitroglycerin 0.4 mg sublingual tablet 0.4 mg SUBLINGUAL Q5-15M PRN #25 tab 04/30/18 sacubitril 97 mg-valsartan 103 mg tablet 1 tab PO BID 04/30/18 Acetaminophen [Tylenol Arthritis] 650 mg PO PRN PRN 05/14/18 Albuterol IH (ProAir) [Proair Hfa] 1 puff INHALATION Q6H PRN PRN #1 inhaler 05/16/18 Guaifenesin [Mucinex] 1,200 mg PO BID tablet 05/16/18 Levofloxacin [Levaquin] 750 mg PO 5X/DAY #5 tablet 05/16/18 Furosemide [Lasix] 40 mg PO BIDLX #60 tablet 05/18/18 Potassium Chloride [K-Dur] 20 meq PO DAILY #30 tablet 05/18/18 The following prescriptions were given: Albuterol IH (ProAir) [Proair Hfa] 1 puff INHALATION Q6H PRN PRN #1 inhaler PRN Reason: Sob &/Or Wheezing Furosemide [Lasix] 40 mg PO BIDLX #60 tablet Levofloxacin [Levaquin] 750 mg PO 5X/DAY #5 tablet Potassium Chloride [K-Dur] 20 meq PO DAILY #30 tablet Primary Care Physician: Lazarus Garcia Chi, MD [Primary Care Provider] - Please follow up with your Primary Care Physician in: 1-2 weeks Test Results: Test results from this visit will be discussed in further detail at your follow- up appointment, if applicable. Please Follow Up With: Lazarus Garcia Chi, MD When: 1 to 2 weeks Please Follow Up With: Phill Torres MD When: 1 week Proposed Discharge Date: 05/18/18
--- NOTE | 2018-05-18 10:38 | PCM.DC.SUM ---
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 Torres Ischemic cardiomyopathy (Chronic) Atherosclerosis of coronary artery of [place] heart without angina pectoris (Chronic) SVG-LAD, SVG- High Lateral Cx, Sequential SVG-PDA,Acute Marginal 12/22/1995 SAENZ-High Lateral Cx, Radial Artery-PDA, Sequential SVG- LAD and D1 11/15/2008 [facility] [id number]-[id number] Left Cx @ [facility]; 10/25/17-PTCA and MIGDALIA of proximal LCX/SR per Dr. Torres @ [facility] Hospital Course and Treatment Imaging Results: Diagnostic Data Chest X-Ray 05/14/18 13:12 IMPRESSION: Right middle lobe infiltrate superimposed on chronic changes. Small bilateral pleural effusions slightly more prominent on the left side. Electronically Signed: Flynn Sanford MD at 13:43 EST Tel [phone], Service support , Chest CTA 05/16/18 14:13 IMPRESSION: Small bilateral pleural effusions with bibasilar atelectasis and/or infiltrates. Fluid is also seen within the major fissures bilaterally. There is no evidence of pulmonary embolism. Electronically Signed: Flynn Sanford MD at 15:27 EST Tel [phone], Service support , Operations: None Procedures: 2-D Echocardiogram Summary of Care Provided: The patient is a 78 year old M with an extensive past medical history as listed below. He was admitted through the ED with a complaint of worsening shortness of breath, productive cough and a subjective fever over the last week. Was hypoxic on admission and surgery 6% on room air which went up to 97% on 4 L of oxygen. CBC showed white cell count of 12.1 chest x-ray showed a right middle lobe infiltrate small bilateral pleural effusions. EKG showed no acute ST changes. He was admitted to manage for health associated pneumonia as he had recently been treated for pneumonia. He was started on IV vancomycin and IV Zosyn. Zosyn was a bit of 1 insults of MRSA was negative. Was also managed for acute hypoxic respiratory failure thought to be due to pneumonia initially. Patient's cough improved but shortness of breath persisted. Patient could not be weaned off of oxygen. Therefore a diagnosis of CHF exacerbation was entertained. Patient did have a history of heart failure with reduced ejection fraction due to ischemic cardiomyopathy, with known EF of about 15%. He was started on IV Lasix for diuresis. 2D echo done showed EF of 35% with moderately dilated left ventricle and stage II diastolic dysfunction as well as moderately dilated right ventricle and RVSP of 45 mmHg. Patient improved with diuresis but still required about 2 L of oxygen at baseline. Walking pulse ox showed the patient desaturated when off oxygen and was around 75% of oxygen which went up in the 90s on 2 L of oxygen. Patient was discharged home on 05/18/2018 on home oxygen. He was also discharged on p.o. Lasix 40 mg twice daily. He received a 3-day course of p.o. Levaquin and also received about 48 hours of IV antibiotics given him a total of 5 days of antibiotics. He was therefore not discharged on any oral antibiotics. His follow-up with his primary care doctor and senior software qa analyst. Patient seen and examined prior to discharge. He felt much better than previous and had no complaints. He denied any fever chills, any cough or chest pain but admitted to shortness of breath that had improved. He denied any abdominal pain, diarrhea vomiting. Review of systems otherwise negative. Labs and vitals reviewed. o/e: Vital Signs Height 5 ft 7 in Weight: 148 lb 15.991 oz Weight in Pounds 149.0 lbs BMI 26.6 Pulse Ox [AMBULATION with 94 Oxygen] Pulse Ox [AMBULATING on Room 84 Air] Pulse Ox [At REST on Room Air] 75 Pulse Ox 99 Temperature 97.8 F Pulse Rate [Standing] 77 Pulse Rate [Sitting] 68 Pulse Rate [Lying] 73 Pulse Rate 61 Respiratory Rate 18 Blood Pressure [Standing] 118/56 Blood Pressure [Sitting] 125/65 Blood Pressure [Lying] 121/65 Blood Pressure 105/58 Blood Pressure Position Sitting General: Alert, Oriented x3, Cooperative, No apparent distress HEENT: Atraumatic, PERRLA, EOMI, Normocephalic Oral: Moist Mucosa Neck: Supple, No JVD, Negative Carotid Bruits Lungs: Normal air movement, - - has few coarse crackles bibasally; no wheezes. Cardiovascular: Regular rate, Regular Rhythm, Normal S1, Normal S2, No murmurs Abdomen: Bowel Sounds Present, Soft, Non Tender, Non-Distended, No Hepato-splenomegaly Extremities: No clubbing, No cyanosis, Capillary Refill Less than 3 Seconds, Edema - 1+ bilateral pitting pedal edema Skin: No rashes, No breakdown Musculoskeletal: No Tenderness to Palpation of Joints or Extremities Lymphatic: No Cervical, Supraclavicular, or Inguinal Adenopathy Neurological: Cranial nerves II-XII grossly intact, Neuro grossly intact, Motor Exam 5/5 strength throughout Psych/Mental Status: Normal Affect, Appropriate, Alert and oriented to time, place, person, mood and affect Plan as stated above. [] - Physical Exam Vital Signs Temp Pulse Resp BP Pulse Ox 98.5 F 64 18 99/50 L 96 05/18/18 09:10 05/18/18 09:29 05/18/18 09:10 05/18/18 09:10 05/18/18 09:10 Oxygen Flow Rate (L/min) [ 2 AMBULATION with Oxygen] Oxygen Flow Rate (L/min) [ 0 AMBULATING on Room Air] Oxygen Flow Rate (L/min) [At 0 REST on Room Air] Oxygen Flow Rate (L/min) 2 Oxygen Delivery Method Nasal Cannula Weight: 148 lb 15.991 oz Body Mass Index (BMI) 23.3 Orthostatic Vital Signs Start: 05/15/18 15:30 Freq: q24h Status: Active Protocol: Activity Type Activity Date Activity User E-Sign Co-Sign Detail Recorded Client Recorded Date Recorded By Document 05/15/18 15:30 JIMENA [id number] 05/15/18 15:32 JIMENA 05/15/18 15:30 Orthostatic Vitals Standing -Blood Pressure (90/60-120/80 mm Hg) 118/56 L -Extremity Use Left Arm -Pulse Rate (60-100 beats/min) 77 Sitting -Blood Pressure (90/60-120/80 mm Hg) 125/65 H -Extremity Use Left Arm -Pulse Rate (60-100 beats/min) 68 Lying -Blood Pressure (90/60-120/80 mm Hg) 121/65 H -Extremity Use Left Arm -Pulse Rate (60-100 beats/min) 73 Intake and Output for Last 24 Hours 05/16/18 05/17/18 05/18/18 23:59 23:59 23:59 Intake Total 1836.1 / 1836.1 640 / 640 Output Total 900 / 900 3150 / 3150 725 / 725 Balance 936.1 / 936.1 -2510 / -2510 -725 / -725 Microbiology Past 72 Hours 05/17/18 06:50 Gram Stain - Final Sputum, Expectorated/Coughed Respiratory Culture - Preliminary 05/14/18 12:47 Blood Culture - Preliminary Blood Culture (Wb) #2 - Right Wrist No growth in 48 hours. 05/14/18 12:50 Blood Culture - Preliminary Blood Culture (Wb) - Left Forearm No growth in 48 hours. 05/15/18 18:50 Stool Occult Blood (DIANDRA) - Final Stool 05/14/18 19:30 Respiratory Panel (PCR) - Final Mucosa - Nasopharyngeal Laboratory Tests Past 24 Hrs 05/18/18 05/18/18 05:58 05:58 WBC 6.2 RBC 3.48 L Hgb 9.4 L Hct 30.6 L MCV 87.9 MCH 27.0 MCHC 30.7 L RDW 19.0 H RDW Differential 59.0 H Plt Count 173 MPV 11.0 Immature Gran % (Auto) 0.200 Neut % (Auto) 59.4 Lymph % (Auto) 19.7 [place] % (Auto) 16.5 H Eos % (Auto) 3.7 Baso % (Auto) 0.5 Absolute Neuts (auto) 3.7 Absolute Lymphs (auto) 1.23 Total Counted Not Reportable Sodium 144 Potassium 3.5 Chloride 100 Carbon Dioxide 37.0 H Anion Gap 7 BUN 10 Creatinine 0.60 L Estim Creat Clear Calc 57.84 Est GFR (MDRD) Af Amer 167 Est GFR (MDRD) Non-Af 138 BUN/Creatinine Ratio 16.6 Glucose 112 H Calcium 8.3 L POC Glucose 05/18/18 05/17/18 05/17/18 06:35 21:39 16:24 POC Glucose 118 H 140 H 101 05/17/18 12:50 POC Glucose 100 Discharge Diet: Low fat/ Low Cholesterol, 1800 Calorie Control Diet, 2000 mg Sodium Diet Discharge Activity: Return to Normal Activity Weight Bearing Status: Weight bearing as tolerated Call your doctor if you observe: Shortness of breath, Swelling in the ankles, Chest pain, Increased palpitations (irregular heartbeat) Home Medications: Medications to take at Discharge Atorvastatin Calcium [Lipitor] 80 mg PO QHS 12/31/17 Clopidogrel Bisulfate [Clopidogrel] 75 mg PO DAILY 12/31/17 Digoxin 0.25 mg PO DAILY 12/31/17 Escitalopram Oxalate [Lexapro] 10 mg PO DAILY 12/31/17 Metformin HCl 500 mg PO DINNER 12/31/17 Metoprolol Tartrate [Lopressor (beta lorena)] 50 mg PO BID 12/31/17 Mineral Oil/Petrolatum Cr [Aquaphor] 1 applic TOPICAL BID PRN 12/31/17 Triamcinolone 0.025% Cream [Kenalog] 1 applic TOPICAL BID PRN 12/31/17 Omeprazole 40 mg PO DAILY 01/24/18 Aspirin E.C. [Ecotrin] 81 mg PO DAILY 01/26/18 nitroglycerin 0.4 mg sublingual tablet 0.4 mg SUBLINGUAL Q5-15M PRN #25 tab 04/30/18 sacubitril 97 mg-valsartan 103 mg tablet 1 tab PO BID 04/30/18 Acetaminophen [Tylenol Arthritis] 650 mg PO PRN PRN 05/14/18 Albuterol IH (ProAir) [Proair Hfa] 1 puff INHALATION Q6H PRN PRN #1 inhaler 05/16/18 Guaifenesin [Mucinex] 1,200 mg PO BID tablet 05/16/18 Levofloxacin [Levaquin] 750 mg PO 5X/DAY #5 tablet 05/16/18 Furosemide [Lasix] 40 mg PO BIDLX #60 tablet 05/18/18 Potassium Chloride [K-Dur] 20 meq PO DAILY #30 tablet 05/18/18 Following Prescrptions Were Given to Patient: Albuterol IH (ProAir) [Proair Hfa] 1 puff INHALATION Q6H PRN PRN #1 inhaler PRN Reason: Sob &/Or Wheezing Furosemide [Lasix] 40 mg PO BIDLX #60 tablet Levofloxacin [Levaquin] 750 mg PO 5X/DAY #5 tablet Potassium Chloride [K-Dur] 20 meq PO DAILY #30 tablet Primary Care Physician: Lazarus Garcia Chi, MD [Primary Care Provider] - Please follow up with your Primary Care Physician in: 1-2 weeks Please Follow Up With: Lazarus Garcia Chi, MD When: 1 to 2 weeks Please Follow Up With: Phill Torres MD When: 1 week Patient Instructions: What Is Heart Failure?, Taking Medications for Your Heart, Coping with Heart Failure Disposition: Home Minutes spent on discharge:: 35 Patient Condition:: Stable Medical Necessity - Tobacco Use Smoking Status: Former smoker Tobacco Use: Non-smoker Meaningful Use Info Meaningful Use Diagnoses (Choose all that apply): CHF - CHF RASHEED/ARB ordered at discharge?: Yes Documented LVEF (%): 35 Code Visit Inpatient E&M: 91514 Disch Hosp
--- NOTE | 2018-05-18 11:53 | NURSING ---
this rn taking over care of pt at this time
[2018-05-18 12:21] LABS: Bedside Glucose 124 mg/dL (70-110)
[2018-05-18] MEDS: Glucerna Shake 120 ML LIQUID PO (14:46)
--- NOTE | 2018-05-21 11:09 | CASEMGMT ---
MEET REYES Discharge Follow-up Phone Call: TANISHA: Corbin Strata: 4 Call Date: 05/21/18 Discharge Date: 06/17/18 Time of Call: 1100 Duration: 8 minutes ? Admitting Diagnosis: Sepsis secondary to pneumonia with acute hypoxic respiratory failure. This MEET REYES spoke with pt's re: status of pt since DC on 05/18. Pt's reports pt's breathing to be without difficulty but pt with occasional cough and swollen feet. Home O2 was received/set-up and pt has been wearing it continuously with the exception of when he is in the kitchen (a kerosene heater is located there) and when going to the bathroom. Pt's states pt does not appear short of breath with these activities. Reviewed pt's PO readings while in the hospital and encouraged her to have pt wear the O2 continuously (except for the kitchen) until seen by Dr. Garcia and he has instructed her otherwise. Pt has followup appointments with Dr. Garcia on 05/[address] Torres on 05/24. Pt's daughter is picking up the prescriptions today. Pt's reports pt had lasix and KCL medications at home and have been using them over the weekend. She also states pt's daughter plans to turkey picker Mucinex for pt's cough which has been productive. Encouraged her to have pt use the inhaler as well. She reports pt also uses the incentive spirometer. Pt has been elevating his feet on the arm of the couch when able to tolerate as this induces coughing. Discussed Na restrictions for pt's CHF. Pt's states they are familiar with what to watch for with CHF and received the education booklets while in the hospital. She reports the pt has been mainly eating cereal. She denies any further questions or concerns.
== END 2018-05-18 15:09 | disposition home or self-care (01) | DRG 871 ==
LOC: ED 15:13 → MS3 16:50
PROVIDERS: Physician Assistant; Admitting Provider Family Medicine; Emergency Provider Emergency Medicine; Family Provider Family Medicine Geriatric Medicine; PCP Family Medicine Geriatric Medicine; Visit Provider Student in an Organized Health Care Education/Training Program
DX: A41.9 Sepsis, unspecified organism (principal); J96.01 Acute respiratory failure with hypoxia; J18.9 Pneumonia, unspecified organism; I50.20 Unspecified systolic (congestive) heart failure; I25.10 Atherosclerotic heart disease of native coronary artery without angina pectoris; I25.5 Ischemic cardiomyopathy; Z95.1 Presence of aortocoronary bypass graft; Z95.810 Presence of automatic (implantable) cardiac defibrillator; E78.5 Hyperlipidemia, unspecified; Z95.5 Presence of coronary angioplasty implant and graft; E11.9 Type 2 diabetes mellitus without complications; D64.9 Anemia, unspecified; Z87.891 Personal history of nicotine dependence; I11.0 Hypertensive heart disease with heart failure
CPT/HCPCS: 36415; 71046; 71275; 80048; 82274; 82728; 82962; 83540; 83550; 83605; 83735; 84100; 84484; 85025; 87040; 87070; 87205; 87449; 87633; 87641; 92526; 93005; 93306; 94640; 94667; 94668; 97161; 97165; 97530; 99283; J7030; Q9957; Q9967; A4216; C8929; J1940; J2405

== ENCOUNTER → 2018-05-23 14:09 | Outpatient (CLI) | payer MEDICARE, SELFPAY ==
[2017-10-25 15:17] VITALS: BMI 26.6
[2018-05-23 14:09] VITALS: BMI 27.1
[2018-05-23 17:09] LABS: Absolute Lymphocyte Count 1.55 X10^3/ul (0.83-4.51); Absolute Neutrophil Count 4.5 X10^3/uL (2.0-7.7); Basophil# 0.05 X10^3/uL; Basophil% 0.7 % (0-1); Eosinophil# 0.24 X10^3/uL; Eosinophils% 3.2 % (0-5); Hematocrit 33.2 % (40-54); Hemoglobin 10.1 g/dl (13.0-16.5); Lymphocyte # 1.55 X10^3/ul (4.0); Mean Corp Hgb Conc 30.4 g/gl (32-36); Mean Corpuscular Hgb 26.9 pg (27.0-32.0); Mean Corpuscular Volume 88.5 fL (80-94); Mean Platelet Vol. 11.7 fl (6.2-12.0); Monocyte% 13.5 % (0-10); Neutrophil % 60.9 % (47-70); Platelet Count 170 K/mm3 (150-450); RBC Distribution Width CV 18.6 % (11.6-14.6); Red Blood Count 3.75 M/mm3 (4.6-6.2); White Blood Count 7.4 K/mm3 (4.4-11.0)
[2018-05-23 17:18] LABS: POSITIVE COUNT NO; POSITIVE DIFFERENTIAL NO; POSITIVE MORPHOLOGY NO
[2018-05-23 17:29] LABS: Vitamin D,25 Hydroxy 20.4 ng/mL (29.95-100.01)
[2018-05-23 17:33] LABS: ALB/GLOB Ratio 0.7 RATIO (0.9-2.4); AST(SGOT) 16 U/L (15-37); Alanine Aminotransfer ALT/SGPT 24 U/L (16-61); Alkaline Phosphatase 82 U/L (45-117); Anion Gap 8 (5-15); BUN 21 mg/dL (7-18); BUN/Creat Ratio 31.6 RATIO (10-20); Calcium,Total 8.4 mg/dL (8.5-10.1); Chloride 103 mmol/L (98-107); Cholesterol 97 mg/dL (200); Creatinine, Serum 0.66 mg/dL (0.70-1.30); EST Glomerular Filtration Rate 123 mL/min (>60); Est Glom Filt Rate - Afr Amer 149 mL/min (>60); Globulin 4.1 g/dL (2.2-4.2); Glucose 90 mg/dL (74-106); High Density Lipoprotein 34 mg/dL; Potassium 3.8 mmol/L (3.5-5.1); Protein, Total 7.1 g/dL (6.4-8.2); Sodium Level 144 mmol/L (136-145); Triglycerides 74 mg/dL; Very Low Density Lipoprotein 15 mg/dL (5-40)
== END ==
PROVIDERS: Family Provider Family Medicine Geriatric Medicine; PCP Family Medicine Geriatric Medicine; Visit Provider Family Medicine Geriatric Medicine
DX: E11.9 Type 2 diabetes mellitus without complications (principal); E55.9 Vitamin D deficiency, unspecified; I10 Essential (primary) hypertension; E78.49 Other hyperlipidemia
CPT/HCPCS: 36415; 80053; 80061; 82306; 84443; 85025

== ENCOUNTER → 2018-08-28 15:48 | Outpatient (CLI) | payer MEDICARE, SELFPAY ==
[2017-10-25 15:17] VITALS: BMI 26.6
[2018-05-25 14:10] VITALS: BMI 21.7
[2018-08-28 17:11] LABS: Absolute Lymphocyte Count 1.48 X10^3/ul (0.83-4.51); Absolute Neutrophil Count 5.5 X10^3/uL (2.0-7.7); Basophil# 0.06 X10^3/uL; Basophil% 0.7 % (0-1); Eosinophil# 0.24 X10^3/uL; Eosinophils% 2.9 % (0-5); Hemoglobin 12.5 g/dl (13.0-16.5); Lymphocyte # 1.48 X10^3/ul (4.0); Lymphocyte % 17.6 % (19-41); Mean Corp Hgb Conc 32.9 g/gl (32-36); Mean Corpuscular Hgb 28.9 pg (27.0-32.0); Mean Corpuscular Volume 87.8 fL (80-94); Monocyte# 1.09 X10^3/uL; Neutrophil # 5.47 X10^3/uL (2.7-7.7); Neutrophil % 65.1 % (47-70); Platelet Count 123 K/mm3 (150-450); RBC Distribution Width CV 15.1 % (11.6-14.6); RBC Distribution Width SD 48.3 fl (35.1-43.9); Red Blood Count 4.33 M/mm3 (4.6-6.2); White Blood Count 8.4 K/mm3 (4.4-11.0)
[2018-08-28 17:17] LABS: POSITIVE COUNT NO; POSITIVE DIFFERENTIAL NO; POSITIVE MORPHOLOGY NO
[2018-08-28 17:51] LABS: AST(SGOT) 14 U/L (15-37); Alanine Aminotransfer ALT/SGPT 22 U/L (16-61); Albumin, Serum 3.5 g/dL (3.2-5.0); Alkaline Phosphatase 67 U/L (45-117); Anion Gap 10 (5-15); BUN 24 mg/dL (7-18); BUN/Creat Ratio 21.6 RATIO (10-20); Calcium,Total 7.7 mg/dL (8.5-10.1); Chloride 104 mmol/L (98-107); Creatinine, Serum 1.11 mg/dL (0.70-1.30); EST Glomerular Filtration Rate 68 mL/min (>60); Est Glom Filt Rate - Afr Amer 83 mL/min (>60); Globulin 3.6 g/dL (2.2-4.2); Glucose 112 mg/dL (74-106); Potassium 4.2 mmol/L (3.5-5.1); Protein, Total 7.1 g/dL (6.4-8.2); Sodium Level 142 mmol/L (136-145)
== END ==
PROVIDERS: Family Provider Family Medicine Geriatric Medicine; PCP Family Medicine Geriatric Medicine; Visit Provider Family Medicine Geriatric Medicine
DX: E11.9 Type 2 diabetes mellitus without complications (principal); E55.9 Vitamin D deficiency, unspecified; I10 Essential (primary) hypertension
CPT/HCPCS: 36415; 80053; 82306; 84443; 85025

== ENCOUNTER → 2018-11-08 | Outpatient (CLI) | payer MEDICARE, SELFPAY ==
[2017-10-25 15:17] VITALS: BMI 26.6
[2018-09-27 14:40] VITALS: BMI 23.8
[2018-11-08 16:55] LABS: PSA,Total- Diagnostic 0.23 ng/mL (0.0-4.0)
== END | disposition home or self-care (01) ==
LOC: LAB 15:34
PROVIDERS: Family Provider Family Medicine Geriatric Medicine; PCP Family Medicine Geriatric Medicine; Referring Provider Urology; Visit Provider Urology
DX: C61 Malignant neoplasm of prostate (principal)
CPT/HCPCS: 36415; 84153

== ENCOUNTER → 2018-11-28 | Outpatient (CLI) | payer MEDICARE, SELFPAY ==
[2017-10-25 15:17] VITALS: BMI 26.6
[2018-09-27 14:40] VITALS: BMI 23.8
[2018-11-28 15:52] LABS: Absolute Lymphocyte Count 1.85 X10^3/ul (0.83-4.51); Absolute Neutrophil Count 7.8 X10^3/uL (2.0-7.7); Basophil# 0.03 X10^3/uL; Basophil% 0.3 % (0-1); Eosinophil# 0.24 X10^3/uL; Eosinophils% 2.2 % (0-5); Hematocrit 40.7 % (40-54); Lymphocyte # 1.85 X10^3/ul (4.0); Lymphocyte % 16.9 % (19-41); Mean Corp Hgb Conc 31.9 g/gl (32-36); Mean Corpuscular Hgb 28.1 pg (27.0-32.0); Mean Corpuscular Volume 88.1 fL (80-94); Mean Platelet Vol. 10.5 fl (6.2-12.0); Monocyte# 0.97 X10^3/uL; Monocyte% 8.9 % (0-10); Neutrophil # 7.75 X10^3/uL (2.7-7.7); Neutrophil % 70.6 % (47-70); Platelet Count 155 K/mm3 (150-450); RBC Distribution Width CV 13.3 % (11.6-14.6); RBC Distribution Width SD 42.3 fl (35.1-43.9); Red Blood Count 4.62 M/mm3 (4.6-6.2)
[2018-11-28 16:03] LABS: POSITIVE COUNT NO; POSITIVE DIFFERENTIAL NO; POSITIVE MORPHOLOGY NO
[2018-11-28 16:17] LABS: Vitamin D,25 Hydroxy 28.9 ng/mL (29.95-100.01)
[2018-11-28 16:25] LABS: ALB/GLOB Ratio 0.8 RATIO (0.9-2.4); AST(SGOT) 13 U/L (15-37); Alanine Aminotransfer ALT/SGPT 27 U/L (16-61); Albumin, Serum 3.4 g/dL (3.2-5.0); Alkaline Phosphatase 86 U/L (45-117); Anion Gap 6 (5-15); BUN 18 mg/dL (7-18); BUN/Creat Ratio 19.8 RATIO (10-20); Calcium,Total 8.8 mg/dL (8.5-10.1); Chloride 107 mmol/L (98-107); Cholesterol 92 mg/dL (200); Creatinine, Serum 0.91 mg/dL (0.70-1.30); EST Glomerular Filtration Rate 86 mL/min (>60); Est Glom Filt Rate - Afr Amer 104 mL/min (>60); Globulin 4.1 g/dL (2.2-4.2); Glucose 108 mg/dL (74-106); High Density Lipoprotein 29 mg/dL; Potassium 3.9 mmol/L (3.5-5.1); Protein, Total 7.5 g/dL (6.4-8.2); Sodium Level 141 mmol/L (136-145); Thyroid Stim Hormone (TSH) 1.02 uIU/mL (0.358-3.74); Triglycerides 163 mg/dL; Very Low Density Lipoprotein 33 mg/dL (5-40)
--- NOTE | 2018-11-28 16:30 | RAD_ITS ---
STUDY: X-RAY CHEST REASON FOR EXAM: Male, 78 years old. Cough TECHNIQUE: 2 view COMPARISON: May 14, 2018 FINDINGS: There is cardiomegaly with a dual-chamber cardiac pacemaker in place. The opacities in both lower lobes especially on the right noted in the previous study of May 14, 2018 have resolved. There is blunting of the left costophrenic angle. Median sternotomy wires are in place. Normal visualized thoracic spine. Normal visualized ribs, clavicles, and shoulders. There is no demonstrated abnormality of the visualized soft tissue structures of the upper abdomen. RAD/Chest PA and Lateral IMPRESSION: Resolved opacities in both lungs especially on the right side. Blunting of the left costophrenic angle. No acute findings in the lungs. Electronically Signed: Kody Aburto MD at 7:44 EDT Tel , Service support ,
== END | disposition home or self-care (01) ==
LOC: POLAB3 15:10 → RAD 16:29
PROVIDERS: Family Provider Family Medicine Geriatric Medicine; PCP Family Medicine Geriatric Medicine; Referring Provider Family Medicine Geriatric Medicine; Visit Provider Family Medicine Geriatric Medicine
DX: R05 Cough (principal); E11.9 Type 2 diabetes mellitus without complications; E55.9 Vitamin D deficiency, unspecified; I10 Essential (primary) hypertension; E83.51 Hypocalcemia
CPT/HCPCS: 36415; 71046; 80053; 80061; 82306; 84443; 85025

== ENCOUNTER 2019-02-04 20:45 | Emergency (ER) | payer OTHER, MEDICARE, SELFPAY ==
[2017-10-25 15:17] VITALS: BMI 26.6
[2018-09-27 14:40] VITALS: BMI 23.8
[2019-02-04 20:46] VITALS: BP 112/54; PULSE 65; RESP 19; TEMP 36.7; O2SAT 96; BMI 24.3
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
--- NOTE | 2019-02-05 00:33 | ED.DEP ---
ED Disposition - Plan for ED Patient: Instructions: Chest Wall Contusion, CONTUSION, Hand, Neck Sprain/Strain Referrals: Lazarus Garcia Chi, MD [Primary Care Provider] -
[2019-02-05 00:39] VITALS: BP 110/60; PULSE 67; RESP 18; O2SAT 96
== END 2019-02-05 00:39 | disposition home or self-care (01) ==
PROVIDERS: Emergency Provider Emergency Medicine; Family Provider Family Medicine Geriatric Medicine; PCP Family Medicine Geriatric Medicine
DX: S16.1XXA Strain of muscle, fascia and tendon at neck level, initial encounter (principal); S20.219A Contusion of unspecified front wall of thorax, initial encounter; S60.222A Contusion of left hand, initial encounter; M89.9 Disorder of bone, unspecified; M19.042 Primary osteoarthritis, left hand; V89.2XXA Person injured in unspecified motor-vehicle accident, traffic, initial encounter; Y93.9 Activity, unspecified; Y92.9 Unspecified place or not applicable; E11.9 Type 2 diabetes mellitus without complications; I10 Essential (primary) hypertension; E78.00 Pure hypercholesterolemia, unspecified; Z95.810 Presence of automatic (implantable) cardiac defibrillator; Z79.82 Long term (current) use of aspirin; Z79.84 Long term (current) use of oral hypoglycemic drugs; Z79.899 Other long term (current) drug therapy
CPT/HCPCS: 71046; 73130; 99282

== ENCOUNTER → 2019-05-27 15:52 | Outpatient (CLI) | payer MEDICARE, SELFPAY ==
[2017-10-25 15:17] VITALS: BMI 26.6
[2019-05-16 14:34] VITALS: BMI 26.0
[2019-05-27 17:41] LABS: Basophil# 0.08 X10^3/uL; Basophil% 0.9 % (0-1); Eosinophil# 0.28 X10^3/uL; Hematocrit 42.1 % (40-54); Hemoglobin 13.4 g/dL (13.0-16.5); Lymphocyte % 21.4 % (19-41); Mean Corp Hgb Conc 31.8 g/dL (32-36); Mean Corpuscular Hgb 27.7 pg (27.0-32.0); Mean Platelet Vol. 10.2 fl (6.2-12.0); Monocyte# 0.86 X10^3/uL; Monocyte% 9.2 % (0-10); NRBC Flagged by Analyzer 0 % (0-5); Neutrophil # 5.95 X10^3/uL (2.7-7.7); Neutrophil % 63.6 % (47-70); Platelet Count 164 K/mm3 (150-450); RBC Distribution Width SD 44.5 fl (35.1-43.9); Red Blood Count 4.84 M/mm3 (4.6-6.2); White Blood Count 9.4 K/mm3 (4.4-11.0)
[2019-05-27 17:48] LABS: Vitamin D,25 Hydroxy 27.6 ng/mL (29.95-100.01)
[2019-05-27 17:49] LABS: ALB/GLOB Ratio 0.9 RATIO (0.9-2.4); AST(SGOT) 14 U/L (15-37); Alanine Aminotransfer ALT/SGPT 28 U/L (16-61); Albumin, Serum 3.6 g/dL (3.2-5.0); Alkaline Phosphatase 72 U/L (45-117); Anion Gap 9 (5-15); BUN 18 mg/dL (7-18); BUN/Creat Ratio 18.4 RATIO (10-20); Calcium,Total 9.1 mg/dL (8.5-10.1); Chloride 104 mmol/L (98-107); Cholesterol 130 mg/dL (200); Creatinine, Serum 0.98 mg/dL (0.70-1.30); EST Glomerular Filtration Rate 79 mL/min (>60); Est Glom Filt Rate - Afr Amer 95 mL/min (>60); Globulin 3.8 g/dL (2.2-4.2); Glucose 134 mg/dL (74-106); High Density Lipoprotein 28 mg/dL; Potassium 4.2 mmol/L (3.5-5.1); Protein, Total 7.4 g/dL (6.4-8.2); Sodium Level 140 mmol/L (136-145); Thyroid Stim Hormone (TSH) 1.14 uIU/mL (0.358-3.74); Triglycerides 330 mg/dL; Very Low Density Lipoprotein 66 mg/dL (5-40)
== END ==
PROVIDERS: Family Provider Family Medicine Geriatric Medicine; PCP Family Medicine Geriatric Medicine; Visit Provider Family Medicine Geriatric Medicine
DX: E11.9 Type 2 diabetes mellitus without complications (principal); E55.9 Vitamin D deficiency, unspecified; E78.5 Hyperlipidemia, unspecified; I10 Essential (primary) hypertension
CPT/HCPCS: 36415; 80053; 80061; 82306; 84443; 85025

== ENCOUNTER → 2019-05-30 14:47 | Outpatient (CLI) | payer MEDICARE, SELFPAY ==
[2017-10-25 15:17] VITALS: BMI 26.6
[2019-05-16 14:34] VITALS: BMI 26.0
--- NOTE | 2019-05-30 14:53 | ECHOCS_ITS ---
Reason For Study: MV DISORDER Procedure This was a 2D Doppler, Color Flow transthoracic echocardiogram. The study was technically difficult. Contrast injection was performed. Exam performed in department. Left Ventricle Mild concentric left ventricular hypertrophy. Severely dilated left ventricle. The estimated ejection fraction is 35 %. Stage 2 diastolic dysfunction. Anterio-Basal: Severely hypokinetic. Basal anteroseptal: Akinetic. Mid-Anterior : Akinetic. Anterior [place] : Akinetic. Right Ventricle Moderately dilated right ventricle. ICD or pacer leads identified within the right ventricle. Normal systolic function. Atria Normal left atrium. Normal right atrium. Normal atrial septum. Mitral Valve Mild diffuse mitral valve thickening. Mild (1+) eccentric mitral valve insufficiency. Tricuspid Valve Normal tricuspid valve. Mild (1+) tricuspid valve insufficiency. Right ventricular systolic pressure estimated to be 39 mmHg. Mild pulmonary hypertension. Aortic Valve Trisinus/trileaflet aortic valve. Moderate diffuse aortic valve thickening. Mild restriction of the aortic valve. Mild aortic stenosis. Peak aortic valve gradient 18 mmHg. Mean aortic valve gradient 10 mmHg. Calculated aortic valve area (continuity equation) is 1.6 cm2. Trivial aortic valve insufficiency. Pulmonic Valve Normal pulmonic valve. Great Vessels Normal aortic root. Moderate atherosclerosis of the aortic arch. Normal inferior vena cava. Inferior vena cava collapse with sniff. Pericardium/Pleural No pericardial effusion. Medication 22 gauge I.V. with prn adaptor inserted into right arm. Diluted definity 3.0ml given slow IV push to enhance endocardial definition. MMode/2D Measurements & Calculations LVIDd: 5.2 cm IVSd: 1.2 cm LVOT diam: 2.0 cm LVIDs: 3.9 cm LVPWd: 1.3 cm RVDd: 4.4 cm FS: 24.9 % LVOT area: 3.1 cm2 Ao root diam: 3.1 cm LAV(MOD-bp): 31.4 ml LA A4 area: 13.0 cm2 LAV(MOD-bp) Indexed: 16.8 ml/m2 LAV(MOD-sp2): 33.3 ml LAV(MOD-sp4): 28.5 ml LA dimension(2D): 4.5 cm RA A4 area: 11.3 cm2 Time Measurements MV dec time: 0.22 sec Doppler Measurements & Calculations MV E max holland: 50.9 cm/sec Lat Peak E' [place]: 8.8 cm/sec Med Peak E' [place]: 4.1 cm/sec MV A max [place]: 78.0 cm/sec E/E' lat: 5.8 E/E' med: 12.3 MV E/A: 0.65 Ao V2 max: 212.5 cm/sec LV V1 max: 102.2 cm/sec SV(LVOT): 59.5 ml Ao max P.1 mmHg LV V1 max P.2 mmHg Ao V2 mean: 148.2 cm/sec LV V1 mean P.3 mmHg Ao mean P.9 mmHg LV V1 mean: 71.5 cm/sec Ao V2 VTI: 38.1 cm LV V1 VTI: 18.9 cm TONYA(I,D): 1.6 cm2 TONYA(V,D): 1.5 cm2 PA V2 max: 138.5 cm/sec TR max holland: 262.0 cm/sec TR max P.8 mmHg Interpretation Summary Mild concentric left ventricular hypertrophy. Severely dilated left ventricle. The estimated ejection fraction is 35 %. Stage 2 diastolic dysfunction. Moderately dilated right ventricle. Mild (1+) eccentric mitral valve insufficiency. Mild (1+) tricuspid valve insufficiency. Right ventricular systolic pressure estimated to be 39 mmHg. Mild pulmonary hypertension. Mild aortic stenosis but may be underestimated due to LV dysfunction. Trivial aortic valve insufficiency. The study was technically difficult. Contrast injection was performed. There is no comparison study available. Ordering Physician: Phill Torres Referring Physician: BENJAMIN VALADEZ CHI Performed By: Rosalinda Dugan, RDCS, RVT
== END ==
PROVIDERS: Family Provider Family Medicine Geriatric Medicine; PCP Family Medicine Geriatric Medicine; Referring Provider Internal Medicine Cardiovascular Disease; Visit Provider Internal Medicine Cardiovascular Disease
DX: I25.810 Atherosclerosis of coronary artery bypass graft(s) without angina pectoris (principal); I47.2 Ventricular tachycardia; I36.1 Nonrheumatic tricuspid (valve) insufficiency; I51.9 Heart disease, unspecified; I34.0 Nonrheumatic mitral (valve) insufficiency; I25.5 Ischemic cardiomyopathy
CPT/HCPCS: 93306; Q9957; A4216; C8929

== ENCOUNTER → 2019-06-07 13:21 | Outpatient (CLI) | payer MEDICARE, SELFPAY ==
[2017-10-25 15:17] VITALS: BMI 26.6
[2019-05-16 14:34] VITALS: BMI 26.0
--- NOTE | 2019-06-07 13:24 | STEWCON_ITS ---
Reason For Study: S/P CABG Stress Results Protocol: Modified Farhan Stress Echo Maximum Predicted HR: 142 bpm Target HR: 121 bpm % Maximum Predicted HR: 92 % DurationHeart Rate Stage (mm:ss) (bpm) BP Comment BASELINE 78 110/58DILUTED DEFINITY 2 CC USED. EKG W/BBB MODBRUCE- STAGE 1 2:48 131 152/64SOB, LEGS WEAK, DIZZINESS RECOVERY 85 110/60DENIES COMPLAINT Stress Duration: 2:48 mm:ss Maximum Stress HR: 131 bpm Baseline Echocardiogram Findings The estimated ejection fraction is 20-25 %. Severely dilated left ventricle. Stress Echo Wall motion Data Resting WM Intermediate WM Stress WM Resting Wall Motion Wall Motion Stress Severe global hypokinesis. Mid-Lateral : Severely Hypokinetic. EKG Data The baseline ECG displays normal sinus rhythm. During stress, there were no ST or T wave changes noted to suggest ischemia. No clinical angina was noted. Interpretation Summary The estimated ejection fraction is 20-25 %. Mid-Lateral : Severely Hypokinetic. Abnormal, adequate, modified Farhan treadmill echocardiogram. Positive for ischemia by echocardiographic anterior. The patient appeared to develop mid inferior lateral hypokinesis at peak exertion. No anginal symptoms noted. Test terminated due to the attainment target heart rate, dyspnea and leg weakness. Poor exercise capacity for age. Final LVEF of 15 to 20%. Decreased sensitivity due to poor echo windows requiring Definity agent and baseline left bundle branch block. Rare PVCs noted. Patient taught procedure well. The study was technically difficult. Contrast injection was performed. Ordering Physician: Phill Torres Referring Physician: Phill Torres Performed By: Catherine Mcmanus RDCS
== END ==
PROVIDERS: Family Provider Family Medicine Geriatric Medicine; PCP Family Medicine Geriatric Medicine; Referring Provider Internal Medicine Cardiovascular Disease; Visit Provider Internal Medicine Cardiovascular Disease
DX: I25.810 Atherosclerosis of coronary artery bypass graft(s) without angina pectoris (principal); I47.2 Ventricular tachycardia; I51.9 Heart disease, unspecified; Z95.1 Presence of aortocoronary bypass graft; I25.5 Ischemic cardiomyopathy
CPT/HCPCS: 93017; 93350; Q9957; A4216; C8928

== ENCOUNTER → 2019-06-14 15:58 | Outpatient (CLI) | payer MEDICARE, SELFPAY ==
[2017-10-25 15:17] VITALS: BMI 26.6
[2019-05-16 14:34] VITALS: BMI 26.0
[2019-06-14 17:04] LABS: Hematocrit 43.2 % (40-54); Hemoglobin 13.6 g/dL (13.0-16.5); Mean Corp Hgb Conc 31.5 g/dL (32-36); Mean Corpuscular Hgb 27.4 pg (27.0-32.0); Mean Corpuscular Volume 87.1 fL (80-94); Mean Platelet Vol. 9.9 fl (6.2-12.0); Platelet Count 190 K/mm3 (150-450); RBC Distribution Width CV 14.4 % (11.6-14.6); RBC Distribution Width SD 45.6 fl (35.1-43.9); Red Blood Count 4.96 M/mm3 (4.6-6.2); White Blood Count 12.5 K/mm3 (4.4-11.0)
[2019-06-14 17:12] LABS: International Normalized Ratio 1.1; Prothrombin Time (Protime)PT. 13.6 SECONDS (11.7-14.9)
[2019-06-14 17:13] LABS: Partial Thromboplast Time 33.9 Seconds (24.1-36.2)
[2019-06-14 17:17] LABS: Anion Gap 6 (5-15); BUN 19 mg/dL (7-18); BUN/Creat Ratio 19.2 RATIO (10-20); Calcium,Total 9.5 mg/dL (8.5-10.1); Chloride 104 mmol/L (98-107); Creatinine, Serum 0.99 mg/dL (0.70-1.30); EST Glomerular Filtration Rate 78 mL/min (>60); Est Glom Filt Rate - Afr Amer 94 mL/min (>60); Glucose 106 mg/dL (74-106); Potassium 4.6 mmol/L (3.5-5.1); Sodium Level 139 mmol/L (136-145)
== END ==
PROVIDERS: Family Provider Family Medicine Geriatric Medicine; PCP Family Medicine Geriatric Medicine; Referring Provider Internal Medicine Cardiovascular Disease; Visit Provider Internal Medicine Cardiovascular Disease
DX: I25.810 Atherosclerosis of coronary artery bypass graft(s) without angina pectoris (principal); R94.39 Abnormal result of other cardiovascular function study; Z95.1 Presence of aortocoronary bypass graft; I25.5 Ischemic cardiomyopathy; R06.02 Shortness of breath
CPT/HCPCS: 36415; 80048; 85027; 85610; 85730

== ENCOUNTER 2019-06-19 07:46 | Day surgery (SDC) | payer MEDICARE, SELFPAY ==
[2017-10-25 15:17] VITALS: BMI 26.6
[2019-05-16 14:34] VITALS: BMI 26.0
[2019-06-19] VITALS (27 sets, daily range): BP systolic 107–137; BP diastolic 39–62; PULSE 60–73; RESP 12–25; TEMP 36.5–36.8; O2SAT 93–99; BMI 25.9
--- NOTE | 2019-06-19 08:28 | HP.PCM_ITS ---
<Batsheva Flores - Last Filed: 06/19/19 08:28> History and Physical Date of Admission: 06/19/19 ELLEN DILLARD, is a 79 M who presents here today for a diagnostic heart cath. He has history of coronary artery disease status post myocardial infarction 1995 with multivessel bypass surgery with a SVG to high lateral marginal branch of the circumflex, SVG to LAD, and sequential SVG to PDA and acute marginal. In November 2004 he underwent a redo bypass surgery with SAENZ to the high lateral marginal, radial to the PDA, sequential SVG and LAD and diagonal. In October 2008 he underwent drug-eluting stent to proximal LCx at [facility]. In October 2017 he underwent successful PTCA/drug-eluting stent to proximal LCx in-stent restenosis. In March 2009 he underwent AICD implantation for ischemic cardiomyopathy with generator change with Dr. Kelly in November 2016. He also has history of hypertension, hyperlipidemia, and previous tobacco abuse in which he quit approximately 20 years ago. He underwent heart catheterization in September 2017 which showed ejection fraction of 15%, severe multivessel coronary artery disease, widely patent SVG to diagonal/LAD, widely patent radial to RCA, widely patent SAENZ to OM, and possibly significant LCx in-stent restenosis. His records from [facility] were reviewed and he underwent a repeat heart catheterization and intervention in October 2017 for LCX in-stent restenosis receiving a drug-eluting stent to his left circumflex. In addition the patient is status post AICD defibrillator. The patient was recently admitted on 01/28/18 to [facility] for a CHF exacerbation. Cardiology consultation was not obtained at that time. The patient underwent diuresis and was switched to Entresto 24/26 mg p.o. twice daily. He is now here in follow-up. Around April 15, 2018 the patient was about 8-10 feet up on a ladder, and then apparently the ladder slid to the left, causing him to hit the ground, injuring the patient's left side of his face, dislocating his left finger, and causing him to pass out. Patient was admitted to [facility] however cardiology was not consulted and the patient apparently did not have his defibrillator interrogated. Patient denied any chest pain, angina, shortness of breath, defibrillator discharge, or syncope although does not remember hitting the ground. Prior to our last visit, the patient had developed pneumonia and was admitted to [facility]. Patient was placed on antibiotic therapy and was sent here for follow-up. A repeat echo cardiac dated 05/17/18 showed an EF of 35%, moderately dilated right ventricle, severely enlarged left atrium, moderate to severe 3+ posterior directed mitral regurgitation, and an RVSP of 45 mmHg. He denies any lightheadedness or dizziness. He was in our office last month and had concerns of heartburn after eating, this was similar to what he had prior to his bypass surgery. He underwent a stress test which demonstrated an EF of 25%, positive for ischemia by echo anteriorly, mid inferior hypokinesis at peak exertion. Intake VS: see chart Allergies codeine Allergy (Verified 05/01/19 16:26) Anaphylaxis Medications Atorvastatin Calcium [Lipitor] 80 mg PO QHS 12/31/17 [History Confirmed 05/16/19] Clopidogrel Bisulfate [Clopidogrel] 75 mg PO DAILY 12/31/17 [History Confirmed 05/16/19] Digoxin 0.25 mg PO DAILY 12/31/17 [History Confirmed 05/16/19] Escitalopram Oxalate [Lexapro] 10 mg PO DAILY 12/31/17 [History Confirmed 05/16/19] Metformin HCl 500 mg PO DINNER 12/31/17 [History Confirmed 05/16/19] Metoprolol Tartrate [Lopressor (beta lorena)] 50 mg PO BID 12/31/17 [History Confirmed 05/16/19] Mineral Oil/Petrolatum Cr [Aquaphor] 1 applic TOPICAL BID PRN 12/31/17 [History Confirmed 05/16/19] Triamcinolone 0.025% Cream [Kenalog] 1 applic TOPICAL BID PRN 12/31/17 [History Confirmed 05/16/19] Omeprazole 40 mg PO DAILY 01/24/18 [History Confirmed 05/16/19] Aspirin E.C. [Ecotrin] 81 mg PO DAILY 01/26/18 [History Confirmed 05/16/19] nitroglycerin 0.4 mg sublingual tablet 0.4 mg SUBLINGUAL Q5-15M PRN #25 tab 04/30/18 [Rx Confirmed 05/16/19] Acetaminophen [Tylenol Arthritis] 650 mg PO PRN PRN 05/14/18 [History Confirmed 05/16/19] albuterol sulfate HFA 90 mcg/actuation aerosol inhaler 1 puff INHALATION Q6H PRN PRN #1 inhaler 09/28/18 [Rx Confirmed 05/16/19] cholecalciferol (vitamin D3) 1,000 unit capsule 1,000 unit PO DAILY 05/16/19 [History Confirmed 05/16/19] furosemide 20 mg tablet 20 mg PO BID tab 05/16/19 [History Confirmed 05/16/19] ibuprofen 200 mg tablet 200 mg PO Q6H PRN 05/16/19 [History Confirmed 05/16/19] potassium chloride ER 10 mEq tablet,extended release 10 meq PO BID 05/16/19 [History Confirmed 05/16/19] [facility] Medical History Nonrheumatic tricuspid (valve) insufficiency (Chronic) HCAP (healthcare-associated pneumonia) (Acute) Sepsis (Acute) Acute respiratory failure with hypoxia (Acute) Closed fracture dislocation of multiple fingers (Chronic) Laceration of head (Resolved) Concussion (Resolved) Fall from ladder (Resolved) Shortness of breath (Chronic) Sinus node dysfunction (Chronic) Atherosclerosis of coronary artery bypass graft without angina pectoris (Chronic) Ventricular tachycardia (Chronic) Left ventricular systolic dysfunction (Chronic) Nonrheumatic mitral valve regurgitation (Chronic) Hypertension (Chronic) Hyperlipidemia (Chronic) Ischemic cardiomyopathy (Chronic) Atherosclerosis of coronary artery of [place] heart without angina pectoris (Chronic) BPH (benign prostatic hyperplasia) (Chronic) GERD (gastroesophageal reflux disease) (Chronic) Non-rheumatic mitral regurgitation (Chronic) Old myocardial infarction (Chronic) Paroxysmal ventricular tachycardia (Chronic) Prostate cancer (Chronic) Type 2 diabetes mellitus without complications (Chronic) Pulmonary hypertension (Resolved) Surgical History Presence of automatic implantable cardioverter-defibrillator (Chronic 11/10/16) H/O coronary artery bypass surgery (Chronic 11/15/04) History of coronary artery stent placement (Chronic 10/28/08) H/O resection of small bowel (Chronic) Hx of cholecystectomy (Chronic) Family History Father CAD (coronary artery disease) Mother CAD (coronary artery disease) Brother CAD (coronary artery disease) Social History (Updated 05/16/19 @ 14:57 by Phill Torres MD) Smoking Status: Former smoker how long ago did patient quit smokin years alcohol intake: never substance use type: does not use caffeine: No what type of physical activity do you participate in: none seatbelt use: always do you feel safe at home: Yes ROS Const Const: Positive for other (Gets heartburn after meals and at bedtime, not with activity. OK otherwise.); negative for fatigue, weakness, body ache, fever(s), headache(s), chills, frequent falls, night sweats, daytime sleepiness, difficulty sleeping, excessive sweating, weight gain, weight loss, increased appetite, poor appetite or anorexia Eyes Eyes: Negative for blind spots, loss of peripheral vision, transient loss of vision, blurry vision, change in vision, double vision, floaters, tunnel vision or other ENT ENT: Negative for headache(s), dizziness, hearing loss, tinnitus, Nosebleed/epistaxis, balance problems, post nasal drip, lip swelling, tongue swelling, bleeding gums, hoarseness, neck pain, dry mouth or other Cardio Chest Pain: Yes (heartburn after meals, goes away with rolaids or tums) Frequency: weekly Onset: with meals Location: epigastric, mid sternal Duration: minutes Exacerbation: eating Relieving: other (Rolaids or Tums) Recurrence: eating Palpitations: No Edema: None Muscle aches with walking: None Resp Respiratory: Negative for SOB with activity, SOB at rest, SOB orthopnea\SOB lying down, Cough, Coughing up blood/hemoptysis, chest congestion, pain on inspiration, snoring, stridor, wheezing, crackles, paroxysmal nocturnal dyspnea or other GI GI: Negative nausea, vomiting, heartburn, constipation, belching, bloating, cram ping, vomiting blood/hematemesis, bright, red blood in stools, black,tarry stools, loose stools, Difficulty Swallowing or other : Negative for hematuria, frequent nighttime urination/ nocturia, erectile dysfunction or abnormal vaginal bleeding Musc Musc: Negative for muscle aches/ myalgia, muscle weakness, joint pain or balance problems Skin Skin: Negative redness, non-healing lesions, rash, unusual bruising, skin ulcer, wounds, jaundice or other Neuro Neuro: Negative for dizziness, lightheadedness, near syncope, syncope, orthostatic symptoms, frequent falls, headache(s), weakness, confusion, memory loss, restless legs, blurry vision, double vision, vertigo, seizures, lack of coordination or other Alexander Hematologic/Lymphatic: Negative for easy bleeding, easy bruising, enlarged lymph nodes or other Endo Endo: Negative for fatigue, cold intolerance, heat intolerance, excessive sweating, flushing, increased thirst/drinking, increased hunger, hair loss, hair growth or other Psych Psych: Negative for anxiety, depression, thoughts of harming anyone, thoughts of harming yourself, visual hallucinations, panic attacks or audible hallucinations Allergy Allergy/Immunology: Negative for throat swelling, Negative for tongue swelling, Negative for hives, Negative for rash, Negative for lip swelling Cardiology Exam Const Appearance: cooperative, healthy appearing and no acute distress Nutritional Appearance: well nourished Orientation: alert, oriented x3 and oriented to person Head Head: normal to inspection, normocephalic and atraumatic Nose: external nose normal Face and Sinus: face symmetric Mouth: oral mucosae normal Eyes General: appearance normal, both eyes and all related structures Eyelids: eyelids normal Conjunctivae: conjunctivae normal Pupils: PERRL and normal by confrontation EOM: EOM intact bilaterally Neck Neck: normal visual inspection and full ROM Carotids: normal carotid upstroke Chest Chest inspection: normal inspection of the chest Auscultation: Bilateral: Clear to Auscultation Cardio Palpation: normal PMI Rate: regular rate Rhythm: regular rhythm Heart sounds: S1 normal and S2 normal 2/6 soft SHREYAS GI GI: normal to inspection, no hepatosplenomegaly and bowel sounds present Neuro General: alert, awake, oriented x3, CN's II-XI intact bilaterally and moves all extremities Skin Skin: no rashes or lesions noted Extremities Pulses: Normal: Right Femoral Pulse, Left Femoral Pulse, Right Dorsalis Pedis Pulse, Left Dorsalis Pedis Pulse, Right Posterior Tibial Pulse, Left Posterior Tibial Pulse, Right Radial Pulse, absent left radial pulse Lower Extremity Edema: None: Bilateral Psych Psychological: normal affect Assessment & Plan 1. Atherosclerosis of coronary artery bypass graft of [place] heart without angina pectoris I25.810 SVG-LAD, SVG- High Lateral Cx, Sequential SVG-PDA,Acute Marginal 12/22/1995 SAENZ-High Lateral Cx, Radial Artery-PDA, Sequential SVG- LAD and D1 11/15/2008 [facility]O [id number] Left Cx @ [facility]; 10/25/17-PTCA and MIGDALIA of proximal LCX/SR per Dr. Torres With his abnormal stress test we are proceeding with a heart cath today. Pt is agreeable to proceed. He will continue with aggressive medical management. 2. Pure hypercholesterolemia E78.5 His LDL and HDL cholesterol are at goal. Continue Lipitor. 3. Cardiomyopathy: He will continue with his medical management 4. ICD placement: He will continue to have his device checked in our office. <Phill Torres - Last Filed: 06/19/19 09:31> Problem List (1) Atherosclerosis of coronary artery bypass graft without angina pectoris Status: Chronic Qualifiers: [place] vs. transplanted heart: [place] heart Qualified Code(s): I25.810 - Atherosclerosis of coronary artery bypass graft(s) without angina pectoris Comment: SVG-LAD, SVG- High Lateral Cx, Sequential SVG-PDA,Acute Marginal 12/22/1995 SAENZ-High Lateral Cx, Radial Artery-PDA, Sequential SVG- LAD and D1 11/15/2008 [facility] [id number] Left Cx @ [facility]; 10/25/17-PTCA and MIGDALIA of proximal LCX/SR per Dr. Torres Code Visit Interventional cardiology addendum: Patient seen and examined and agree with above history and physical by Batsheva Flores. Left heart catheterization to follow.
--- NOTE | 2019-06-19 10:39 | CL.I_ITS ---
Patient Name: ELLEN DILLARD Study Date: 06/19/2019 Performing: Phill Torres MD Ht: 66.92 inches 170 cm : 1940 Wt: 162.79 lbs 73.84 kg Age: 79 Gender: male BSA: 1.85 PROCEDURE(S) PERFORMED DQ10-PQA/COR/LV/CABG AP52-LRO W OR WO PTCA, SINGLE CORONARY ARTERY CLINICAL PROFILE AND CO-MORBIDITIES Indications: Stable Known CAD Heart Failure: NYHA Class: 1, Newly Diagnosed: No, Heart Failure Type: Systolic Stress/Imaging Date: 06/07/2019 Stress Echocardiogram: Positive Low Risk Angina Classification Anginal Classification w/in 2 Weeks: No symptoms CAD Presentations: No Sxs, no angina. Other: Dyspnea on exertion Comorbidities/Risk Factors: Hypertension Dyslipidemia Prior CHF Prior PCI CONCLUSIONS Segmented LV systolic dysfunction- Severe Triple vessel CAD of the LAD, LCX and RCA Widely patent SAENZ to OM Widely patent SVG to LAD. Widely patent SVG to RCA. Occluded SVG to ? Successful PTCA/MIGDALIA proximal LCX ISR with a 3.0 x 16 Promus Synergy, post dilated with a 3.0 x 8 NC B alloon; 75%-->0%, no dissection. RECOMMENDATIONS Referred for immediate PCI Highly recommend quitting all tobacco products Follow up with primary securities research analyst Risk factor modification ASA Indefinitley Plavix for at least 12 months Routine post interventional care Refer for Outpatient Cardiac Rehab Manual sheath removal per protocol DESCRIPTION OF PROCEDURE The patient arrived to the procedure lab. The risks and benefits of the procedure as well as a full d escription of our services here and lack of surgical backup were fully explained to the patient and/o r their significant other prior to the catheterization. The Timeout was completed, verifying the janet ect patient and procedure. The patient's procedural site was prepped and draped in the usual fashion. Local anesthetic was given subcutaneously to right groin region with Lidocaine 2%. Using a modified Seldinger technique, arterial access was obtained via the right femoral artery, a 4Fr, 45cm sheath wa s inserted. Left Coronary Artery selective angiography was performed in multiple views using a 4 Fr. JL5 catheter. Right Coronary Artery selective angiography was then performed in multiple views using a 4 Fr. 3DRC catheter. Left internal mammary artery graft to the Circumflex selective angiography wa s performed in multiple views using a 4 Fr. 3DRC catheter. Saphenous Vein graft to the RPDA selective angiography was performed in multiple views using a 4 Fr. 3DRC catheter. Saphenous Vei n graft to the LAD and DIAG selective angiography was performed in multiple views using a 4 Fr. 3DRC catheter. Left Ventriculography was performed in WOLFE projection using a 4 Fr. Pigtail catheter. LV to AO pullback pressures were then recordedThe images were reviewed and options discussed. A decision w as then made to proceed with an Intervention, IVUS or other adjunct procedure. Arterial sheath was exchanged for a 6 Fr, 55cm Sheath. EBU 3.75 Guide catheter was inserted and e ngaged into the LCA. BMW Guide wire was advanced to the Left main. 2.0 x 12 Emerge Balloon catheter w as advanced across lesion in the circumflex, proximal. PTCA balloon inflated at 8 atms for 11 secs. P TCA balloon inflated at 8 atms for 8 secs. angiosculpt 2.5 x 10 Cutting balloon catheter was advanced to the lesion in the circumflex, proximal. angiosculpt 2.5 x 10 Cutting balloon catheter was advance d to the lesion in the circumflex, proximal. 3.0 x 16 Synergy Drug Eluting stent was advanced across the lesion in the circumflex, proximal. 3.0 x 8 NC Emerge Balloon catheter was advanced across lesion in the circumflex, proximal. PTCA balloon inflated at 12 atms for 8 secs. PTCA balloon inflated at 1 2 atms for 9 secs. PTCA balloon inflated at 7 atms for 9 secs. PTCA balloon inflated at 8 atms for 11 secs. Angiogram performed post stent deployment. Arterial sheath was exchanged for a 6 Fr, 11 cm Sheath. The arterial sheath was sutured in place and capped CORONARY ANGIOGRAPHY DOMINANCE: Right Dominant LEFT HEART ASSESSMENT Left Ventricular Ejection Fraction: by LV Gram 35 % Depressed Left Ventricular systolic function LVEDP: 10 mmHg Normal Left Ventricular End Diastolic Pressure Posterior Basal Akinesis LEFT MAIN: Angiographically normal CIRCUMFLEX ARTERY: PROX CIRC: Instent restenosis 75 % RIGHT CORONARY ARTERY: is occluded GRAFTS: SAENZ graft to the 1st OM is patent Saphenous Vein graft to the RCA is patent Saphenous Vein graft to the LAD is patent INTERVENTION INFORMATION LESION SITE: Circumflex (Proximal) Lesion Complexity: Non-High/Non-C, lesion at bifurcation: No, thrombus present: No, lesion length: 16 mm, culprit lesion: Yes Pre Stenosis: 75 % Pre intervention GOPAL flow: 3 PROCEDURE: Drug Eluting Stent with pre and post dilatation Post Stenosis: 0 % Post intervention GOPAL flow: 3 Lesion Devices: Medtronic 6 Fr EBU3.75 100cm Guide Catheter Amaya .014 BMW [place] Straight 190cm Charly Sci EMERGE MR 2.00x12 BALLOON Spectranetics Angiosculpt RX 2.5x10 Scoring Balloon Charly Sci Synergy MR MIGDALIA 3.00x16 Charly Sci NC EMERGE MR 3.00x08 BALLOON COMPLICATIONS No Complications PROCEDURE MEDICATIONS Oxygen: 2 L/min via nasal cannula Heparin 6000 unit(s) IV 06/19/2019 10:07:55 SUMMARY OF HEMODYNAMIC DATA Time AIR REST ECG 08:12:52 ECG 09:25:30 AO 127/47 (75) SA 09:49:57 LV 144/-10, 10 09:58:27 LV 141/-10, 11 09:58:34 LVp 142/-12, 8 09:58:40 AOp 146/54 (86) 09:58:45 Signed By Phill Torres MD On 06/19/2019 10:38:40 AM Phill Torres MD
[2019-06-19 10:46] LABS: ACT Activated Clotting Time 208 sec (74-137)
--- NOTE | 2019-06-19 11:02 | EKG12_ITS ---
Test Reason : POST PCI Blood Pressure : / mmHG Vent. Rate : 063 BPM Atrial Rate : 063 BPM P-R Int : 176 ms QRS Dur : 122 ms QT Int : 354 ms P-R-T Axes : 036 034 -74 degrees QTc Int : 362 ms Demand pacemaker; interpretation is based on intrinsic rhythm Sinus rhythm with Fusion complexes Abnormal ECG Confirmed by JHONNY RIVERA, PERICO ([id number]), dictionary editor ANATOLIY JUNG [id number]) on 06/26/2019 1:16:39 PM Referred By: Phill Torres Confirmed By:PERICO BARRY MD
[2019-06-19] MEDS: 0.9% Normal Saline 1,000 ML 150 ML IV (11:15)
--- NOTE | 2019-06-19 11:23 | CRPHASE1 ---
Patient Communication Former Patient:: Phase II Sessions:: 36 sessions - 3 days/wk, 12 weeks - Previosly seen in Cardiac rehab last year. Risk Factors/Lifestyle Family History: Family History (Last Reviewed 05/01/19 @ 16:26 by Nancy Flores) Father CAD (coronary artery disease) Mother CAD (coronary artery disease) Brother CAD (coronary artery disease) Cardiac Rehabilitation Info Cardiac Rehabilitation Program Information: Cardiac Rehabilitation is important for patients like you who are recovering from a heart problem. Cardiac rehabilitation programs are recognized as integral to the continued care of the patient with coronary heart disease. The cardiac rehabilitation program is designed to optimize a patient's physical, psychological, and social functioning. Health administrator health care facility work in cardiac rehabilitation programs and assist you with getting the treatments you need to get stronger and healthier - like exercise, healthy eating habits, and medications. Cardiac rehabilitation has been show to help people with heart problems live longer and have better life enjoyment than people who do not go to cardiac rehabilitation. Please contact the Cardiac Rehabilitation Program at [facility] at in two weeks if you have not heard from them.
--- NOTE | 2019-06-19 11:28 | CRPH1.INSTRU ---
General Education CAD and cardiac anatomy and function:: Patient communicates acknowledgment - Previously seen in cardiac rehab.
[2019-06-19 12:50] LABS: ACT Activated Clotting Time 142 sec (74-137)
[2019-06-19] MEDS: Pantoprazole Sodium 40 MG Tablet PO (16:13)
[2019-06-19] MEDS: Escitalopram Oxalate 10 MG Tablet PO (16:13)
[2019-06-19] MEDS: Furosemide 20 MG Tablet PO (17:50)
--- NOTE | 2019-06-19 17:50 | DCINST_ITS ---
Discharge Diet: Low fat/ Low Cholesterol Discharge Activity: Return to Normal Activity May shower in (days): 1 Lifting Restrictions: 10 pounds and also avoid any pushing or pulling for 3 days after your test. Call your doctor if your incision/area has: Continuous Slow Oozing, Sudden Increased Bleeding, Increased Pain/ Swelling, Increased Redness, Foul Smelling Discharge, Swelling at the incision site Call your doctor if you observe: Fever of 101 or Higher, Shortness of breath, Chest pain Remove Dressing in (days):: 1 Cleanse incision/area with: Soap & Water Additional Dressing/Incision Instructions:: Keep the dressing (bandage) on until the next morning. You may then shower, but do not take a tub bath for 5 days after your test. It is normal to have some tenderness and discomfort at the puncture site. Sometimes bruising also occurs. However, if pain, numbness, or coldness occurs below the puncture site (in your leg, toes, arms or fingers) call your doctor at once. You may have a small, marble sized knot at the puncture site. This is normal. Do not rub it. It will go away in 4-6 weeks. Bleeding can occur from the area where the puncture was done. Blood may spurt or drip from the site. If blood spurts, apply pressure right away to stop bleeding and call 911. Although rare, bleeding into the tissue (hematoma) can also occur. If this happens, a large, firm area goose egg under the skin will appear. If any of these occur, lie down as flat as you can and have someone apply firm pressure to the cath site with a gauze pad or a clean washcloth for 10-15 minutes. Call 911 or go to the Emergency Department. Allergies/Adverse Reactions: Allergies codeine Allergy (Verified 05/01/19 16:26) Anaphylaxis Medications to take at Discharge Atorvastatin Calcium [Lipitor] 80 mg PO QHS 12/31/17 Clopidogrel Bisulfate [Clopidogrel] 75 mg PO DAILY 12/31/17 Digoxin 0.25 mg PO DAILY 12/31/17 Escitalopram Oxalate [Lexapro] 10 mg PO DAILY 12/31/17 Metformin HCl 500 mg PO DINNER 12/31/17 Metoprolol Tartrate [Lopressor (beta lorena)] 50 mg PO BID 12/31/17 Mineral Oil/Petrolatum Cr [Aquaphor] 1 applic TOPICAL BID PRN 12/31/17 Triamcinolone 0.025% Cream [Kenalog] 1 applic TOPICAL BID PRN 12/31/17 Omeprazole 40 mg PO DAILY 01/24/18 Aspirin E.C. [Ecotrin] 81 mg PO DAILY 01/26/18 nitroglycerin 0.4 mg sublingual tablet 0.4 mg SUBLINGUAL Q5-15M PRN #25 tab 04/30/18 Acetaminophen [Tylenol Arthritis] 650 mg PO PRN PRN 05/14/18 albuterol sulfate HFA 90 mcg/actuation aerosol inhaler 1 puff INHALATION Q6H PRN PRN #1 inhaler 09/28/18 cholecalciferol (vitamin D3) 1,000 unit capsule 1,000 unit PO DAILY 05/16/19 furosemide 20 mg tablet 20 mg PO BID tab 05/16/19 ibuprofen 200 mg tablet 200 mg PO Q6H PRN 05/16/19 potassium chloride ER 10 mEq tablet,extended release 10 meq PO DAILY 05/16/19 Sacubitril/Valsartan 97-103 mg [Entresto 97 mg-103 mg Tablet] 1 ea PO BID 06/19/19 Orders to be completed after discharge: Phase II, Outpatient Cardiac Rehab Location: None Selected Primary Care Physician: Lazarus Garcia Chi, MD [Primary Care Provider] - Test Results: Test results from this visit will be discussed in further detail at your follow- up appointment, if applicable. Please Follow Up With: Batsheva Flores PA When: 07/09 at 1130 Cardiac Rehabilitation Info Cardiac Rehabilitation Program Information: Cardiac Rehabilitation is important for patients like you who are recovering from a heart problem. Cardiac rehabilitation programs are recognized as integral to the continued care of the patient with coronary heart disease. The cardiac rehabilitation program is designed to optimize a patient's physical, psychological, and social functioning. Health hospice spiritual care coordinator work in cardiac rehabilitation programs and assist you with getting the treatments you need to get stronger and healthier - like exercise, healthy eating habits, and medications. Cardiac rehabilitation has been show to help people with heart problems live longer and have better life enjoyment than people who do not go to cardiac rehabilitation. Please contact the Cardiac Rehabilitation Program at [facility] at in two weeks if you have not heard from them.
[2019-06-19] MEDS: Metoprolol Tartrate 50 MG Tablet PO (21:54)
[2019-06-19] MEDS: SACUBITRIL/VALSARTAN 97-103 MG TABLET 1 EACH PO (21:54)
[2019-06-20] VITALS (12 sets, daily range): BP systolic 114–139; BP diastolic 45–113; PULSE 60–84; RESP 12–26; TEMP 36.6–36.9; O2SAT 94–98
[2019-06-20 05:23] LABS: Hematocrit 38.2 % (40-54); Hemoglobin 12.4 g/dL (13.0-16.5); Mean Corp Hgb Conc 32.5 g/dL (32-36); Mean Corpuscular Hgb 28.1 pg (27.0-32.0); Mean Corpuscular Volume 86.6 fL (80-94); Mean Platelet Vol. 9.5 fl (6.2-12.0); Platelet Count 123 K/mm3 (150-450); RBC Distribution Width CV 13.8 % (11.6-14.6); RBC Distribution Width SD 43.6 fl (35.1-43.9); Red Blood Count 4.41 M/mm3 (4.6-6.2); White Blood Count 9.6 K/mm3 (4.4-11.0)
[2019-06-20 05:48] LABS: ALB/GLOB Ratio 0.9 RATIO (0.9-2.4); AST(SGOT) 16 U/L (15-37); Alanine Aminotransfer ALT/SGPT 21 U/L (16-61); Albumin, Serum 3.2 g/dL (3.2-5.0); Alkaline Phosphatase 71 U/L (45-117); Anion Gap 5 (5-15); BUN 16 mg/dL (7-18); BUN/Creat Ratio 20.3 RATIO (10-20); Calcium,Total 8.6 mg/dL (8.5-10.1); Chloride 106 mmol/L (98-107); Creatinine, Serum 0.79 mg/dL (0.70-1.30); EST Glomerular Filtration Rate 101 mL/min (>60); Est Glom Filt Rate - Afr Amer 122 mL/min (>60); Estimated Creatinine Clearance 56.92 ml/min; Globulin 3.4 g/dL (2.2-4.2); Glucose 119 mg/dL (74-106); Potassium 4.1 mmol/L (3.5-5.1); Protein, Total 6.6 g/dL (6.4-8.2); Sodium Level 140 mmol/L (136-145)
[2019-06-20] MEDS: Clopidogrel Bisulfate 75 MG Tablet PO (08:36)
[2019-06-20] MEDS: Aspirin E.C. 81 MG Tablet PO (08:37)
[2019-06-20] MEDS: SACUBITRIL/VALSARTAN 97-103 MG TABLET 1 EACH PO (08:37)
[2019-06-20] MEDS: Digoxin 250 MCG Tablet PO (08:37)
[2019-06-20] MEDS: Escitalopram Oxalate 10 MG Tablet PO (08:37)
[2019-06-20] MEDS: Pantoprazole Sodium 40 MG Tablet PO (08:38)
[2019-06-20] MEDS: Furosemide 20 MG Tablet PO (08:38)
--- NOTE | 2019-06-20 08:42 | PCM.PN.CARD ---
Subjectve: Patient seen and examined, no 24-hour events. Right groin is clean/dry/intact without evidence of thrills, bruits or hematoma. EKG shows normal sinus rhythm with paced ventricular response. Telemetry negative. Hemoglobin and creatinine are within nominal limits. Objective: Vital Signs Temp Pulse Resp BP Pulse Ox 98 F 84 15 130/49 H 98 06/20/19 04:00 06/20/19 06:00 06/20/19 06:00 06/20/19 06:00 06/20/19 06:00 Oxygen Delivery Method Room Air Weight: 166 lb 3.657 oz Body Mass Index (BMI) 25.9 Intake and Output for Last 24 Hours 06/18/19 06/19/19 06/20/19 23:59 23:59 23:59 Intake Total 1240 / 1390 650 / 650 Output Total 525 / 650 500 / 500 Balance 715 / 740 150 / 150 General: Awake, Alert, Oriented x 3 HEENT: PERRL, EOMI, Sclera Non Icteric Neck: Supple, Good ROM, No Lymph Node Enlargement Lungs: Clear to auscultation Cardiovascular: Regular Rhythm, Normal S1, Normal S2, No Murmurs, No Rubs, No Gallops Vascular: No Carotid Bruits, Normal Femoral Pulses, Normal Radial Pulses, Normal Dorsalis Pedal Pulse, Normal Posterior Tibial Pulses Abdomen: Bowel Sounds Present, Soft, Non Tender, No HSM, No Organomegaly Extremities: No Cyanosis, No Clubbing, No edema Neurological: No Focal Motor or Sensory Deficit 06/20/19 05:15: WBC 9.6, RBC 4.41 L, Hgb 12.4 L, Hct 38.2 L, MCV 86.6, MCH 28.1, MCHC 32.5, Plt Count 123 L, MPV 9.5 06/20/19 05:15: Sodium 140, Potassium 4.1, Chloride 106, Carbon Dioxide 29.0, Anion Gap 5, BUN 16, Creatinine 0.79, Est GFR (MDRD) Af Amer 122, Est GFR (MDRD) Non-Af 101, BUN/Creatinine Ratio 20.3 H, Glucose 119 H, Calcium 8.6, Total Bilirubin 0.20 Rhythm: EKG: ECHO: Stress Test: Cardiac Cath: PCI: CT Surgery: Holter monitor: EPS: PPM: CXR: Chest CT Scan: Medical Necessity - Tobacco Use Smoking Status: Former smoker Assessment/Plan #1. Coronary artery disease: The patient was found to have in-stent restenosis of his proximal left circumflex from previous angioplasty and drug-eluting stenting. The patient underwent successful angioplasty and repeat drug-eluting stenting to the in-stent restenosis area and the patient feels much better today. His right groin is clean/dry/intact, no thrills, bruits or hematoma. EKG is negative. At this point the patient will continue on his antihypertensive medications as well as his antiplatelet therapy including baby aspirin, Plavix, Entresto and metoprolol. Patient be enrolled in cardiac rehab and follow-up with me in the office in several weeks time. 2. Hyperlipidemia: Continue Lipitor. 3. Patient to be discharged home. Code Visit Inpatient E&M: 18779 Subs Hosp L2
[2019-06-20] MEDS: Metoprolol Tartrate 50 MG Tablet PO (09:51)
== END 2019-06-20 11:10 | disposition home or self-care (01) ==
LOC: CLSP 07:47 → ICU 06-20 09:54
PROVIDERS: Family Provider Family Medicine Geriatric Medicine; PCP Family Medicine Geriatric Medicine; Referring Provider Internal Medicine Cardiovascular Disease; Visit Provider Internal Medicine Cardiovascular Disease
DX: I25.810 Atherosclerosis of coronary artery bypass graft(s) without angina pectoris (principal); I49.5 Sick sinus syndrome; I34.0 Nonrheumatic mitral (valve) insufficiency; I11.0 Hypertensive heart disease with heart failure; I50.9 Heart failure, unspecified; E78.00 Pure hypercholesterolemia, unspecified; I47.2 Ventricular tachycardia; I25.5 Ischemic cardiomyopathy; N40.0 Benign prostatic hyperplasia without lower urinary tract symptoms; K21.9 Gastro-esophageal reflux disease without esophagitis; I25.2 Old myocardial infarction; E11.9 Type 2 diabetes mellitus without complications; Z85.46 Personal history of malignant neoplasm of prostate; Z87.01 Personal history of pneumonia (recurrent); Z86.19 Personal history of other infectious and parasitic diseases; Z87.09 Personal history of other diseases of the respiratory system; Z95.810 Presence of automatic (implantable) cardiac defibrillator; Z79.84 Long term (current) use of oral hypoglycemic drugs; Z79.82 Long term (current) use of aspirin; Z79.02 Long term (current) use of antithrombotics/antiplatelets; Z79.899 Other long term (current) drug therapy; Z87.891 Personal history of nicotine dependence
CPT/HCPCS: 80053; 85027; 85347; 92928; 93005; 93459; J7030; J7040; Q9967; C1725; C1769; C1874; C1887; C1894; C9600

== ENCOUNTER → 2019-12-03 15:35 | Outpatient (CLI) | payer MEDICARE, SELFPAY ==
[2017-10-25 15:17] VITALS: BMI 26.6
[2019-11-18 14:52] VITALS: BMI 25.8
[2019-12-03 16:19] LABS: Absolute Lymphocyte Count 1.15 X10^3/uL (0.83-4.51); Basophil# 0.05 X10^3/uL; Basophil% 0.6 % (0-1); Eosinophil# 0.21 X10^3/uL; Eosinophils% 2.5 % (0-5); Hematocrit 39.9 % (40-54); Hemoglobin 12.9 g/dL (13.0-16.5); Lymphocyte # 1.15 X10^3/ul (4.0); Lymphocyte % 13.5 % (19-41); Mean Corp Hgb Conc 32.3 g/dL (32-36); Mean Corpuscular Hgb 27.9 pg (27.0-32.0); Mean Corpuscular Volume 86.2 fL (80-94); Monocyte# 1.06 X10^3/uL; Monocyte% 12.4 % (0-10); NRBC Flagged by Analyzer 0 % (0-5); Neutrophil # 5.97 X10^3/uL (2.7-7.7); Neutrophil % 69.7 % (47-70); Platelet Count 142 K/mm3 (150-450); RBC Distribution Width CV 14.7 % (11.6-14.6); RBC Distribution Width SD 45.9 fl (35.1-43.9); Red Blood Count 4.63 M/mm3 (4.6-6.2); White Blood Count 8.6 K/mm3 (4.4-11.0)
[2019-12-03 16:48] LABS: ALB/GLOB Ratio 0.8 RATIO (0.9-2.4); AST(SGOT) 17 U/L (15-37); Alanine Aminotransfer ALT/SGPT 27 U/L (16-61); Albumin, Serum 3.4 g/dL (3.2-5.0); Alkaline Phosphatase 88 U/L (45-117); Anion Gap 8 (5-15); BUN 18 mg/dL (7-18); BUN/Creat Ratio 18.4 RATIO (10-20); Calcium,Total 8.8 mg/dL (8.5-10.1); Chloride 101 mmol/L (98-107); Cholesterol 114 mg/dL (200); Creatinine, Serum 0.98 mg/dL (0.70-1.30); EST Glomerular Filtration Rate 79 mL/min (>60); Est Glom Filt Rate - Afr Amer 95 mL/min (>60); Glucose 139 mg/dL (74-106); High Density Lipoprotein 30 mg/dL; Protein, Total 7.4 g/dL (6.4-8.2); Sodium Level 135 mmol/L (136-145); Thyroid Stim Hormone (TSH) 1.21 uIU/mL (0.358-3.74); Triglycerides 277 mg/dL; Very Low Density Lipoprotein 55 mg/dL (5-40)
== END ==
PROVIDERS: PCP Family Medicine Geriatric Medicine; Visit Provider Family Medicine Geriatric Medicine
DX: E11.9 Type 2 diabetes mellitus without complications (principal); E55.9 Vitamin D deficiency, unspecified; E78.5 Hyperlipidemia, unspecified; I10 Essential (primary) hypertension
CPT/HCPCS: 36415; 80053; 80061; 82306; 84443; 85025

== ENCOUNTER → 2020-06-02 13:19 | Outpatient (CLI) | payer MEDICARE, SELFPAY ==
[2017-10-25 15:17] VITALS: BMI 26.6
[2019-11-18 14:52] VITALS: BMI 25.8
--- NOTE | 2020-06-02 14:17 | RAD_ITS ---
STUDY: X-RAY - PELVIS AND BILATERAL HIPS REASON FOR EXAM: Bilateral hip pain for 2 months. TECHNIQUE: AP view of the pelvis.? 2 views of the right hip, and 2 views of the left hip were obtained. COMPARISON: None. FINDINGS: There is vascular calcification. There are small metallic opacities in the region of the prostate. There is arthrosis of the sacroiliac joints, greater on the right. Normal bilateral superior and inferior pubic rami. Normal pubic symphysis. There is mild enthesopathy of the right ischial tuberosity. Normal visualized right femoral head. Normal right acetabulum. There is mild joint space narrowing of the right hip joint. Normal visualized left femoral head. Normal left acetabulum. There is mild joint space narrowing of the left hip joint. RAD/Hips B/L min 2 views w/ Pelvis IMPRESSION: Mild bilateral hip arthrosis. Bilateral sacroiliac arthrosis. Electronically Signed: Hector Alegre MD at 15:08 EST Tel , Service support ,
[2020-06-02 14:24] LABS: Absolute Lymphocyte Count 1.69 X10^3/uL (0.83-4.51); Absolute Neutrophil Count 5.2 X10^3/uL (2.0-7.7); Basophil# 0.07 X10^3/uL; Basophil% 0.9 % (0-1); Eosinophil# 0.25 X10^3/uL; Eosinophils% 3.1 % (0-5); Hematocrit 42.7 % (40-54); Hemoglobin 13.1 g/dL (13.0-16.5); Lymphocyte # 1.69 X10^3/ul (4.0); Lymphocyte % 20.8 % (19-41); Mean Corp Hgb Conc 30.7 g/dL (32-36); Mean Corpuscular Hgb 26.7 pg (27.0-32.0); Mean Platelet Vol. 9.9 fl (6.2-12.0); Monocyte# 0.79 X10^3/uL; Monocyte% 9.7 % (0-10); NRBC Flagged by Analyzer 0 % (0-5); Neutrophil % 63.9 % (47-70); Platelet Count 190 K/mm3 (150-450); RBC Distribution Width CV 14.7 % (11.6-14.6); RBC Distribution Width SD 46.9 fl (35.1-43.9); Red Blood Count 4.91 M/mm3 (4.6-6.2); White Blood Count 8.1 K/mm3 (4.4-11.0)
[2020-06-02 14:39] LABS: Vitamin D,25 Hydroxy 32.8 ng/mL
[2020-06-02 14:46] LABS: ALB/GLOB Ratio 0.9 RATIO (0.9-2.4); AST(SGOT) 11 U/L (15-37); Alanine Aminotransfer ALT/SGPT 25 U/L (16-61); Albumin, Serum 3.6 g/dL (3.2-5.0); Alkaline Phosphatase 92 U/L (45-117); Anion Gap 6 (5-15); BUN 18 mg/dL (7-18); BUN/Creat Ratio 17.8 RATIO (10-20); Chloride 106 mmol/L (98-107); Cholesterol 123 mg/dL (200); Creatinine, Serum 1.01 mg/dL (0.70-1.30); EST Glomerular Filtration Rate 76 mL/min (>60); Est Glom Filt Rate - Afr Amer 92 mL/min (>60); Globulin 3.9 g/dL (2.2-4.2); Glucose 135 mg/dL (74-106); High Density Lipoprotein 25 mg/dL; Potassium 4.3 mmol/L (3.5-5.1); Protein, Total 7.5 g/dL (6.4-8.2); Sodium Level 142 mmol/L (136-145); Thyroid Stim Hormone (TSH) 1.16 uIU/mL (0.358-3.74); Triglycerides 218 mg/dL; Very Low Density Lipoprotein 44 mg/dL (5-40)
== END ==
PROVIDERS: PCP Family Medicine Geriatric Medicine; Referring Provider Family Medicine Geriatric Medicine; Visit Provider Family Medicine Geriatric Medicine
DX: M25.551 Pain in right hip (principal); M25.552 Pain in left hip; E11.9 Type 2 diabetes mellitus without complications; E55.9 Vitamin D deficiency, unspecified; E78.5 Hyperlipidemia, unspecified; I10 Essential (primary) hypertension
CPT/HCPCS: 36415; 73521; 80053; 80061; 82306; 84443; 85025

== ENCOUNTER 2020-09-05 12:09 | Emergency (ER) | payer MEDICARE, SELFPAY ==
[2017-10-25 15:17] VITALS: BMI 26.6
[2019-11-18 14:52] VITALS: BMI 25.8
[2020-09-05 12:11] VITALS: BP 106/65; PULSE 60; RESP 16; TEMP 36.1; O2SAT 96; BMI 27.3
[2020-09-05 12:26] VITALS: BP 105/49; PULSE 60; RESP 17; O2SAT 94
--- NOTE | 2020-09-05 12:40 | CT_ITS ---
STUDY: CT BRAIN WITHOUT CONTRAST REASON FOR EXAM: Male, 80 years old. Trauma RADIATION DOSAGE (If Supplied By Facility): CTDIvol = ( 44.99 ) mGy, DLP = ( 796.11 ) mGycm TECHNIQUE: Transaxial CT imaging of the brain was performed without administration of intravenous contrast material. Individualized dose optimization techniques were used for this CT. COMPARISON: 04/14/2018. FINDINGS: Normal soft tissue structures. Normal calvarium. There is moderate cerebral atrophy with widening of the extra-axial spaces and ventricular dilatation. There are areas of decreased attenuation within the white matter tracts of the supratentorial brain, consistent with microvascular disease changes. Normal basal ganglia and thalami. Normal brainstem. Normal cerebellum. There is no intracranial hemorrhage. There are no findings of an acute ischemic infarction. There are calcifications of the cavernous internal carotid and vertebral arteries. There is mild mucosal thickening of the right maxillary sinus. CT/Brain/Head without Contrast IMPRESSION: Chronic involutional changes of the brain. No acute intracranial process. Electronically Signed: Wade Cardona MD at 14:21 EST Tel , Service support ,
--- NOTE | 2020-09-05 12:40 | EKG12_ITS ---
Test Reason : FALL Blood Pressure : / mmHG Vent. Rate : 060 BPM Atrial Rate : 060 BPM P-R Int : 230 ms QRS Dur : 202 ms QT Int : 470 ms P-R-T Axes : 036 -71 090 degrees QTc Int : 470 ms AV dual-paced rhythm with prolonged AV conduction Abnormal ECG Confirmed by JHONNY RIVERA, PERICO ([id number]), development editor ANATOLIY JUNG ([id number]) on 09/07/2020 10:08:09 AM Referred By: MARQUIS Confirmed By:PERICO BARRY MD
[2020-09-05 12:54] VITALS: BP 101/52; BP 103/51; BP 111/48; PULSE 60; PULSE 70
[2020-09-05] MEDS: Acetaminophen 500 MG Tablet 1000 MG PO (13:12)
[2020-09-05 13:14] LABS: Absolute Lymphocyte Count 1.45 X10^3/uL (0.83-4.51); Absolute Neutrophil Count 5.2 X10^3/uL (2.0-7.7); Basophil# 0.08 X10^3/uL; Eosinophil# 0.26 X10^3/uL; Eosinophils% 3.3 % (0-5); Hematocrit 39.6 % (40-54); Hemoglobin 12.5 g/dL (13.0-16.5); Lymphocyte # 1.45 X10^3/ul (4.0); Lymphocyte % 18.2 % (19-41); Mean Corp Hgb Conc 31.6 g/dL (32-36); Mean Corpuscular Hgb 27.1 pg (27.0-32.0); Mean Corpuscular Volume 85.7 fL (80-94); Mean Platelet Vol. 9.7 fl (6.2-12.0); Monocyte# 0.83 X10^3/uL; Monocyte% 10.4 % (0-10); NRBC Flagged by Analyzer 0 % (0-5); Neutrophil # 5.24 X10^3/uL (2.7-7.7); Neutrophil % 65.6 % (47-70); Platelet Count 198 K/mm3 (150-450); RBC Distribution Width CV 14.7 % (11.6-14.6); RBC Distribution Width SD 46.4 fl (35.1-43.9); Red Blood Count 4.62 M/mm3 (4.6-6.2)
[2020-09-05 13:42] VITALS: BP 105/43; PULSE 60; RESP 17
[2020-09-05 13:54] LABS: Anion Gap 8 (5-15); BUN 19 mg/dL (7-18); BUN/Creat Ratio 21.1 RATIO (10-20); Calcium,Total 8.9 mg/dL (8.5-10.1); Chloride 104 mmol/L (98-107); EST Glomerular Filtration Rate 86 mL/min (>60); Est Glom Filt Rate - Afr Amer 104 mL/min (>60); Estimated Creatinine Clearance 62.22 ml/min; Glucose 147 mg/dL (74-106); Potassium 4.4 mmol/L (3.5-5.1); Sodium Level 140 mmol/L (136-145)
--- NOTE | 2020-09-05 14:37 | ED.DCSUM_ITS ---
- ER Visit Summary Date of Service: 09/05/20 Chief Complaint: Syncope History of Present Illness: The patient is a [address] Gonzales and Dr. Garcia. He reports that 2 days ago he was walking in [facility]. States that he felt lightheaded and was unable to control my movements he reports that his legs were going fast and he lost his balance and fell. He did not think he had passed out. However, when he reviewed the video from [facility] patient clearly had a syncopal episode and try to catch himself. He denies any preceding chest pain, palpitations, shortness of breath, nausea, or diaphoresis. Patient denies any new shoulder, wrist, hip pain. He reports he has neck pain is 5 out of 10 severity. Physical Examination: Vitals: Stable. Afebrile. General: Well-nourished and well-developed. Head: Normocephalic abrasion to the bridge of his nose. No blood in his nares. Minimal pain with palpation of the bridge of his nose. Neck: Supple, no lymphadenopathy. No JVD. No vertebral tenderness. Mild tenderness outpatient to the paraspinous posterior on the left in the left trapezius muscle. Full range of motion without any difficulty. Cardiovascular: Regular rate and rhythm. 2 out of 6 systolic murmur. Respiratory: No respiratory distress. Clear to auscultation bilaterally. Abdominal: Soft, nontender, nondistended, normal bowel sounds. No guarding, rebound, or peritoneal signs. Back: Nontender. Extremities: Nontender, no edema. Skin: Normal color, no rash. Neurologic: Alert and oriented ?3. Cranial nerves II through XII are intact. Normal strength and sensation. Psych: Normal affect. Test Results: EKG is AV paced at 60. Troponin is negative. Chem-7 shows a glucose 147 BUN 19. CBC shows an H&H 12.5 39.6, lymphocytes of 18, and immature granulocytes of 1.5%. Clinical Impression(s) from Imaging Studies Brain CT 09/05/20 12:40 IMPRESSION: Chronic involutional changes of the brain. No acute intracranial process. Electronically Signed: Wade Cardona MD at 14:21 EST Tel , Service support , Emergency Department Course and Treatment: Patient was given Tylenol for his p ain. He is resting comfortably. His orthostatic vital signs were negative. He is able to ambulate emergency department on a difficulty. Treatment Plan: Patient systolic blood pressure has been anywhere from 105-115. He is on medications for hypertension. Have suggested that he speak with his primary care physician about decreasing these and this may be the source of his syncope. Return to the emergency department for any worsening symptoms. Disposition: To home in improved and stable condition. Impression: 1. Syncope. This note was generated with Eyel[employer] dictation software. It may contain incorrect words, spelling, and punctuation that were not noted in review of the chart prior to signing ED Disposition - Plan for ED Patient: Instructions: ED Fainting, Uncertain Cause Referrals: Lazarus Garcia Chi, MD [Primary Care Provider] - 3-5 Days
[2020-09-05 14:39] VITALS: BP 115/56; PULSE 60; RESP 19
== END 2020-09-05 14:53 | disposition home or self-care (01) ==
LOC: ED 12:45
PROVIDERS: Emergency Provider Emergency Medicine; PCP Family Medicine Geriatric Medicine
DX: R55 Syncope and collapse (principal); S00.31XA Abrasion of nose, initial encounter; R01.1 Cardiac murmur, unspecified; W19.XXXA Unspecified fall, initial encounter; Y93.01 Activity, walking, marching and hiking; Y92.512 Supermarket, store or market as the place of occurrence of the external cause; I10 Essential (primary) hypertension; I25.10 Atherosclerotic heart disease of native coronary artery without angina pectoris; E78.00 Pure hypercholesterolemia, unspecified; Z95.1 Presence of aortocoronary bypass graft; Z79.899 Other long term (current) drug therapy; Z87.891 Personal history of nicotine dependence
CPT/HCPCS: 70450; 80048; 84484; 85025; 93005; 96360; 99285; A4216

== ENCOUNTER → 2020-12-03 14:19 | Outpatient (CLI) | payer MEDICARE, SELFPAY ==
[2017-10-25 15:17] VITALS: BMI 26.6
[2020-12-03 17:19] LABS: Absolute Lymphocyte Count 1.99 X10^3/uL (0.83-4.51); Absolute Neutrophil Count 5.2 X10^3/uL (2.0-7.7); Basophil# 0.06 X10^3/uL; Basophil% 0.7 % (0-1); Eosinophils% 2.4 % (0-5); Hematocrit 40.3 % (40-54); Hemoglobin 12.6 g/dL (13.0-16.5); Lymphocyte # 1.99 X10^3/ul (0.83-4.51); Lymphocyte % 23.7 % (19-41); Mean Corp Hgb Conc 31.3 g/dL (32-36); Mean Corpuscular Volume 83.3 fL (80-94); Mean Platelet Vol. 10.5 fl (6.2-12.0); Monocyte# 0.88 X10^3/uL; Monocyte% 10.5 % (0-10); NRBC Flagged by Analyzer 0 % (0-5); Neutrophil # 5.17 X10^3/uL (2.7-7.7); Neutrophil % 61.7 % (47-70); Platelet Count 185 K/mm3 (150-450); RBC Distribution Width CV 16.4 % (11.6-14.6); RBC Distribution Width SD 49.1 fl (35.1-43.9); Red Blood Count 4.84 M/mm3 (4.6-6.2); White Blood Count 8.4 K/mm3 (4.4-11.0)
[2020-12-03 17:43] LABS: ALB/GLOB Ratio 0.9 RATIO (0.9-2.4); AST(SGOT) 15 U/L (15-37); Alanine Aminotransfer ALT/SGPT 22 U/L (16-61); Albumin, Serum 3.5 g/dL (3.2-5.0); Alkaline Phosphatase 118 U/L (45-117); Anion Gap 7 (5-15); BUN 12 mg/dL (7-18); Calcium,Total 8.6 mg/dL (8.5-10.1); Chloride 105 mmol/L (98-107); Cholesterol 126 mg/dL (200); Creatinine, Serum 0.86 mg/dL (0.70-1.30); EST Glomerular Filtration Rate 92 mL/min (>60); Est Glom Filt Rate - Afr Amer 111 mL/min (>60); Globulin 4.1 g/dL (2.2-4.2); Glucose 104 mg/dL (74-106); High Density Lipoprotein 28 mg/dL; Potassium 3.9 mmol/L (3.5-5.1); Protein, Total 7.6 g/dL (6.4-8.2); Sodium Level 140 mmol/L (136-145); Thyroid Stim Hormone (TSH) 1.27 uIU/mL (0.358-3.74); Triglycerides 167 mg/dL; Very Low Density Lipoprotein 33 mg/dL (5-40)
== END ==
PROVIDERS: PCP Family Medicine Geriatric Medicine; Visit Provider Family Medicine Geriatric Medicine
DX: E11.9 Type 2 diabetes mellitus without complications (principal); E55.9 Vitamin D deficiency, unspecified; E78.5 Hyperlipidemia, unspecified; I10 Essential (primary) hypertension
CPT/HCPCS: 36415; 80053; 80061; 82306; 84443; 85025

== ENCOUNTER 2021-02-17 17:23 | Emergency (ER) | payer MEDICARE, SELFPAY ==
[2017-10-25 15:17] VITALS: BMI 26.6
[2020-12-24 15:56] VITALS: BMI 24.7
[2021-02-17 17:23] VITALS: BP 108/67; PULSE 92; RESP 16; TEMP 36.2; O2SAT 97; BMI 25.3
--- NOTE | 2021-02-17 18:11 | EKG12_ITS ---
Test Reason : WEAKNESS Blood Pressure : / mmHG Vent. Rate : 075 BPM Atrial Rate : 075 BPM P-R Int : 184 ms QRS Dur : 120 ms QT Int : 402 ms P-R-T Axes : 054 -07 038 degrees QTc Int : 448 ms Normal sinus rhythm Normal ECG Confirmed by MATEUS RIVERA, GARRY ([id number]), editorial writer ANATOLIY JUNG ([id number]) on 02/19/2021 9:33:20 AM Referred By: HENOK Confirmed By:FLAKO IGNACIO MD
--- NOTE | 2021-02-17 18:11 | EX.ED.DYSGE1 ---
HPI History of Present Illness Chief Complaint: Weakness Narrative Narrative: 81-year-old male presenting with 1 month of generalized fatigue. He states he typically ambulates with a walker but has been aggressively getting worse. He has not had any falls. Patient states that he might of had a cough the other day. He does not feel short of breath. He denies chest pain. Patient states that today he had a few episodes of diarrhea and denies any black or bloody stools. Patient denies fever, chills, myalgias, change in taste or smell. Patient does not have headache or neck pain. Patient denies abdominal pain. Patient does state that he has decreased urinary output but has not been drinking as much as he normally should. He does state that he does not have nausea or vomiting. [facility] Medical History Abnormal stress test Acute respiratory failure with hypoxia Atherosclerosis of coronary artery bypass graft without angina pectoris Atherosclerosis of coronary artery of [place] heart without angina pectoris BPH (benign prostatic hyperplasia) Closed fracture dislocation of multiple fingers Concussion Essential (primary) hypertension Fall from ladder GERD (gastroesophageal reflux disease) HCAP (healthcare-associated pneumonia) Hyperlipidemia Hypertension Ischemic cardiomyopathy Laceration of head Left ventricular systolic dysfunction Non-rheumatic mitral regurgitation Nonrheumatic mitral valve regurgitation Old myocardial infarction Paroxysmal ventricular tachycardia Prostate cancer Pulmonary hypertension Sepsis Sinus node dysfunction Type 2 diabetes mellitus without complications Ventricular tachycardia Home Medications atorvastatin 80 mg PO QHS 12/31/17 [History Last Taken 05/13/18] clopidogrel 75 mg PO DAILY 12/31/17 [History Last Taken 06/19/19] digoxin 0.25 mg PO DAILY 12/31/17 [History Last Taken 06/19/19] escitalopram oxalate 10 mg PO DAILY 12/31/17 [History Last Taken 05/14/18] triamcinolone acetonide 1 applic TOPICAL BID PRN 12/31/17 [History Last Taken 01/24/18] white petrolatum 1 applic TOPICAL BID PRN 12/31/17 [History Last Taken 01/26/18] omeprazole 40 mg PO DAILY 01/24/18 [History Last Taken 05/14/18] aspirin 81 mg PO DAILY 01/26/18 [History Last Taken 06/19/19] acetaminophen 650 mg PO PRN PRN 05/14/18 [History Last Taken 05/12/18] albuterol sulfate 90 mcg/actuation aerosol inhaler 1 puff INHALATION Q6H PRN PRN #1 inhaler 09/28/18 [Rx Last Taken Unknown] cholecalciferol (vitamin D3) 25 mcg (1,000 unit) capsule 1,000 unit PO DAILY 05/16/19 [History Last Taken Unknown] ibuprofen 200 mg tablet 200 mg PO Q6H PRN 05/16/19 [History Last Taken Unknown] sacubitril-valsartan 1 ea PO BID 06/19/19 [History Last Taken 06/19/19] nitroglycerin 0.4 mg sublingual tablet 0.4 mg SUBLINGUAL Q5-15M PRN #25 tab 07/17/19 [Rx Last Taken Unknown] potassium chloride 10 mEq tablet,extended release 10 meq PO BID tab 11/18/19 [History Last Taken Unknown] furosemide 20 mg tablet 20 mg PO DAILY tab 12/24/20 [History Last Taken Unknown] metoprolol tartrate 25 mg tablet 12.5 mg PO BID tab 12/24/20 [History Last Taken Unknown] Allergy/AdvReac Type Severity Reaction Status Date / Time codeine Allergy Anaphylaxis Verified 02/17/21 17:26 Family History Father CAD (coronary artery disease) Mother CAD (coronary artery disease) Brother CAD (coronary artery disease) Surgical History H/O coronary artery bypass surgery (11/15/04) H/O resection of small bowel History of coronary artery stent placement Hx of cholecystectomy Presence of automatic implantable cardioverter-defibrillator (11/10/16) Social History Smoking Status: Former smoker how long ago did patient quit smokin years alcohol intake: never substance use type: does not use caffeine: No what type of physical activity do you participate in: none seatbelt use: always do you feel safe at home: Yes ROS ROS ED Constitutional Constitutional ED: Denies chills, fever(s) or sweats Eyes Eyes: Denies blurry vision or diplopia ENT ENT ED: Denies rhinorrhea or sore throat Cardiovascular Cardiovascular: Denies chest pain, palpitations or racing heartbeat Respiratory/Chest Respiratory/Chest: Reports cough; Denies dyspnea or dyspnea on exertion Gastrointestinal Gastrointestinal: Reports diarrhea; Denies abdominal pain, nausea or vomiting Genitourinary Genitourinary ED: Denies dysuria or hematuria Musculoskeletal Musculoskeletal: Denies arthralgias, back pain, myalgias or neck pain Integumentary Denies Abrasions or rash Neurologic Neurologic: Denies headache(s) or paresthesias Psychiatric Psychiatric: Denies anxiety or depression EXAM Physical Exam Const Vital Signs: 02/17/21 17:23 Temperature 97.2 F L Temperature Source Temporal Pulse Rate 92 Respiratory Rate 16 Blood Pressure 108/67 Blood Pressure Mean 80 Pulse Ox 97 Oxygen Delivery Method Room Air Positive well nourished General Appearance ED: NAD; Negative for pallor HEENT Reports moist mucous membranes Negative for trauma Eyes PERRL and EOMs intact bilaterally Chest Wall inspection of chest normal and palpation of chest normal Resp normal respiratory effort and clear to auscultation bilaterally Cardio regular rate and regular rhythm GI normal to inspection, nondistended, normoactive bowel sounds Neuro oriented x3, CN's II-XII intact bilaterally and no sensory deficits noted Sensorium / Orientation: alert Motor Exam: strength 5/5 throughout Psych mental status grossly normal Skin no rashes or lesions noted General Skin Exam: Negative for jaundice or pallor MDM MDM MDM Narrative Medical decision making narrative: Patient presented with generalized weakness and diarrhea over the course of the day. He states his weakness has been going on for about a month. He is ambulatory with his walker and this does sound like a chronic issue. Patient's blood work was unremarkable. Urinalysis negative for infection. Troponin negative. EKG shows a sinus rhythm at 75 bpm on my interpretation and there is no sign of ST elevation, depression, dysrhythmia. Chest x-ray my interpretation shows no acute cardiopulmonary process and the radiologist does agree. Patient's vital signs are stable and he is afebrile. I feel the patient is safe to be discharged home. He is counseled to hydrate well and follow-up with his PCP. He is given return precautions. Impression: 1. Generalized weakness 2. Diarrhea Lab Data Labs: Laboratory Results - last 24 hr 02/17/21 02/17/21 02/17/21 18:45 18:45 19:51 WBC 8.9 RBC 4.35 L Hgb 11.3 L Hct 35.0 L MCV 80.5 MCH 26.0 L MCHC 32.3 RDW Std Deviation 45.4 H RDW Coeff of Sebastian 15.6 H Plt Count 191 MPV 9.9 Immature Gran % (Auto) 0.800 Neut % (Auto) 74.3 H Lymph % (Auto) 11.4 L [place] % (Auto) 13.0 H Eos % (Auto) 0.2 Baso % (Auto) 0.3 Absolute Neuts (auto) 6.6 Absolute Lymphs (auto) 1.01 Nucleated RBC % 0 Sodium 135 L Potassium 3.5 Chloride 100 Carbon Dioxide 27.0 Anion Gap 8 BUN 15 Creatinine 0.71 Estim Creat Clear Calc 55.08 Est GFR (MDRD) Af Amer 138 Est GFR (MDRD) Non-Af 114 BUN/Creatinine Ratio 21.2 H Glucose 99 Calcium 9.0 Magnesium 1.4 L Total Bilirubin 1.00 AST 58 H ALT 48 Alkaline Phosphatase 283 H Total Protein 7.5 Albumin 2.6 L Globulin 4.9 H Albumin/Globulin Ratio 0.5 L Lipase 51 L Urine Color Yellow Urine Clarity Clear Urine pH 6.0 Ur Specific [place] 1.010 Urine Protein 15 H Urine Glucose (UA) Normal Urine Ketones Negative Urine Occult Blood 10 H Urine Nitrite Negative Urine Bilirubin Negative Urine Urobilinogen 4 H Ur Leukocyte Esterase Negative Urine RBC 0 SEEN Urine WBC 0 SEEN Ur Squamous Epith Cells 0 SEEN Urine Bacteria 1+ Urine Mucus 0 SEEN Radiography Diagnostic Testing: Radiology Impression Chest X-Ray 02/17/21 18:24 IMPRESSION: No acute radiographic abnormalities. Electronically Signed: Ashish Oswald MD at 18:50 EDT Tel , Service support , Discharge Plan Triage Chief Complaint: Weakness Other Complaint: Diarrhea ED Provider: Tez Guillermo Dx/Rx/DC Orders Instructions: ED Diarrhea, Unknown Cause, ED Weakness (Uncertain Cause) Prescriptions: No Action cholecalciferol (vitamin D3) 1,000 unit capsule 1,000 unit PO DAILY RF: 0 ibuprofen [Advil] 200 mg tablet 200 mg PO Q6H PRN (Reason: Pain/Inflammation) RF: 0 potassium chloride 10 mEq tablet extended release 10 meq PO BID RF: 0 furosemide 20 mg tablet 20 mg PO DAILY RF: 0 nitroglycerin 0.4 mg tablet, sublingual 0.4 mg SUBLINGUAL Q5-15M PRN (Reason: chest pain) Qty: 25 RF: 11 metoprolol tartrate 25 mg tablet 12.5 mg PO BID RF: 0 atorvastatin 80 MG tablet 80 mg PO QHS RF: 0 clopidogrel 75 MG tablet 75 mg PO DAILY RF: 0 digoxin 250 MCG tablet 0.25 mg PO DAILY RF: 0 triamcinolone acetonide 1 APPLIC cream 1 applic TOPICAL BID PRN (Reason: Dry Skin) RF: 0 escitalopram oxalate 10 MG tablet 10 mg PO DAILY RF: 0 white petrolatum 1 APPLIC bottle 1 applic TOPICAL BID PRN (Reason: Itching) RF: 0 omeprazole 40 MG capsule,delayed release(DR/EC) 40 mg PO DAILY RF: 0 aspirin 81 MG tablet 81 mg PO DAILY RF: 0 acetaminophen 650 MG tablet extended release 650 mg PO PRN PRN (Reason: arthritis) RF: 0 sacubitril-valsartan 1 EACH tablet 1 ea PO BID RF: 0 albuterol sulfate 90 mcg/actuation HFA aerosol inhaler 1 puff inhalation Q6H PRN PRN (Reason: Sob &/Or Wheezing) Qty: 1 RF: 3 Primary Care Provider: Lazarus Garcia Chi Referrals: Lazarus Garcia Chi, MD [Primary Care Provider] - Disposition Disposition: Home, Self Care
--- NOTE | 2021-02-17 18:24 | RAD_ITS ---
INDICATION: cough EXAMINATION/TECHNIQUE: X-RAY - XR Chest 1 View COMPARISON: 07/31/2018. FINDINGS: The lungs are clear. Sternal cerclage wires and vascular clips are present from a prior sternotomy and coronary artery bypass graft procedure (CABG). Tortuous and calcified thoracic aorta. Left-sided cardiac device. No pleural effusion or pneumothorax. Degenerative changes of the thoracic spine and shoulders. RAD/Chest 1 View (Portable) IMPRESSION: No acute radiographic abnormalities. Electronically Signed: Ashish Oswald MD at 18:50 EDT Tel , Service support ,
[2021-02-17 18:53] LABS: Absolute Lymphocyte Count 1.01 X10^3/uL (0.83-4.51); Absolute Neutrophil Count 6.6 X10^3/uL (2.0-7.7); Basophil# 0.03 X10^3/uL; Basophil% 0.3 % (0-1); Eosinophil# 0.02 X10^3/uL; Eosinophils% 0.2 % (0-5); Hemoglobin 11.3 g/dL (13.0-16.5); Lymphocyte # 1.01 X10^3/ul (0.83-4.51); Lymphocyte % 11.4 % (19-41); Mean Corp Hgb Conc 32.3 g/dL (32-36); Mean Corpuscular Volume 80.5 fL (80-94); Mean Platelet Vol. 9.9 fl (6.2-12.0); Monocyte# 1.15 X10^3/uL; NRBC Flagged by Analyzer 0 % (0-5); Neutrophil # 6.57 X10^3/uL (2.7-7.7); Neutrophil % 74.3 % (47-70); Platelet Count 191 K/mm3 (150-450); RBC Distribution Width CV 15.6 % (11.6-14.6); RBC Distribution Width SD 45.4 fl (35.1-43.9); Red Blood Count 4.35 M/mm3 (4.6-6.2); White Blood Count 8.9 K/mm3 (4.4-11.0)
[2021-02-17 19:11] LABS: ALB/GLOB Ratio 0.5 RATIO (0.9-2.4); AST(SGOT) 58 U/L (15-37); Alanine Aminotransfer ALT/SGPT 48 U/L (16-61); Albumin, Serum 2.6 g/dL (3.2-5.0); Alkaline Phosphatase 283 U/L (45-117); Anion Gap 8 (5-15); BUN 15 mg/dL (7-18); BUN/Creat Ratio 21.2 RATIO (10-20); Chloride 100 mmol/L (98-107); Creatinine, Serum 0.71 mg/dL (0.70-1.30); EST Glomerular Filtration Rate 114 mL/min (>60); Est Glom Filt Rate - Afr Amer 138 mL/min (>60); Estimated Creatinine Clearance 55.08 ml/min; Globulin 4.9 g/dL (2.2-4.2); Glucose 99 mg/dL (74-106); Lipase 51 U/L (73-393); Magnesium 1.4 mg/dL (1.6-2.6); Potassium 3.5 mmol/L (3.5-5.1); Protein, Total 7.5 g/dL (6.4-8.2); Sodium Level 135 mmol/L (136-145)
[2021-02-17 19:55] LABS: Mucous, Urine 0 SEEN /hpf (<or=2+); Red Blood Cells-Urine 0 SEEN /hpf (0-5); Squamous Epithelial Cells - UA 0 SEEN /hpf (0-5); White Blood Cells 0 SEEN /hpf (0-5)
[2021-02-17 19:58] LABS: Color, Urine Yellow (Yellow); Glucose, Dipstick Normal (Normal); Ketone-Dipstick Negative (Negative); Leukocyte Esterase-Dipstick Negative /ul (Negative); Nitrite-Dipstick Negative (Negative); Occult Blood-Urine 10 /ul (Negative); Protein-Dipstick 15 mg/dl (Negative); Urine Bilirubin Dipstick Negative (Negative); Urine Clarity Clear (Clear); Urine Urobilinogen 4 mg/dl (Normal)
[2021-02-17 20:22] LABS: Bacteria 1+ /hpf (None Seen)
[2021-02-17 21:05] VITALS: BP 129/77; PULSE 68; RESP 15; O2SAT 98
== END 2021-02-17 21:06 | disposition home or self-care (01) ==
PROVIDERS: Emergency Provider Student in an Organized Health Care Education/Training Program; PCP Family Medicine Geriatric Medicine
DX: R53.1 Weakness (principal); R19.7 Diarrhea, unspecified; E11.9 Type 2 diabetes mellitus without complications; E78.5 Hyperlipidemia, unspecified; I10 Essential (primary) hypertension; I25.2 Old myocardial infarction; I25.5 Ischemic cardiomyopathy; I27.20 Pulmonary hypertension, unspecified; I47.2 Ventricular tachycardia; I49.5 Sick sinus syndrome; I34.0 Nonrheumatic mitral (valve) insufficiency; N40.0 Benign prostatic hyperplasia without lower urinary tract symptoms; K21.9 Gastro-esophageal reflux disease without esophagitis; I25.810 Atherosclerosis of coronary artery bypass graft(s) without angina pectoris; Z85.46 Personal history of malignant neoplasm of prostate; Z87.01 Personal history of pneumonia (recurrent); Z79.82 Long term (current) use of aspirin; Z79.899 Other long term (current) drug therapy; Z87.891 Personal history of nicotine dependence
CPT/HCPCS: 71045; 80053; 81001; 83690; 83735; 85025; 93005; 99283; A4216

== ENCOUNTER 2021-05-04 14:25 | Inpatient (IN) | payer MEDICARE, SELFPAY ==
[2017-10-25 15:17] VITALS: BMI 26.6
[2021-05-04] VITALS (12 sets, daily range): BP systolic 103–129; BP diastolic 54–85; PULSE 74–85; RESP 18–20; TEMP 35.6–37.2; O2SAT 93–96; BMI 25.3; BMI 30.5
--- NOTE | 2021-05-04 15:05 | EKG12_ITS ---
Test Reason : SOB Blood Pressure : / mmHG Vent. Rate : 076 BPM Atrial Rate : 076 BPM P-R Int : 182 ms QRS Dur : 116 ms QT Int : 400 ms P-R-T Axes : 043 -11 139 degrees QTc Int : 450 ms Sinus rhythm with occasional Premature ventricular complexes Poor R wave progression Nonspecific ST and T wave abnormality Confirmed by JHONNY RIVERA, PERICO ([id number]), society editor ANATOLIY JUNG ([id number]) on 05/06/2021 9:29:38 AM Referred By: SERGIO Confirmed By:PERICO BARRY MD
--- NOTE | 2021-05-04 15:06 | ED.VIS.DYS ---
HPI History of Present Illness Chief Complaint: Shortness of Breath Informant: patient and spouse/S.O. Onset/Context/Timing Onset: Days Context: gradual Timing: Intermittent Quality: Positive for Dyspnea on exertion; Negative for Orthopnea and PND Current Severity: Gone Maximum Severity: Mild Worsened by: Exertion; Not Worsened By Lying flat, Coughing and other Relieved by: Rest Associated Symptoms cough and white sputum; Negative for rhinorrhea, post nasal drip, ear pain, fever, sore throat, subjective, chills, sweats or clear sputum Chest Pain: Positive for None Narrative Narrative: 81-year-old gentleman significant past cardiac history with a pacemaker defibrillator. Prior CABG. Prior [place]. Cardiac stent. On Plavix. History of CHF. And diabetes. Patient states for the last week he has been short of breath primarily with exertion and walking. Better at rest. Denies any chest pain. He has had a cough of white phlegm. Denies fevers and chills. He did get vaccinated for Covid. Had nausea and vomiting x1 today after coughing and diarrhea this morning. Denies any chest pain. PE Risk Factors: Negative for Cancer, OCP + Smoking + > 35, Prior DVT or PE, Recent immobilization, Recent surgery and Recent travel Prior similar symptoms: Yes Recent Illness/Hospitalization: No PFSH PFSH Medical History Abnormal stress test Acute respiratory failure with hypoxia Atherosclerosis of coronary artery bypass graft without angina pectoris Atherosclerosis of coronary artery of [place] heart without angina pectoris BPH (benign prostatic hyperplasia) Cardiac defibrillator in place Closed fracture dislocation of multiple fingers Concussion Essential (primary) hypertension Fall from ladder GERD (gastroesophageal reflux disease) HCAP (healthcare-associated pneumonia) Hyperlipidemia Hypertension Ischemic cardiomyopathy Laceration of head Left ventricular systolic dysfunction Non-rheumatic mitral regurgitation Nonrheumatic mitral valve regurgitation Old myocardial infarction Paroxysmal ventricular tachycardia Prostate cancer Pulmonary hypertension Sepsis Sinus node dysfunction Type 2 diabetes mellitus without complications Ventricular tachycardia Home Medications atorvastatin 80 mg PO QHS 12/31/17 [History Last Taken 05/13/18] clopidogrel 75 mg PO DAILY 12/31/17 [History Last Taken 06/19/19] escitalopram oxalate 10 mg PO DAILY 12/31/17 [History Last Taken 05/14/18] triamcinolone acetonide 1 applic TOPICAL BID PRN 12/31/17 [History Last Taken 01/24/18] white petrolatum 1 applic TOPICAL BID PRN 12/31/17 [History Last Taken 01/26/18] omeprazole 40 mg PO DAILY 01/24/18 [History Last Taken 05/14/18] aspirin 81 mg PO DAILY 01/26/18 [History Last Taken 06/19/19] acetaminophen 650 mg PO PRN PRN 05/14/18 [History Last Taken 05/12/18] albuterol sulfate 90 mcg/actuation aerosol inhaler 1 puff INHALATION Q6H PRN PRN #1 inhaler 09/28/18 [Rx Last Taken Unknown] cholecalciferol (vitamin D3) 25 mcg (1,000 unit) capsule 1,000 unit PO DAILY 05/16/19 [History Last Taken Unknown] ibuprofen 200 mg tablet 200 mg PO Q6H PRN 05/16/19 [History Last Taken Unknown] sacubitril-valsartan 1 ea PO BID 06/19/19 [History Last Taken 06/19/19] nitroglycerin 0.4 mg sublingual tablet 0.4 mg SUBLINGUAL Q5-15M PRN #25 tab 07/17/19 [Rx Last Taken Unknown] potassium chloride 10 mEq tablet,extended release 10 meq PO BID tab 11/18/19 [History Last Taken Unknown] furosemide 20 mg tablet 20 mg PO DAILY tab 12/24/20 [History Last Taken Unknown] metoprolol tartrate 25 mg tablet 12.5 mg PO BID tab 12/24/20 [History Last Taken Unknown] potassium chloride 20 meq PO DAILY 05/04/21 [History Last Taken Unknown] Allergy/AdvReac Type Severity Reaction Status Date / Time codeine Allergy Anaphylaxis Verified 02/17/21 17:26 Family History Father CAD (coronary artery disease) Mother CAD (coronary artery disease) Brother CAD (coronary artery disease) Surgical History H/O coronary artery bypass surgery (11/15/04) H/O resection of small bowel History of coronary artery stent placement Hx of cholecystectomy Presence of automatic implantable cardioverter-defibrillator (11/10/16) Social History Smoking Status: Former smoker how long ago did patient quit smokin years alcohol intake: never substance use type: does not use caffeine: No what type of physical activity do you participate in: none seatbelt use: always do you feel safe at home: Yes ROS ROS ED ROS Narrative Cough of white phlegm. Shortness of breath. Review of Systems ROS Unobtainable: Denies due to encephalopathy Constitutional Constitutional ED: Denies chills or fever(s) Eyes Eyes: Denies change in vision ENT ENT ED: Denies ear pain or sore throat Cardiovascular Cardiovascular: Denies chest pain or palpitations Respiratory/Chest Respiratory/Chest: Reports cough, dyspnea, dyspnea on exertion and sputum Gastrointestinal Gastrointestinal: Reports diarrhea, nausea and vomiting; Denies abdominal pain, constipation or melena Genitourinary Genitourinary ED: Denies dysuria or hematuria Musculoskeletal Musculoskeletal: Denies arthralgias or myalgias Integumentary Denies abscess or rash Neurologic Neurologic: Denies headache(s) Psychiatric Psychiatric: Denies depression Endocrine Endocrinology: Denies polyuria Hematologic/Lymphatic Hematologic/Lymphatic: Denies easy bruising Allergic/Immunologic Allergic/Immunologic ED: Denies urticaria EXAM Physical Exam Narrative Exam Narrative: 81-year-old no acute distress. Vital signs stable afebrile. Pulse ox 94% on room air no signs of hypoxia. HEENT exam unremarkable. Neck nontender no JVD no lymphadenopathy. Lungs clear to auscultation bilaterally. Heart regular rhythm no murmur. Abdomen soft nontender. Normal bowel sounds no peritoneal signs. Moving all 4 extremities. Calves are nontender without edema or cords. Neurologically is awake alert with no focal motor deficits. Back nontender. Const Vital Signs: 05/04/21 14:26 05/04/21 14:36 05/04/21 15:08 Temperature 96.0 F L 98.9 F Temperature Source Temporal Temporal Pulse Rate 83 78 Respiratory Rate 18 20 H Respiratory Effort Normal Respiratory Depth Normal Respiratory Pattern Normal Blood Pressure 129/68 H 103/54 L Blood Pressure Mean 88 70 Pulse Ox 94 94 94 Oxygen Delivery Method Room Air Room Air Room Air Oxygen Flow Rate (L/min) 05/04/21 15:17 05/04/21 16:33 Temperature 98.4 F 98.6 F Temperature Source Temporal Temporal Pulse Rate 79 75 Respiratory Rate 18 18 Respiratory Effort Respiratory Depth Respiratory Pattern Blood Pressure 115/63 112/62 Blood Pressure Mean 80 78 Pulse Ox 94 95 Oxygen Delivery Method Room Air Room Air Oxygen Flow Rate (L/min) 96 Positive well nourished and well developed; Negative for obese, cachectic, contractures or unkempt General Appearance ED: well developed and NAD; Negative for unkempt, cachectic, contractures or pallor Nutritional Appearance: Negative for cachectic or obese HEENT Reports moist mucous membranes atraumatic; Negative for trauma or tenderness Eyes PERRL and EOMs intact bilaterally Neck no lymphadenopathy, supple, no meningeal signs and no JVD General: Negative for tenderness Resp normal respiratory effort and clear to auscultation bilaterally Auscultation: Negative for rales, rhonchi or wheezes Cardio regular rate, regular rhythm, S1 normal heart sound, S2 normal heart sound and no murmurs GI non-tender, non-distended and no masses Auscultation: normoactive bowel sounds Palpation: soft; Negative for tender or guarding Back/Spine no CVA tenderness and normal to inspection General Back: Negative for CVA tenderness Extremity normal to inspection General Extremety ED: Negative for edema or tenderness General Extremity: Negative for edema Neuro oriented x3 Sensorium / Orientation: alert, oriented to person, oriented to place and oriented to time; Negative for orientation impaired, confused, lethargic or stuporous Motor Exam: strength 5/5 throughout Psych mental status grossly normal Appearance: Negative for unkempt Skin no wounds General Skin Exam: Negative for jaundice or pallor Lesions: no lesions Rashes: no rashes MDM MDM MDM Narrative Medical decision making narrative: Older male with exertional dyspnea. Has an extensive cardiac history. Undergoing cardiac work-up and Covid test. Also consider pneumonia or CHF. Patient is in no distress at this time. Repeat exam at 455 unchanged. Discussed all test results with the patient. Is got perihilar and right lower lobe pneumonia. Was started on IV Rocephin and Zithromax. Not exactly sure why his troponin is so elevated. They can cycle enzymes on him when he is admitted. I discussed all test results and treatment plan with he and his were comfortable with his admission. Lab Data Attestation: I reviewed the patient's lab results. Lab results narrative: CBC shows a white count 8.2. Hemoglobin 10.7. On-call electrolytes unremarkable gap 10 BUN is 17 creatinine 0.7. Would be okay troponin elevated to 24. BNP elevated at 2242. Labs: Laboratory Results - last 24 hr 05/04/21 05/04/21 05/04/21 15:18 15:18 15:18 WBC 8.2 RBC 4.19 L Hgb 10.7 L Hct 32.9 L MCV 78.5 L MCH 25.5 L MCHC 32.5 RDW Std Deviation 49.9 H RDW Coeff of Sebastian 17.5 H Plt Count 208 MPV 10.7 Immature Gran % (Auto) 0.500 Neut % (Auto) 77.6 H Lymph % (Auto) 9.2 L [place] % (Auto) 10.8 H Eos % (Auto) 1.2 Baso % (Auto) 0.7 Absolute Neuts (auto) 6.3 Absolute Lymphs (auto) 0.75 L Nucleated RBC % 0 Sodium 138 Potassium 3.5 Chloride 102 Carbon Dioxide 26.0 Anion Gap 10 BUN 17 Creatinine 0.70 Estim Creat Clear Calc 55.08 Est GFR (MDRD) Af Amer 139 Est GFR (MDRD) Non-Af 115 BUN/Creatinine Ratio 24.2 H Glucose 109 H Calcium 8.2 L Troponin I High Sens 224 H* B-Natriuretic Peptide 2242.1 H Radiography Chest X-Ray - ED: 1 View, Read by ED Physician, Heart, Mediastinum, Bony Structures and Right Infiltrate Diagnostic Testing: Clinical Impression(s) from Imaging Studies Chest X-Ray 05/04/21 15:38 IMPRESSION: Right perihilar and right lower lobe infiltrate. Electronically Signed: Flynn Sanford MD at 15:50 EDT , Service support , Chest x-ray portable 1 view interpreted by myself without perihilar and right lower lobe infiltrate consistent with acute pneumonia. Discharge Plan Triage Chief Complaint: Shortness of Breath ED Provider: Pradip Ackerman Dx/Rx/DC Orders Clinical Impression: Right lower lobe pneumonia, Ischemic cardiomyopathy, Diabetes Prescriptions: No Action cholecalciferol (vitamin D3) 1,000 unit capsule 1,000 unit PO DAILY RF: 0 ibuprofen [Advil] 200 mg tablet 200 mg PO Q6H PRN (Reason: Pain/Inflammation) RF: 0 potassium chloride 10 mEq tablet extended release 10 meq PO BID RF: 0 furosemide 20 mg tablet 20 mg PO DAILY RF: 0 nitroglycerin 0.4 mg tablet, sublingual 0.4 mg SUBLINGUAL Q5-15M PRN (Reason: chest pain) Qty: 25 RF: 11 metoprolol tartrate 25 mg tablet 12.5 mg PO BID RF: 0 atorvastatin 80 MG tablet 80 mg PO QHS RF: 0 clopidogrel 75 MG tablet 75 mg PO DAILY RF: 0 triamcinolone acetonide 1 APPLIC cream 1 applic TOPICAL BID PRN (Reason: Dry Skin) RF: 0 escitalopram oxalate 10 MG tablet 10 mg PO DAILY RF: 0 white petrolatum 1 APPLIC bottle 1 applic TOPICAL BID PRN (Reason: Itching) RF: 0 omeprazole 40 MG capsule,delayed release(DR/EC) 40 mg PO DAILY RF: 0 aspirin 81 MG tablet 81 mg PO DAILY RF: 0 acetaminophen 650 MG tablet extended release 650 mg PO PRN PRN (Reason: arthritis) RF: 0 sacubitril-valsartan 1 EACH tablet 1 ea PO BID RF: 0 potassium chloride 10 mEq capsule, extended release 20 meq PO DAILY RF: 0 albuterol sulfate 90 mcg/actuation HFA aerosol inhaler 1 puff inhalation Q6H PRN PRN (Reason: Sob &/Or Wheezing) Qty: 1 RF: 3 Primary Care Provider: Lazarus Garcia Chi Referrals: Lazarus Garcia Chi, MD [Primary Care Provider] - Disposition Disposition: Acute Care Hospital [facility]
[2021-05-04 15:28] LABS: Absolute Lymphocyte Count 0.75 X10^3/uL (0.83-4.51); Absolute Neutrophil Count 6.3 X10^3/uL (2.0-7.7); Basophil# 0.06 X10^3/uL; Basophil% 0.7 % (0-1); Eosinophils% 1.2 % (0-5); Hematocrit 32.9 % (40-54); Hemoglobin 10.7 g/dL (13.0-16.5); Lymphocyte # 0.75 X10^3/ul (0.83-4.51); Lymphocyte % 9.2 % (19-41); Mean Corp Hgb Conc 32.5 g/dL (32-36); Mean Corpuscular Hgb 25.5 pg (27.0-32.0); Mean Corpuscular Volume 78.5 fL (80-94); Mean Platelet Vol. 10.7 fl (6.2-12.0); Monocyte# 0.88 X10^3/uL; Monocyte% 10.8 % (0-10); NRBC Flagged by Analyzer 0 % (0-5); Neutrophil # 6.33 X10^3/uL (2.7-7.7); Neutrophil % 77.6 % (47-70); Platelet Count 208 K/mm3 (150-450); RBC Distribution Width CV 17.5 % (11.6-14.6); RBC Distribution Width SD 49.9 fl (35.1-43.9); Red Blood Count 4.19 M/mm3 (4.6-6.2); White Blood Count 8.2 K/mm3 (4.4-11.0)
--- NOTE | 2021-05-04 15:38 | RAD_ITS ---
STUDY: X-RAY CHEST REASON FOR EXAM: Male, 81 years old. Chest pain TECHNIQUE: Single AP portable view of the chest. COMPARISON: Comparison is made with prior study dated 02/17/2021. FINDINGS: EKG electrodes are seen. There now is evidence of progressive infiltrate in the right perihilar region as well as in the right lower lobe. There is no demonstrated pleural abnormality. A left-sided ICD is seen. Prior CABG. Normal mediastinum and evan. Normal visualized pulmonary arteries. There is atherosclerotic calcification of the aortic arch with tortuosity. There are diffuse degenerative changes of the visualized thoracic spine. Normal visualized ribs, clavicles, and shoulders. There is no demonstrated abnormality of the visualized soft tissue structures of the upper abdomen. RAD/Chest 1 View (Portable) IMPRESSION: Right perihilar and right lower lobe infiltrate. Electronically Signed: Flynn Sanford MD at 15:50 EDT , Service support ,
[2021-05-04 15:54] LABS: Anion Gap 10 (5-15); BUN 17 mg/dL (7-18); BUN/Creat Ratio 24.2 RATIO (10-20); Calcium,Total 8.2 mg/dL (8.5-10.1); Chloride 102 mmol/L (98-107); EST Glomerular Filtration Rate 115 mL/min (>60); Est Glom Filt Rate - Afr Amer 139 mL/min (>60); Estimated Creatinine Clearance 55.08 ml/min; Glucose 109 mg/dL (74-106); Potassium 3.5 mmol/L (3.5-5.1); Sodium Level 138 mmol/L (136-145); Troponin-I HS 224 pg/mL (3.0-78.0)
[2021-05-04 16:13] LABS: BNP,B-Type NATRIURETIC PEPTIDE 2242.1 pg/mL (0-100)
--- NOTE | 2021-05-04 17:12 | NURSING ---
PCU [facility]IKA PNEUMONIA, HX OF CABG, CARDIOMYOPATHY
[2021-05-04] MEDS: Ceftriaxone 1 GM/50 ML BAG IV (17:17)
--- NOTE | 2021-05-04 17:21 | HP.PCM_ITS ---
Documented by User: MIMA ArandaC 05/04/21 17:33 HPI - General General Date of Admission: 05/04/21 Date of Service: 05/04/21 Chief Complaint: Shortness of breath HPI Narrative ELLEN DILLARD, is a 81 M who presents with a 3-day history of shortness of breath. Patient states that he has noticed when he gets up to walk back and forth to the bathroom that he is increasingly short of breath by the time he sits back down. Patient also reports a productive cough and subjective chills. Patient denies chest pain, edema. Patient also states that he has not noticed a change in his weight. Patient reports extensive cardiac history including cardiac bypass x2, multiple stent placements and presence of a defibrillator. [facility] Medical History Abnormal stress test Acute respiratory failure with hypoxia Atherosclerosis of coronary artery bypass graft without angina pectoris Atherosclerosis of coronary artery of [place] without angina pectoris BPH (benign prostatic hyperplasia) Cardiac defibrillator in place Closed fracture dislocation of multiple fingers Concussion Essential (primary) hypertension Fall from ladder GERD (gastroesophageal reflux disease) HCAP (healthcare-associated pneumonia) Hyperlipidemia Hypertension Ischemic cardiomyopathy Laceration of head Left ventricular systolic dysfunction Non-rheumatic mitral regurgitation Nonrheumatic mitral valve regurgitation Old myocardial infarction Paroxysmal ventricular tachycardia Prostate cancer Pulmonary hypertension Sepsis Sinus node dysfunction Type 2 diabetes mellitus without complications Ventricular tachycardia Home Medications atorvastatin 80 mg PO QHS 12/31/17 [History Last Taken 05/03/21] clopidogrel 75 mg PO DAILY 12/31/17 [History Last Taken 05/04/21] escitalopram oxalate 10 mg PO DAILY 12/31/17 [History Last Taken 05/04/21] omeprazole 40 mg PO DAILY 01/24/18 [History Last Taken 05/04/21] aspirin 81 mg PO DAILY 01/26/18 [History Last Taken 05/04/21] albuterol sulfate 90 mcg/actuation aerosol inhaler 1 puff INHALATION Q6H PRN PRN #1 inhaler 09/28/18 [Rx Last Taken 05/04/21] cholecalciferol (vitamin D3) 25 mcg (1,000 unit) capsule 1,000 unit PO DAILY 1 07/16/18 [History Last Taken 05/04/21] sacubitril-valsartan 1 ea PO BID 06/19/19 [History Last Taken 05/04/21] nitroglycerin 0.4 mg sublingual tablet 0.4 mg SUBLINGUAL Q5-15M PRN #25 tab 07/17/19 [Rx Last Taken Unknown] furosemide 20 mg tablet 20 mg PO DAILY tab 12/24/20 [History Last Taken 05/04/21] metoprolol tartrate 25 mg tablet 12.5 mg PO BID tab 12/24/20 [History Last Taken 05/04/21] acetaminophen 1,000 mg PO DAILY PRN 05/04/21 [History Last Taken 05/04/21] potassium chloride 20 meq PO BID 05/04/21 [History Last Taken 05/04/21] Allergy/AdvReac Type Severity Reaction Status Date / Time codeine Allergy Anaphylaxis Verified 02/17/21 17:26 Family History Father CAD (coronary artery disease) Mother CAD (coronary artery disease) Brother CAD (coronary artery disease) Surgical History H/O coronary artery bypass surgery (11/15/04) H/O resection of small bowel History of coronary artery stent placement Hx of cholecystectomy Presence of automatic implantable cardioverter-defibrillator (11/10/16) Social History Smoking Status: Former smoker how long ago did patient quit smokin years alcohol intake: never substance use type: does not use caffeine: No what type of physical activity do you participate in: none seatbelt use: always do you feel safe at home: Yes ROS Constitutional Constitutional: Reports chills; Denies anorexia, fatigue, fever(s), malaise or weakness Cardiovascular Cardiovascular: Reports dyspnea on exertion; Denies chest pain, edema, palpitations or syncope Respiratory/Chest Respiratory/Chest: Reports cough, dyspnea on exertion, productive cough, shortness of breath with exertion and tachypnea; Denies hemoptysis Gastrointestinal Gastrointestinal: Denies abdominal pain, constipation, diarrhea, nausea or vomiting Genitourinary Genitourinary: Denies dysuria Musculoskeletal Musculoskeletal: Denies back pain, extremity pain, joint pain, joint stiffness or joint swelling Integumentary Integumentary: Denies dry skin Neurologic Neurologic: Denies abnormal gait, abnormal speech, confusion or dizziness Psychiatric Psychiatric: Denies anxiety or depression Endocrine Endocrinology: Denies change in body appearance Hematologic/Lymphatic Hematologic/Lymphatic: Denies anemia Vital Signs Vital Signs Vital Signs: 05/04/21 14:26 05/04/21 14:36 05/04/21 15:08 Temperature 96.0 F L 98.9 F Temperature Source Temporal Temporal Pulse Rate 83 78 Respiratory Rate 18 20 H Respiratory Effort Normal Respiratory Depth Normal Respiratory Pattern Normal Blood Pressure 129/68 H 103/54 L Blood Pressure Mean 88 70 Pulse Ox 94 94 94 Oxygen Delivery Method Room Air Room Air Room Air Oxygen Flow Rate (L/min) 05/04/21 15:17 05/04/21 16:33 05/04/21 17:05 Temperature 98.4 F 98.6 F 98.4 F Temperature Source Temporal Temporal Temporal Pulse Rate 79 75 74 Respiratory Rate 18 18 18 Respiratory Effort Respiratory Depth Respiratory Pattern Blood Pressure 115/63 112/62 105/85 H Blood Pressure Mean 80 78 91 Pulse Ox 94 95 94 Oxygen Delivery Method Room Air Room Air Room Air Oxygen Flow Rate (L/min) 96 Weight Weight: 162 lb Body Mass Index (BMI) 25.3 Physical Exam Const alert, oriented x3 and no apparent distress General Appearance: cooperative HEENT normocephalic and head/scalp atraumatic Eyes conjunctivae normal and no scleral icterus Neck supple General: trachea midline Resp normal respiratory effort, normal air movement and clear to auscultation bilaterally Effort and Inspection: tachypneic Cardio regular rate, regular rhythm, S1 normal heart sound, S2 normal heart sound and peripheral pulses 2+ throughout GI normal to inspection, nondistended, normoactive bowel sounds, soft to palpation and non-tender Extremity normal capillary refill and no clubbing, cyanosis or edema General Extremity: no tenderness to palpation of joints or extremities Skin General Skin Exam: turgor normal Lesions: no lesions Rashes: no rashes Neuro no focal motor deficits and no sensory deficits noted Speech: speech normal Motor Exam: Negative for general weakness Psych thought process normal, cooperative and affect normal Appearance: appropriate Results Lab / Micro Data Result Diagrams: 05/04/21 15:18 05/04/21 15:18 Labs: Laboratory Results - last 24 hr 05/04/21 15:18: WBC 8.2, RBC 4.19 L, Hgb 10.7 L, Hct 32.9 L, MCV 78.5 L, MCH 25.5 L, MCHC 32.5, RDW Std Deviation 49.9 H, RDW Coeff of Sebastian 17.5 H, Plt Count 208, MPV 10.7, Immature Gran % (Auto) 0.500, Neut % (Auto) 77.6 H, Lymph % (Auto) 9.2 L, Bartholomew % (Auto) 10.8 H, Eos % (Auto) 1.2, Baso % (Auto) 0.7, Absolute Neuts (auto) 6.3, Absolute Lymphs (auto) 0.75 L, Nucleated RBC % 0 05/04/21 15:18: Sodium 138, Potassium 3.5, Chloride 102, Carbon Dioxide 26.0, Anion Gap 10, BUN 17, Creatinine 0.70, Estim Creat Clear Calc 55.08, Est GFR (MDRD) Af Amer 139, Est GFR (MDRD) Non-Af 115, BUN/Creatinine Ratio 24.2 H, Glucose 109 H, Calcium 8.2 L, Troponin I High Sens 224 H* 05/04/21 15:18: B-Natriuretic Peptide 2242.1 H Micro: Microbiology 05/04/21 15:10 Interface Orders SARS-CoV-2 Antigen (Rapid) - Final Radiology Impression Chest X-Ray 05/04/21 15:38 IMPRESSION: Right perihilar and right lower lobe infiltrate. Electronically Signed: Flynn Sanford MD at 15:50 EDT , Service support , Assessment & Plan Assessment/Plan (1) Right lower lobe pneumonia: QUALIFIERS: Pneumonia type: due to unspecified organism Qualified Code(s): J18.9 - Pneumonia, unspecified organism (2) CHF exacerbation: QUALIFIERS: Heart failure type: unspecified Qualified Code(s): I 50.9 - Heart failure, unspecified PLAN: 1. CHF exacerbation -Admit to PCU from cardiac monitoring -IV Lasix ordered -Trend cardiac enzymes -Strict intake and output along with daily weights -Echocardiogram ordered for a.m. -Elevate bilateral lower extremities, currently no edema noted -PT and OT to eval and treat -CBC, CMP, lipid profile, magnesium, phosphorus, TSH ordered for a.m. 2. Right lower lobe pneumonia -Legionella and strep pneumonia urine ordered -Sputum culture ordered -Patient initiated on Rocephin and azithromycin in ER, will continue -As needed albuterol nebulizer treatments ordered -Respiratory panel ordered, Covid negative -Encourage incentive spirometry -MRSA PCR ordered 3. Hypertension -Continue metoprolol, sacubitril/valsartan -Vital signs per protocol, trend 4. History of CABG x2 -Patient has had quadruple coronary artery bypass in 1995 and then again in 2004 -Continue Plavix and aspirin 5. Hyperlipidemia -Continue atorvastatin DVT prophylaxis-SCDs and subcu Lovenox This patient was seen by Elina Herrera NP-C under the supervision of Dr. Medley. Documented by User: Dr. Coby Medley DO 05/04/21 19:42 HPI - General General Date of Admission: 05/04/21 Date of Service: 05/04/21 Chief Complaint: Shortness of breath HPI Narrative This patient was seen in conjunction with Elina Tavares NP. The following is a representation my independent history and physical examination. Please see below for addendum the above. Mr. Dillard is a white male who presented to [facility] emergency department on 05/04/2021 with a chief complaint of shortness of breath. He reports that it started approximately 1 week ago where he has had increasing progressive shortness of breath predominantly with exertion walking. His symptoms are better at rest. He denies any chest pain but has had some mid to low back pain that does not seem to be exertional. He has had some coughing of white sputum but denies any fever or chills. He has been vaccinated for COVID-19. He states his symptoms are not worse by lying flat and denies any orthopnea or paroxysmal nocturnal dyspnea. He has a significant cardiac history that includes CAD status post CABG x2 (1995 and 2004 ), PCI with MIGDALIA to in-stent stenosis, AICD implantation for ischemic cardiomyopathy as well as hypertension and hyperlipidemia. He follows with Dr. Gonzales and last saw him on 12/24/2020. In the emergency department he was found to be afebrile, normotensive with a heart rate in the 70s and a mildly elevated respiratory rate from 18-20 with oxygen saturations of 94 to 96% on room air. His CBC showed a mild chronic anemia that appears to be stable but was otherwise fairly unremarkable. His BMP showed normal electrolytes and renal function. His initial troponin was found to be 244 and his BNP was 2242.1. His chest x-ray showed suggested a right perihilar and right lower lobe infiltrate. His EKG showed no ischemic changes. [facility] Medical History Abnormal stress test Acute respiratory failure with hypoxia Atherosclerosis of coronary artery bypass graft without angina pectoris Atherosclerosis of coronary artery of [place] without angina pectoris BPH (benign prostatic hyperplasia) Cardiac defibrillator in place Closed fracture dislocation of multiple fingers Concussion Essential (primary) hypertension Fall from ladder GERD (gastroesophageal reflux disease) HCAP (healthcare-associated pneumonia) Hyperlipidemia Hypertension Ischemic cardiomyopathy Laceration of head Left ventricular systolic dysfunction Non-rheumatic mitral regurgitation Nonrheumatic mitral valve regurgitation Old myocardial infarction Paroxysmal ventricular tachycardia Prostate cancer Pulmonary hypertension Sepsis Sinus node dysfunction Type 2 diabetes mellitus without complications Ventricular tachycardia Home Medications atorvastatin 80 mg PO QHS 12/31/17 [History Last Taken 05/03/21] clopidogrel 75 mg PO DAILY 12/31/17 [History Last Taken 05/04/21] escitalopram oxalate 10 mg PO DAILY 12/31/17 [History Last Taken 05/04/21] omeprazole 40 mg PO DAILY 01/24/18 [History Last Taken 05/04/21] aspirin 81 mg PO DAILY 01/26/18 [History Last Taken 05/04/21] albuterol sulfate 90 mcg/actuation aerosol inhaler 1 puff INHALATION Q6H PRN PRN #1 inhaler 09/28/18 [Rx Last Taken 05/04/21] cholecalciferol (vitamin D3) 25 mcg (1,000 unit) capsule 1,000 unit PO DAILY 05/16/19 [History Last Taken 05/04/21] sacubitril-valsartan 1 ea PO BID 06/19/19 [History Last Taken 05/04/21] nitroglycerin 0.4 mg sublingual tablet 0.4 mg SUBLINGUAL Q5-15M PRN #25 tab 07/17/19 [Rx Last Taken Unknown] furosemide 20 mg tablet 20 mg PO DAILY tab 12/24/20 [History Last Taken 05/04/21] metoprolol tartrate 25 mg tablet 12.5 mg PO BID tab 12/24/20 [History Last Taken 05/04/21] acetaminophen 1,000 mg PO DAILY PRN 05/04/21 [History Last Taken 05/04/21] potassium chloride 20 meq PO BID 05/04/21 [History Last Taken 05/04/21] Allergy/AdvReac Type Severity Reaction Status Date / Time codeine Allergy Anaphylaxis Verified 02/17/21 17:26 Family History Father CAD (coronary artery disease) Mother CAD (coronary artery disease) Brother CAD (coronary artery disease) Surgical History H/O coronary artery bypass surgery (11/15/04) H/O resection of small bowel History of coronary artery stent placement Hx of cholecystectomy Presence of automatic implantable cardioverter-defibrillator (11/10/16) Social History Smoking Status: Former smoker how long ago did patient quit smokin years alcohol intake: never substance use type: does not use caffeine: No what type of physical activity do you participate in: none seatbelt use: always do you feel safe at home: Yes ROS Constitutional Constitutional: Reports fatigue and weakness; Denies anorexia, change in weight, chills, fever(s), malaise, night sweats, weight gain or weight loss Eyes Eyes: Denies blurry vision, change in vision, discharge from eye(s), double vision, erythema, eye pain, irritation or itchy eyes ENT HEENT: Denies abnormal hearing, dysphagia, ear pain, epistaxis, headache(s), hearing loss, loss taste/smell, nasal congestion, nasal discharge, post nasal drip, sinus pain, sinus pressure, sore throat or throat swelling Cardiovascular Cardiovascular: Reports edema; Denies chest pain, claudication, orthopnea, palp itations, paroxysmal nocturnal dyspnea or syncope Respiratory/Chest Respiratory/Chest: Reports cough, shortness of breath at rest and shortness of breath with exertion; Denies hemoptysis or wheezing Gastrointestinal Gastrointestinal: Denies abdominal pain, constipation, diarrhea, dyspepsia, hematemesis, hematochezia, melena, nausea or vomiting Genitourinary Genitourinary: Denies dysuria, hematuria, nocturia, oliguria, polyuria, urinary frequency, urinary hesitancy, urinary incontinence or urinary urgency Musculoskeletal Musculoskeletal: Reports back pain, joint pain and joint stiffness; Denies extremity pain, joint swelling, limited range of motion, muscle weakness, neck pain or stiffness Integumentary Integumentary: Denies dry skin, jaundice, lesions, pruritus, rash or wounds Neurologic Neurologic: Denies abnormal gait, abnormal speech, confusion, dizziness, focal weakness, headache(s), lack of coordination, numbness, seizures, sensory deficit, tingling, tremor(s) or weakness Psychiatric Psychiatric: Denies anxiety, depression, homicidal ideation or suicidal ideation Endocrine Endocrinology: Denies change in body appearance, cold intolerance, heat i ntolerance, polydipsia or polyuria Hematologic/Lymphatic Hematologic/Lymphatic: Denies anemia, easy bleeding, easy bruising or lymphadenopathy Physical Exam Const alert, oriented x3 and no apparent distress Constitutional Narrative: Obese white male sitting up in bed, appears comfortable, at bedside, nontoxic General Appearance: cooperative and well developed HEENT normocephalic, head/scalp atraumatic, moist oral mucous membranes and oropharynx normal HEENT Narrative: Mallampati is 2, no thrush Eyes PERRL and EOMs intact bilaterally Eyes Narrative: Conjunctiva are normal with no scleral icterus Neck no lymphadenopathy, supple, thyroid normal and no carotid bruits Neck Narrative: Mild JVD General: trachea midline Resp normal respiratory effort and normal air movement Resp Narrative: Crackles right base and right middle lobe Auscultation: rales; Negative for rhonchi or wheezes Cardio regular rate, regular rhythm, S1 normal heart sound, S2 normal heart sound, no murmurs, no rub, no gallops and peripheral pulses 2+ throughout GI normal to inspection, nondistended, normoactive bowel sounds, soft to palpation, non-tender and non-distended Palpation: Negative for no hepatosplenomegaly Extremity normal capillary refill Extremity Narrative: Trace bilateral lower extremity edema, no cyanosis or clubbing General Extremity: no tenderness to palpation of joints or extremities Skin no wounds, skin turgor normal, no jaundice, no petechiae and no mottling General Skin Exam: no breakdown Lesions: no lesions Rashes: no rashes Neuro CN's II-XII intact bilaterally, no focal motor deficits, no sensory deficits n oted and deep tendon reflexes 2+ bilaterally Neuro Narrative: Mild generalized weakness proximal greater than distal Speech: speech normal Motor Exam: general weakness Psych thought process normal, cooperative and affect normal Appearance: appropriate Results Lab / Micro Data Attestation: I reviewed the patient's lab results. Result Diagrams: 05/04/21 15:18 05/04/21 15:18 Assessment & Plan Assessment/Plan (1) Right lower lobe pneumonia: QUALIFIERS: Pneumonia type: due to unspecified organism Qualified Code(s): J18.9 - Pneumonia, unspecified organism (2) CHF exacerbation: QUALIFIERS: Heart failure type: unspecified Qualified Code(s): I50.9 - Heart failure, unspecified (3) Shortness of breath: PLAN: Assessment: Shortness of breath HFrEF-systolic/decompensated Possible right lower lobe pneumonia Hypertension CAD Hyperlipidemia COPD Vitamin D deficiency Depression Ischemic cardiomyopathy GERD Plan: -Clinical picture is somewhat confusing--> patient appears to be in acute heart failure along with a possible pneumonia -Lasix IV push twice daily -Continue home cardiac medications -Check echocardiogram -Cycle cardiac enzymes -May need to consider getting cardiology involved if his shortness of breath seems to be anginal equivalent--> patient's cardiac history is quite dramatic -Was given azithromycin and ceftriaxone in the emergency department and will continue these upon admission -COVID-19 was negative -Oral PCR is pending -Sputum culture is ordered -Incentive spirometry -Pulmonary toilet -MRSA PCR -Urine Legionella and strep pneumo antigens Charges/Coding Visit Charges Inpatient E&M: 52734 Init Hosp L3
--- NOTE | 2021-05-04 18:08 | ECHOCS_ITS ---
Version 2 Reason For Study: CHF Procedure This was a 2D Doppler, Color Flow transthoracic echocardiogram. Contrast injection was performed. Exam performed portable in patient room. Left Ventricle Normal LV size. Moderate segmental systolic dysfunction (see wall motion). Stage 2 diastolic dysfunction. The estimated ejection fraction is 35 %. Mid-anteroseptal : Akinetic. [place] : Akinetic. Mid-Anterior : Akinetic. There are regional wall motion abnormalities as specified. Right Ventricle Normal RV size. ICD or pacer leads identified within the right ventricle. Normal systolic function. Atria Normal left atrium. Normal right atrium. Mitral Valve Posterior leaflet diffuse mitral valve thickening. Mild-Moderate (1-2+) eccentric mitral valve insufficiency. Tricuspid Valve Normal tricuspid valve. Mild to moderate (1-2+) tricuspid valve insufficiency. Pulmonary artery systolic pressure is 38 mmHg. Aortic Valve Trisinus/trileaflet aortic valve. Mild (1+) eccentric aortic valve insufficiency. Pulmonic Valve Normal pulmonic valve. Great Vessels Normal aortic root. The pulmonary artery is normal size. Normal inferior vena cava. Pericardium/Pleural No pericardial effusion. Medication Diluted definity 4ml given slow IV push to enhance endocardial definition. MMode/2D Measurements & Calculations LVIDd: 5.3 cm IVSd: 1.1 cm Ao root diam: 2.7 cm LVIDs: 4.6 cm LVPWd: 1.0 cm RVDd: 3.9 cm FS: 13.2 % LAV(MOD-bp): 63.8 ml LVAd ap4: 40.5 cm2 SV(MOD-sp4): 31.4 ml LAV(MOD-bp) Indexed: 35.1 ml/m2 LVLd ap4: 8.1 cm LAV(MOD-sp2): 72.0 ml EDV(MOD-sp4): 165.5 ml LAV(MOD-sp4): 54.0 ml EDV(sp4-el): 172.7 ml LVAs ap4: 36.4 cm2 LVLs ap4: 8.1 cm ESV(MOD-sp4): 134.1 ml ESV(sp4-el): 139.0 ml EF(MOD-sp4): 19.0 % EF(sp4-el): 19.5 % SV(sp4-el): 33.8 ml LA A4 area: 19.2 cm2 LA dimension(2D): 4.8 cm RA A4 area: 15.1 cm2 Doppler Measurements & Calculations MV E max holland: 96.7 cm/sec Lat Peak E' [place]: 11.2 cm/sec Med Peak E' [place]: 5.4 cm/sec MV A max [place]: 60.8 cm/sec E/E' lat: 8.7 E/E' med: 17.8 MV E/A: 1.6 Ao V2 max: 184.2 cm/sec LV V1 max: 92.2 cm/sec PA V2 max: 87.6 cm/sec Ao max P.6 mmHg LV V1 max P.4 mmHg Ao V2 mean: 132.5 cm/sec Ao mean P.6 mmHg Ao V2 VTI: 29.4 cm TR max holland: 290.4 cm/sec TR max P.7 mmHg ECHO/Echo Complete W/ Contrast Interpretation Summary Posterior leaflet diffuse mitral valve thickening. Mild-Moderate (1-2+) eccentric mitral valve insufficiency. Pulmonary artery systolic pressure is 38 mmHg. Normal LV size. Moderate segmental systolic dysfunction (see wall motion). Mid-anteroseptal : Akinetic. [place] : Akinetic. Mid-Anterior : Akinetic. Stage 2 diastolic dysfunction. The estimated ejection fraction is 35 %. Ordering Physician: Coby Medley Referring Physician: Lazarus Garcia Chi Performed By: Breanna Contreras RDCS, RVT
[2021-05-04] MEDS: Furosemide 40 MG/4 ML Vial IV (19:34)
[2021-05-04 19:53] LABS: Troponin-I HS 240 pg/mL (3.0-78.0)
[2021-05-04] MEDS: Metoprolol Tartrate 25 MG Tablet 12.5 MG PO (21:54)
[2021-05-04] MEDS: Atorvastatin Calcium 80 MG Tablet PO (21:54)
[2021-05-04] MEDS: SACUBITRIL/VALSARTAN 97-103 MG TABLET 1 EACH PO (21:54)
[2021-05-04] MEDS: 0.9% Saline Lock 10 ML Syringe IV (21:57)
[2021-05-04 22:10] LABS: M R Staph aureus DNA By PCR Negative (Negative); Probe Check PASS; Specimen Processing Control PASS
[2021-05-04 22:12] LABS: Troponin-I HS 232 pg/mL (3.0-78.0)
[2021-05-04] MEDS: Acetaminophen 325 MG Tablet 650 MG PO (23:52)
[2021-05-05] VITALS (12 sets, daily range): BP systolic 114–136; BP diastolic 64–84; PULSE 82–98; RESP 18; TEMP 36.6–36.8; O2SAT 93–96
[2021-05-05 06:54] LABS: Absolute Neutrophil Count 5.2 X10^3/uL (2.0-7.7); Basophil# 0.05 X10^3/uL; Basophil% 0.7 % (0-1); Eosinophil# 0.12 X10^3/uL; Eosinophils% 1.6 % (0-5); Hematocrit 32.4 % (40-54); Hemoglobin 10.6 g/dL (13.0-16.5); Mean Corp Hgb Conc 32.7 g/dL (32-36); Mean Corpuscular Hgb 25.3 pg (27.0-32.0); Mean Corpuscular Volume 77.3 fL (80-94); Monocyte# 0.91 X10^3/uL; Monocyte% 12.1 % (0-10); NRBC Flagged by Analyzer 0 % (0-5); Neutrophil % 69.2 % (47-70); Platelet Count 208 K/mm3 (150-450); RBC Distribution Width CV 17.3 % (11.6-14.6); RBC Distribution Width SD 48.4 fl (35.1-43.9); Red Blood Count 4.19 M/mm3 (4.6-6.2); White Blood Count 7.5 K/mm3 (4.4-11.0)
[2021-05-05 07:43] LABS: ALB/GLOB Ratio 0.5 RATIO (0.9-2.4); AST(SGOT) 134 U/L (15-37); Alanine Aminotransfer ALT/SGPT 38 U/L (16-61); Albumin, Serum 2.2 g/dL (3.2-5.0); Alkaline Phosphatase 428 U/L (45-117); Anion Gap 11 (5-15); BUN 15 mg/dL (7-18); BUN/Creat Ratio 23.5 RATIO (10-20); Calcium,Total 7.7 mg/dL (8.5-10.1); Chloride 103 mmol/L (98-107); Cholesterol 113 mg/dL (200); Creatinine, Serum 0.64 mg/dL (0.70-1.30); EST Glomerular Filtration Rate 128 mL/min (>60); Est Glom Filt Rate - Afr Amer 155 mL/min (>60); Estimated Creatinine Clearance 41.67 ml/min; Globulin 4.7 g/dL (2.2-4.2); Glucose 120 mg/dL (74-106); High Density Lipoprotein 25 mg/dL; Magnesium 0.8 mg/dL (1.6-2.6); Phosphorus 3.7 mg/dL (2.5-4.9); Potassium 2.8 mmol/L (3.5-5.1); Protein, Total 6.9 g/dL (6.4-8.2); Sodium Level 138 mmol/L (136-145); Thyroid Stim Hormone (TSH) 1.13 uIU/mL (0.358-3.74); Triglycerides 86 mg/dL; Very Low Density Lipoprotein 17 mg/dL (5-40)
[2021-05-05] MEDS: Aspirin E.C. 81 MG Tablet PO (08:02)
--- NOTE | 2021-05-05 08:02 | RAD_ITS ---
STUDY: X-RAY CHEST REASON FOR EXAM: Male, 81 years old. CHF TECHNIQUE: AP and lateral views of the chest. COMPARISON: Comparison is made with prior study dated 05/04/2021. FINDINGS: EKG electrodes are seen. Stable right infrahilar and right lower lobe infiltrates. Thickening of the right minor fissure. There is blunting of the left costophrenic angle. Sternal cerclage wires and vascular clips are present from a prior sternotomy and coronary artery bypass graft procedure (CABG). A left-sided dual-chamber pacemaker is seen. Normal mediastinum and evan. Normal visualized pulmonary arteries. There is atherosclerotic calcification of the aortic arch with tortuosity. There are diffuse degenerative changes of the visualized thoracic spine. Normal visualized ribs, clavicles, and shoulders. There is no demonstrated abnormality of the visualized soft tissue structures of the upper abdomen. RAD/Chest PA and Lateral IMPRESSION: Stable examination. Electronically Signed: Flynn Sanford MD at 12:56 EDT , Service support ,
[2021-05-05] MEDS: Cholecalciferol (VIT D3) 25 MCG TABLET (1,000 UNITS) PO (08:03)
[2021-05-05] MEDS: Potassium Chloride Oral Tablet 20 MEQ 60 MEQ PO (08:55)
[2021-05-05] MEDS: Escitalopram Oxalate 10 MG Tablet PO (09:05)
[2021-05-05] MEDS: Clopidogrel Bisulfate 75 MG Tablet PO (09:05)
[2021-05-05] MEDS: SACUBITRIL/VALSARTAN 97-103 MG TABLET 1 EACH PO ×2 (09:05→21:36)
[2021-05-05] MEDS: Metoprolol Tartrate 25 MG Tablet 12.5 MG PO ×2 (09:05→21:36)
[2021-05-05] MEDS: Pantoprazole Sodium 40 MG Tablet PO (09:05)
[2021-05-05] MEDS: Enoxaparin 40 MG/0.4 ML Syringe SC (09:09)
[2021-05-05] MEDS: Furosemide 40 MG/4 ML Vial IV ×2 (09:13→17:06)
[2021-05-05] MEDS: Magnesium Sulfate 4gm/100mL 4 GM/100 ML IV.SOLN. IV (09:44)
[2021-05-05] MEDS: 0.9% Saline Lock 10 ML Syringe IV ×2 (09:46→17:06)
[2021-05-05] MEDS: Potassium Chloride Oral Tablet 20 MEQ PO ×2 (11:32→17:06)
--- NOTE | 2021-05-05 11:45 | CASEMGMT ---
MEET REYES assessment: Face to Face with patient for initial transition planning/care coordination assessment. MEET REYES introduced self and role at [facility], pt voices understanding and consents to assessment. Pt is lying in bed in no distress on room air. Pt is A/Ox4 and answers all questions appropriately. Care providers, pharmacy, and demographics verified. Presentation: SOB x1 week, worse w/ exertion Admitting dx: Decompensated HF PCP: Jose Specialists: Pt states no current specialists. Preferred Pharmacy: [facility] Insurance: [facility] Prescription Benefit: Hum[employer] Living Will/HPOA: Pt states has LW/HPOA and is aware that they are not on file at [facility]. Pt states his , Paola Curtis, is HPOA. LNOK: Paola Curtis, ; Wayne Moon, son Living Arrangements: Pt states lives with in mobile home with 3 ra[address] steps in and states no concerns at home. Pt states has been assisting with all ADL's. Transportation: Pt states drives and states no transportation concerns. DME/HHC: Pt states has a cane and walker at home, states no need for any further DME. Pt states no hx of HHC or SNF. Pt states some concerns with going home at time of discharge. CM to f/u with regarding plan but pt states she was up thru night and was home sleeping. Pt is retired. Pt states quit smoking cigarettes 24 years ago and rarely drinks ETOH. Pt voices no further concerns/needs. CM to follow for therapy notes and any further discharge planning/needs. Advised pt to ask for CM if any further questions/concerns/needs arise, voices understanding. Pt Goal: Home Plan: TBD, pending discussion with and further therapy. [place] MEET REYES
--- NOTE | 2021-05-05 16:00 | CASEMGMT ---
Per RN CM patient's wants patient to go to TCU. SW called Heidi with TCU and left a message with referral. Karena Webb TAKER OFF [employer]YING KILN MILADYS
--- NOTE | 2021-05-05 16:24 | CHAPLAIN ---
Type of Pastoral Visit _x__ Initial Visit ___ Follow-up Visit ___ On-call Visit ___ General Patient Visit ___ Spiritual Assessment ___ Family Conference ___ Bereavement ___ Rapid Response ___ Code Blue ___ Other (describe below) Pastoral Care Referral From _x__ Patient ___ Family ___ Nurse ___ Physician ___ Seating Captain ___ Cementer Helper ___ Other (describe below) Sacrament/Intervention _x__ Active listening ___ Anointing ___ Jainism ___ Bereavement ___ Communion ___ Aleida exploration ___ ___ Life review _x__ Prayer ___ Reconciliation ___ Sacrament of Sick _x__ Supportive presence ___ Wedding ___ Other (describe below) Pastoral Comments patient is watching TV and speaks of his who also has physical needs; pt has limited family support; pt watches moravian services for his hinduism support but does not belong to a moravian
[2021-05-05] MEDS: Glucerna Shake 120 ML LIQUID PO ×2 (17:13→19:30)
--- NOTE | 2021-05-05 19:09 | PN.HOSP_ITS ---
Subjective Subjective Patient was seen and examined today, I talked with his who was then his room at the time my examination. I reviewed the patient's medical record and looked at the patient's chest x-rays including the one I repeated this morning. I feel the patient most likely has congestive heart failure but I do not feel he is pneumonia. I have taken the liberty of stopping his antibiotics, he will remain on IV Lasix. Patient is currently on room air, patient's states that she would like the patient to go to an extended care facility for short- term rehab services, she prefers TCU. Objective Data Objective Data Vital Signs: Vital Signs Temp Pulse Resp BP Pulse Ox 98.3 F 90 18 118/64 93 05/05/21 15:38 05/05/21 15:38 05/05/21 15:38 05/05/21 15:38 05/05/21 15:38 Oxygen Flow Rate (L/min) 96 Oxygen Delivery Method Room Air Weight: 68.9 kg Body Mass Index (BMI) 30.5 Intake & Output: Intake and Output for Last 24 Hours 05/03/21 05/04/21 05/05/21 23:59 23:59 23:59 Intake Total 645 / 645 1065 / 1065 Output Total 700 / 700 800 / 800 Balance -55 / -55 265 / 265 Medical Nutrition Assessment Dietitian: Malnutrition Criteria Met Start: 05/05/21 16:47 Freq: Status: Active Protocol: Document 05/05/21 17:11 RMA (Rec: 05/05/21 17:12 RMA [id number]) Nutrition Malnutrition Evidence of Malnutrition Exists Yes Malnutrition (moderate): Chronic Evidenced By Suboptimal Energy Intake ( Moderate),Weight Loss ( Moderate),Physical Changes ( Moderate) Clinical Problem Chronic Disease or Condition Related Malnutrition Etiology Moderate to severe protein/ calorie malnutrition in the context of chronic illness/ advanced age related to inadequate oral intake Signs/Symptoms as evidenced by ~6% wt loss x 2 months, ~13% wt loss x 8 months, +NFPE with muscle and fat wasting in face, arms and legs noted and suspect inadequate oral intake as established w/ meals. Status Active Problem Recommendation Dietitian Recommendations/Changes Will adjust diet to Carbohydrate-Controlled/ Cardiac w/ 1500ml FR; liberalize diet as indicated to optimize intake at meals. Will add 120ml glucerna shake 4 times per day w/ medpass for extra calories/protein. Lab / Micro Data Result Diagrams: 05/05/21 06:40 05/05/21 06:40 Labs: Laboratory Results - last 24 hr 05/04/21 18:38: Troponin I High Sens 240 H* 05/04/21 19:58: MRSA (PCR) Negative 05/04/21 20:58: Troponin I High Sens 232 H* 05/05/21 06:40: WBC 7.5, RBC 4.19 L, Hgb 10.6 L, Hct 32.4 L, MCV 77.3 L, MCH 25.3 L, MCHC 32.7, RDW Std Deviation 48.4 H, RDW Coeff of Sebastian 17.3 H, Plt Count 208, MPV 11.0, Immature Gran % (Auto) 0.400, Neut % (Auto) 69.2, Lymph % (Auto) 16.0 L, Davison % (Auto) 12.1 H, Eos % (Auto) 1.6, Baso % (Auto) 0.7, Absolute Neuts (auto) 5.2, Absolute Lymphs (auto) 1.20, Nucleated RBC % 0 05/05/21 06:40: Sodium 138, Potassium 2.8 L, Chloride 103, Carbon Dioxide 24.0, Anion Gap 11, BUN 15, Creatinine 0.64 L, Estim Creat Clear Calc 41.67, Est GFR (MDRD) Af Amer 155, Est GFR (MDRD) Non-Af 128, BUN/Creatinine Ratio 23.5 H, Glucose 120 H, Calcium 7.7 L, Phosphorus 3.7, Magnesium 0.8 L*, Total Bilirubin 0.90, AST 134 H, ALT 38, Alkaline Phosphatase 428 H, Total Protein 6.9, Albumin 2.2 L, Globulin 4.7 H, Albumin/Globulin Ratio 0.5 L, Triglycerides 86, Cholesterol 113, LDL Cholesterol 71, VLDL Cholesterol 17, HDL Cholesterol 25 L, TSH 1.13 Micro: Microbiology 05/04/21 23:15 Sputum, Induced/Lukens Gram Stain - Final 05/04/21 19:00 Mucosa - Nasopharyngeal Respiratory Panel (PCR) - Final 05/04/21 19:40 Urine, Clean Catch Legionella Antigen - Final 05/04/21 19:40 Urine, Clean Catch Streptococcus pneumoniae Antigen (M - Final 05/04/21 15:10 Interface Orders SARS-CoV-2 Antigen (Rapid) - Final Radiography Diagnostic Testing: Radiology Impression Echocardiogram 05/04/21 18:08 Interpretation Summary Posterior leaflet diffuse mitral valve thickening. Mild-Moderate (1-2+) eccentric mitral valve insufficiency. Pulmonary artery systolic pressure is 38 mmHg. Normal LV size. Moderate segmental systolic dysfunction (see wall motion). Mid-anteroseptal : Akinetic. [place] : Akinetic. Mid-Anterior : Akinetic. Stage 2 diastolic dysfunction. The estimated ejection fraction is 35 %. Ordering Physician: Coby Medley Referring Physician: Lazarus Garcia Chi Performed By: Breanna Contreras, KIMBERLYNCS, RVT Chest X-Ray 05/05/21 08:02 IMPRESSION: Stable examination. Electronically Signed: Flynn Sanford MD at 12:56 EDT , Service support , Physical Exam Const alert, oriented x3 and no apparent distress Constitutional Narrative: Patient appears older than his stated age, he also appears frail General Appearance: cooperative, well kempt and well developed Orientation / Consciousness: awake, oriented to person, oriented to place and o riented to time HEENT normocephalic and moist oral mucous membranes Eyes PERRL, EOMs intact bilaterally and conjunctivae normal Neck nuchal rigidity, supple, no JVD, thyroid normal and no carotid bruits General: trachea midline Resp normal respiratory effort, no retractions, no use of accessory muscles and clear to auscultation bilaterally Auscultation: Negative for rales, rhonchi or wheezes Cardio regular rate, regular rhythm, S1 normal heart sound, S2 normal heart sound, no murmurs, no rub and no gallops GI normal to inspection, nondistended, normoactive bowel sounds, soft to palpation, non-tender and non-distended Extremity no clubbing, cyanosis or edema Skin no rashes or lesions noted General Skin Exam: no breakdown Neuro oriented x3, CN's II-XII intact bilaterally, no focal motor deficits and no sensory deficits noted Sensorium / Orientation: awake and alert Speech: speech normal Psych thought process normal and affect normal Assessment & Plan Assessment/Plan (1) CHF exacerbation: QUALIFIERS: Heart failure type: unspecified Qualified Code(s): I 50.9 - Heart failure, unspecified PLAN: 1. Acute exacerbation of chronic systolic congestive heart failure- patient's echocardiogram today showed a 35% ejection fraction, patient will remain on IV Lasix #2 ischemic cardiomyopathy #3 coronary artery disease #4 essential hypertension #5 debility-PT and OT will continue to see the patient, he will more than likely need short-term placement in the fpc facility #6 hyperlipidemia I do not believe the patient had pneumonia upon admission to the hospital. Charges/Coding Visit Charges Inpatient E&M: 68994 Subs Hosp L2
[2021-05-05] MEDS: Menthol/Lanolin/Calamine/Znox 113 GM Tube 1 APPLIC TOPICAL (21:36)
[2021-05-05] MEDS: Nystatin Powder 15gm Bottle 1 APPLIC TOPICAL (21:36)
[2021-05-05] MEDS: Atorvastatin Calcium 80 MG Tablet PO (21:36)
[2021-05-06] VITALS (12 sets, daily range): BP systolic 99–125; BP diastolic 58–69; PULSE 78–113; RESP 16–18; TEMP 36.6–37.3; O2SAT 92–95
[2021-05-06] MEDS: Aspirin E.C. 81 MG Tablet PO (07:47)
[2021-05-06] MEDS: Cholecalciferol (VIT D3) 25 MCG TABLET (1,000 UNITS) PO (07:47)
[2021-05-06] MEDS: Potassium Chloride Oral Tablet 20 MEQ PO ×2 (07:47→16:54)
--- NOTE | 2021-05-06 09:11 | CASEMGMT ---
SW received a call from Heidi with TCU. TCU can take patient when ready. [facility] is still waiving pre-certifications for SNFs. ZARIA will patient, his , and physician know this information. Plan: [facility] TCU under skilled level of care. Karena HOOK
[2021-05-06] MEDS: Clopidogrel Bisulfate 75 MG Tablet PO (09:43)
[2021-05-06] MEDS: Enoxaparin 40 MG/0.4 ML Syringe SC (09:43)
[2021-05-06] MEDS: Metoprolol Tartrate 25 MG Tablet 12.5 MG PO (09:43)
[2021-05-06] MEDS: SACUBITRIL/VALSARTAN 97-103 MG TABLET 1 EACH PO ×2 (09:43→20:41)
[2021-05-06] MEDS: Furosemide 40 MG/4 ML Vial IV ×2 (09:43→16:53)
[2021-05-06] MEDS: Escitalopram Oxalate 10 MG Tablet PO (09:43)
[2021-05-06] MEDS: Pantoprazole Sodium 40 MG Tablet PO (09:50)
[2021-05-06] MEDS: Nystatin Powder 15gm Bottle 1 APPLIC TOPICAL ×2 (09:50→20:41)
[2021-05-06] MEDS: Glucerna Shake 120 ML LIQUID PO ×2 (09:50→13:07)
[2021-05-06] MEDS: Menthol/Lanolin/Calamine/Znox 113 GM Tube 1 APPLIC TOPICAL (09:50)
--- NOTE | 2021-05-06 10:31 | PCS.PANDOC ---
PANDEMIC DOCUMENTATION INITIATED: Date: 02/22/2021 Time: 190
[2021-05-06] MEDS: Potassium Chloride Oral Tablet 20 MEQ 60 MEQ PO (11:14)
--- NOTE | 2021-05-06 15:49 | PCM.TXEXTCAR ---
Diet 05/04/21 18:10 Diet: Cardiac - Heart Healthy Food consistency:: Regular Liquid Consistency:: Regular/Thin Dietary Modifications:: Sodium Restricted Fluid restriction: none Routine Orders/Code Status Routine Lab Work: BMP (on 05/08/21) Code Status: Full Code Therapies Weight Bearing: Full weight bearing Physical Therapy: Eval and Treat Occupational Therapy: Eval and Treat Problem/Diagnosis (1) CHF exacerbation: Status: Acute Comment: acute on chronic systolic (2) Ischemic cardiomyopathy: Status: Chronic (3) Essential (primary) hypertension: Status: Acute (4) Hypertension: Status: Chronic (5) Cognitive impairment: Status: Chronic Comment: mild Allergies/Procedures Done in Hospital Allergies codeine Allergy (Verified 02/17/21 17:26) Anaphylaxis Procedures: 2-D Echocardiogram Type of Care/Length of Stay Estimated LOS: Convalescent Care Less Than 30 days Type of Care Needed: Skilled Rehab Potential: Good Prognosis: Good Additional Orders/Day of Discharge H&P will serve as current which was dated: 05/04/21 Day of Discharge: 05/06/21 Dietary and Speech Recommendations Dietitian Recommendations/Changes: Will adjust diet to Carbohydrate-Controlled/Cardiac ; liberalize diet as indicated to optimize intake at meals. Will add 120ml glucerna shake 4 times per day w/ medpass for extra calories/protein. Discharge Plan Admission Admit Date/Time: 05/04/21 17:10 Primary Reason for Your Visit: CHF Attending Provider: Teddy Chavez Primary Care Provider: Lazarus Garcia Chi Discharge Orders/Prescriptions Prescriptions: New acetaminophen [Tylenol] 325 mg Tablet 650 mg PO Q6H PRN PRN (Reason: Pain Score 1-10/Temp > 100.7 F) Qty: 0 RF: 0 albuterol sulfate 2.5 mg /3 mL (0.083 %) Solution For Nebulization 2.5 mg inhalation Q2H PRN PRN (Reason: SOB/Wheezing) Qty: 0 RF: 0 Glucerna 1.2 Fabrice 0.06-1.2 gram-kcal/mL Liquid 120 ml PO 4X/DAY Qty: 0 RF: 0 furosemide [Lasix] 40 mg tablet 40 mg PO BID Qty: 1 RF: 0 magnesium oxide [MgO] 400 mg (241.3 mg magnesium) tablet 400 mg PO DAILY Qty: 1 RF: 0 donepezil [Aricept] 5 mg tablet 5 mg PO QHS Qty: 1 RF: 0 Continued cholecalciferol (vitamin D3) 1,000 unit capsule 1,000 unit PO DAILY RF: 0 nitroglycerin 0.4 mg tablet, sublingual 0.4 mg SUBLINGUAL Q5-15M PRN (Reason: chest pain) Qty: 25 RF: 11 metoprolol tartrate 25 mg tablet 12.5 mg PO BID RF: 0 atorvastatin 80 MG tablet 80 mg PO QHS RF: 0 clopidogrel 75 MG tablet 75 mg PO DAILY RF: 0 escitalopram oxalate 10 MG tablet 10 mg PO DAILY RF: 0 omeprazole 40 MG capsule,delayed release(DR/EC) 40 mg PO DAILY RF: 0 aspirin 81 MG tablet 81 mg PO DAILY RF: 0 sacubitril-valsartan 1 EACH tablet 1 ea PO BID RF: 0 potassium chloride 10 mEq capsule, extended release 20 meq PO BID RF: 0 Discontinued furosemide 20 mg tablet 20 mg PO DAILY RF: 0 acetaminophen 500 mg Tablet 1,000 mg PO DAILY PRN (Reason: Pain) RF: 0 albuterol sulfate 90 mcg/actuation HFA aerosol inhaler 1 puff inhalation Q6H PRN PRN (Reason: Sob &/Or Wheezing) Qty: 1 RF: 3 Referrals / Follow Up: Lazarus Garcia Chi, MD [Primary Care Provider] - Disposition Disposition (needs filled in before D/C Order can be placed): [facility] Facility
--- NOTE | 2021-05-06 16:00 | CASEMGMT ---
Patient is ready for discharge today. SW called patient's Paola and let her know TCU can take patient and he will likely go today. SW gave her the phone number to TCU. Per RN and physician patient is confused. SW did attempt to talk with patient about TCU. Patient did not appear to understand what SW was talking about as he was insistent Paola won't want to drive him back and forth despite SW explaining TCU. Plan: d/c to [facility] TCU under skilled level of care. Karena Webb PRICER BAGGERLupe HOOK
[2021-05-06] MEDS: Acetaminophen 325 MG Tablet 650 MG PO (16:54)
[2021-05-06] MEDS: Magnesium Sulfate 4gm/100mL 4 GM/100 ML IV.SOLN. IV (16:58)
--- NOTE | 2021-05-06 17:33 | NURSING ---
Report called to MEET Guevara on TCU.
--- NOTE | 2021-05-06 17:48 | EKG12_ITS ---
Test Reason : RHYTHM CHANGE Blood Pressure : / mmHG Vent. Rate : 089 BPM Atrial Rate : 089 BPM P-R Int : 190 ms QRS Dur : 110 ms QT Int : 370 ms P-R-T Axes : 059 017 197 degrees QTc Int : 450 ms Normal sinus rhythm ST & T wave abnormality, consider lateral ischemia Abnormal ECG Confirmed by JHONNY RIVERA, PERICO ([id number]), medical transcription editor ANATOLIY JUNG ([id number]) on 05/07/2021 1:54:43 PM Referred By: DR ALLRED Confirmed By:PERICO BARRY MD
[2021-05-06 17:55] LABS: Anion Gap 7 (5-15); BUN 15 mg/dL (7-18); BUN/Creat Ratio 19.2 RATIO (10-20); Calcium,Total 8.7 mg/dL (8.5-10.1); Chloride 101 mmol/L (98-107); Creatinine, Serum 0.78 mg/dL (0.70-1.30); EST Glomerular Filtration Rate 102 mL/min (>60); Est Glom Filt Rate - Afr Amer 123 mL/min (>60); Estimated Creatinine Clearance 55.08 ml/min; Glucose 130 mg/dL (74-106); Potassium 3.8 mmol/L (3.5-5.1); Sodium Level 132 mmol/L (136-145)
--- NOTE | 2021-05-06 19:06 | PCM.DC.SUM ---
Providers Date of Admission: 05/04/21 Date of Discharge: 05/06/21 Primary Care Physician: Dr. Lazarus Garcia MD Reason For Visit: ACUTE DECOMPENSATED HFREF-SYSTOLIC HEART FAILURE Diagnosis Discharge Diagnosis (1) CHF exacerbation: Status: Acute Code(s): I50.9 - Heart failure, unspecified Qualifiers: Heart failure type: unspecified Qualified Code(s): I50.9 - Heart failure, unspecified (2) Ischemic cardiomyopathy: Status: Chronic Code(s): I25.5 - Ischemic cardiomyopathy (3) Essential (primary) hypertension: Status: Acute Code(s): I10 - Essential (primary) hypertension (4) Hypertension: Status: Chronic Code(s): I10 - Essential (primary) hypertension Qualifiers: Hypertension type: essential hypertension Qualified Code(s): I10 - Essential (primary) hypertension (5) Cognitive impairment: Status: Chronic Code(s): R41.89 - Other symptoms and signs involving cognitive functions and awareness Plan: 1. Acute exacerbation of chronic systolic congestive heart failure #2 ischemic cardiomyopathy #3 coronary artery disease #4 essential hypertension #5 debility #6 hyperlipidemia #7 moderate caloric and protein malnutrition #8 mild cognitive impairment Community-acquired pneumonia was ruled out Medications at Discharge Home Medications atorvastatin 80 mg PO QHS 12/31/17 clopidogrel 75 mg PO DAILY 12/31/17 escitalopram oxalate 10 mg PO DAILY 12/31/17 omeprazole 40 mg PO DAILY 01/24/18 aspirin 81 mg PO DAILY 01/26/18 cholecalciferol (vitamin D3) 25 mcg (1,000 unit) capsule 1,000 unit PO DAILY 05/16/19 sacubitril-valsartan 1 ea PO BID 06/19/19 nitroglycerin 0.4 mg sublingual tablet 0.4 mg SUBLINGUAL Q5-15M PRN #25 tab 07/17/19 metoprolol tartrate 25 mg tablet 12.5 mg PO BID tab 12/24/20 potassium chloride 20 meq PO BID 05/04/21 acetaminophen [Tylenol] 650 mg PO Q6H PRN PRN #0 tab 05/06/21 albuterol sulfate 2.5 mg INHALATION Q2H PRN PRN #0 ml 05/06/21 donepezil [Aricept] 5 mg PO QHS 05/06/21 furosemide [Lasix] 40 mg PO BID 05/06/21 magnesium oxide [MgO] 400 mg PO DAILY 05/06/21 nut.tx.gluc intol,lf,soy-fiber [Glucerna 1.2 Fabrice] 120 ml PO 4X/DAY 05/06/21 Hospital Course Operations None Procedures 2-D Echocardiogram Summary of Care Provided Minutes Spent on Discharge: 31 Hospital Course: The patient is a white male who was seen in the emergency room at [facility] with a complaint of shortness of breath. Patient reported a productive cough and chills, he denied any chest pain. Work-up in the emergency room included a chest x-ray which showed a right perihilar and right lower lobe infiltrate, the admitting physician initially felt this to be pneumonia with CHF. Patient was admitted to PCU, he was placed on IV antibiotics initially and IV diuresis. When I assumed care of the patient, I reviewed his medical record, I did not believe the patient had a pneumonia and I treated him for congestive heart failure. His requested that the patient go to an extended care facility for short-term rehab services, she stated that she was having a hard time taking care of the patient at home. Patient appeared to have some sort of cognitive impairment which was not severe. Echocardiogram showed an ejection fraction of 35%. On 05/06/2021, patient was seen and examined: On examination he appeared older than his stated age, he had some mild cognitive impairment. Vital signs as documented. Skin warm and dry and without overt rashes. Neck without JVD, neck was supple, trachea midline, thyroid was normal. Lungs clear bilaterally, normal air movement was noted. Heart exam notable for regular rhythm, normal sounds and absence of murmurs, rubs or gallops. Abdomen unremarkable and without evidence of organomegaly, masses, or abdominal aortic enlargement. Bowel sounds are present, abdomen is not distended. Extremities nonedematous, no cyanosis was noted, no clubbing was noted. Neuro: Cranial nerves II through XII are grossly intact, no focal motor deficits were noted, sensation to light touch and pinprick intact, motor exam 5/5 throughout. Psych: Patient is alert, he had some evidence of mild cognitive impairment Patient appears stable for discharge on 05/06/2021 to an extended care facility for short-term rehab. Medical Records Data Medical Nutrition Assessment Dietitian: Malnutrition Criteria Met Start: 05/05/21 16:47 Freq: Status: Active Protocol: Document 05/05/21 17:11 RMA (Rec: 05/05/21 17:12 RMA [id number]) Nutrition Malnutrition Evidence of Malnutrition Exists Yes Malnutrition (moderate): Chronic Evidenced By Suboptimal Energy Intake ( Moderate),Weight Loss ( Moderate),Physical Changes ( Moderate) Clinical Problem Chronic Disease or Condition Related Malnutrition Etiology Moderate to severe protein/ calorie malnutrition in the context of chronic illness/ advanced age related to inadequate oral intake Signs/Symptoms as evidenced by ~6% wt loss x 2 months, ~13% wt loss x 8 months, +NFPE with muscle and fat wasting in face, arms and legs noted and suspect inadequate oral intake as established w/ meals. Status Active Problem Recommendation Dietitian Recommendations/Changes Will adjust diet to Carbohydrate-Controlled/ Cardiac w/ 1500ml FR; liberalize diet as indicated to optimize intake at meals. Will add 120ml glucerna shake 4 times per day w/ medpass for extra calories/protein. Weight / BMI Weight Weight: 70.2 kg Body Mass Index (BMI) 30.5 ABG / Lab / Microbiology Data Result Diagrams: 05/05/21 06:40 05/06/21 17:10 Laboratory: Laboratory Results - last 24 hr 05/06/21 17:10: Sodium 132 L, Potassium 3.8, Chloride 101, Carbon Dioxide 24.0, Anion Gap 7, BUN 15, Creatinine 0.78, Estim Creat Clear Calc 55.08, Est GFR (MDRD) Af Amer 123, Est GFR (MDRD) Non-Af 102, BUN/Creatinine Ratio 19.2, Glucose 130 H, Calcium 8.7 Microbiology: Microbiology 05/04/21 23:15 Sputum, Induced/Lukens Gram Stain - Final 05/04/21 23:15 Sputum, Induced/Lukens Respiratory Culture - Preliminary Appears to be normal respiratory maia. Further studies to follow. 05/04/21 19:00 Mucosa - Nasopharyngeal Respiratory Panel (PCR) - Final 05/04/21 19:40 Urine, Clean Catch Legionella Antigen - Final 05/04/21 19:40 Urine, Clean Catch Streptococcus pneumoniae Antigen (M - Final 05/04/21 15:10 Interface Orders SARS-CoV-2 Antigen (Rapid) - Final Meaningful Use Info Meaningful Use Diagnoses (Choose all that apply): CHF CHF RASHEED/ARB ordered at discharge?: Yes Documented LVEF (%): 35 Discharge Plan Admission Admit Date/Time: 05/04/21 17:10 Primary Reason for Your Visit: CHF Attending Provider: Teddy Chavez Primary Care Provider: Lazarus Garcia Chi Discharge Orders/Prescriptions Prescriptions: New acetaminophen [Tylenol] 325 mg Tablet 650 mg PO Q6H PRN PRN (Reason: Pain Score 1-10/Temp > 100.7 F) Qty: 0 RF: 0 albuterol sulfate 2.5 mg /3 mL (0.083 %) Solution For Nebulization 2.5 mg inhalation Q2H PRN PRN (Reason: SOB/Wheezing) Qty: 0 RF: 0 Continued cholecalciferol (vitamin D3) 1,000 unit capsule 1,000 unit PO DAILY RF: 0 nitroglycerin 0.4 mg tablet, sublingual 0.4 mg SUBLINGUAL Q5-15M PRN (Reason: chest pain) Qty: 25 RF: 11 metoprolol tartrate 25 mg tablet 12.5 mg PO BID RF: 0 atorvastatin 80 MG tablet 80 mg PO QHS RF: 0 clopidogrel 75 MG tablet 75 mg PO DAILY RF: 0 escitalopram oxalate 10 MG tablet 10 mg PO DAILY RF: 0 omeprazole 40 MG capsule,delayed release(DR/EC) 40 mg PO DAILY RF: 0 aspirin 81 MG tablet 81 mg PO DAILY RF: 0 sacubitril-valsartan 1 EACH tablet 1 ea PO BID RF: 0 potassium chloride 10 mEq capsule, extended release 20 meq PO BID RF: 0 Discontinued furosemide 20 mg tablet 20 mg PO DAILY RF: 0 acetaminophen 500 mg Tablet 1,000 mg PO DAILY PRN (Reason: Pain) RF: 0 albuterol sulfate 90 mcg/actuation HFA aerosol inhaler 1 puff inhalation Q6H PRN PRN (Reason: Sob &/Or Wheezing) Qty: 1 RF: 3 No Action furosemide [Lasix] 40 mg tablet 40 mg PO BID RF: 0 donepezil [Aricept] 5 mg tablet 5 mg PO QHS RF: 0 magnesium oxide [MgO] 400 mg (241.3 mg magnesium) tablet 400 mg PO DAILY RF: 0 Glucerna 1.2 Fabrice 0.06-1.2 gram-kcal/mL liquid 120 ml PO 4X/DAY RF: 0 Referrals / Follow Up: Lazarus Garcia Chi, MD [Primary Care Provider] - Disposition Disposition (needs filled in before D/C Order can be placed): [facility] Charges/Coding Visit Charges Inpatient E&M: 68880 Disch Hosp
[2021-05-06] MEDS: 0.9% Saline Lock 10 ML Syringe IV (20:39)
[2021-05-06] MEDS: Atorvastatin Calcium 80 MG Tablet PO (20:41)
== END 2021-05-06 21:00 | disposition skilled nursing facility (03) | DRG 292 ==
LOC: ED 17:09 → PCU 17:38
PROVIDERS: Admitting Provider Internal Medicine; Emergency Provider Emergency Medicine; PCP Family Medicine Geriatric Medicine; Visit Provider Internal Medicine
DX: I11.0 Hypertensive heart disease with heart failure (principal); E44.0 Moderate protein-calorie malnutrition; I27.20 Pulmonary hypertension, unspecified; I49.5 Sick sinus syndrome; E11.9 Type 2 diabetes mellitus without complications; D50.9 Iron deficiency anemia, unspecified; E87.5 Hyperkalemia; E55.9 Vitamin D deficiency, unspecified; I50.22 Chronic systolic (congestive) heart failure; J44.9 Chronic obstructive pulmonary disease, unspecified; I25.5 Ischemic cardiomyopathy; I34.0 Nonrheumatic mitral (valve) insufficiency; K21.9 Gastro-esophageal reflux disease without esophagitis; M19.90 Unspecified osteoarthritis, unspecified site; G31.84 Mild cognitive impairment of uncertain or unknown etiology; N40.0 Benign prostatic hyperplasia without lower urinary tract symptoms; I25.2 Old myocardial infarction; I25.10 Atherosclerotic heart disease of native coronary artery without angina pectoris; I49.3 Ventricular premature depolarization; R53.81 Other malaise; F32.A Depression, unspecified; Z85.46 Personal history of malignant neoplasm of prostate; Z86.19 Personal history of other infectious and parasitic diseases; Z95.1 Presence of aortocoronary bypass graft; Z95.810 Presence of automatic (implantable) cardiac defibrillator; Z79.82 Long term (current) use of aspirin; Z79.899 Other long term (current) drug therapy; Z87.891 Personal history of nicotine dependence
CPT/HCPCS: 36415; 71045; 71046; 80048; 80053; 80061; 83735; 83880; 84100; 84443; 84484; 85025; 87070; 87205; 87426; 87449; 87633; 87641; 93005; 93306; 97162; 97166; 97530; 99251; 99285; Q9957; A4216; C8929; G0463; J0696; J1940; J3490

== ENCOUNTER 2021-05-06 21:10 | Inpatient (IN) | payer MEDICARE, SELFPAY ==
[2017-10-25 15:17] VITALS: BMI 26.6
[2021-05-06 21:48] VITALS: BP 100/52; PULSE 79; RESP 18; RESP 20; TEMP 37; O2SAT 94; BMI 24.3
--- NOTE | 2021-05-06 22:34 | PCM.HP.STD ---
HPI - General General Date of Admission: 05/06/21 HPI Narrative 05/04/2021 ELLEN DILLARD, is a 81 Male who presents to [facility] Emergency Department with shortness of breath. 05/04/2021 EKG sinus rhythm with occasional premature ventricular contractions, poor R wave progression, nonspecific ST&T wave abnormality. Cough with white sputum. Short of breath with exertion, walking. Nausea, vomiting x 1 episode, up to date covid19 vaccine. Troponin elevated. Rocephin, Zithromax given for right lower lobe pneumonia. 05/04/2021 Admit to Hospital. IV Lasix, Echo, for acute on chronic systolic congestive heart failure. Rocephin, Zithromax for pneumonia after enamorado culture. 05/04/2021 Echo normal Left ventricle size. Moderate segmental systolic dysfunction. EF 35%. Pulmonary arterial systolic pressure 38mm HG. Stage 2 diastolic dysfunction. 05/05/2021 Stop antibiotics, not pneumonia, but congestive heart failure only. [facility] IV Lasix for acute on chronic systolic congestive heart failure. 05/06/2021 Potassium supplemented. Magnesium supplemented. 05/06/2021 Admit to TCU with debility, here for rehabilitation, strengthening, prior to discharge home with . [facility] Medical History Abnormal stress test Acute respiratory failure with hypoxia Atherosclerosis of coronary artery bypass graft without angina pectoris Atherosclerosis of coronary artery of [place] heart without angina pectoris BPH (benign prostatic hyperplasia) Cardiac defibrillator in place Closed fracture dislocation of multiple fingers Concussion Essential (primary) hypertension Fall from ladder GERD (gastroesophageal reflux disease) HCAP (healthcare-associated pneumonia) Hyperlipidemia Hypertension Ischemic cardiomyopathy Laceration of head Left ventricular systolic dysfunction Non-rheumatic mitral regurgitation Nonrheumatic mitral valve regurgitation Old myocardial infarction Paroxysmal ventricular tachycardia Prostate cancer Pulmonary hypertension Sepsis Sinus node dysfunction Type 2 diabetes mellitus without complications Ventricular tachycardia Home Medications atorvastatin 80 mg PO QHS 12/31/17 [History Last Taken 05/03/21] clopidogrel 75 mg PO DAILY 12/31/17 [History Last Taken 05/04/21] escitalopram oxalate 10 mg PO DAILY 12/31/17 [History Last Taken 05/04/21] omeprazole 40 mg PO DAILY 01/24/18 [History Last Taken 05/04/21] aspirin 81 mg PO DAILY 01/26/18 [History Last Taken 05/04/21] cholecalciferol (vitamin D3) 25 mcg (1,000 unit) capsule 1,000 unit PO DAILY 05/16/19 [History Last Taken 05/04/21] sacubitril-valsartan 1 ea PO BID 06/19/19 [History Last Taken 05/04/21] nitroglycerin 0.4 mg sublingual tablet 0.4 mg SUBLINGUAL Q5-15M PRN #25 tab 07/17/19 [Rx Last Taken Unknown] metoprolol tartrate 25 mg tablet 12.5 mg PO BID tab 12/24/20 [History Last Taken 05/04/21] potassium chloride 20 meq PO BID 05/04/21 [History Last Taken 05/04/21] acetaminophen [Tylenol] 650 mg PO Q6H PRN PRN #0 tab 05/06/21 [Rx Last Taken Unknown] albuterol sulfate 2.5 mg INHALATION Q2H PRN PRN #0 ml 05/06/21 [Rx Last Taken Unknown] donepezil [Aricept] 5 mg PO QHS 05/06/21 [History Last Taken Unknown] furosemide [Lasix] 40 mg PO BID 05/06/21 [History Last Taken Unknown] magnesium oxide [MgO] 400 mg PO DAILY 05/06/21 [History Last Taken Unknown] nut.tx.gluc intol,lf,soy-fiber [Glucerna 1.2 Fabrice] 120 ml PO 4X/DAY 05/06/21 [History Last Taken Unknown] Allergy/AdvReac Type Severity Reaction Status Date / Time codeine Allergy Anaphylaxis Verified 02/17/21 17:26 Family History Father CAD (coronary artery disease) Mother CAD (coronary artery disease) Brother CAD (coronary artery disease) Surgical History H/O coronary artery bypass surgery (11/15/04) H/O resection of small bowel History of coronary artery stent placement Hx of cholecystectomy Presence of automatic implantable cardioverter-defibrillator (11/10/16) Social History (Updated 05/06/21 @ 22:[address] Lazarus Garcia MD) household members: spouse Smoking Status: Former smoker how long ago did patient quit smokin years alcohol intake: never substance use type: does not use caffeine: No what type of physical activity do you participate in: none seatbelt use: always do you feel safe at home: Yes ROS Constitutional Constitutional: Denies chills, fever(s) or weight gain ENT HEENT: Denies headache(s), nasal congestion or nasal discharge Cardiovascular Cardiovascular: Denies chest pain or palpitations Respiratory/Chest Respiratory/Chest: Denies cough, excessive phlegm production or shortness of breath with exertion Gastrointestinal Gastrointestinal: Denies abdominal pain, nausea or vomiting Genitourinary Genitourinary: Denies dysuria Musculoskeletal Musculoskeletal: Denies joint pain or joint swelling Integumentary Integumentary: Denies rash or wounds Neurologic Neurologic: Denies focal weakness, numbness or tingling Psychiatric Psychiatric: Reports auditory hallucinations; Denies anxiety, depression, homicidal ideation or suicidal ideation Physical Exam Const alert and oriented x3 General Appearance: cooperative HEENT normocephalic Eyes PERRL and EOMs intact bilaterally Neck supple, no JVD and no carotid bruits Resp normal respiratory effort, normal air movement and clear to auscultation bilaterally Cardio regular rate and regular rhythm GI normal to inspection, nondistended, normoactive bowel sounds, non-tender and non-distended Extremity normal capillary refill General Extremity: Negative for edema Skin no rashes or lesions noted General Skin Exam: no breakdown Psych affect normal Appearance: appropriate Results Lab / Micro Data Result Diagrams: 05/07/21 05:26 05/07/21 05:26 Assessment & Plan Assessment/Plan (1) Debility: (2) Shortness of breath: (3) Acute on chronic systolic congestive heart failure: (4) Pneumonia: (5) Elevated troponin: (6) Diabetes mellitus: (7) Coronary artery disease: (8) Hyperlipidemia: (9) Depression: (10) Gastroesophageal reflux disease: (11) Hypokalemia: PLAN: 81 year old male with below past medical history hospitalized for shortness of breath secondary to acute on chronic systolic congestive heart failure, complicated by elevated troponin, pneumonia ruled out, admitted to TCU with debility, here for rehabilitation, strengthening, prior to discharge home with . Debility - PT/OT. Pain - Tylenol 1000mg q6h prn pain (1-10). Bowel - Senna/colace 1 tablet twice daily, Dulcolax 10mg daily prn. Adult immunization - Administer prevnar 13, pneumovax 23, fluzone, covid19 vaccine as appropriate. DVT prophylaxis - Hold, on dual antiplatelet therapy. Shortness of breath - Albuterol 2.5mg Q2H prn. Coronary Artery Disease - Metoprolol 12.5mg bid, Plavix 75mg daily, Aspirin 81mg daily, NTG 0.4mg SL Q5m prn chest pain. Hyperlipidemia - Atorvastatin 80mg qhs. Vitamin D deficiency - D3 25mcg daily. Alzheimer Disease - Donepezil 5mg qhs. 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 Acute on chronic systolic congestive heart failure - Metoprolol 12.5mg bid, Entresto 97/103mg bid, Lasix 40mg bid. Nutrition - Glucerna Shake 120ml 4x/day. Hypomagnesemia - Magnesium Chloride 128mg daily. GERD - Pantoprazole 40mg daily. Hypokalemia - KCL 20meq bid.
[2021-05-06] MEDS: Donepezil HCl 5 MG Tablet PO (23:14)
[2021-05-06] MEDS: Senna/Docusate Sodium 1 Tablet PO (23:19)
--- NOTE | 2021-05-07 01:02 | NURSING ---
Patient's called to check on patient and provide admission info as patient is poor historian. She confirmed that patient is a full code. She would like him to have the flu vaccine while here. Orders entered.
[2021-05-07 05:00] VITALS: BP 112/56; PULSE 76
[2021-05-07 05:35] VITALS: PULSE 76
[2021-05-07] MEDS: Metoprolol Tartrate 25 MG Tablet 12.5 MG PO ×2 (05:35→17:43)
[2021-05-07] MEDS: Escitalopram Oxalate 10 MG Tablet PO (05:35)
[2021-05-07] MEDS: Magnesium Chloride 64 MG Delay Rel.Tablet 128 MG PO (05:36)
[2021-05-07] MEDS: Pantoprazole Sodium 40 MG Tablet PO (05:36)
[2021-05-07] MEDS: Cholecalciferol (VIT D3) 25 MCG TABLET (1,000 UNITS) PO (05:37)
[2021-05-07] MEDS: SACUBITRIL/VALSARTAN 97-103 MG TABLET 1 EACH PO ×2 (05:37→17:44)
[2021-05-07] MEDS: Clopidogrel Bisulfate 75 MG Tablet PO (05:37)
[2021-05-07] MEDS: Senna/Docusate Sodium 1 Tablet PO ×2 (05:37→17:43)
[2021-05-07] MEDS: Furosemide 40 MG Tablet PO ×2 (05:37→13:48)
[2021-05-07] MEDS: Glucerna Shake 120 ML LIQUID PO ×4 (05:40→22:41)
[2021-05-07 06:01] LABS: Absolute Lymphocyte Count 1.19 X10^3/uL (0.83-4.51); Absolute Neutrophil Count 8.3 X10^3/uL (2.0-7.7); Basophil# 0.03 X10^3/uL; Basophil% 0.3 % (0-1); Eosinophil# 0.06 X10^3/uL; Eosinophils% 0.6 % (0-5); Hematocrit 32.9 % (40-54); Lymphocyte # 1.19 X10^3/ul (0.83-4.51); Mean Corp Hgb Conc 33.4 g/dL (32-36); Mean Corpuscular Hgb 25.9 pg (27.0-32.0); Mean Corpuscular Volume 77.6 fL (80-94); Mean Platelet Vol. 10.4 fl (6.2-12.0); Monocyte# 1.23 X10^3/uL; Monocyte% 11.3 % (0-10); NRBC Flagged by Analyzer 0 % (0-5); Neutrophil % 76.3 % (47-70); Platelet Count 215 K/mm3 (150-450); RBC Distribution Width CV 18.1 % (11.6-14.6); RBC Distribution Width SD 49.8 fl (35.1-43.9); Red Blood Count 4.24 M/mm3 (4.6-6.2); White Blood Count 10.9 K/mm3 (4.4-11.0)
[2021-05-07 06:23] LABS: Anion Gap 7 (5-15); BUN 17 mg/dL (7-18); BUN/Creat Ratio 26.8 RATIO (10-20); Calcium,Total 8.8 mg/dL (8.5-10.1); Chloride 99 mmol/L (98-107); Creatinine, Serum 0.63 mg/dL (0.70-1.30); EST Glomerular Filtration Rate 129 mL/min (>60); Est Glom Filt Rate - Afr Amer 156 mL/min (>60); Estimated Creatinine Clearance 53.17 ml/min; Glucose 98 mg/dL (74-106); Potassium 3.9 mmol/L (3.5-5.1); Sodium Level 133 mmol/L (136-145)
[2021-05-07] MEDS: Aspirin E.C. 81 MG Tablet PO (08:56)
[2021-05-07] MEDS: Potassium Chloride Oral Tablet 20 MEQ PO ×2 (08:56→17:41)
[2021-05-07 10:30] VITALS: PULSE 90; RESP 18; O2SAT 93
--- NOTE | 2021-05-07 10:30 | NURSING ---
PT GIVEN FLU SHOT IN LEFT DELT. PT TOLERATED WELL.
--- NOTE | 2021-05-07 11:35 | CASEMGMT ---
Social Work Met with patient for initial assessment. Discussed code status. Pt confirmed full code. MOLST form completed, communication to , placed in chart. Explained [facility] insurance with NRD 05/10, and continued stay is not guaranteed. The goal is for pt to return home with at [facility]. IDT to ensure safe DC and can assist as needed. SW requested ST order for cognitive concerns. SW to continue to follow. Melissa Waite, ELECTRONIC TYPESETTING MACHINE OPERATOR RECORDS OFFICER
[2021-05-07] MEDS: Tuberculin,Purif.prot.deriv. 50 TU/ML Vial 0.1 ML ID (11:36)
--- NOTE | 2021-05-07 11:38 | NURSING ---
PT HAS MOIST COUGH. I.S GIVEN,RN AWARE.
[2021-05-07 13:37] VITALS: BP 114/56; PULSE 82; RESP 17; TEMP 36.7; O2SAT 93
--- NOTE | 2021-05-07 15:58 | PHA.CONS_ITS ---
Progress Note - Pharmacy Subjective: TCU Admission Objective: Allergies codeine Allergy (Verified 02/17/21 17:26) Anaphylaxis Current Medications Generic Name Dose Route Start Last Admin Trade Name Freq PRN Reason Stop Dose Admin Acetaminophen 1,000 mg 05/06/21 22:53 Acetaminophen 500 Mg Tablet PO Q6H PRN PRN Pain Score 1-10 Albuterol Sulfate 2.5 mg 05/06/21 22:14 Albuterol 2.5 Mg/3 Ml Vial.Neb. INHALATION Q2H PRN PRN SOB/Wheezing Aspirin 81 mg 05/07/21 08:00 05/07/21 08:56 Aspirin E.C. 81 Mg Tablet PO 81 mg DAILYCM YUKI Administration Atorvastatin Calcium 80 mg 05/06/21 22:30 05/06/21 22:29 Atorvastatin Calcium 80 Mg Tablet PO Not Given QHS YUKI Bisacodyl 10 mg 05/06/21 22:51 Bisacodyl 5 Mg Tablet PO DAILY PRN Constipation Cholecalciferol 25 mcg 05/07/21 06:00 05/07/21 05:37 Cholecalciferol (Vit D3) 25 Mcg Tablet (1,000 Units) PO 25 mcg DAILY YUKI Administration Clopidogrel Bisulfate 75 mg 05/07/21 06:00 05/07/21 05:37 Clopidogrel Bisulfate 75 Mg Tablet PO 75 mg DAILY YUKI Administration Donepezil HCl 5 mg 05/06/21 22:30 05/06/21 23:14 Donepezil Hcl 5 Mg Tablet PO 5 mg QHS YUKI Administration Escitalopram Oxalate 10 mg 05/07/21 06:00 05/07/21 05:35 Escitalopram Oxalate 10 Mg Tablet PO 10 mg DAILY YUKI Administration Furosemide 40 mg 05/07/21 06:00 05/07/21 13:48 Furosemide 40 Mg Tablet PO 40 mg BIDLX YUKI Administration Magnesium Chloride 128 mg 05/07/21 06:00 05/07/21 05:36 Magnesium Chloride 64 Mg Delay Rel.Tablet PO 128 mg DAILY YUKI Administration Metoprolol Tartrate 12.5 mg 05/07/21 06:00 05/07/21 05:35 Metoprolol Tartrate 25 Mg Tablet PO 12.5 mg BID YUKI Administration Nitroglycerin 0.4 mg 05/06/21 22:14 Nitroglycerin (Inpatient Use) 0.4 Mg Tab.Subl SL Q5M PRN chest pain Nutritional Formula (Lactose Free) 120 ml 05/07/21 06:00 05/07/21 11:00 Glucerna Shake 120 Ml Liquid PO 120 ml 4X/DAY YUKI Administration Pantoprazole Sodium 40 mg 05/07/21 06:00 05/07/21 05:36 Pantoprazole Sodium 40 Mg Tablet PO 40 mg DAILY YUKI Administration Potassium Chloride 20 meq 05/07/21 08:00 05/07/21 08:56 Potassium Chloride Oral Tablet 20 Meq PO 20 meq BIDCM YUKI Administration Sacubitril/Valsartan 1 each 05/07/21 06:00 05/07/21 05:37 Sacubitril/Valsartan 97-103 Mg Tablet PO 1 each BID YUKI Administration Senna/Docusate Sodium 1 tablet 05/06/21 23:00 05/07/21 05:37 Senna/Docusate Sodium 1 Tablet PO 1 tablet BID YUKI Administration Tuberculin PPD 0.1 ml 05/14/21 10:00 Tuberculin,Purif.Prot.Deriv. 50 Tu/Ml Vial ID 05/14/21 10:01 X1 ONE Problem List (Last Reviewed 05/06/21 @ 22:[address] Lazarus Garcia MD) Hypokalemia (Acute) Gastroesophageal reflux disease (Acute) Depression (Acute) Hyperlipidemia (Acute) Coronary artery disease (Acute) Diabetes mellitus (Acute) Elevated troponin (Acute) Pneumonia (Acute) Acute on chronic systolic congestive heart failure (Chronic) Debility (Acute) Shortness of breath (Acute) Vital Signs Temp Pulse Resp BP Pulse Ox 98.0 F 82 17 114/56 L 93 05/07/21 13:37 05/07/21 13:37 05/07/21 13:37 05/07/21 13:37 05/07/21 13:37 Oxygen Delivery Method Room Air Weight: 70.4 kg Body Mass Index (BMI) 24.3 Sodium 133 mmol/L (136-145) L 05/07/21 05:26 Potassium 3.9 mmol/L (3.5-5.1) 05/07/21 05:26 Chloride 99 mmol/L (98-107) 05/07/21 05:26 Carbon Dioxide 27.0 mmol/L (21.0-32.0) 05/07/21 05:26 Anion Gap 7 (5-15) 05/07/21 05:26 BUN 17 mg/dL (7-18) 05/07/21 05:26 Creatinine 0.63 mg/dL (0.70-1.30) L 05/07/21 05:26 Est GFR (MDRD) Af Amer 156 mL/min (>60) 05/07/21 05:26 Est GFR (MDRD) Non-Af 129 mL/min (>60) 05/07/21 05:26 BUN/Creatinine Ratio 26.8 RATIO (10-20) H 05/07/21 05:26 Glucose 98 mg/dL (74-106) 05/07/21 05:26 Assessment/Plan: 1. Pain: acetaminophen 1000mg PO Q6H PRN pain 1-04/18. Please continue to monitor for increased pain and PRN usage. 2. CAD/CHF: metoprolol tartrate 12.5mg PO BID, clopidogrel 75mg PO daily, aspirin 81mg PO DAILYCM, NITROGLYCERIN 0.4mg SL Q5M PRN chest pain, sacubitri l/valsartan 97/103mg 1T PO BID and furosemide 40mg PO BIDLX. Please continue to monitor HR (last 82), BP (last 114/56), hemoglobin (last 11g/dL), S/S of bleeding, chest pain, renal function, swelling, potassium (last 3.9mmol/L) and sodium (last 133mmol/L). 3. Hyperlipidemia: atorvastatin 80mg PO QHS. Please continue to monitor lipid panel (last 05/05/21) and muscle pain. 4. Alzheimer disease: donepezil 5mg PO QHS. Please continue to monitor for confusion and GI side effects. 5. GERD: pantoprazole 40mg PO daily. Please continue to monitor for S/S of GERD and diarrhea. 6. Shortness of breath: albuterol nebulized solution 2.5mg inhalation Q2H PRN SOB/wheezing. Please continue to monitor for SOB/wheezing and PRN usage. 7. Hypokalemia: potassium chloride 20mEq PO BIDCM. Please continue to monitor potassium levels. 8. Hypomagnesemia: magnesium chloride 128mg PO daily. Please continue to monitor magnesium levels (last 0.8mg/dL 05/05/21). 9. Vitamin D deficiency: cholecalciferol 25mcg PO daily. Please continue to monitor vitamin D levels (last 12/03/20). Psychotropic Medications: 1. Depression: escitalopram 10mg PO daily. Please see physician note regarding Venessa MOMIN Unnecessary Medications: None Bowel Regimen: senna/docusate 1T PO BID and bisacodyl 10mg PO daily PRN constipation. Please continue to monitor for constipation and PRN usage. Date of Note:: 05/07/21
[2021-05-07 17:43] VITALS: BP 114/56; PULSE 82
[2021-05-07] MEDS: Atorvastatin Calcium 80 MG Tablet PO (22:44)
[2021-05-07] MEDS: Donepezil HCl 5 MG Tablet PO (22:44)
[2021-05-08 05:28] VITALS: BP 131/69; PULSE 98; RESP 20; TEMP 37.3; O2SAT 98
[2021-05-08] MEDS: Magnesium Chloride 64 MG Delay Rel.Tablet 128 MG PO (05:29)
[2021-05-08] MEDS: Escitalopram Oxalate 10 MG Tablet PO (05:29)
[2021-05-08] MEDS: SACUBITRIL/VALSARTAN 97-103 MG TABLET 1 EACH PO ×2 (05:29→17:17)
[2021-05-08 05:30] VITALS: BP 131/69; PULSE 98
[2021-05-08] MEDS: Metoprolol Tartrate 25 MG Tablet 12.5 MG PO ×2 (05:30→17:17)
[2021-05-08] MEDS: Pantoprazole Sodium 40 MG Tablet PO (05:31)
[2021-05-08] MEDS: Cholecalciferol (VIT D3) 25 MCG TABLET (1,000 UNITS) PO (05:31)
[2021-05-08] MEDS: Furosemide 40 MG Tablet PO ×2 (05:31→13:10)
[2021-05-08] MEDS: Clopidogrel Bisulfate 75 MG Tablet PO (05:31)
[2021-05-08] MEDS: Glucerna Shake 120 ML LIQUID PO ×4 (05:37→19:47)
[2021-05-08 05:46] LABS: Bedside Glucose 104 mg/dL (70-110)
[2021-05-08] MEDS: Potassium Chloride Oral Tablet 20 MEQ PO ×2 (08:16→17:18)
[2021-05-08] MEDS: Aspirin E.C. 81 MG Tablet PO (08:16)
--- NOTE | 2021-05-08 09:49 | NURSING ---
Pt has been restless and agitated this morning, Dr. Garcia updated and N.O. for ativan prn for restlessness/agitation. Pt was reoriented and calmed down using verbal deescalation. Pt relaxed and sitting in his recliner at this time.
[2021-05-08 13:40] VITALS: BP 101/57; PULSE 81; RESP 18; TEMP 36.9; O2SAT 94
--- NOTE | 2021-05-08 15:06 | NURSING ---
Increased agitation and confusion reports this is new behavior, urine strong smelling and dark yellow to polo in color, poor penile hygiene. Pt was cleansed and clothes were changed, Dr. Garcia updated N.O. U/A C&S, urine obtained through straight cath using sterile procedure, pt tolerated well.
[2021-05-08 15:53] LABS: Mucous, Urine 0 SEEN /hpf (<or=2+); Red Blood Cells-Urine 0 SEEN /hpf (0-5); Squamous Epithelial Cells - UA 0 SEEN /hpf (0-5); White Blood Cells 0 SEEN /hpf (0-5)
[2021-05-08 15:58] LABS: Color, Urine Yellow (Yellow); Glucose, Dipstick Normal (Normal); Ketone-Dipstick Negative (Negative); Leukocyte Esterase-Dipstick Negative /ul (Negative); Nitrite-Dipstick Negative (Negative); Occult Blood-Urine 10 /ul (Negative); Protein-Dipstick 15 mg/dl (Negative); Urine Bilirubin Dipstick Negative (Negative); Urine Clarity Clear (Clear); Urine Urobilinogen Normal (Normal)
[2021-05-08 16:09] LABS: Bacteria 1+ /hpf (None Seen)
[2021-05-08 17:17] VITALS: BP 115/55; PULSE 96
[2021-05-08] MEDS: Senna/Docusate Sodium 1 Tablet PO (17:18)
--- NOTE | 2021-05-08 18:30 | NURSING ---
Pt rang call light and this nurse went into room to answer it. Pt was crying and when asked what was wrong pt stated she was trying to open her salad dressing with her teeth and broke her tooth off. This nurse immediately assessed pt and noted front right tooth was missing and looks like it broke off at gum line, pt c/o of some pain but no bleeding, redness or other injury noted. Pt stated she is going to save her took and will call her dentist and try to get in and see him at the beginning of the week. This nurse sat with patient and provided emotional support until pt was calm. Charge nurse updated.
[2021-05-08 19:38] VITALS: PULSE 99; RESP 20; O2SAT 94
[2021-05-08] MEDS: Acetaminophen 500 MG Tablet 1000 MG PO (19:47)
[2021-05-08] MEDS: Donepezil HCl 5 MG Tablet PO (19:47)
[2021-05-08] MEDS: Atorvastatin Calcium 80 MG Tablet PO (19:48)
[2021-05-09] MEDS: Magnesium Chloride 64 MG Delay Rel.Tablet 128 MG PO (06:10)
[2021-05-09] MEDS: Glucerna Shake 120 ML LIQUID PO ×4 (06:10→21:51)
[2021-05-09 06:11] VITALS: PULSE 80
[2021-05-09] MEDS: Senna/Docusate Sodium 1 Tablet PO ×2 (06:11→17:36)
[2021-05-09] MEDS: Metoprolol Tartrate 25 MG Tablet 12.5 MG PO ×2 (06:11→17:35)
[2021-05-09] MEDS: Pantoprazole Sodium 40 MG Tablet PO (06:11)
[2021-05-09] MEDS: Clopidogrel Bisulfate 75 MG Tablet PO (06:11)
[2021-05-09] MEDS: Furosemide 40 MG Tablet PO ×2 (06:11→13:00)
[2021-05-09] MEDS: Escitalopram Oxalate 10 MG Tablet PO (06:11)
[2021-05-09] MEDS: Cholecalciferol (VIT D3) 25 MCG TABLET (1,000 UNITS) PO (06:11)
[2021-05-09 06:16] VITALS: BP 109/55; PULSE 80
[2021-05-09 06:36] LABS: Bedside Glucose 106 mg/dL (70-110)
[2021-05-09] MEDS: Potassium Chloride Oral Tablet 20 MEQ PO ×2 (08:16→17:35)
[2021-05-09] MEDS: Aspirin E.C. 81 MG Tablet PO (08:17)
[2021-05-09 13:35] VITALS: BP 110/58; PULSE 92; RESP 18; TEMP 36.7; O2SAT 97
[2021-05-09 17:35] VITALS: PULSE 85
[2021-05-09] MEDS: SACUBITRIL/VALSARTAN 97-103 MG TABLET 1 EACH PO (17:35)
[2021-05-09] MEDS: Donepezil HCl 5 MG Tablet PO (21:51)
[2021-05-09] MEDS: Atorvastatin Calcium 80 MG Tablet PO (21:51)
[2021-05-10] MEDS: Magnesium Chloride 64 MG Delay Rel.Tablet 128 MG PO (05:51)
[2021-05-10] MEDS: Cholecalciferol (VIT D3) 25 MCG TABLET (1,000 UNITS) PO (05:51)
[2021-05-10] MEDS: Clopidogrel Bisulfate 75 MG Tablet PO (05:51)
[2021-05-10] MEDS: Pantoprazole Sodium 40 MG Tablet PO (05:52)
[2021-05-10] MEDS: Escitalopram Oxalate 10 MG Tablet PO (05:52)
[2021-05-10 06:00] VITALS: BP 106/55; PULSE 78
[2021-05-10] MEDS: Metoprolol Tartrate 25 MG Tablet 12.5 MG PO ×2 (06:00→17:32)
[2021-05-10] MEDS: Furosemide 40 MG Tablet PO ×2 (06:00→13:02)
[2021-05-10] MEDS: Glucerna Shake 120 ML LIQUID PO ×4 (06:04→22:48)
[2021-05-10 06:41] LABS: Bedside Glucose 120 mg/dL (70-110)
[2021-05-10] MEDS: Menthol/Lanolin/Calamine/Znox 113 GM Tube 1 APPLIC TOPICAL ×2 (08:17→18:34)
[2021-05-10] MEDS: Aspirin E.C. 81 MG Tablet PO (08:18)
[2021-05-10] MEDS: Potassium Chloride Oral Tablet 20 MEQ PO ×2 (08:18→17:32)
[2021-05-10] MEDS: Nystatin Powder 15gm Bottle 1 APPLIC TOPICAL ×2 (11:31→18:33)
--- NOTE | 2021-05-10 13:46 | NURSING ---
Spouse, Paola, updated on current COVID status on the unit.
[2021-05-10 15:54] VITALS: BP 124/63; PULSE 89; RESP 17; TEMP 36.6; O2SAT 96
[2021-05-10 17:32] VITALS: BP 124/63; PULSE 89
[2021-05-10] MEDS: SACUBITRIL/VALSARTAN 97-103 MG TABLET 1 EACH PO (17:32)
--- NOTE | 2021-05-10 18:36 | NURSING ---
PT CAME TO THIS NURSE AND STATED THAT SHE WANTED TO KNOW WHERE HER GOT HIS BRUISE ON HIS RIGHT LOWER ABDOMINAL. THIS NURSE LOOKED AT PT AND SEEN IT WAS THE SAME AREA THAT HE HAD ON ADMISSION. TALKED TO RN AND LOOKED IN SHIFT CLINICAL AND BRUISE WAS DOCUMENTED ON ADMISSION. THIS NURSE STATED TO THAT IT WAS THERE WHEN PT CAME TO FLOOR. UNDERSTOOD BUT SAID SHE DIDNT REMEMBER. RN AWARE
[2021-05-10] MEDS: Atorvastatin Calcium 80 MG Tablet PO (22:47)
[2021-05-10] MEDS: Donepezil HCl 5 MG Tablet PO (22:47)
[2021-05-11] MEDS: Escitalopram Oxalate 10 MG Tablet PO (05:08)
[2021-05-11] MEDS: Glucerna Shake 120 ML LIQUID PO ×4 (05:08→21:54)
[2021-05-11] MEDS: Clopidogrel Bisulfate 75 MG Tablet PO (05:08)
[2021-05-11] MEDS: Cholecalciferol (VIT D3) 25 MCG TABLET (1,000 UNITS) PO (05:08)
[2021-05-11] MEDS: Pantoprazole Sodium 40 MG Tablet PO (05:08)
[2021-05-11] MEDS: Magnesium Chloride 64 MG Delay Rel.Tablet 128 MG PO (05:09)
[2021-05-11] MEDS: Furosemide 40 MG Tablet PO ×2 (05:09→13:21)
[2021-05-11] MEDS: Menthol/Lanolin/Calamine/Znox 113 GM Tube 1 APPLIC TOPICAL ×2 (05:10→17:52)
[2021-05-11] MEDS: SACUBITRIL/VALSARTAN 97-103 MG TABLET 1 EACH PO ×2 (05:10→17:54)
[2021-05-11] MEDS: Nystatin Powder 15gm Bottle 1 APPLIC TOPICAL ×2 (05:10→21:54)
[2021-05-11 06:05] LABS: Bedside Glucose 115 mg/dL (70-110)
--- NOTE | 2021-05-11 06:48 | NURSING ---
Holding lopressor for this am d/t bp being 85/49 and hr at 79. RN aware.
[2021-05-11 08:40] VITALS: BP 100/56; PULSE 82
[2021-05-11] MEDS: Aspirin E.C. 81 MG Tablet PO (08:40)
[2021-05-11] MEDS: Potassium Chloride Oral Tablet 20 MEQ PO ×2 (08:40→17:53)
[2021-05-11] MEDS: Metoprolol Tartrate 25 MG Tablet 12.5 MG PO (08:40)
[2021-05-11 08:44] VITALS: BP 100/56; PULSE 82
--- NOTE | 2021-05-11 08:45 | NURSING ---
PT TOENAILS ARE REALY LONG. ASKED PT IF HE WOULD LIKE TO SEE A PEDIATRIST TO TRIM HIS NAILS. PT STATED NO. RN AWARE
[2021-05-11 09:10] VITALS: PULSE 83; RESP 18; O2SAT 96
[2021-05-11] MEDS: Acetaminophen 500 MG Tablet 1000 MG PO (13:26)
[2021-05-11 15:20] VITALS: BP 84/57; PULSE 76; RESP 18; TEMP 36.6; O2SAT 94
[2021-05-11] MEDS: COVID-19 VACC, MRNA(PFIZER)/PF 30 MCG/0.3 ML SYRINGE IM (16:23)
--- NOTE | 2021-05-11 16:33 | NURSING ---
THIS NURSE GAVE PT HIS COVID-19 PFIZER BOOSTER SHOT IN LEFT DELT. WILL CONTINUE TO MONITOR. PT TOLERATED WELL. INFO DOCUMENTED ON PT VACCINE CARD,GAVE BACK TO .
[2021-05-11 18:00] VITALS: BP 92/57; PULSE 66
[2021-05-11] MEDS: Donepezil HCl 5 MG Tablet PO (21:54)
[2021-05-11] MEDS: Atorvastatin Calcium 80 MG Tablet PO (21:54)
[2021-05-11 21:55] VITALS: BP 92/57; PULSE 66
[2021-05-12 04:52] VITALS: BP 94/47; PULSE 69
[2021-05-12 04:53] VITALS: BP 94/47; PULSE 69
[2021-05-12] MEDS: Menthol/Lanolin/Calamine/Znox 113 GM Tube 1 APPLIC TOPICAL ×2 (04:54→17:42)
[2021-05-12] MEDS: Furosemide 40 MG Tablet PO (04:55)
[2021-05-12] MEDS: Escitalopram Oxalate 10 MG Tablet PO (04:55)
[2021-05-12] MEDS: Magnesium Chloride 64 MG Delay Rel.Tablet 128 MG PO (04:55)
[2021-05-12] MEDS: Pantoprazole Sodium 40 MG Tablet PO (04:56)
[2021-05-12] MEDS: Cholecalciferol (VIT D3) 25 MCG TABLET (1,000 UNITS) PO (04:56)
[2021-05-12] MEDS: Clopidogrel Bisulfate 75 MG Tablet PO (04:56)
[2021-05-12] MEDS: Senna/Docusate Sodium 1 Tablet PO (04:56)
[2021-05-12] MEDS: Nystatin Powder 15gm Bottle 1 APPLIC TOPICAL ×2 (04:57→17:49)
[2021-05-12] MEDS: Glucerna Shake 120 ML LIQUID PO ×4 (04:58→20:37)
[2021-05-12 06:16] LABS: Bedside Glucose 97 mg/dL (70-110)
[2021-05-12] MEDS: Potassium Chloride Oral Tablet 20 MEQ PO ×2 (07:54→17:41)
[2021-05-12] MEDS: Aspirin E.C. 81 MG Tablet PO (07:54)
--- NOTE | 2021-05-12 09:29 | NURSING ---
[employer] called and precert completed. Authorization number [id number]
--- NOTE | 2021-05-12 09:48 | CASEMGMT ---
Addendum entered by Melissa Waite 05/12/21 13:37: and dtr asked to speak with SW after meeting. Both upset seeing pt's mood with such a change/decline. Expressing this is not how he was at home, he was perky, cheerful, but did acknowledge he wasn't a social person - just slept, ate, and watched TV at home. Provided emotional support. Discussed different reasons why pt may have change in mood, i.e. admission, change in environment. Family requesting change/increase in medication for mood, and also suspecting pt has Parkinson's - requesting if Dr. Garcia can review that possibility. Left message for Dr. Garcia on information and requests from family. Will continue to follow. Original Note: Social Work IDT met with patient, and dtr for care plan meeting. Discussed patient's progress in therapy and nursing. Pt's mood is flat, difficulty remaining optimistic. Pt on antidepressant. Dtr/ report mood is not at baseline for pt. Will notify Dr. Pt did not want to speak further to this worker - only wants to go home. Explained [facility] insurance with [employer]D 05/17, EDC 05/20, and continued stay is not guaranteed. Explained and provided insurance care plan. ST involved for cognition. The goal is for pt to return home with . Inquired about assistance as pt is incontinent, maxA for pericare. is unable to assist pt at this level. Provided SNF list with quality and resource data. Inquired about finances. states they cannot pay privately for SNF stay, but pt does have life insurance policy. Encouraged to get paperwork for life insurance and amount as [employer] will need that liquidated. Provided [employer] application for to complete and see if pt will qualify. Provided this worker's contact information. SW to continue to follow. Melissa Waite, RAUL MOVIE SHOT CAMERAMAN
--- NOTE | 2021-05-12 10:00 | CASEMGMT ---
Social Work BIMS(11) and PHQ-9(9) completed this day. SW spoke w/pt about pt's responses in PHQ-9. Pt attributes all responses that would indicate depression as being due to the fact that pt is here in TCU. Pt does not want to discuss this with Dr. Garcia, states only wants to speak w/Dr. Garcia about when he can leave. Pt states the symptoms will be better once home. Pt states that it's the same stuff, every day. Pt states the food is not good, which is impacting his appetite. Pt not open to any interventions at this time that may address the symptoms he is exhibiting as indicated by the PHQ-9. SW remains available for emotional support while he is here. AMARILIS Teresa
[2021-05-12 13:20] VITALS: BP 103/54; PULSE 85; RESP 16; TEMP 36.2; O2SAT 93
--- NOTE | 2021-05-12 16:24 | CHAPLAIN ---
Type of Pastoral Visit _x__ Initial Visit ___ Follow-up Visit ___ On-call Visit ___ General Patient Visit ___ Spiritual Assessment ___ Family Conference ___ Bereavement ___ Rapid Response ___ Code Blue ___ Other (describe below) Pastoral Care Referral From _x__ Patient ___ Family ___ Nurse ___ Physician ___ Legal Document Assistant ___ Vp Director Of Finance ___ Other (describe below) Sacrament/Intervention _x__ Active listening ___ Anointing ___ Orthodox ___ Bereavement ___ Communion ___ Aleida exploration ___ ___ Life review ___ Prayer ___ Reconciliation ___ Sacrament of Sick _x__ Supportive presence ___ Wedding ___ Other (describe below) Pastoral Comments sat with patient whose demeanor was negative and complaining; pt repeatedly said I don't care and I just want to get out of here; redirection and positive comments did not have much effect; this insurance job titles stated that I will have hope for you; pt did say thank you at the end
[2021-05-12] MEDS: Acetaminophen 500 MG Tablet 1000 MG PO (16:27)
[2021-05-12] MEDS: SACUBITRIL/VALSARTAN 97-103 MG TABLET 1 EACH PO (17:41)
[2021-05-12 17:43] VITALS: PULSE 87
[2021-05-12] MEDS: Metoprolol Tartrate 25 MG Tablet 12.5 MG PO (17:43)
[2021-05-12 20:05] VITALS: PULSE 72; RESP 16; O2SAT 95
[2021-05-12] MEDS: Atorvastatin Calcium 80 MG Tablet PO (20:37)
[2021-05-12] MEDS: Donepezil HCl 5 MG Tablet PO (20:38)
[2021-05-13] VITALS (7 sets, daily range): BP systolic 86–105; BP diastolic 47–56; PULSE 62–81; RESP 18–20; TEMP 36.3; O2SAT 97
[2021-05-13] MEDS: Pantoprazole Sodium 40 MG Tablet PO (05:15)
[2021-05-13] MEDS: Magnesium Chloride 64 MG Delay Rel.Tablet 128 MG PO (05:15)
[2021-05-13] MEDS: Cholecalciferol (VIT D3) 25 MCG TABLET (1,000 UNITS) PO (05:16)
[2021-05-13] MEDS: Clopidogrel Bisulfate 75 MG Tablet PO (05:16)
[2021-05-13] MEDS: Escitalopram Oxalate 10 MG Tablet PO (05:16)
[2021-05-13] MEDS: Glucerna Shake 120 ML LIQUID PO ×4 (05:17→20:57)
[2021-05-13] MEDS: Nystatin Powder 15gm Bottle 1 APPLIC TOPICAL ×2 (05:19→17:22)
[2021-05-13] MEDS: Menthol/Lanolin/Calamine/Znox 113 GM Tube 1 APPLIC TOPICAL ×2 (05:19→17:23)
[2021-05-13 06:26] LABS: Bedside Glucose 97 mg/dL (70-110)
--- NOTE | 2021-05-13 07:55 | RAD_ITS ---
STUDY: X-RAY CHEST REASON FOR EXAM: Male, 81 years old. Shortness of breath TECHNIQUE: AP and lateral views of the chest. COMPARISON: 05/05/2021 FINDINGS: Left-sided dual-lead percutaneous pacemaker. There has been median sternotomy/CABG. There is hyperinflation of the lungs consistent with chronic obstructive lung disease (COPD). There is stable right hilar and infrahilar pulmonary infiltrates. There may be small pleural effusions. Normal size heart. Normal mediastinum and evan. Normal visualized pulmonary arteries. There is atherosclerotic tortuosity of the aortic arch and descending thoracic aorta. There are diffuse degenerative changes of the visualized thoracic spine. Normal visualized ribs, clavicles, and shoulders. There is no demonstrated abnormality of the visualized soft tissue structures of the upper abdomen. RAD/Chest PA and Lateral IMPRESSION: There is persistent right hilar and infrahilar pulmonary infiltrates. There may be small bilateral pleural effusions. Electronically Signed: Nadeem Bryan MD at 10:50 EDT Tel , Service support ,
--- NOTE | 2021-05-13 07:55 | RAD_ITS ---
STUDY: X-RAY - ABDOMEN/PELVIS REASON FOR EXAM: Male, 81 years old. Diarrhea TECHNIQUE: Single AP view of the abdomen / pelvis. COMPARISON: None. FINDINGS: There has been median sternotomy/CABG. Partially visualized pacemaker wires. There is small left pleural effusion. There is an unremarkable bowel gas pattern. There is no demonstrated free abdominal air. The bones are osteopenic. Normal soft tissue structures. Normal visualized osseous structures. There is mild bilateral hip arthrosis. RAD/Abdomen Single View IMPRESSION: Unremarkable bowel gas pattern. Small left pleural effusion. Electronically Signed: Nadeem Bryan MD at 10:55 EDT Tel , Service support ,
[2021-05-13 08:33] LABS: Absolute Lymphocyte Count 1.02 X10^3/uL (0.83-4.51); Absolute Neutrophil Count 5.9 X10^3/uL (2.0-7.7); Basophil# 0.07 X10^3/uL; Basophil% 0.8 % (0-1); Eosinophil# 0.25 X10^3/uL; Eosinophils% 2.9 % (0-5); Hematocrit 36.5 % (40-54); Hemoglobin 11.7 g/dL (13.0-16.5); Lymphocyte # 1.02 X10^3/ul (0.83-4.51); Lymphocyte % 11.8 % (19-41); Mean Corp Hgb Conc 32.1 g/dL (32-36); Mean Corpuscular Hgb 25.3 pg (27.0-32.0); Mean Platelet Vol. 11.1 fl (6.2-12.0); Monocyte# 1.31 X10^3/uL; Monocyte% 15.2 % (0-10); NRBC Flagged by Analyzer 0 % (0-5); Neutrophil # 5.89 X10^3/uL (2.7-7.7); Neutrophil % 68.5 % (47-70); Platelet Count 330 K/mm3 (150-450); RBC Distribution Width CV 17.7 % (11.6-14.6); RBC Distribution Width SD 50.9 fl (35.1-43.9); Red Blood Count 4.62 M/mm3 (4.6-6.2); White Blood Count 8.6 K/mm3 (4.4-11.0)
[2021-05-13] MEDS: Potassium Chloride Oral Tablet 20 MEQ PO ×2 (08:46→17:23)
[2021-05-13] MEDS: Aspirin E.C. 81 MG Tablet PO (08:46)
[2021-05-13 08:47] LABS: Anion Gap 8 (5-15); BUN 24 mg/dL (7-18); BUN/Creat Ratio 36.8 RATIO (10-20); Calcium,Total 9.6 mg/dL (8.5-10.1); Chloride 103 mmol/L (98-107); Creatinine, Serum 0.65 mg/dL (0.70-1.30); EST Glomerular Filtration Rate 125 mL/min (>60); Est Glom Filt Rate - Afr Amer 151 mL/min (>60); Estimated Creatinine Clearance 53.17 ml/min; Glucose 106 mg/dL (74-106); Sodium Level 134 mmol/L (136-145)
[2021-05-13 10:42] LABS: Bacteria 0 SEEN /hpf (None Seen); Mucous, Urine 0 SEEN /hpf (<or=2+); Red Blood Cells-Urine 0 SEEN /hpf (0-5); Squamous Epithelial Cells - UA 0 SEEN /hpf (0-5); White Blood Cells 0 SEEN /hpf (0-5)
[2021-05-13 10:45] LABS: Color, Urine Yellow (Yellow); Glucose, Dipstick Normal (Normal); Ketone-Dipstick Negative (Negative); Leukocyte Esterase-Dipstick Negative /ul (Negative); Nitrite-Dipstick Negative (Negative); Occult Blood-Urine Negative /ul (Negative); Protein-Dipstick Negative (Negative); Specific Gravity, Urine 1.015 (1.002-1.030); Urine Bilirubin Dipstick Negative (Negative); Urine Clarity Clear (Clear); Urine Urobilinogen Normal (Normal)
--- NOTE | 2021-05-13 11:37 | NURSING ---
CALLED AND UPDATED ON PT.
[2021-05-13] MEDS: Cefdinir 300 MG Capsule PO ×2 (15:00→20:57)
[2021-05-13] MEDS: Acetaminophen 500 MG Tablet 1000 MG PO (15:03)
[2021-05-13] MEDS: Metoprolol Tartrate 25 MG Tablet 12.5 MG PO (17:28)
[2021-05-13] MEDS: SACUBITRIL/VALSARTAN 97-103 MG TABLET 1 EACH PO (17:28)
[2021-05-13] MEDS: Donepezil HCl 5 MG Tablet PO (20:57)
[2021-05-13] MEDS: Atorvastatin Calcium 80 MG Tablet PO (20:58)
[2021-05-13] MEDS: Mirtazapine 15 MG Tablet 7.5 MG PO (20:58)
[2021-05-14] MEDS: Glucerna Shake 120 ML LIQUID PO ×4 (05:07→23:14)
[2021-05-14] MEDS: Cefdinir 300 MG Capsule PO ×2 (05:08→16:59)
[2021-05-14 05:09] VITALS: BP 127/65; PULSE 66
[2021-05-14] MEDS: SACUBITRIL/VALSARTAN 97-103 MG TABLET 1 EACH PO ×2 (05:09→16:59)
[2021-05-14] MEDS: Furosemide 40 MG Tablet PO (05:09)
[2021-05-14] MEDS: Pantoprazole Sodium 40 MG Tablet PO (05:09)
[2021-05-14] MEDS: Metoprolol Tartrate 25 MG Tablet 12.5 MG PO (05:09)
[2021-05-14] MEDS: Escitalopram Oxalate 10 MG Tablet PO (05:09)
[2021-05-14] MEDS: Clopidogrel Bisulfate 75 MG Tablet PO (05:09)
[2021-05-14] MEDS: Magnesium Chloride 64 MG Delay Rel.Tablet 128 MG PO (05:10)
[2021-05-14] MEDS: Menthol/Lanolin/Calamine/Znox 113 GM Tube 1 APPLIC TOPICAL ×2 (05:16→16:53)
[2021-05-14] MEDS: Nystatin Powder 15gm Bottle 1 APPLIC TOPICAL ×2 (05:16→16:53)
[2021-05-14 05:37] LABS: Absolute Lymphocyte Count 0.91 X10^3/uL (0.83-4.51); Absolute Neutrophil Count 5.5 X10^3/uL (2.0-7.7); Basophil# 0.11 X10^3/uL; Basophil% 1.3 % (0-1); Eosinophil# 0.39 X10^3/uL; Eosinophils% 4.7 % (0-5); Hematocrit 34.9 % (40-54); Lymphocyte # 0.91 X10^3/ul (0.83-4.51); Mean Corp Hgb Conc 31.5 g/dL (32-36); Mean Corpuscular Hgb 25.2 pg (27.0-32.0); Mean Corpuscular Volume 79.9 fL (80-94); Mean Platelet Vol. 11.3 fl (6.2-12.0); Monocyte# 1.33 X10^3/uL; Monocyte% 16.1 % (0-10); NRBC Flagged by Analyzer 0 % (0-5); Neutrophil # 5.45 X10^3/uL (2.7-7.7); Neutrophil % 65.9 % (47-70); Platelet Count 319 K/mm3 (150-450); RBC Distribution Width CV 17.5 % (11.6-14.6); RBC Distribution Width SD 50.6 fl (35.1-43.9); Red Blood Count 4.37 M/mm3 (4.6-6.2); White Blood Count 8.3 K/mm3 (4.4-11.0)
[2021-05-14 06:06] LABS: Anion Gap 6 (5-15); BUN 17 mg/dL (7-18); Calcium,Total 9.5 mg/dL (8.5-10.1); Chloride 108 mmol/L (98-107); Creatinine, Serum 0.47 mg/dL (0.70-1.30); EST Glomerular Filtration Rate 182 mL/min (>60); Est Glom Filt Rate - Afr Amer 220 mL/min (>60); Estimated Creatinine Clearance 53.17 ml/min; Glucose 98 mg/dL (74-106); Potassium 5.1 mmol/L (3.5-5.1); Sodium Level 134 mmol/L (136-145)
[2021-05-14 06:20] LABS: Bedside Glucose 94 mg/dL (70-110)
[2021-05-14] MEDS: Potassium Chloride Oral Tablet 20 MEQ PO ×2 (08:11→16:52)
[2021-05-14] MEDS: Aspirin E.C. 81 MG Tablet PO (08:11)
[2021-05-14] MEDS: Tuberculin,Purif.prot.deriv. 50 TU/ML Vial 0.1 ML ID (09:41)
--- NOTE | 2021-05-14 13:27 | CASEMGMT ---
Social Work Contacted pt's to discuss DC plans in preparation for insurance update 05/17. Explained pt is not wanting to participate fully in therapy and the insurance already set a projected DC date of 05/20. Spoke with Dr. Garcia to confirm pt can make his own decision on DC destination. understands pt will DC home. Her dtr can help at DC initially. Offered nonskilled HHC list - denied. SW can order skilled HHC and any DME or hospice, depending what pt agrees to. understands. Will continue to follow. Melissa Waite, HAT AND CAP OPENER PLANNING ASSISTANT
[2021-05-14 15:18] VITALS: BP 112/56; PULSE 72; RESP 16; TEMP 36.7; O2SAT 97
[2021-05-14] MEDS: 0.9% Saline Lock 10 ML Syringe IV (16:52)
[2021-05-14 16:57] VITALS: BP 95/50; PULSE 81
[2021-05-14] MEDS: Atorvastatin Calcium 80 MG Tablet PO (23:15)
[2021-05-14] MEDS: Mirtazapine 15 MG Tablet 7.5 MG PO (23:15)
[2021-05-14] MEDS: Donepezil HCl 5 MG Tablet PO (23:16)
[2021-05-15] MEDS: Glucerna Shake 120 ML LIQUID PO ×4 (05:02→21:57)
[2021-05-15 05:03] VITALS: BP 111/75; PULSE 74
[2021-05-15] MEDS: Magnesium Chloride 64 MG Delay Rel.Tablet 128 MG PO (05:03)
[2021-05-15] MEDS: Clopidogrel Bisulfate 75 MG Tablet PO (05:03)
[2021-05-15] MEDS: SACUBITRIL/VALSARTAN 97-103 MG TABLET 1 EACH PO ×2 (05:03→17:27)
[2021-05-15] MEDS: Pantoprazole Sodium 40 MG Tablet PO (05:03)
[2021-05-15] MEDS: Furosemide 40 MG Tablet PO (05:03)
[2021-05-15] MEDS: Cefdinir 300 MG Capsule PO ×2 (05:03→17:26)
[2021-05-15] MEDS: Escitalopram Oxalate 10 MG Tablet PO (05:03)
[2021-05-15] MEDS: Metoprolol Tartrate 25 MG Tablet 12.5 MG PO ×2 (05:03→17:26)
[2021-05-15] MEDS: Menthol/Lanolin/Calamine/Znox 113 GM Tube 1 APPLIC TOPICAL ×2 (05:04→17:27)
[2021-05-15] MEDS: Nystatin Powder 15gm Bottle 1 APPLIC TOPICAL ×2 (05:04→17:27)
[2021-05-15 06:45] LABS: Bedside Glucose 113 mg/dL (70-110)
[2021-05-15] MEDS: Aspirin E.C. 81 MG Tablet PO (08:32)
[2021-05-15] MEDS: Potassium Chloride Oral Tablet 20 MEQ PO ×2 (08:32→17:26)
[2021-05-15 14:49] VITALS: BP 116/60; PULSE 74; RESP 16; TEMP 36.4; O2SAT 98
[2021-05-15 17:26] VITALS: PULSE 70
[2021-05-15] MEDS: Donepezil HCl 5 MG Tablet PO (22:00)
[2021-05-15] MEDS: Atorvastatin Calcium 80 MG Tablet PO (22:00)
[2021-05-15] MEDS: Mirtazapine 15 MG Tablet 7.5 MG PO (22:00)
[2021-05-15] MEDS: 0.9% Saline Lock 10 ML Syringe IV (22:21)
--- NOTE | 2021-05-15 22:57 | NURSING ---
Return phone call placed to spouse, Paola, who is requesting updates. Instructed pt continues to be incontinent of bowel and bladder. This nurse performed a complete bed change and pericare this evening. Consumed Glucerna but no water. A&O x2, needed reoriented to time. Paola notes pt only experienced loss of control of his bowels at times at home w/ episodes of loose stools. Informs this nurse pt told her he was not up in his chair today. Read OT's note that max assist and cues required w/ bathing and dressing tasks. Ambulated top and placed in recliner chair for breakfast. She verbalizes understanding. Expresses appreciation for return call. Encouraged to call for any additional questions or concerns.
[2021-05-16] MEDS: Acetaminophen 500 MG Tablet 1000 MG PO ×3 (04:08→23:11)
[2021-05-16 04:56] VITALS: BP 98/51; PULSE 64; RESP 16; TEMP 35.9; O2SAT 98
[2021-05-16] MEDS: Magnesium Chloride 64 MG Delay Rel.Tablet 128 MG PO (04:58)
[2021-05-16] MEDS: Escitalopram Oxalate 10 MG Tablet PO (04:59)
[2021-05-16] MEDS: Pantoprazole Sodium 40 MG Tablet PO (04:59)
[2021-05-16] MEDS: Clopidogrel Bisulfate 75 MG Tablet PO (04:59)
[2021-05-16] MEDS: SACUBITRIL/VALSARTAN 97-103 MG TABLET 1 EACH PO ×2 (05:00→17:09)
[2021-05-16] MEDS: Cefdinir 300 MG Capsule PO ×2 (05:00→17:06)
[2021-05-16] MEDS: Nystatin Powder 15gm Bottle 1 APPLIC TOPICAL ×2 (05:00→17:05)
[2021-05-16 05:01] VITALS: BP 98/51; PULSE 64
[2021-05-16] MEDS: Menthol/Lanolin/Calamine/Znox 113 GM Tube 1 APPLIC TOPICAL ×2 (05:01→17:10)
[2021-05-16] MEDS: Glucerna Shake 120 ML LIQUID PO ×4 (05:03→23:10)
--- NOTE | 2021-05-16 05:04 | NURSING ---
John held at this time d/t BP of 98/51 with fair to poor fluid intake. Staff to continue to monitor.
[2021-05-16 06:30] LABS: Bedside Glucose 117 mg/dL (70-110)
--- NOTE | 2021-05-16 06:45 | NURSING ---
Alarm sounds. Pt repositions self in recliner chair several times. Reports buttocks are sore and requesting Tylenol. Informed pt he is unable to have an additional dose at this time. Instructed buttocks are sore d/t frequent bowel and bladder incontinence. Pt does not think this is the reason why his skin would be sore. In mild distress. Chair alarm activated and call light w/ in reach. Additional education needed. Staff to continue to monitor.
[2021-05-16] MEDS: Potassium Chloride Oral Tablet 20 MEQ PO ×2 (08:39→17:07)
[2021-05-16] MEDS: Aspirin E.C. 81 MG Tablet PO (08:39)
[2021-05-16 14:48] VITALS: BP 109/58; PULSE 71; RESP 16; TEMP 36.1; O2SAT 98
[2021-05-16 17:04] VITALS: BP 109/58; PULSE 70
[2021-05-16] MEDS: Metoprolol Tartrate 25 MG Tablet 12.5 MG PO (17:04)
[2021-05-16] MEDS: Atorvastatin Calcium 80 MG Tablet PO (23:10)
[2021-05-16] MEDS: Donepezil HCl 5 MG Tablet PO (23:11)
[2021-05-16] MEDS: Mirtazapine 15 MG Tablet 7.5 MG PO (23:12)
[2021-05-16] MEDS: LORazepam 0.5 MG Tablet PO (23:13)
[2021-05-17 04:56] VITALS: BP 118/49; PULSE 62; RESP 16; O2SAT 98
[2021-05-17] MEDS: Cefdinir 300 MG Capsule PO ×2 (04:57→16:37)
[2021-05-17 04:58] VITALS: BP 118/49; PULSE 621
[2021-05-17] MEDS: Clopidogrel Bisulfate 75 MG Tablet PO (04:58)
[2021-05-17] MEDS: Pantoprazole Sodium 40 MG Tablet PO (04:58)
[2021-05-17] MEDS: Escitalopram Oxalate 10 MG Tablet PO (04:58)
[2021-05-17] MEDS: SACUBITRIL/VALSARTAN 97-103 MG TABLET 1 EACH PO ×2 (04:58→16:40)
[2021-05-17] MEDS: Nystatin Powder 15gm Bottle 1 APPLIC TOPICAL ×2 (04:59→16:37)
[2021-05-17] MEDS: Magnesium Chloride 64 MG Delay Rel.Tablet 128 MG PO (04:59)
[2021-05-17] MEDS: Menthol/Lanolin/Calamine/Znox 113 GM Tube 1 APPLIC TOPICAL ×2 (05:00→16:38)
[2021-05-17 06:55] LABS: Bedside Glucose 95 mg/dL (70-110)
[2021-05-17] MEDS: Aspirin E.C. 81 MG Tablet PO (08:41)
[2021-05-17] MEDS: Potassium Chloride Oral Tablet 20 MEQ PO ×2 (08:41→16:37)
--- NOTE | 2021-05-17 09:01 | CASEMGMT ---
Addendum entered by Melissa Waite 05/17/21 16:13: Insurance issued LCD 05/19, DC 05/20. and dtr present in room. Spoke with all 3 - all agreeable to DC 05/20. Pt declined HHC services. Agreeable to dtr's request of [facility]SC. Referral made to [facility] [place]. Dtr to transport. Plan: DC to dtr's home 05/20, BSC, no HHC or therapy/nursing services Original Note: Social Work Dtr contacted this worker explaining family's decision on DC plan for pt. Dtr lives in a 3 bedroom handicap accessible [facility]. She lives with her 18 year old high functioning autistic dtr, per dtr. Pt and agreeable to move in with dtr and get 24/7 care. Dtr to purchase shower chair. Requesting [facility]SC and [facility]. Explained insurance update today and will see about DC, and if pt wants to DC prior, he can. SW to continue to assist. Melissa Waite, TITLE SEARCH MANAGER TRUCK CRANE OPERATOR
[2021-05-17] MEDS: Glucerna Shake 120 ML LIQUID PO ×3 (13:14→19:46)
[2021-05-17 16:00] VITALS: BP 114/70; PULSE 69; RESP 16; TEMP 36.3; O2SAT 98
[2021-05-17] MEDS: LORazepam 0.5 MG Tablet PO (16:35)
[2021-05-17] MEDS: Senna/Docusate Sodium 1 Tablet PO (16:37)
[2021-05-17 16:43] VITALS: PULSE 69
[2021-05-17] MEDS: Metoprolol Tartrate 25 MG Tablet 12.5 MG PO (16:43)
--- NOTE | 2021-05-17 19:05 | PCM.DC.SUM ---
Providers Date of Admission: 05/06/21 Primary Care Physician: Dr. Lazarus Garcia MD Reason For Visit: HEART FAILURE Diagnosis Discharge Diagnosis (1) Debility: Status: Acute Code(s): R53.81 - Other malaise (2) Shortness of breath: Status: Resolved Code(s): R06.02 - Shortness of breath (3) Acute on chronic systolic congestive heart failure: Status: Chronic Code(s): I50.23 - Acute on chronic systolic (congestive) heart failure (4) Pneumonia: Status: Acute Code(s): J18.9 - Pneumonia, unspecified organism (5) Elevated troponin: Status: Acute Code(s): R77.8 - Other specified abnormalities of plasma proteins (6) Diabetes mellitus: Status: Acute Code(s): E11.9 - Type 2 diabetes mellitus without complications (7) Coronary artery disease: Status: Acute Code(s): I25.10 - Atherosclerotic heart disease of [place] coronary artery without angina pectoris (8) Hyperlipidemia: Status: Acute Code(s): E78.5 - Hyperlipidemia, unspecified (9) Depression: Status: Acute Code(s): F32.A - Depression, unspecified (10) Gastroesophageal reflux disease: Status: Acute Code(s): K21.9 - Gastro-esophageal reflux disease without esophagitis (11) Hypokalemia: Status: Acute Code(s): E87.6 - Hypokalemia Medications at Discharge Home Medications atorvastatin 80 mg PO QHS 12/31/17 clopidogrel 75 mg PO DAILY 12/31/17 escitalopram oxalate 10 mg PO DAILY 12/31/17 omeprazole 40 mg PO DAILY 01/24/18 aspirin 81 mg PO DAILY 01/26/18 nitroglycerin 0.4 mg sublingual tablet 0.4 mg SUBLINGUAL Q5-15M PRN #25 tab 07/17/19 metoprolol tartrate 25 mg tablet 12.5 mg PO BID tab 12/24/20 potassium chloride 20 meq PO BID 05/04/21 donepezil [Aricept] 5 mg PO QHS 05/06/21 acetaminophen 1,000 mg PO Q6H PRN PRN #0 tab 05/17/21 furosemide 40 mg PO DAILY 30 Days #30 tab 05/17/21 mirtazapine 7.5 mg PO QHS 30 Days #15 tab 05/17/21 sacubitril-valsartan [Entresto] 1 ea PO BID #0 tab 05/17/21 Hospital Course Operations None Procedures None Summary of Care Provided Minutes Spent on Discharge: 35 Hospital Course: 81 year old male with below past medical history hospitalized for shortness of breath secondary to acute on chronic systolic congestive heart failure, complicated by elevated troponin, pneumonia ruled out, admitted to TCU with debility, here for rehabilitation, strengthening, prior to discharge home with . Discharge to daughter in law's home 05/20/2021, Bedside commode, No home health care, or therapy/nursing services. Physical Exam Const alert and oriented x3 General Appearance: cooperative HEENT normocephalic Eyes PERRL and EOMs intact bilaterally Neck supple, no JVD and no carotid bruits Resp normal respiratory effort, normal air movement and clear to auscultation bilaterally Cardio regular rate and regular rhythm GI normal to inspection, nondistended, normoactive bowel sounds, non-tender and non-distended Extremity normal capillary refill General Extremity: Negative for edema Skin no rashes or lesions noted General Skin Exam: no breakdown Psych affect normal Appearance: appropriate Weight / BMI Weight Weight: 67.132 kg Body Mass Index (BMI) 24.3 ABG / Lab / Microbiology Data Result Diagrams: 05/14/21 05:12 05/14/21 05:12 Laboratory: Laboratory Results - last 24 hr 05/17/21 06:22: POC Glucose 95 Microbiology: Microbiology 05/17/21 14:55 Nasal Secretion SARS-CoV-2 Antigen (Rapid) - Final 05/13/21 10:25 Urine Catheter - Catheter Urine Culture - Final Culture exhibits no growth. 05/11/21 12:16 Nasal Secretion SARS-CoV-2 Antigen (Rapid) - Final 05/08/21 14:50 Urine Catheter - Catheter Urine Culture - Final Culture exhibits no growth. D/C Instructions Discharge Diet: No restrictions Discharge Activity: Return to Normal Activity, May Shower and Use Walker Weight Bearing Status: Weight bearing as tolerated Call your doctor if you observe: Fever of 101 or Higher, Inability to urinate, Inability to have a bowel movement, Shortness of breath, Dizziness, Fainting spells, Swelling in the ankles, Chest pain and Uncontrolled pain Additional Instructions: Discharge to daughter in law's home 05/20/2021, Bedside commode, No home health care, or therapy/nursing services. Please Follow Up With: Lazarus Garcia Chi, MD When: 1 week. Meaningful Use Info Meaningful Use Diagnoses (Choose all that apply): CHF CHF RASHEED/ARB ordered at discharge?: Yes Documented LVEF (%): 35 Discharge Plan Admission Admit Date/Time: 05/06/21 21:10 Primary Reason for Your Visit: Debility. Attending Provider: Lazarus Garcia Chi Primary Care Provider: Lazarus Garcia Chi Instructions Additional Instructions / Restrictions: Discharge to daughter in law's home 05/20/2021, Bedside commode, No home health care, or therapy/nursing services. Discharge Orders/Prescriptions Prescriptions: New acetaminophen 500 mg Tablet 1,000 mg PO Q6H PRN PRN (Reason: Pain Score 1-10) Qty: 0 RF: 0 furosemide 40 mg Tablet 40 mg PO DAILY 30 Days Qty: 30 RF: 0 mirtazapine 15 mg Tablet 7.5 mg PO QHS 30 Days Qty: 15 RF: 0 Entresto 97-103 mg Tablet 1 ea PO BID Qty: 0 RF: 0 Continued nitroglycerin 0.4 mg tablet, sublingual 0.4 mg SUBLINGUAL Q5-15M PRN (Reason: chest pain) Qty: 25 RF: 11 metoprolol tartrate 25 mg tablet 12.5 mg PO BID RF: 0 atorvastatin 80 MG tablet 80 mg PO QHS RF: 0 clopidogrel 75 MG tablet 75 mg PO DAILY RF: 0 escitalopram oxalate 10 MG tablet 10 mg PO DAILY RF: 0 omeprazole 40 MG capsule,delayed release(DR/EC) 40 mg PO DAILY RF: 0 aspirin 81 MG tablet 81 mg PO DAILY RF: 0 potassium chloride 10 mEq capsule, extended release 20 meq PO BID RF: 0 donepezil [Aricept] 5 mg tablet 5 mg PO QHS RF: 0 Discontinued cholecalciferol (vitamin D3) 1,000 unit capsule 1,000 unit PO DAILY RF: 0 sacubitril-valsartan 1 EACH tablet 1 ea PO BID RF: 0 acetaminophen [Tylenol] 325 mg Tablet 650 mg PO Q6H PRN PRN (Reason: Pain Score 1-10/Temp > 100.7 F) Qty: 0 RF: 0 albuterol sulfate 2.5 mg /3 mL (0.083 %) Solution For Nebulization 2.5 mg inhalation Q2H PRN PRN (Reason: SOB/Wheezing) Qty: 0 RF: 0 furosemide [Lasix] 40 mg tablet 40 mg PO BID RF: 0 magnesium oxide [MgO] 400 mg (241.3 mg magnesium) tablet 400 mg PO DAILY RF: 0 Glucerna 1.2 Fabrice 0.06-1.2 gram-kcal/mL liquid 120 ml PO 4X/DAY RF: 0 Referrals / Follow Up: Lazarus Garcia Chi, MD [Primary Care Provider] - Disposition Disposition (needs filled in before D/C Order can be placed): Home, Self Care
[2021-05-17] MEDS: Donepezil HCl 5 MG Tablet PO (19:47)
[2021-05-17] MEDS: Atorvastatin Calcium 80 MG Tablet PO (19:47)
[2021-05-17] MEDS: Mirtazapine 15 MG Tablet 7.5 MG PO (19:48)
[2021-05-17] MEDS: Acetaminophen 500 MG Tablet 1000 MG PO (19:48)
[2021-05-18] MEDS: LORazepam 0.5 MG Tablet PO (00:11)
[2021-05-18] MEDS: Glucerna Shake 120 ML LIQUID PO ×2 (04:24→20:23)
[2021-05-18] MEDS: Menthol/Lanolin/Calamine/Znox 113 GM Tube 1 APPLIC TOPICAL ×2 (04:24→17:42)
[2021-05-18 04:25] VITALS: BP 95/55
[2021-05-18] MEDS: Nystatin Powder 15gm Bottle 1 APPLIC TOPICAL ×2 (04:25→17:43)
[2021-05-18] MEDS: Magnesium Chloride 64 MG Delay Rel.Tablet 128 MG PO (04:27)
[2021-05-18] MEDS: Pantoprazole Sodium 40 MG Tablet PO (04:28)
[2021-05-18] MEDS: Cefdinir 300 MG Capsule PO ×2 (04:28→17:45)
[2021-05-18] MEDS: Escitalopram Oxalate 10 MG Tablet PO (04:28)
[2021-05-18] MEDS: Clopidogrel Bisulfate 75 MG Tablet PO (04:29)
[2021-05-18 04:30] VITALS: BP 99/46; PULSE 65
[2021-05-18 05:39] VITALS: BP 110/47; PULSE 67
[2021-05-18 05:40] VITALS: PULSE 67
[2021-05-18] MEDS: SACUBITRIL/VALSARTAN 97-103 MG TABLET 1 EACH PO ×2 (05:40→17:45)
[2021-05-18 06:36] LABS: Bedside Glucose 106 mg/dL (70-110)
[2021-05-18] MEDS: Potassium Chloride Oral Tablet 20 MEQ PO ×2 (09:07→17:44)
[2021-05-18] MEDS: Aspirin E.C. 81 MG Tablet PO (09:07)
--- NOTE | 2021-05-18 13:29 | NURSING ---
PT COMPLAINING OF STOMACH BURNING. ASKED PT WHEN IT STARTED PT STATED YESTERDAY. NOTE LEFT FOR .RN AWARE.
--- NOTE | 2021-05-18 13:43 | MDS.RN ---
Information for the mds was obtained from review of the clinical record, interview of resident, staff, and direct observation of resident's care.
[2021-05-18 14:14] VITALS: BP 110/67; PULSE 70; RESP 14; TEMP 36.4; O2SAT 97
[2021-05-18 17:45] VITALS: BP 110/67; PULSE 70
[2021-05-18] MEDS: Metoprolol Tartrate 25 MG Tablet 12.5 MG PO (17:45)
[2021-05-18] MEDS: Calcium Carbonate 500 MG Tablet PO (18:47)
[2021-05-18] MEDS: Donepezil HCl 5 MG Tablet PO (20:24)
[2021-05-18] MEDS: Mirtazapine 15 MG Tablet 7.5 MG PO (20:24)
[2021-05-18] MEDS: Atorvastatin Calcium 80 MG Tablet PO (20:24)
[2021-05-19] MEDS: Acetaminophen 500 MG Tablet 1000 MG PO ×2 (04:36→21:50)
[2021-05-19] MEDS: Menthol/Lanolin/Calamine/Znox 113 GM Tube 1 APPLIC TOPICAL ×2 (04:44→17:46)
[2021-05-19] MEDS: SACUBITRIL/VALSARTAN 97-103 MG TABLET 1 EACH PO ×2 (04:44→17:48)
[2021-05-19] MEDS: Glucerna Shake 120 ML LIQUID PO ×2 (04:44→21:51)
[2021-05-19] MEDS: Escitalopram Oxalate 10 MG Tablet PO (04:45)
[2021-05-19] MEDS: Pantoprazole Sodium 40 MG Tablet PO (04:45)
[2021-05-19] MEDS: Magnesium Chloride 64 MG Delay Rel.Tablet 128 MG PO (04:45)
[2021-05-19] MEDS: Cefdinir 300 MG Capsule PO ×2 (04:45→17:47)
[2021-05-19] MEDS: Clopidogrel Bisulfate 75 MG Tablet PO (04:45)
[2021-05-19] MEDS: Nystatin Powder 15gm Bottle 1 APPLIC TOPICAL ×2 (04:46→17:45)
[2021-05-19 06:26] LABS: Bedside Glucose 106 mg/dL (70-110)
[2021-05-19 06:31] LABS: Bedside Glucose 104 mg/dL (70-110)
[2021-05-19] MEDS: Aspirin E.C. 81 MG Tablet PO (08:54)
[2021-05-19] MEDS: Potassium Chloride Oral Tablet 20 MEQ PO ×2 (08:54→17:48)
[2021-05-19 13:30] VITALS: PULSE 70; RESP 18; O2SAT 98
--- NOTE | 2021-05-19 15:08 | CHAPLAIN ---
Type of Pastoral Visit ___ Initial Visit _x__ Follow-up Visit ___ On-call Visit ___ General Patient Visit ___ Spiritual Assessment ___ Family Conference ___ Bereavement ___ Rapid Response ___ Code Blue ___ Other (describe below) Pastoral Care Referral From _x__ Patient ___ Family ___ Nurse ___ Physician ___ Food Service Worker ___ Manager Operations ___ Other (describe below) Sacrament/Intervention _x__ Active listening ___ Anointing ___ Mandaen ___ Bereavement ___ Communion ___ Aleida exploration ___ ___ Life review _x__ Prayer ___ Reconciliation ___ Sacrament of Sick ___ Supportive presence ___ Wedding ___ Other (describe below) Pastoral Comments patient is lying in bed; pt states that he is doing pretty good and has no complaints; pt refers to the weather and casual subjects; pt welcomes prayer; pt attitude is changed from first visit
[2021-05-19 15:55] VITALS: BP 93/50; PULSE 64; RESP 22; TEMP 36.1; O2SAT 100
[2021-05-19 17:47] VITALS: BP 93/50; PULSE 64
[2021-05-19] MEDS: Atorvastatin Calcium 80 MG Tablet PO (21:52)
[2021-05-19] MEDS: Mirtazapine 15 MG Tablet 7.5 MG PO (21:52)
[2021-05-19] MEDS: Donepezil HCl 5 MG Tablet PO (21:52)
[2021-05-19] MEDS: Calcium Carbonate 500 MG Tablet PO (21:55)
[2021-05-20] MEDS: Menthol/Lanolin/Calamine/Znox 113 GM Tube 1 APPLIC TOPICAL (05:01)
[2021-05-20 05:02] VITALS: BP 109/56; PULSE 65
[2021-05-20] MEDS: Furosemide 40 MG Tablet PO (05:02)
[2021-05-20] MEDS: Pantoprazole Sodium 40 MG Tablet PO (05:02)
[2021-05-20] MEDS: Escitalopram Oxalate 10 MG Tablet PO (05:02)
[2021-05-20] MEDS: Metoprolol Tartrate 25 MG Tablet 12.5 MG PO (05:02)
[2021-05-20] MEDS: Cefdinir 300 MG Capsule PO (05:02)
[2021-05-20] MEDS: Clopidogrel Bisulfate 75 MG Tablet PO (05:02)
[2021-05-20] MEDS: Nystatin Powder 15gm Bottle 1 APPLIC TOPICAL (05:02)
[2021-05-20] MEDS: Magnesium Chloride 64 MG Delay Rel.Tablet 128 MG PO (05:02)
[2021-05-20 06:30] LABS: Bedside Glucose 95 mg/dL (70-110)
[2021-05-20] MEDS: SACUBITRIL/VALSARTAN 97-103 MG TABLET 1 EACH PO (06:33)
[2021-05-20] MEDS: Potassium Chloride Oral Tablet 20 MEQ PO (08:01)
[2021-05-20] MEDS: Aspirin E.C. 81 MG Tablet PO (08:01)
[2021-05-20] MEDS: Glucerna Shake 120 ML LIQUID PO (11:19)
[2021-05-20 11:38] VITALS: BP 101/50; PULSE 55; RESP 16; TEMP 36.5; O2SAT 96
[2021-05-20 14:47] VITALS: BP 93/47; PULSE 63; RESP 17; TEMP 35.9; O2SAT 99
== END 2021-05-20 14:15 | disposition home or self-care (01) | DRG 293 ==
PROVIDERS: Admitting Provider Family Medicine Geriatric Medicine; PCP Family Medicine Geriatric Medicine; Visit Provider Family Medicine Geriatric Medicine
DX: I11.0 Hypertensive heart disease with heart failure (principal); I50.22 Chronic systolic (congestive) heart failure; Z23 Encounter for immunization; I25.10 Atherosclerotic heart disease of native coronary artery without angina pectoris; K21.9 Gastro-esophageal reflux disease without esophagitis; I25.2 Old myocardial infarction; N40.0 Benign prostatic hyperplasia without lower urinary tract symptoms; E78.5 Hyperlipidemia, unspecified; I25.5 Ischemic cardiomyopathy; E11.9 Type 2 diabetes mellitus without complications; F32.A Depression, unspecified; E87.6 Hypokalemia; G30.9 Alzheimer's disease, unspecified; F02.80 Dementia in other diseases classified elsewhere, unspecified severity, without behavioral disturbance, psychotic disturbance, mood disturbance, and anxiety; E55.9 Vitamin D deficiency, unspecified; Z95.810 Presence of automatic (implantable) cardiac defibrillator; Z79.899 Other long term (current) drug therapy; Z79.82 Long term (current) use of aspirin; Z79.02 Long term (current) use of antithrombotics/antiplatelets; Z87.891 Personal history of nicotine dependence
CPT/HCPCS: 0004A; 36415; 71046; 74018; 80048; 81001; 82962; 85025; 87086; 87426; 91300; 92507; 92523; 97110; 97116; 97162; 97166; 97530; 97535; 97802; G0008; J7040; 90686; A4216

== ENCOUNTER → 2021-05-12 08:11 | Outpatient (CLI) | payer MEDICARE, SELFPAY ==
[2017-10-25 15:17] VITALS: BMI 26.6
--- NOTE | 2021-05-12 08:35 | CT_ITS ---
STUDY: CT BRAIN WITHOUT CONTRAST REASON FOR EXAM: Male, 81 years old. CHANGE IN COGNITION RADIATION DOSAGE (If Supplied By Facility): CTDIvol = ( 44.99 ) mGy, DLP = ( 846.73 ) mGycm TECHNIQUE: Transaxial CT imaging of the brain was performed without administration of intravenous contrast material. Individualized dose optimization techniques were used for this CT. COMPARISON: 09/05/2020 FINDINGS: Normal soft tissue structures. Normal calvarium. There is mild cerebral atrophy with widening of the extra-axial spaces and ventricular dilatation. There are areas of decreased attenuation within the white matter tracts of the supratentorial brain, consistent with microvascular disease changes. Normal basal ganglia and thalami. Normal brainstem. Normal cerebellum. There is no intracranial hemorrhage. There are no findings of an acute ischemic infarction. Normal visualized paranasal sinuses. CT/Brain/Head without Contrast IMPRESSION: No acute intracranial hemorrhage or mass effect. Central parenchymal volume loss. White matter changes that are nonspecific but most commonly associated with chronic small vessel ischemic disease. Electronically Signed: Arnav Krishnamurthy MD ([place]) at 9:21 EDT , Service support ,
== END ==
PROVIDERS: PCP Family Medicine Geriatric Medicine; Referring Provider Family Medicine Geriatric Medicine; Visit Provider Family Medicine Geriatric Medicine
DX: R41.89 Other symptoms and signs involving cognitive functions and awareness (principal)
CPT/HCPCS: 70450